=== PATIENT | female | born 1965 | race Caucasian/White ===

== ENCOUNTER 2017-03-25 20:30 | Inpatient (IN) | payer MEDICARE ==
[~2017-03-25] VITALS: Ht 162.6 cm; Wt 101.6 kg
[~2017-03-25 20:30] MED LIST: AMOXICILLI200 MG/5 M PO; ATARAX25 MG ORAL; ATIVAN1 MG ORAL; ATIVAN2 MG/ML IM; ATORVASTATIN CA10 MG ORAL; ATROVENT HFA12.9 GM IH; BENADRYL A12.5 MG/5 ORAL; BENADRYL50 MG ORAL; CEPHALEXIN500 MG ORAL; COGENTIN1 MG ORAL; COLACE100 MG ORAL; CYCLOBENZAPRINE10 MG ORAL; DEPAKOTE250 MG PO; DEPAKOTE500 MG PO; DOCUSATE SODIU100 MG ORAL; DULCOLAX10 MG RC; DUONEB 0.5-3(2.53 ML HHN; FLEET ENEMA133 ML RECTAL; HALOPERIDOL0.5 MG; HALOPERIDOL1 MG ORAL; HEPARIN SO5000 UNIT2 SUBQ; IBUPROFEN600 MG ORAL; IPRATROPIUM BROM5 GM MC; KEPPRA500 MG ORAL; KLONOPIN1 MG ORAL; LACTULOSE20 GM/301 ORAL; LEVAQUIN500 MG ORAL; LEVETIRACE100 MG/1 M PO; LEXAPRO10 MG ORAL; LORAZEPAM2 MG/1 M1 IV; MAALOX MAXIMUM355 M1 PO; MAXITROL EYE DRO5 ML OP; MILK OF MA400 MG/51 ORAL; MIRALAX17 G2 ORAL; MORPHINE 11 MG/1 M3 IV; MORPHINE S10 MG/0.5 PO; MYLANTA30 M1 ORAL; NOVOLOG100 UNIT/3 SUBQ; QUETIAPINE FUMA50 MG ORAL; RANITIDINE HCL150 M1 ORAL; RESTORIL15 MG ORAL; SEROQUEL200 MG ORAL; SOLUMEDROL IV; TOPIRAMATE100 MG ORAL; TOPIRAMATE25 MG ORAL; TRAMADOL HCL50 MG ORAL; TRAZODONE HCL150 MG ORAL; TYLENOL650 MG/20. ORAL; VENTOLIN HFA18 GM INH; ZOFRAN4 M1 ORAL
[2017-03-25 20:40] VITALS: BP 111/68
[2017-03-25] MEDS ORDERED: LORazepam Inj 2mg/ml 1ml IV ONE (21:00)
[2017-03-25 21:59] LABS: BASOPHILS % (AUTO) 1.3 % (0.0-2.0); LYMPHOCYTES % (AUTO) 36.8 % (20.0-45.0); MEAN CORPUSCULAR HEMOGLOBIN 29.3 PG (27.0-31.0); MEAN CORPUSCULAR HGB CONC 33.9 G/DL (32.0-36.0); MEAN CORPUSCULAR VOLUME 86 FL (80-99); MEAN PLATELET VOLUME 5.7 FL (6.5-10.1); MONOCYTES % (AUTO) 9.3 % (1.0-10.0); NEUTROPHILS % (AUTO) 52.6 % (45.0-75.0); PLATELET COUNT 299 K/UL (150-450); RED BLOOD COUNT 3.58 M/UL (4.20-5.40); RED CELL DISTRIBUTION WIDTH 13.9 % (11.6-14.8)
[2017-03-25 22:11] LABS: ALANINE AMINOTRANSFERASE 24 U/L (3-33); ALBUMIN/GLOBULIN RATIO 1.2 (1.0-2.7); ANION GAP 11 (5-15); ASPARTATE AMINO TRANSFERASE 23 U/L (5-40); CARBON DIOXIDE 27 mEQ/L (20-30); CHLORIDE 100 mEQ/L (98-107); CREATININE 1.2 mg/dL (0.5-0.9); GLOMERULAR FILTRATION RATE 47.2 mL/min (>60); HEMOLYSIS 22; POTASSIUM 3.8 mEQ/L (3.4-4.9); SODIUM 138 mEQ/L (135-145); TOTAL PROTEIN 7.2 g/dL (6.6-8.7)
[2017-03-25] MEDS ORDERED: CRANBERRY405 M1 PO (22:45)
[2017-03-25] MEDS ORDERED: VITAMIN D31000 UNI3 PO (22:45)
[2017-03-25] MEDS ORDERED: BENZTROPINE ME0.5 MG PO (22:45)
[2017-03-25] MEDS ORDERED: CALCIUM CARBON500 M1 PO (22:45)
[2017-03-25] MEDS ORDERED: NEURONTIN400 MG ORAL (22:45)
[2017-03-25] MEDS ORDERED: PHENOBARBITAL30 MG ORAL (22:49)
[2017-03-25] MEDS ORDERED: LACTULOSE20 GM/301 ORAL (22:49)
[2017-03-25] MEDS ORDERED: MULTIVITAMINS1 EAC2 ORAL (22:49)
[2017-03-25] MEDS ORDERED: PROTONIX40 MG ORAL (22:49)
[2017-03-25] MEDS ORDERED: KEPPRA1000 MG ORAL (22:49)
[2017-03-25] MEDS ORDERED: AFRIN NASAL SPR30 ML NASAL (22:49)
[2017-03-25] MEDS ORDERED: TOPIRAMATE100 MG ORAL (22:49)
[2017-03-25] MEDS ORDERED: METFORMIN HCL500 M1 ORAL (22:49)
[2017-03-25 22:51] VITALS: BP 107/59
[2017-03-25] MEDS ORDERED: ZOFRAN4 M1 ORAL (22:59)
[2017-03-25] MEDS ORDERED: DUONEB 0.5-3(2.53 ML HHN (22:59)
[2017-03-25] MEDS ORDERED: GUAIFENESI100 MG/5 M ORAL (22:59)
[2017-03-25] MEDS ORDERED: LYRICA75 M1 ORAL (22:59)
[2017-03-25] MEDS ORDERED: Zolpidem 5mg tab ORAL PRN (23:00)
[2017-03-25] MEDS ORDERED: LORazepam Inj 2mg/ml 1ml IV PRN (23:00)
[2017-03-25] MEDS ORDERED: Mylanta II UD 30ml ORAL PRN (23:00)
[2017-03-25] MEDS ORDERED: Miralax 17gm pkt ORAL PRN (23:00)
[2017-03-26] VITALS (7 sets, daily range): BP systolic 104–132; BP diastolic 62–77
--- NOTE | 2017-03-26 | Emergency Room Report ---
History of Present Illness General Chief Complaint: Seizure Source: Patient, EMS Present Illness HPI Patient is a 52-year-old female who presented after increased seizure activity. Patient was noted to have a prior history of seizure disorder. Patient was noted to be on him multiple medications for seizures which included phenobarbital. The patient was reportedly compliant with her medications. Patient stays at [facility]. She denied any fever. She reported having bilateral lower extremity pain which he described as crampy in nature. She stated this had been present for several months. Allergies: Coded Allergies: ACETAMINOPHEN (Verified Allergy, Unknown, 07/22/14) ASPIRIN (Verified Allergy, Unknown, ITCHING, 07/22/14) AZITHROMYCIN (Verified Allergy, Unknown, 07/22/14) COPIED FROM UNCODED CODEINE (Verified Allergy, Unknown, 07/22/14) ERYTHROMYCIN BASE (Verified Allergy, Unknown, 07/22/14) FISH CONTAINING PRODUCTS (Verified Allergy, Unknown, 07/22/14) HYDROCODONE (Verified Allergy, Unknown, 07/22/14) IODINE (Verified Allergy, Unknown, 07/22/14) MIDAZOLAM (Verified Allergy, Unknown, 07/22/14) MILK (Verified Allergy, Unknown, 07/22/14) PROPOXYPHENE (Verified Allergy, Unknown, 07/22/14) COPIED FROM UNCODED SULFA (SULFONAMIDE ANTIBIOTICS) (Verified Allergy, Unknown, 07/22/14) COPIED FROM UNCODED SULFACETAMIDE (Unverified Allergy, Unknown, 03/25/17) SUMATRIPTAN (Verified Allergy, Unknown, 07/22/14) TETRACYCLINE (Verified Allergy, Unknown, RASH, 07/22/14) TETRACYCLINES (Verified Allergy, Unknown, 07/22/14) COPIED FROM UNCODED TOMATO (Verified Allergy, Unknown, 07/22/14) according to pt "I will !".... Patient History Past Medical History: see triage record Now: No Reviewed Nursing Documentation: PMH: Agreed, PSxH: Agreed Nursing Documentation-PMH Hx Hypertension: Yes - Hyperlipidemia Hx Asthma: Yes Hx COPD: Yes Hx Diabetes: Yes - Type 2 Hx Cancer: No Hx Gastrointestinal Problems: Yes - gastroparesis, GERD History Of Psychiatric Problem: Yes - Schizophrenia, Depression, anxiety Hx Neurological Problems: Yes - Generalized weakness, neualgia, neuritis Hx Cerebrovascular Accident: No Hx Transient Ischemic Attacks: No Hx Dementia: No Hx Alzheimer's Disease: No Hx Parkinson's Disease: No Hx Meningitis: No Hx Encephalitis: No Hx Seizures: Yes - Epilepsy Hx Epilepsy: No Hx Multiple Sclerosis: No Hx Cerebral Palsy: No Hx Amyotrophic Lat Sclerosis: No Hx Guillian-Stoneham Syndrome: No Hx Paralysis: No Hx Peripheral Neuropathy: No Hx Spinal Cord Injury: No Hx Head Trauma: No Hx Traumatic Brain Injury: No Hx Memory Loss: Yes Hx Concentration Difficulty: No Hx Speech Problem: No Hx Tremors: No Hx Vertigo: No Hx Dizziness: No Hx Syncope: No Hx Headaches: No Hx Aphasia: No Hx Dysphasia: No Hx Numbness: No Hx Weakness: Yes Hx Fatigue: No Hx Neurologic Surgery: No Hx Brain Shunt: No Review of Systems All Other Systems: negative except mentioned in HPI Physical Exam Vital Signs Date Time Temp Pulse Resp B/P (MAP) Pulse Ox O2 Delivery O2 Flow Rate FiO2 03/25/17 20:22 98.4 81 14 115/80 95 Sp02 EP Interpretation: reviewed, normal General Appearance: normal inspection, well appearing, no apparent distress, alert, GCS 15 Head: atraumatic ENT: normal ENT inspection, hearing grossly normal, normal voice Neck: normal inspection, full range of motion, supple, no bony tend Respiratory: normal inspection, lungs clear, normal breath sounds, no respiratory distress, no retraction, no wheezing Cardiovascular #1: regular rate, rhythm, no edema Gastrointestinal: normal inspection, normal bowel sounds, non tender, soft, no guarding, no hernia Genitourinary: no CVA tenderness Musculoskeletal: decreased range of motion Neurologic: normal inspection, alert, responsive, speech normal, motor weakness - bilateral lower extremities Psychiatric: normal inspection, judgement/insight normal, mood/affect normal Skin: normal inspection, normal color, no rash Medical Decision Making Diagnostic Impression: Primary Impression: Seizure Additional Impressions: Chronic pain Seizure secondary to subtherapeutic anticonvulsant medication Patient presented for seizure. Differential diagnosis included medication noncompliance, cysticercosis, electrolyte abnormality, mass lesion, or cranial hemorrhage.Because of complexity of patient's case laboratory testing and imaging studies were ordered. Laboratory studies were notable for a slightly low phenobarbital level the patient given IV Ativan. Patient was subsequently noted to have some episode which appear to be somewhat like a seizure. This was not witnessed by me. The patient was given IV phenobarbital for subtherapeutic levelDr. Chuck Escamilla was contacted for inpatient management EKG Diagnostic Results Rate: normal Rhythm: NSR ST Segments: no acute changes Rhythm Strip Diag. Results EP Interpretation: yes Rhythm: NSR, no PVC's, no ectopy Last Vital Signs Date Time Temp Pulse Resp B/P (MAP) Pulse Ox O2 Delivery O2 Flow Rate FiO2 03/25/17 22:51 98.4 86 16 107/59 98 Status: unchanged Disposition: ADMITTED INPATIENT Condition: Serious Referrals: CHUCK ESCAMILLA (PCP) Hernandez Fleming Mar 26, 2017 00:00
[2017-03-26 00:41] LABS: APPEARANCE,URINE CLEAR; KETONES,URINE NEGATIVE (NEGATIVE); NITRITE,URINE NEGATIVE (NEGATIVE); PH,URINE 8 (4.5-8.0); PROTEIN,URINE NEGATIVE (NEGATIVE); UROBILINOGEN,URINE NORMAL MG/DL (0.0-1.0)
[2017-03-26 00:44] LABS: LEUKOCYTE ESTERASE ,URINE NEGATIVE (NEGATIVE)
[2017-03-26] MEDS: NovoLOG Insulin Flexpen SUBQ SCH ×4 (05:40→20:24)
[2017-03-26] MEDS: Lactulose 20gm/30ml UDC ORAL SCH (08:21)
[2017-03-26] MEDS: Lyrica 75mg cap ORAL SCH ×2 (08:23→17:28)
[2017-03-26] MEDS: Depakote 500mg tab ORAL SCH ×2 (08:23→20:22)
[2017-03-26] MEDS: Heparin 5000 units/ml inj SUBQ SCH ×2 (08:24→20:23)
[2017-03-26] MEDS: Cyclobenzaprine 10mg Tab ORAL SCH (08:24)
[2017-03-26] MEDS ORDERED: PHENobarbital 32.4mg tab ORAL SCH (09:00)
[2017-03-26 09:25] LABS: BASOPHILS % (AUTO) 0.9 % (0.0-2.0); EOSINOPHILS % (AUTO) 0.1 % (0.0-3.0); LYMPHOCYTES % (AUTO) 24.4 % (20.0-45.0); MEAN CORPUSCULAR HGB CONC 31.2 G/DL (32.0-36.0); MEAN CORPUSCULAR VOLUME 86 FL (80-99); MEAN PLATELET VOLUME 5.8 FL (6.5-10.1); MONOCYTES % (AUTO) 7.9 % (1.0-10.0); NEUTROPHILS % (AUTO) 66.7 % (45.0-75.0); PLATELET COUNT 362 K/UL (150-450); RED CELL DISTRIBUTION WIDTH 13.7 % (11.6-14.8); WHITE BLOOD COUNT 7.1 K/UL (4.8-10.8)
[2017-03-26] MEDS: PHENobarbital 32.4mg tab ORAL SCH ×2 (09:36→20:21)
[2017-03-26 09:48] LABS: ALANINE AMINOTRANSFERASE 22 U/L (3-33); ANION GAP 14 (5-15); ASPARTATE AMINO TRANSFERASE 20 U/L (5-40); CALCIUM 9.3 mg/dL (8.6-10.2); CARBON DIOXIDE 24 mEQ/L (20-30); CHLORIDE 104 mEQ/L (98-107); CREATININE 0.9 mg/dL (0.5-0.9); GLOMERULAR FILTRATION RATE > 60 mL/min (>60); HEMOLYSIS 0; POTASSIUM 3.9 mEQ/L (3.4-4.9); SODIUM 142 mEQ/L (135-145); TOTAL PROTEIN 7.9 g/dL (6.6-8.7)
--- NOTE | 2017-03-26 11:12 | Consultation ---
Consult Note Consult Note NEUROLOGY CONSULTATION: Full note dictated #[id number] 52 y/o, RH, CF with PH of MMP including seizures - which she says are grand mal and pseudoseizures. Has seizures every 2 weeks or so. ON EXAM: Problems with orientation, memory, VSF, HCF Globally absent reflexes. Unable to walk as she is scared. IMPRESSION: Breakthrough seizures in patient on poly pharmacy. REC: 1. Increase Keppra to 1.5 G q 12 hours. 2. Check Depakote level and adjust dose to aim for level of 70-90. 3. EEG Gino Davis M.D., M.S.P.H. GINO DAVIS Mar 26, 2017 11:12
--- NOTE | 2017-03-26 13:41 | Cardiology Report ---
APPROVED REPORT EKG Measurement Heart [id number] Normal sinus rhythm Low voltage QRS Cannot rule out Anterior infarct, age undetermined Abnormal ECG
--- NOTE | 2017-03-26 15:25 | Consultation ---
History of Present Illness General Date patient seen: Mar 26, 2017 Chief Complaint: Seizure Reason for Consultation: inpatient management Present Illness HPI 52-year-old female with pmhx of seizures, jail resident, fibromyalgia, Asthma presented to ER with CC of increased seizure activity. Patient was noted to have a prior history of seizure disorder. Patient was noted to be on him multiple medications for seizures which included phenobarbital. She denied any fever. She reported having bilateral lower extremity pain which he described as crampy in nature. She stated this had been present for several months. She is admitted for treatment of her uncontrolled seizures. Allergies: Coded Allergies: ACETAMINOPHEN (Verified Allergy, Unknown, 07/22/14) ASPIRIN (Verified Allergy, Unknown, ITCHING, 07/22/14) AZITHROMYCIN (Verified Allergy, Unknown, 07/22/14) COPIED FROM UNCODED CODEINE (Verified Allergy, Unknown, 07/22/14) ERYTHROMYCIN BASE (Verified Allergy, Unknown, 07/22/14) FISH CONTAINING PRODUCTS (Verified Allergy, Unknown, 07/22/14) HYDROCODONE (Verified Allergy, Unknown, 07/22/14) IODINE (Verified Allergy, Unknown, 07/22/14) MIDAZOLAM (Verified Allergy, Unknown, 07/22/14) MILK (Verified Allergy, Unknown, 07/22/14) PROPOXYPHENE (Verified Allergy, Unknown, 07/22/14) COPIED FROM UNCODED SULFA (SULFONAMIDE ANTIBIOTICS) (Verified Allergy, Unknown, 07/22/14) COPIED FROM UNCODED SULFACETAMIDE (Unverified Allergy, Unknown, 03/25/17) SUMATRIPTAN (Verified Allergy, Unknown, 07/22/14) TETRACYCLINE (Verified Allergy, Unknown, RASH, 07/22/14) TETRACYCLINES (Verified Allergy, Unknown, 07/22/14) COPIED FROM UNCODED TOMATO (Verified Allergy, Unknown, 07/22/14) according to pt "I will !".... Medication History Scheduled Benztropine Mesylate* (Cogentin*), 1 MG PO BID, (Reported) Calcium Carbonate (Calcium Carbonate), 500 MG PO DAILY, (Reported) Cholecalciferol (Vitamin D3) (Vitamin D3), 1,000 UNIT PO BID, (Reported) Clonazepam* (Klonopin*), 1 MG ORAL TWICE A DAY, (Reported) Cranberry Extract (Cranberry), 405 MG PO BID, (Reported) Cyclobenzaprine Hcl* (Flexeril*), 10 MG ORAL DAILY, (Reported) Diphenhydramine HCl (Diphenhydramine HCl), 50 MG ORAL TID, (Reported) Divalproex Sodium (Depakote), 1,000 MG PO Q12HR, (Reported) Escitalopram Oxalate* (Lexapro*), 10 MG ORAL DAILY, (Reported) Gabapentin* (Neurontin*), 300 MG ORAL THREE TIMES A DAY, (Reported) Haloperidol* (Haldol*), 10 MG ORAL TID, (Reported) Ipratropium/Albuterol Sulfate (DuoNeb 0.5-3(2.5)mg/3ml), 3 ML HHN Q6HR, ( Reported) Lactulose (Lactulose*), 30 ML ORAL DAILY, (Reported) Levetiracetam (Keppra), 1,500 MG ORAL EVERY 12 HOURS, (Reported) Levetiracetam (Keppra), 1,250 MG ORAL Q12HR, (Reported) Levofloxacin* (Levaquin*), 500 MG ORAL DAILY, (Reported) Metformin Hcl* (Metformin Hcl*), 500 MG ORAL TWICE A DAY, (Reported) Multivitamins* (Multivitamins*), 1 TAB ORAL DAILY, (Reported) Damion/Polymyx B Sulf/Dexameth (Maxitrol Eye Drops), 5 ML OP Q4HR Oxymetazoline HCl (Afrin), 2 SPRAY NASAL TWICE A DAY, (Reported) Pantoprazole* (Protonix*), 40 MG ORAL DAILY, (Reported) Phenobarbital* (Phenobarbital*), 30 MG ORAL Q12HR, (Reported) Pregabalin* (Lyrica*), 75 MG ORAL BID, (Reported) Quetiapine Fumarate* (Seroquel*), 300 MG ORAL QHS, (Reported) Topiramate* (Topamax*), 100 MG ORAL Q12HR, (Reported) Topiramate* (Topamax*), 150 MG ORAL DAILY, (Reported) Trazodone* (Trazodone*), 100 MG ORAL BEDTIME, (Reported) Scheduled PRN Guaifenesin* (Guaifenesin), 10 ML ORAL Q4H PRN for For Cough, (Reported) Hydroxyzine HCl (Hydroxyzine HCl), 25 MG ORAL Q8HR PRN for Itching, (Reported) Lorazepam (Lorazepam), 2 MG IM Q4H PRN for Agitation, (Reported) Magnesium Hydroxide* (Milk Of Magnesia*), 30 ML ORAL DAILY PRN for Constipation, (Reported) Ondansetron (Zofran), 4 MG ORAL Q6H PRN for Nausea & Vomiting, (Reported) Ondansetron (Zofran), 4 MG ORAL Q4HR PRN for Nausea & Vomiting, (Reported) Polyethylene Glycol 3350* (Miralax*), 17 GM ORAL QHS PRN for CONSTIPATION, ( Reported) Tramadol Hcl* (Ultram*), 50 MG ORAL Q8HR PRN for Moderate Pain (Pain Scale 4-6), (Reported) Miscellaneous Medications Insulin Aspart* (Novolog*), 0 SUBQ, (Reported) Patient History Healthcare decision maker Resuscitation status Full Code Advanced Directive on File No Past Medical/Surgical History Past Medical/Surgical History: (1) Seizure (2) Fibromyalgia (3) History of ESBL E. 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, no motor/sensory deficits Lymphatic: anterior cervical Last 24 Hour Vital Signs Date Time Temp Pulse Resp B/P (MAP) Pulse Ox O2 Delivery O2 Flow Rate FiO2 03/26/17 11:52 97.9 84 19 127/70 95 Room Air 03/26/17 10:35 97.3 03/26/17 09:22 97.3 03/26/17 09:22 97.3 03/26/17 08:26 97.3 84 20 129/73 95 Room Air 03/26/17 00:42 97.9 86 20 109/66 95 Room Air 03/26/17 00:15 98.5 89 16 104/62 98 Room Air 03/26/17 00:15 98.5 89 16 104/62 98 Room Air 03/25/17 22:51 98.4 86 16 107/59 98 03/25/17 20:40 81 14 Room Air 03/25/17 20:40 98.4 81 14 111/68 95 Room Air 03/25/17 20:22 98.4 81 14 115/80 95 Intake and Output 03/26/17 03/27/17 19:00 07:00 # Bowel Movements 2 Laboratory Tests Test 03/25/17 21:50 03/26/17 00:05 03/26/17 08:50 White Blood Count 8.0 K/UL (4.8-10.8) 7.1 K/UL (4.8-10.8) Red Blood Count 3.58 M/UL (4.20-5.40) L 4.40 M/UL (4.20-5.40) Hemoglobin 10.5 G/DL (12.0-16.0) L 11.9 G/DL (12.0-16.0) L Hematocrit 30.9 % (37.0-47.0) L 38.0 % (37.0-47.0) Mean Corpuscular Volume 86 FL (80-99) 86 FL (80-99) Mean Corpuscular Hemoglobin 29.3 PG (27.0-31.0) 27.0 PG (27.0-31.0) Mean Corpuscular Hemoglobin Concent 33.9 G/DL (32.0-36.0) 31.2 G/DL (32.0-36.0) L Red Cell Distribution Width 13.9 % (11.6-14.8) 13.7 % (11.6-14.8) Platelet Count 299 K/UL (150-450) 362 K/UL (150-450) Mean Platelet Volume 5.7 FL (6.5-10.1) L 5.8 FL (6.5-10.1) L Neutrophils (%) (Auto) 52.6 % (45.0-75.0) 66.7 % (45.0-75.0) Lymphocytes (%) (Auto) 36.8 % (20.0-45.0) 24.4 % (20.0-45.0) Monocytes (%) (Auto) 9.3 % (1.0-10.0) 7.9 % (1.0-10.0) Eosinophils (%) (Auto) 0.0 % (0.0-3.0) 0.1 % (0.0-3.0) Basophils (%) (Auto) 1.3 % (0.0-2.0) 0.9 % (0.0-2.0) Sodium Level 138 mEQ/L (135-145) 142 mEQ/L (135-145) Potassium Level 3.8 mEQ/L (3.4-4.9) 3.9 mEQ/L (3.4-4.9) Chloride Level 100 mEQ/L (98-107) 104 mEQ/L (98-107) Carbon Dioxide Level 27 mEQ/L (20-30) 24 mEQ/L (20-30) Anion Gap 11 (5-15) 14 (5-15) Blood Urea Nitrogen 26 mg/dL (7-23) H 25 mg/dL (7-23) H Creatinine 1.2 mg/dL (0.5-0.9) H 0.9 mg/dL (0.5-0.9) Estimat Glomerular Filtration Rate 47.2 mL/min (>60) > 60 mL/min (>60) Glucose Level 188 mg/dL (74-106) H 210 mg/dL (74-106) H Calcium Level 9.0 mg/dL (8.6-10.2) 9.3 mg/dL (8.6-10.2) Total Bilirubin < 0.2 mg/dL (0.0-1.2) < 0.2 mg/dL (0.0-1.2) Aspartate Amino Transf (AST/SGOT) 23 U/L (5-40) 20 U/L (5-40) Alanine Aminotransferase (ALT/SGPT) 24 U/L (3-33) 22 U/L (3-33) Alkaline Phosphatase 140 U/L (35-104) H 148 U/L (35-104) H Total Protein 7.2 g/dL (6.6-8.7) 7.9 g/dL (6.6-8.7) Albumin 4.0 g/dL (3.5-5.2) 4.1 g/dL (3.5-5.2) Globulin 3.2 g/dL 3.8 g/dL Albumin/Globulin Ratio 1.2 (1.0-2.7) 1.0 (1.0-2.7) Phenobarbital Level 9.1 ug/mL (20.0-40.0) L Urine Color Yellow Urine Appearance Clear Urine pH 8 (4.5-8.0) Urine Specific [place] 1.010 (1.005-1.035) Urine Protein Negative (NEGATIVE) Urine Glucose (UA) Negative (NEGATIVE) Urine Ketones Negative (NEGATIVE) Urine Occult Blood Negative (NEGATIVE) Urine Nitrite Negative (NEGATIVE) Urine Bilirubin Negative (NEGATIVE) Urine Urobilinogen Normal MG/DL (0.0-1.0) Urine Leukocyte Esterase Negative (NEGATIVE) Height (Feet): 5 Height (Inches): 4.00 Weight (Pounds): 224 Medications Current Medications Medications (Trade) Dose Ordered Sig/Robb Route PRN Reason Start Time Stop Time Status Last Admin Dose Admin Acetaminophen (Tylenol) 650 mg Q4H PRN ORAL fever 03/25/17 23:00 04/24/17 22:59 03/26/17 09:36 Al Hydroxide/Mg Hydroxide (Mylanta II) 30 ml Q6H PRN ORAL dyspepsia 03/25/17 23:00 04/24/17 22:59 Cyclobenzaprine HCl (Flexeril) 10 mg DAILY ORAL 03/26/17 09:00 04/25/17 08:59 03/26/17 08:24 Dextrose (Dextrose 50%) STAT PRN IV Hypoglycemia 03/25/17 23:00 04/24/17 22:59 Divalproex Sodium (Depakote) 1,000 mg Q12HR ORAL 03/26/17 09:00 04/25/17 08:59 03/26/17 08:23 Escitalopram Oxalate (Lexapro) 10 mg DAILY ORAL 03/26/17 09:00 04/25/17 08:59 03/26/17 08:22 Gabapentin (Neurontin) 300 mg THREE TIMES A DAY ORAL 03/26/17 09:00 04/25/17 08:59 03/26/17 12:52 Haloperidol (Haldol) 10 mg TID ORAL 03/26/17 09:00 04/25/17 08:59 03/26/17 12:52 Heparin Sodium (Porcine) (Heparin 5000 units/ml) 5,000 units EVERY 12 HOURS SUBQ 03/26/17 09:00 04/25/17 08:59 Insulin Aspart (NovoLOG) BEFORE MEALS AND HS SUBQ 03/26/17 06:30 04/25/17 06:29 03/26/17 05:40 Lactulose (Cephulac) 20 gm DAILY ORAL 03/26/17 09:00 04/25/17 08:59 03/26/17 08:21 Levetiracetam (Keppra) 1,500 mg Q12HR ORAL 03/26/17 21:00 04/25/17 20:59 Lorazepam (Ativan 2mg/ml 1ml) 2 mg Q1H PRN IV seizures 03/25/17 23:00 04/01/17 22:59 Ondansetron HCl (Zofran) 4 mg Q6H PRN IVP Nausea & Vomiting 03/25/17 23:00 04/24/17 22:59 Pantoprazole (Protonix) 40 mg DAILY ORAL 03/26/17 09:00 04/25/17 08:59 03/26/17 08:24 Phenobarbital (PHENobarbital) 32.4 mg Q12HR ORAL 03/26/17 09:00 04/25/17 08:59 03/26/17 09:36 Polyethylene Glycol (Miralax) 17 gm HSPRN PRN ORAL Constipation 03/25/17 23:00 04/24/17 22:59 Pregabalin (Lyrica) 75 mg BID ORAL 03/26/17 09:00 04/25/17 08:59 03/26/17 08:23 Quetiapine Fumarate (SEROquel) 300 mg QHS ORAL 03/26/17 21:00 04/25/17 20:59 Trazodone HCl (Desyrel) 100 mg BEDTIME ORAL 03/26/17 21:00 04/25/17 20:59 Zolpidem Tartrate (Ambien) 5 mg HSPRN PRN ORAL Insomnia 03/25/17 23:00 04/24/17 22:59 03/26/17 02:26 Assessment/Plan Problem List: (1) Seizure ICD Codes: R56.9 - Unspecified convulsions SNOMED: 22797670 (2) Fibromyalgia ICD Codes: M79.7 - Fibromyalgia SNOMED: 403193065 (3) Dermatitis ICD Codes: L30.9 - Dermatitis SNOMED: 324524006 (4) Chronic pain ICD Codes: G89.29 - Other chronic pain SNOMED: 67431992 (5) History of asthma ICD Codes: Z87.09 - Personal history of other diseases of the respiratory system SNOMED: 018420309 Assessment/Plan seizure precautions neuro evaluation pt/ot continue seizure meds respiratory treatment dvt prophylaxis. ZITA MANDEL Mar 26, 2017 15:25
[2017-03-26] MEDS ORDERED: TraZODone 100mg tab ORAL SCH (21:00)
[2017-03-27] VITALS: BP 118/75
[2017-03-27] MEDS: LORazepam 1mg tab ORAL PRN ×2 (00:35→14:23)
[2017-03-27 04:00] VITALS: BP 112/66
--- NOTE | 2017-03-27 05:01 | Consultation ---
DATE OF CONSULTATION: 03/26/2017 NEUROLOGY CONSULTATION CONSULTING PHYSICIAN: Scooter Davis M.D. REQUESTING PHYSICIAN: Scott Samson D.O. HISTORY: Ms. 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 She says that when she has a seizure, she shakes all over. At times, she is unconscious when she has these events and at other times, she is conscious. She has been on multiple different drugs for her seizures and continues to be on numerous drugs, but continues to have the seizures every two weeks or so. She apparently had seizures yesterday and as a result of that, was brought into the [facility] emergency room and has been admitted since then. She denies any weakness on one side or the other, numbness on one side or the other, problems with speech, problems with language, problems with vision, or any other neurological symptoms. PAST MEDICAL HISTORY: Significant for high blood pressure, diabetes mellitus, dyslipidemia, chronic obstructive pulmonary disease, schizoaffective disorder, and poorly defined seizure disorder. FAMILY HISTORY: The patient says that she was adopted and does not know if there is any family history of any illnesses. PERSONAL HISTORY: Home: She lives in a skilled nursing. 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 Habits: She denies the use of alcohol, tobacco, or illicit drugs. PRESENT MEDICATIONS: Seroquel, Desyrel, Flexeril, Depakote 1 g q.12 hours, Lexapro, Neurontin 300 mg three times a day, Haldol, lactulose, Keppra 1250 mg twice a day, pantoprazole, Lyrica 75 mg twice a day, phenobarbital 30 mg twice a day, Mylanta, Ambien, Ativan p.r.n., Zofran p.r.n., MiraLAX p.r.n., and Tylenol p.r.n. PHYSICAL EXAMINATION: GENERAL: She is a well-developed, well-nourished, obese lady, lying in bed, in no acute distress. VITAL SIGNS: Pulse 84 per minute, blood pressure 129/73 mmHg, respirations 20 per minute, and temperature 97.3 degrees Fahrenheit. HEAD: Normocephalic and atraumatic. EENT: Examination benign. NECK: No neck rigidity was observed. NEUROLOGIC EXAMINATION: MENTAL STATUS EXAMINATION: She was awake and alert. She was oriented to [facility], [facility], and March 2017. She did not know the exact date. She was able to recall 3/3 words immediately, but could only remember 2/3 words in 1 minute and 3 minutes even on the second trial. She was able to remember presidents, Trump and Obama, but could not remember presidents prior to that. Her mathematical skills were impaired. Her visuospatial function was also impaired. SPEECH: She had a mild dysarthria, but it should be noted that most of her teeth were missing. LANGUAGE: She had an anomia for low-frequency words. CRANIAL NERVE EXAMINATION: II: The visual maxwell were intact to confrontation testing frequent. III, IV & : The external ocular movements were full and the pupils 3 mm in diameter, equal, round, regular, and reactive to light. V: She had normal facial sensations and the temporales, masseters, and pterygoids functioned normally. VII: She had normal facial expressions and no facial asymmetry. VIII: She was able to hear well bilaterally and had no nystagmus. IX: The palate moved symmetrically on phonation. X: She had no hoarseness of voice. XI: The sternocleidomastoids and trapezii functioned normally. XII: The tongue was in the midline without any fasciculations or atrophy. MOTOR SYSTEM: The tone was normal in all four extremities. Examination of muscle mass revealed no focal wasting. Examination of power was exceedingly difficult to perform because of varying degrees of cooperation. She, however, moved all four extremities relatively well with relatively good strength. SENSORY EXAMINATION: She had intact sensations to pinprick, light touch, and graphesthesia. COORDINATION: She performed well on [id number] and [id number] testing. REFLEXES: 0 at the biceps, triceps, brachioradialis, knees, and ankles. The plantar responses were flexor bilaterally. STANCE & GAIT: Could not be tested because she felt very scared to stand up and walk. DIAGNOSTIC IMPRESSION: 1. Ms. Kristin Almonte is a 52-year-old, right-handed, lady, with a past history of multiple medical problems including a seizure disorder, which she says consists of grand mal seizures and pseudoseizures. She has seizures every two weeks or so and presented to the emergency room with an exacerbation of seizures. 2. On neurological examination, at this time, she does have problems with orientation, recent and remote memory, visuospatial function, and higher cognitive function. She also has globally absent deep tendon reflexes and is scared to stand and walk. 3. Her latest laboratory data revealed that she does have mild anemia with a hemoglobin of 11.9, blood glucose is elevated to 210, BUN is elevated to 25, her alkaline phosphatase is elevated to 148, her phenobarbital level is 9.1, however it should be noted that she is taking small doses of phenobarbital, and her urinalysis is benign for an acute infectious process. 4. The patient's history and neurological examination are most compatible with breakthrough seizures in a patient, who is on polypharmacy for her seizure control. RECOMMENDATIONS: 1. Agree with management thus far. 2. Her dose of Keppra will be increased to 1.5 g q.12 hours. 3. Her Depakote level will be checked and depending on what the Depakote level is, the dose may have to be adjusted. We should aim for a level of between 70 and 90 mcg/mL. 4. An EEG will be ordered to evaluate the patient for ongoing ictal or interictal phenomena. 5. The patient should be mobilized rapidly with the help of physical and occupational therapy. Thank you for entrusting me with the care of Ms. Almonte. I shall follow her with you. Scooter Davis M.D., M.S.P.H. DR: ELIANA JOB#: [id number]
[2017-03-27 06:02] LABS: BASOPHILS % (AUTO) 1.2 % (0.0-2.0); EOSINOPHILS % (AUTO) 0.1 % (0.0-3.0); LYMPHOCYTES % (AUTO) 36.3 % (20.0-45.0); MEAN CORPUSCULAR HEMOGLOBIN 27.6 PG (27.0-31.0); MEAN CORPUSCULAR VOLUME 86 FL (80-99); MEAN PLATELET VOLUME 5.8 FL (6.5-10.1); MONOCYTES % (AUTO) 10.6 % (1.0-10.0); NEUTROPHILS % (AUTO) 51.8 % (45.0-75.0); PLATELET COUNT 338 K/UL (150-450); RED BLOOD COUNT 4.11 M/UL (4.20-5.40); RED CELL DISTRIBUTION WIDTH 13.9 % (11.6-14.8); WHITE BLOOD COUNT 6.2 K/UL (4.8-10.8)
[2017-03-27] MEDS: NovoLOG Insulin Flexpen SUBQ SCH ×3 (06:08→17:09)
[2017-03-27 06:42] LABS: ANION GAP 12 (5-15); CARBON DIOXIDE 26 mEQ/L (20-30); CHLORIDE 102 mEQ/L (98-107); CREATININE 0.9 mg/dL (0.5-0.9); GLOMERULAR FILTRATION RATE > 60 mL/min (>60); HEMOLYSIS 7; POTASSIUM 4.4 mEQ/L (3.4-4.9); SODIUM 140 mEQ/L (135-145)
[2017-03-27 08:16] VITALS: BP 116/76
--- NOTE | 2017-03-27 08:46 | Pulmonology Progress Note ---
Assessment/Plan Assessment/Plan ASSESSMENT breakthrough seizure episode seizure disorder anemia DM COPD chronic liver disease schizophrenia polypharmacy ( multiple anticonvulsant medications) noncompliance PLAN OF CARE [facility] floor neuro follows dose of Keppra increased Depakote level-therapeutic EEG done, awaiting for results seizure precautions continue Depakote, Pheno, Keppra, Ativan prn PT/OT O2 HHN prn no evidence of COPD exacerbation HH stable, at baseline, monitor LFT stable BS management with SS of insulin, stable DVT, GI prophylaxis dc plan as per PMD when cleared by neuro case discussed and evaluated by supervising physician Subjective Allergies: Coded Allergies: ACETAMINOPHEN (Verified Allergy, Unknown, 07/22/14) ASPIRIN (Verified Allergy, Unknown, ITCHING, 07/22/14) AZITHROMYCIN (Verified Allergy, Unknown, 07/22/14) COPIED FROM UNCODED CODEINE (Verified Allergy, Unknown, 07/22/14) ERYTHROMYCIN BASE (Verified Allergy, Unknown, 07/22/14) FISH CONTAINING PRODUCTS (Verified Allergy, Unknown, 07/22/14) HYDROCODONE (Verified Allergy, Unknown, 07/22/14) IODINE (Verified Allergy, Unknown, 07/22/14) MIDAZOLAM (Verified Allergy, Unknown, 07/22/14) MILK (Verified Allergy, Unknown, 07/22/14) PROPOXYPHENE (Verified Allergy, Unknown, 07/22/14) COPIED FROM UNCODED SULFA (SULFONAMIDE ANTIBIOTICS) (Verified Allergy, Unknown, 07/22/14) COPIED FROM UNCODED SULFACETAMIDE (Unverified Allergy, Unknown, 03/25/17) SUMATRIPTAN (Verified Allergy, Unknown, 07/22/14) TETRACYCLINE (Verified Allergy, Unknown, RASH, 07/22/14) TETRACYCLINES (Verified Allergy, Unknown, 07/22/14) COPIED FROM UNCODED TOMATO (Verified Allergy, Unknown, 07/22/14) according to pt "I will !".... Subjective no further seizure activity denies chest pain, SOB, dizziness ambulates to the bathroom EEG completed last night Objective Last 24 Hour Vital Signs Date Time Temp Pulse Resp B/P (MAP) Pulse Ox O2 Delivery O2 Flow Rate FiO2 03/27/17 08:16 98.0 87 20 116/76 95 Room Air 03/27/17 04:00 97.2 72 18 112/66 94 Room Air 03/27/17 01:34 97.7 03/27/17 00:00 97.7 75 18 118/75 96 Room Air 03/26/17 20:00 98.2 78 18 123/77 96 Room Air 03/26/17 19:47 97.8 03/26/17 18:27 97.8 03/26/17 15:33 97.8 87 20 132/70 97 Room Air 03/26/17 11:52 97.9 84 19 127/70 95 Room Air 03/26/17 09:22 97.3 General Appearance: no acute distress HEENT: normocephalic, atraumatic, anicteric, mucous membranes moist Respiratory/Chest: lungs clear, no respiratory distress, no accessory muscle use Cardiovascular: normal peripheral pulses, normal rate, no JVD Abdomen: normal bowel sounds, soft, non tender - obese Neurologic/Psychiatric: no motor/sensory deficits, alert, responsive Musculoskeletal: normal muscle bulk Laboratory Tests 03/26/17 08:50: White Blood Count 7.1, Red Blood Count 4.40, Hemoglobin 11.9L, Hematocrit 38.0, Mean Corpuscular Volume 86, Mean Corpuscular Hemoglobin 27.0, Mean Corpuscular Hemoglobin Concent 31.2L, Red Cell Distribution Width 13.7, Platelet Count 362, Mean Platelet Volume 5.8L, Neutrophils (%) (Auto) 66.7, Lymphocytes (%) (Auto) 24.4, Monocytes (%) (Auto) 7.9, Eosinophils (%) (Auto) 0.1, Basophils (%) (Auto ) 0.9, Sodium Level 142, Potassium Level 3.9, Chloride Level 104, Carbon Dioxide Level 24, Anion Gap 14, Blood Urea Nitrogen 25H, Creatinine 0.9, Estimat Glomerular Filtration Rate > 60, Glucose Level 210H, Calcium Level 9.3, Total Bilirubin < 0.2, Aspartate Amino Transf (AST/SGOT) 20, Alanine Aminotransferase (ALT/SGPT) 22, Alkaline Phosphatase 148H, Total Protein 7.9, Albumin 4.1, Globulin 3.8, Albumin/Globulin Ratio 1.0 03/27/17 05:20: White Blood Count 6.2, Red Blood Count 4.11L, Hemoglobin 11.4L, Hematocrit 35.5L , Mean Corpuscular Volume 86, Mean Corpuscular Hemoglobin 27.6, Mean Corpuscular Hemoglobin Concent 32.0, Red Cell Distribution Width 13.9, Platelet Count 338, Mean Platelet Volume 5.8L, Neutrophils (%) (Auto) 51.8, Lymphocytes ( %) (Auto) 36.3, Monocytes (%) (Auto) 10.6H, Eosinophils (%) (Auto) 0.1, Basophils (%) (Auto) 1.2, Sodium Level 140, Potassium Level 4.4, Chloride Level 102, Carbon Dioxide Level 26, Anion Gap 12, Blood Urea Nitrogen 24H, Creatinine 0.9, Estimat Glomerular Filtration Rate > 60, Glucose Level 134H, Calcium Level 9.0, Valproic Acid (Depakene) Level 63 Current Medications Medications (Trade) Dose Ordered Sig/Robb Route PRN Reason Start Time Stop Time Status Last Admin Dose Admin Acetaminophen (Tylenol) 650 mg Q4H PRN ORAL fever 03/25/17 23:00 04/24/17 22:59 03/26/17 18:48 Al Hydroxide/Mg Hydroxide (Mylanta II) 30 ml Q6H PRN ORAL dyspepsia 03/25/17 23:00 04/24/17 22:59 Cyclobenzaprine HCl (Flexeril) 10 mg DAILY ORAL 03/26/17 09:00 04/25/17 08:59 03/26/17 08:24 Dextrose (Dextrose 50%) STAT PRN IV Hypoglycemia 03/25/17 23:00 04/24/17 22:59 Divalproex Sodium (Depakote) 1,000 mg Q12HR ORAL 03/26/17 09:00 04/25/17 08:59 03/26/17 20:22 Escitalopram Oxalate (Lexapro) 10 mg DAILY ORAL 03/26/17 09:00 04/25/17 08:59 03/26/17 08:22 Gabapentin (Neurontin) 300 mg THREE TIMES A DAY ORAL 03/26/17 09:00 04/25/17 08:59 03/26/17 16:58 Haloperidol (Haldol) 10 mg TID ORAL 03/26/17 09:00 04/25/17 08:59 03/26/17 16:58 Heparin Sodium (Porcine) (Heparin 5000 units/ml) 5,000 units EVERY 12 HOURS SUBQ 03/26/17 09:00 04/25/17 08:59 03/26/17 20:23 Ibuprofen (Motrin) 600 mg Q6H PRN ORAL For Pain 03/26/17 16:00 04/25/17 15:59 03/27/17 00:35 Insulin Aspart (NovoLOG) BEFORE MEALS AND HS SUBQ 03/26/17 06:30 04/25/17 06:29 03/27/17 06:08 Lactulose (Cephulac) 20 gm DAILY ORAL 03/26/17 09:00 04/25/17 08:59 03/26/17 08:21 Levetiracetam (Keppra) 1,500 mg Q12HR ORAL 03/26/17 21:00 04/25/17 20:59 03/26/17 20:21 Lorazepam (Ativan 2mg/ml 1ml) 2 mg Q1H PRN IV seizures 03/25/17 23:00 04/01/17 22:59 Lorazepam (Ativan) 1 mg Q6H PRN ORAL For Anxiety 03/26/17 21:30 04/02/17 21:29 03/27/17 00:35 Ondansetron HCl (Zofran) 4 mg Q6H PRN IVP Nausea & Vomiting 03/25/17 23:00 04/24/17 22:59 Pantoprazole (Protonix) 40 mg DAILY ORAL 03/26/17 09:00 04/25/17 08:59 03/26/17 08:24 Phenobarbital (PHENobarbital) 32.4 mg Q12HR ORAL 03/26/17 09:00 04/25/17 08:59 03/26/17 20:21 Polyethylene Glycol (Miralax) 17 gm HSPRN PRN ORAL Constipation 03/25/17 23:00 04/24/17 22:59 Pregabalin (Lyrica) 75 mg BID ORAL 03/26/17 09:00 04/25/17 08:59 03/26/17 17:28 Quetiapine Fumarate (SEROquel) 300 mg QHS ORAL 03/26/17 21:00 04/25/17 20:59 03/26/17 20:21 Trazodone HCl (Desyrel) 100 mg BEDTIME ORAL 03/26/17 21:00 04/25/17 20:59 03/26/17 20:22 Zolpidem Tartrate (Ambien) 5 mg HSPRN PRN ORAL Insomnia 03/25/17 23:00 04/24/17 22:59 03/26/17 02:26 Bear ([facility])Alana NP Mar 27, 2017 08:46
[2017-03-27] MEDS: Heparin 5000 units/ml inj SUBQ SCH (09:00)
[2017-03-27] MEDS: Depakote 500mg tab ORAL SCH (09:02)
[2017-03-27] MEDS: Lactulose 20gm/30ml UDC ORAL SCH (09:02)
[2017-03-27] MEDS: PHENobarbital 32.4mg tab ORAL SCH (09:03)
[2017-03-27] MEDS: Cyclobenzaprine 10mg Tab ORAL SCH (09:04)
[2017-03-27] MEDS: Lyrica 75mg cap ORAL SCH ×2 (09:04→17:08)
--- NOTE | 2017-03-27 09:27 | General Progress Note ---
Assessment/Plan Assessment/Plan (1) Lumbar radiculopathy (2) Lumbar spondylosis (3) Lumbar degenerative disc disease Pt will be continued on Motrin 800mg Q8H as needed D/w and he concurred. Thank you for the courtesy of this consultation Subjective Date patient seen: Mar 27, 2017 Time patient seen: 08:30 - am Allergies: Coded Allergies: ACETAMINOPHEN (Verified Allergy, Unknown, 07/22/14) ASPIRIN (Verified Allergy, Unknown, ITCHING, 07/22/14) AZITHROMYCIN (Verified Allergy, Unknown, 07/22/14) COPIED FROM UNCODED CODEINE (Verified Allergy, Unknown, 07/22/14) ERYTHROMYCIN BASE (Verified Allergy, Unknown, 07/22/14) FISH CONTAINING PRODUCTS (Verified Allergy, Unknown, 07/22/14) HYDROCODONE (Verified Allergy, Unknown, 07/22/14) IODINE (Verified Allergy, Unknown, 07/22/14) MIDAZOLAM (Verified Allergy, Unknown, 07/22/14) MILK (Verified Allergy, Unknown, 07/22/14) PROPOXYPHENE (Verified Allergy, Unknown, 07/22/14) COPIED FROM UNCODED SULFA (SULFONAMIDE ANTIBIOTICS) (Verified Allergy, Unknown, 07/22/14) COPIED FROM UNCODED SULFACETAMIDE (Unverified Allergy, Unknown, 03/25/17) SUMATRIPTAN (Verified Allergy, Unknown, 07/22/14) TETRACYCLINE (Verified Allergy, Unknown, RASH, 07/22/14) TETRACYCLINES (Verified Allergy, Unknown, 07/22/14) COPIED FROM UNCODED TOMATO (Verified Allergy, Unknown, 07/22/14) according to pt "I will !".... Subjective Constitutional: Denies: no symptoms, chills, diaphoresis, fever, malaise, weakness, other HEENT: Denies: no symptoms, eye pain, blurred vision, tearing, double vision, ear pain, ear discharge, nose pain, nose congestion, throat pain, throat swelling, mouth pain, mouth swelling, other Cardiovascular: Denies: no symptoms, chest pain, edema, irregular heart rate, lightheadedness, palpitations, syncope, other Respiratory: Denies: no symptoms, cough, orthopnea, shortness of breath, SOB with excertion, SOB at rest, sputum, stridor, wheezing, other Gastrointestinal/Abdominal: Reports: Abdmoinal pain, nausea, vomiting Genitourinary: Denies: burning, discharge, frequency, flank pain, urgency Neurologic/Psychiatric: Reports: depressed, weakness Endocrine: Denies: no symptoms, excessive sweating, flushing, intolerance to cold, intolerance to heat, increased hunger, increased thirst, increased urine, unexplained weight gain, unexplained weight loss, other Hematologic/Lymphatic: Denies: no symptoms, anemia, easy bleeding, easy bruising, other Subjective Pt is a known patient from prior admissions and now as been admitted due to seizure activities. She was started on Motrin 800mg Q8H PRN. Objective Last 24 Hour Vital Signs Date Time Temp Pulse Resp B/P (MAP) Pulse Ox O2 Delivery O2 Flow Rate FiO2 03/27/17 08:16 98.0 87 20 116/76 95 Room Air 03/27/17 04:00 97.2 72 18 112/66 94 Room Air 03/27/17 01:34 97.7 03/27/17 00:00 97.7 75 18 118/75 96 Room Air 03/26/17 20:00 98.2 78 18 123/77 96 Room Air 03/26/17 19:47 97.8 03/26/17 18:27 97.8 03/26/17 15:33 97.8 87 20 132/70 97 Room Air 03/26/17 11:52 97.9 84 19 127/70 95 Room Air Laboratory Tests 03/27/17 05:20: White Blood Count 6.2, Red Blood Count 4.11L, Hemoglobin 11.4L, Hematocrit 35.5L , Mean Corpuscular Volume 86, Mean Corpuscular Hemoglobin 27.6, Mean Corpuscular Hemoglobin Concent 32.0, Red Cell Distribution Width 13.9, Platelet Count 338, Mean Platelet Volume 5.8L, Neutrophils (%) (Auto) 51.8, Lymphocytes ( %) (Auto) 36.3, Monocytes (%) (Auto) 10.6H, Eosinophils (%) (Auto) 0.1, Basophils (%) (Auto) 1.2, Sodium Level 140, Potassium Level 4.4, Chloride Level 102, Carbon Dioxide Level 26, Anion Gap 12, Blood Urea Nitrogen 24H, Creatinine 0.9, Estimat Glomerular Filtration Rate > 60, Glucose Level 134H, Calcium Level 9.0, Valproic Acid (Depakene) Level 63 Height (Feet): 5 Height (Inches): 4.00 Weight (Pounds): 224 ROOSEVELT SAWYER Mar 27, 2017 09:27
[2017-03-27] MEDS ORDERED: LORazepam 1mg tab ORAL PRN (10:30)
[2017-03-27 12:11] VITALS: BP 115/75
--- NOTE | 2017-03-27 14:44 | General Progress Note ---
Assessment/Plan Problem List: (1) Diabetes ICD Codes: E11.9 - Type 2 diabetes mellitus without complications SNOMED: 72706965 (2) HTN (hypertension) ICD Codes: I10 - Essential (primary) hypertension SNOMED: 37843447 (3) Seizure disorder ICD Codes: G40.909 - Seizure disorder SNOMED: 638036252 (4) Psychiatric disorder ICD Codes: F99 - Mental disorder SNOMED: 56876601 (5) Altered level of consciousness ICD Codes: R40.4 - Transient alteration of awareness SNOMED: 2375367 (6) Chronic pain ICD Codes: G89.29 - Other chronic pain SNOMED: 43618008 Status: stable, progressing, tolerating diet Assessment/Plan bp bs seizure control dc if clear by neuro Subjective Constitutional: Reports: weakness Allergies: Coded Allergies: ACETAMINOPHEN (Verified Allergy, Unknown, 07/22/14) ASPIRIN (Verified Allergy, Unknown, ITCHING, 07/22/14) AZITHROMYCIN (Verified Allergy, Unknown, 07/22/14) COPIED FROM UNCODED CODEINE (Verified Allergy, Unknown, 07/22/14) ERYTHROMYCIN BASE (Verified Allergy, Unknown, 07/22/14) FISH CONTAINING PRODUCTS (Verified Allergy, Unknown, 07/22/14) HYDROCODONE (Verified Allergy, Unknown, 07/22/14) IODINE (Verified Allergy, Unknown, 07/22/14) MIDAZOLAM (Verified Allergy, Unknown, 07/22/14) MILK (Verified Allergy, Unknown, 07/22/14) PROPOXYPHENE (Verified Allergy, Unknown, 07/22/14) COPIED FROM UNCODED SULFA (SULFONAMIDE ANTIBIOTICS) (Verified Allergy, Unknown, 07/22/14) COPIED FROM UNCODED SULFACETAMIDE (Unverified Allergy, Unknown, 03/25/17) SUMATRIPTAN (Verified Allergy, Unknown, 07/22/14) TETRACYCLINE (Verified Allergy, Unknown, RASH, 07/22/14) TETRACYCLINES (Verified Allergy, Unknown, 07/22/14) COPIED FROM UNCODED TOMATO (Verified Allergy, Unknown, 07/22/14) according to pt "I will !".... All Systems: reviewed and negative except above Subjective no seizure this am Objective Last 24 Hour Vital Signs Date Time Temp Pulse Resp B/P (MAP) Pulse Ox O2 Delivery O2 Flow Rate FiO2 03/27/17 12:11 98.4 85 20 115/75 95 Room Air 03/27/17 10:06 98.0 03/27/17 10:03 98.0 03/27/17 10:03 98.0 03/27/17 08:16 98.0 87 20 116/76 95 Room Air 03/27/17 04:00 97.2 72 18 112/66 94 Room Air 03/27/17 00:00 97.7 75 18 118/75 96 Room Air 03/26/17 20:00 98.2 78 18 123/77 96 Room Air 03/26/17 19:47 97.8 03/26/17 15:33 97.8 87 20 132/70 97 Room Air Intake and Output 03/27/17 03/28/17 19:00 07:00 Intake Total 480 ml Balance 480 ml Intake Oral 480 ml Laboratory Tests 03/27/17 05:20: White Blood Count 6.2, Red Blood Count 4.11L, Hemoglobin 11.4L, Hematocrit 35.5L , Mean Corpuscular Volume 86, Mean Corpuscular Hemoglobin 27.6, Mean Corpuscular Hemoglobin Concent 32.0, Red Cell Distribution Width 13.9, Platelet Count 338, Mean Platelet Volume 5.8L, Neutrophils (%) (Auto) 51.8, Lymphocytes ( %) (Auto) 36.3, Monocytes (%) (Auto) 10.6H, Eosinophils (%) (Auto) 0.1, Basophils (%) (Auto) 1.2, Sodium Level 140, Potassium Level 4.4, Chloride Level 102, Carbon Dioxide Level 26, Anion Gap 12, Blood Urea Nitrogen 24H, Creatinine 0.9, Estimat Glomerular Filtration Rate > 60, Glucose Level 134H, Calcium Level 9.0, Valproic Acid (Depakene) Level 63 Height (Feet): 5 Height (Inches): 4.00 Weight (Pounds): 224 General Appearance: alert EENT: normal ENT inspection Neck: normal alignment Cardiovascular: normal peripheral pulses, normal rate, regular rhythm Respiratory/Chest: chest wall non-tender, lungs clear, normal breath sounds Abdomen: normal bowel sounds, non tender, soft Extremities: normal inspection Edema: no edema noted Arm (L), no edema noted Arm (R), no edema noted Leg (L), no edema noted Leg (R), no edema noted Pedal (L), no edema noted Pedal (R), no edema noted Generalized Neurologic: responsive, motor weakness Skin: normal pigmentation, warm/dry CHUCK ESCAMILLA Mar 27, 2017 14:44
--- NOTE | 2017-03-27 15:36 | Neurology Progress Note ---
Interim History Interim History Interim History Ms. Almonte feels much better today. The mind is clear. She feels stronger. She has been walking around with no problems. She has been seizure-free. She denies any new neurologic problems. Review of Systems Neuro Review of Systems Benign. Objective Physical Exam Last Vital Signs Date Time Temp Pulse Resp B/P (MAP) Pulse Ox O2 Delivery O2 Flow Rate FiO2 03/27/17 12:11 98.4 85 20 115/75 95 Room Air Laboratory Tests Test 03/27/17 05:20 White Blood Count 6.2 K/UL (4.8-10.8) Red Blood Count 4.11 M/UL (4.20-5.40) L Hemoglobin 11.4 G/DL (12.0-16.0) L Hematocrit 35.5 % (37.0-47.0) L Mean Corpuscular Volume 86 FL (80-99) Mean Corpuscular Hemoglobin 27.6 PG (27.0-31.0) Mean Corpuscular Hemoglobin Concent 32.0 G/DL (32.0-36.0) Red Cell Distribution Width 13.9 % (11.6-14.8) Platelet Count 338 K/UL (150-450) Mean Platelet Volume 5.8 FL (6.5-10.1) L Neutrophils (%) (Auto) 51.8 % (45.0-75.0) Lymphocytes (%) (Auto) 36.3 % (20.0-45.0) Monocytes (%) (Auto) 10.6 % (1.0-10.0) H Eosinophils (%) (Auto) 0.1 % (0.0-3.0) Basophils (%) (Auto) 1.2 % (0.0-2.0) Sodium Level 140 mEQ/L (135-145) Potassium Level 4.4 mEQ/L (3.4-4.9) Chloride Level 102 mEQ/L (98-107) Carbon Dioxide Level 26 mEQ/L (20-30) Anion Gap 12 (5-15) Blood Urea Nitrogen 24 mg/dL (7-23) H Creatinine 0.9 mg/dL (0.5-0.9) Estimat Glomerular Filtration Rate > 60 mL/min (>60) Glucose Level 134 mg/dL (74-106) H Calcium Level 9.0 mg/dL (8.6-10.2) Valproic Acid (Depakene) Level 63 ug/mL (50-100) Neurologic Exam Objective PHYSICAL EXAMINATION: GENERAL: She is a well-developed, well-nourished, obese lady, lying in bed, in no acute distress. HEAD: Normocephalic and atraumatic. EENT: Examination benign. NECK: No neck rigidity was observed. NEUROLOGIC EXAMINATION: MENTAL STATUS EXAMINATION: She was awake and alert. She was oriented to [facility], [facility], and March 2017. She did not know the exact date. She was able to recall 3/3 words immediately, but could only remember 2/3 words in 1 minute and 3 minutes even on the second trial. She was able to remember presidents, Trump and Obama, but could not remember presidents prior to that. Her mathematical skills were impaired. Her visuospatial function was also impaired. SPEECH: She had a mild dysarthria, but it should be noted that most of her teeth were missing. LANGUAGE: She had an anomia for low-frequency words. CRANIAL NERVE EXAMINATION: II: The visual maxwell were intact to confrontation testing frequent. III, IV & : The external ocular movements were full and the pupils 3 mm in diameter, equal, round, regular, and reactive to light. V: She had normal facial sensations and the temporales, masseters, and pterygoids functioned normally. VII: She had normal facial expressions and no facial asymmetry. VIII: She was able to hear well bilaterally and had no nystagmus. IX: The palate moved symmetrically on phonation. X: She had no hoarseness of voice. XI: The sternocleidomastoids and trapezii functioned normally. XII: The tongue was in the midline without any fasciculations or atrophy. MOTOR SYSTEM: The tone was normal in all four extremities. Examination of muscle mass revealed no focal wasting. Examination of power revealed G 5/5 power. SENSORY EXAMINATION: She had intact sensations to pinprick, light touch, and graphesthesia. COORDINATION: She performed well on [id number] and [id number] testing. REFLEXES: 0 at the biceps, triceps, brachioradialis, knees, and ankles. The plantar responses were flexor bilaterally. STANCE: She stood up independently. GAIT: She walked well independently. Impression/Recommendations Diagnostic Impression 1. Ms. Kristin Almonte is a 52-year-old, right-handed, lady, with a past history of multiple medical problems including a seizure disorder, which she says consists of grand mal seizures and pseudoseizures. She has seizures every two weeks or so and presented to the emergency room with an exacerbation of seizures. 2. She feels well today and has been seizure free. 3. On neurological examination, at this time, she does have problems with orientation, recent and remote memory, visuospatial function, and higher cognitive function. She also has globally absent deep tendon reflexes. Her stance and gait are steady. 4. Her laboratory data on my initial evaluation revealed that she had mild anemia with a hemoglobin of 11.9, the blood glucose was elevated to 210, the BUN was elevated to 25, her alkaline phosphatase was elevated to 148, her phenobarbital level was 9.1, however it should be noted that she is taking small doses of phenobarbital, and her urinalysis was benign for an acute infectious process. 5. The patient's history and neurological examination are most compatible with breakthrough seizures in a patient, who is on polypharmacy for her seizure control. Recommendations 1. Continue present management. 2. Continue Keppra 1.5 G q.12 hours. 3. Continue Depakote in present dose. 4. Can be sent home. 5. Follow up with her personal Neurologist in near future. Scooter Davis M.D., M.S.P.H. SCOOTER DAVIS Mar 27, 2017 15:36
[2017-03-27 15:57] VITALS: BP 109/55
[2017-03-27] MEDS ORDERED: TYLENOL650 MG/20. ORAL (16:01)
[2017-03-27] MEDS ORDERED: MYLANTA30 M1 PO (16:02)
[2017-03-27] MEDS ORDERED: CYCLOBENZAPRINE10 MG ORAL (16:02)
[2017-03-27] MEDS ORDERED: HALOPERIDOL0.5 MG ORAL (16:03)
[2017-03-27] MEDS ORDERED: DEPAKOTE ER500 MG ORAL (16:03)
[2017-03-27] MEDS ORDERED: NEURONTIN100 MG ORAL (16:03)
[2017-03-27] MEDS ORDERED: IBUPROFEN600 MG ORAL ×2 (16:03→16:04)
[2017-03-27] MEDS ORDERED: LEXAPRO10 MG ORAL (16:03)
[2017-03-27] MEDS ORDERED: LORAZEPAM4 MG/1 M1 IV (16:04)
[2017-03-27] MEDS ORDERED: ATIVAN1 MG ORAL (16:06)
[2017-03-27] MEDS ORDERED: LACTULOSE20 GM/301 ORAL (16:07)
[2017-03-27] MEDS ORDERED: ZOFRAN 4 MG4 MG/2 ML IV (16:07)
[2017-03-27] MEDS ORDERED: MIRALAX17 G2 ORAL (16:08)
[2017-03-27] MEDS ORDERED: PROTONIX40 MG ORAL (16:08)
[2017-03-27] MEDS ORDERED: PHENOBARBITAL30 MG ORAL (16:08)
[2017-03-27] MEDS ORDERED: SEROQUEL200 MG ORAL (16:09)
[2017-03-27] MEDS ORDERED: TRAZODONE HCL150 MG ORAL (16:09)
[2017-03-27] MEDS ORDERED: LYRICA75 M1 ORAL (16:09)
[2017-03-27] MEDS ORDERED: AMBIEN5 MG ORAL (16:10)
[2017-03-27] MEDS ORDERED: KEPPRA1000 MG ORAL (16:10)
--- NOTE | 2017-03-27 16:15 | History and Physical Report ---
DATE OF ADMISSION: 03/26/2017 TIME SEEN: 2 p.m. CONSULTANTS: 1. Liset Hawkins M.D. 2. Scooter Davis M.D. 3. Shakila Au M.D. 4. Alpa Petit M.D. CHIEF COMPLAINT: Multiple seizures, chronic pain, and weakness. BRIEF HISTORY: This is a 52-year-old female from [facility], presented with increased recurrent seizure, diagnosed with the above, and admitted to [facility] floor for further treatment. Currently, calm in bed. No complaints. No chest pain. Slightly short of breath. No nausea, vomiting, or diarrhea. PAST MEDICAL HISTORY: Includes seizures, encephalopathy, obesity, diabetes, and hypertension. PAST SURGICAL HISTORY: Gallbladder, hysterectomy, and carpal tunnel. MEDICATIONS: Seroquel, Desyrel, Keppra, Flexeril, Depakote, Neurontin, Lexapro, Haldol, , Protonix, and Lyrica. ALLERGIES: Tylenol, aspirin, azithromycin, codeine, erythromycin, hydrocodone, iodine, and midazolam. PHYSICAL EXAMINATION: GENERAL: Calm in bed, oriented x2, and in no acute distress. VITAL SIGNS: Show temperature is 97 degrees, pulse 84, respirations 19, and blood pressure 123/70. CARDIOVASCULAR: No murmurs. LUNGS: Distant and clear. ABDOMEN: Positive bowel sounds. Nontender and nondistended. EXTREMITIES: No cyanosis, clubbing, or edema. NEUROLOGIC: The patient moves all extremities, slightly weak. LABORATORY DATA: Lab exam show hemoglobin 11.9, otherwise CBC is normal. BMP show BUN 29 and glucose 210, otherwise BMP is normal. Urinalysis is negative. Urine phenobarb is 9.1. ASSESSMENT: 1. Multiple seizures. 2. Encephalopathy. 3. Anemia. 4. Obesity. 5. Diabetes. 6. Hypertension. PLAN: 1. Blood pressure and blood sugar control. 2. Pain control. 3. Seizure control. 4. Dietary followup. 5. Resume home medications. 6. OT, PT, and dietary evaluation. 7. CBC and BMP in the morning. 8. Dr. Hawkins, Dr. Davis, Dr. Au, and Dr. Petit to consult. Scott Samson D.O. DR: ASA JOB#: [id number] CC:
[2017-03-27] MEDS ORDERED: TraZODone 100mg tab ORAL SCH (21:00)
--- NOTE | 2017-03-28 05:00 | Consultation ---
DATE OF CONSULTATION: 03/26/2017 NOTE: POOR AUDIO HISTORY OF PRESENT ILLNESS: The patient is a 52-year-old female patient. She was admitted to [facility] from [facility]. The reason why she came in the patient had a seizure at the [facility] and she was admitted bipolar [address] Scott Samson. This patient continues to have some mood disorder, agitation, irritability, help control . No logical plan for self-care. [facility]. She is financially supported by [employer] and Medicare. . PAST MEDICAL HISTORY: Seizure disorder, , agitation, and lower extremity weakness. PSYCHIATRIC HISTORY: Diagnosed with bipolar 2 multiple psychiatric hospitalizations. . ALLERGIES: She has . SUBSTANCE ABUSE HISTORY: Denies drug or alcohol use . MENTAL STATUS EXAMINATION: The patient is an 52-year-old female with psychomotor agitation . Affect guarded and restricted. Thought process disorganized and illogical. Denies any suicidal or homicidal thoughts. Insight and judgment is poor. . DIAGNOSIS: Bipolar 2. PLAN: My plan for this patient is I am going to titrate up her trazodone Haldol 10 mg three times a day 1 mg q.6 h. as needed. . Chart reviewed and discussed with staff. The patient is seen and assessed in her room . Shakila Au M.D. DR: MEJIA JOB#: [id number] CC:
--- NOTE | 2017-03-30 04:15 | Consultation ---
DATE OF CONSULTATION: 03/27/2017 NOTE: "POOR AUDIO QUALITY" PSYCHOTHERAPY CONSULTATION PROGRESS NOTE CONSULTING PHYSICIAN: Belkis Nicholas M.D. TREATING ATTENDING PHYSICIAN: Scott Samson D.O. HISTORY OF PRESENT ILLNESS: The patient is a 52-year-old female patient. The patient has a history of paranoid schizophrenia. The patient was admitted to the hospital for multiple seizures, chronic pain, and weakness. The patient has been treated with psychotropic medications. She denies suicidal or homicidal thoughts of ideation. She denies auditory or visual hallucinations at this time. The patient has had some anxiety and depression. For these reasons, she is referred for psychotherapeutic services. . PAST MEDICAL HISTORY: The patient's past medical history includes history of obesity, encephalopathy, seizures, diabetes, and hypertension. ALLERGIES: The patient is allergic to codeine, erythromycin, hydrocodone, iodine, Tylenol, aspirin, and midazolam. SUBSTANCE ABUSE HISTORY: The patient denies any history of alcohol use, illicit substance use, or smoking cigarettes. PSYCHIATRIC HISTORY: The patient has a history of paranoid schizophrenia. The patient has had multiple inpatient psychiatric hospitalizations in the past and has started psychotropic medications. SOCIAL HISTORY: The patient is a 52-year-old female patient, from [facility]. Financially sustained through Medicare and [employer]. MENTAL STATUS EXAMINATION: The patient is alert and oriented x2, person and place. Mood is depressed and anxious. Affect is congruent. ASSESSMENT AND PLAN: This clinician assessed this patient. Provided the patient with reality orientation, supportive psychotherapy, and coping skills. . Denies suicidal or homicidal thoughts of ideation. This clinician has reviewed the patient's chart and discussed the treatment with nursing staff. Belkis Nicholas PsyD. : Lety JOB#: [id number] CC:
--- NOTE | 2017-03-30 08:41 | Discharge Summary ---
Discharge Summary Hospital Course Date of Admission Mar 25, 2017 at 22:07 Date of Discharge Mar 27, 2017 at 18:00 Admitting Diagnosis seizure HPI Kristin Almonte is a 52 year old female who was admitted on Mar 25, 2017 at 22: 07 for Seizure Hospital Course dc summary #[id number] Discharge Medications Continued Medications: Acetaminophen (Acetaminophen) 650 Mg/20.3 Ml Solution 650 MG ORAL Q4HR PRN for Prn Headache/Temp > 101, ML 0 Refills Al Hydroxide/mg Hydroxide (Mag-Al Liquid) 30 Ml Oral.susp 30 ML PO Q6HR PRN for heartburn, ML Cyclobenzaprine Hcl* (Flexeril*) 10 Mg Tablet 10 MG ORAL DAILY, TAB Divalproex Sodium* (Depakote Er*) 500 Mg Tab.er.24h 1000 MG ORAL EVERY 12 HOURS, TAB Escitalopram Oxalate* (Lexapro*) 10 Mg Tablet 10 MG ORAL DAILY, TAB Gabapentin* (Neurontin*) 100 Mg Capsule 300 MG ORAL THREE TIMES A DAY, #15 CAP 0 Refills Haloperidol* (Haldol*) 0.5 Mg Tablet 10 MG ORAL DAILY, #20 TAB 0 Refills Ibuprofen* (Motrin*) 600 Mg Tablet 600 MG ORAL Q6H PRN for For Pain, #30 TAB Insulin Aspart* (Novolog*) 100 Unit/1 Ml Insuln.pen 0 SUBQ, EA 0 Refills Lactulose (Lactulose*) 20 Gm/30 Ml Solution 30 ML ORAL, ML 0 Refills Levetiracetam (Keppra) 1,000 Mg Tablet 1500 MG ORAL Q12HR, #30 TAB 0 Refills Lorazepam* (Ativan*) 1 Mg Tablet 1 MG ORAL Q6HR PRN for For Anxiety, TAB Lorazepam (Lorazepam) 4 Mg/1 Ml Vial 2 MG IV Q1HR PRN for seizures, VIAL Ondansetron* (Zofran*) 4 Mg/2 Ml Vial 4 MG IV Q6H PRN for Nausea & Vomiting, VIAL Pantoprazole* (Protonix*) 40 Mg Tablet.dr 40 MG ORAL DAILY, TAB Phenobarbital* (Phenobarbital*) 30 Mg Tablet 32.4 MG ORAL Q12HR, #30 TAB 0 Refills Polyethylene Glycol 3350* (Miralax*) 17 Gm Powd.pack 17 GM ORAL HS PRN for Constipation, PACKET Pregabalin* (Lyrica*) 75 Mg Capsule 75 MG ORAL BID, CAP Quetiapine Fumarate* (Seroquel*) 200 Mg Tablet 300 MG ORAL QHS, TAB Trazodone* (Trazodone*) 150 Mg Tablet 300 MG ORAL BEDTIME, TAB Zolpidem Tartrate* (Ambien*) 5 Mg Tablet 5 MG ORAL BEDTIME PRN for Insomnia, TAB Discontinued Medications: Benztropine Mesylate* (Cogentin*) 0.5 Mg Tablet 1 MG PO BID, TAB Calcium Carbonate (Calcium Carbonate) 500 Mg Tablet 500 MG PO DAILY, TAB Cholecalciferol (Vitamin D3) (Vitamin D3) 1,000 Unit Tab.chew 1000 UNIT PO BID, TAB Clonazepam* (Klonopin*) 1 Mg Tablet 1 MG ORAL TWICE A DAY, TAB 0 Refills Cranberry Extract (Cranberry) 405 Mg Capsule 405 MG PO BID, CAP Cyclobenzaprine Hcl* (Flexeril*) 10 Mg Tablet 10 MG ORAL DAILY, TAB Diphenhydramine HCl (Diphenhydramine HCl) 50 Mg Cap 50 MG ORAL TID for SCHEDULE, CAP Divalproex Sodium (Depakote) 500 Mg Tabec 1000 MG PO Q12HR, TAB Escitalopram Oxalate* (Lexapro*) 10 Mg Tablet 10 MG ORAL DAILY, TAB Gabapentin* (Neurontin*) 400 Mg Capsule 300 MG ORAL THREE TIMES A DAY, #15 CAP 0 Refills Guaifenesin* (Guaifenesin) 100 Mg/5 Ml Liquid 10 ML ORAL Q4H PRN for For Cough MDD 200mg/10ml, #120 ML 0 Refills Haloperidol* (Haldol*) 1 Mg Tablet 10 MG ORAL TID, TAB 0 Refills Hydroxyzine HCl (Hydroxyzine HCl) 25 Mg Tab 25 MG ORAL Q8HR PRN for Itching, TAB Ibuprofen* (Motrin*) 600 Mg Tablet 600 MG ORAL THREE TIMES A DAY, #30 TAB 0 Refills Ipratropium/Albuterol Sulfate (DuoNeb 0.5-3(2.5)mg/3ml) 3 Ml Ampul.neb 3 ML HHN Q6HR for Shortness of Breath, EA Lactulose (Lactulose*) 20 Gm/30 Ml Solution 30 ML ORAL DAILY, ML 0 Refills Levetiracetam (Keppra) 500 Mg Tab 1500 MG ORAL EVERY 12 HOURS, TAB 0 Refills Levetiracetam (Keppra) 1,000 Mg Tablet 1250 MG ORAL Q12HR, #30 TAB 0 Refills Levofloxacin* (Levaquin*) 500 Mg Tablet 500 MG ORAL DAILY for 3 Days, TAB Lorazepam (Lorazepam) 2 Mg/Ml Inj 2 MG IM Q4H PRN for Agitation Magnesium Hydroxide* (Milk Of Magnesia*) 400 Mg/5 Ml Oral.susp 30 ML ORAL DAILY PRN for Constipation, ML Metformin Hcl* (Metformin Hcl*) 500 Mg Tablet 500 MG ORAL TWICE A DAY, TAB Multivitamins* (Multivitamins*) 1 Each Tablet 1 TAB ORAL DAILY, TAB 0 Refills Damion/Polymyx B Sulf/Dexameth (Maxitrol Eye Drops) 5 Ml Drops.susp 5 ML OP Q4HR, #10 ML Ondansetron (Zofran) 4 Mg Tab 4 MG ORAL Q6H PRN for Nausea & Vomiting, TAB Ondansetron (Zofran) 4 Mg Tablet 4 MG ORAL Q4HR PRN for Nausea & Vomiting, TAB Oxymetazoline HCl (Afrin) 15 Ml [place] 2 SPRAY NASAL TWICE A DAY, SPRAY Pantoprazole* (Protonix*) 40 Mg Tablet.dr 40 MG ORAL DAILY, TAB Phenobarbital* (Phenobarbital*) 30 Mg Tablet 30 MG ORAL Q12HR, #30 TAB 0 Refills Polyethylene Glycol 3350* (Miralax*) 17 Gm Powd.pack 17 GM ORAL QHS PRN for CONSTIPATION, PACKET Pregabalin* (Lyrica*) 75 Mg Capsule 75 MG ORAL BID, CAP Quetiapine Fumarate* (Seroquel*) 200 Mg Tablet 300 MG ORAL QHS, TAB Topiramate* (Topamax*) 100 Mg Tablet 100 MG ORAL Q12HR, TAB 0 Refills Topiramate* (Topamax*) 100 Mg Tablet 150 MG ORAL DAILY, #60 TAB 0 Refills Tramadol Hcl* (Ultram*) 50 Mg Tablet 50 MG ORAL Q8HR PRN for Moderate Pain (Pain Scale 4-6), TAB 0 Refills Trazodone* (Trazodone*) 150 Mg Tablet 100 MG ORAL BEDTIME, TAB Discharge Condition Upon Discharge: stable Discharge Disposition Patient was discharged to SNF/Subacute Facility(03) Discharge Diagnoses: Bear (Vanchtein),Alana HULL Mar 30, 2017 08:41
--- NOTE | 2017-03-31 00:30 | Electroencephalogram ---
DATE OF PROCEDURE: 03/26/2017 REQUESTING PHYSICIAN: Scott Samson D.O. HISTORY: The patient is a 52-year-old lady with history of multiple medical problems including an unknown type of seizure disorder. The purpose of this EEG was to evaluate the patient for ongoing ictal or interictal phenomena. TECHNICAL NOTE: This EEG was performed on [employer] with electrodes placed on the scalp according to the International 10-20 system. [id number] and [id number] montages were used. The EEG was technically satisfactory and was performed predominantly while the patient was either drowsy or asleep with a brief period of wakefulness. OBSERVATION: In the best-awake state, the background activity consisted of 8.5 to 9 Hertz posteriorly predominant alpha activity. Drowsiness was characterized by dissolution of the alpha rhythm and the appearance of slower frequencies in the 5 to 6 Hertz theta range. Stage 2 sleep was characterized by further slowing of the background in the delta and theta range, the presence of vertex waves, and 14 Hertz sleep spindles. No focal abnormalities or epileptiform discharges were seen. IMPRESSION: Normal awake, drowsy, and stage 2 sleep EEG. COMMENT: Normal EEG does not rule out seizure disorder. Scooter Davis M.D. DR: Tash JOB#: [id number] CC:
--- NOTE | 2017-03-31 06:45 | Discharge Summary 2 SIG ---
DATE OF ADMISSION: 03/25/2017 DATE OF DISCHARGE: 03/27/2017 REASON FOR ADMISSION: 52-year-old female with a history of seizure disorder, diabetes, hyperlipidemia, schizophrenia, was sent from the [facility] for evaluation for increased seizure activity. The patient was on polypharmacy for seizure management. Vital signs were stable. Pulse oximetry was stable. Phenobarbital level -9.1. Laboratory work revealed stable electrolytes, glucose- 188, no leukocytosis. Anemia with hemoglobin- 10.5, hematocrit -30.9. The patient complained of pain in bilateral lower extremities; pain chronic. The patient was admitted for further management. ADMITTING DIAGNOSES: 1. Seizure breakthrough episode. 2. Chronic pain. 3. Anemia. 4. Diabetes. 5. Obesity. 6. Psychiatric disorder. HOSPITAL COURSE: The patient was admitted. Neurology consult was requested. Depakote level was therapeutic as checked by neurologist. Psychiatric medication regimen optimized. Keppra was increased to 1.5 g q.12 h. According to neurologist, the patient's history and neurological examination were most compatible with breakthrough seizure in a patient, who was on polypharmacy for seizure control. He cleared the patient for discharge. Blood sugar was managed with sliding scale of insulin. Hemoglobin and hematocrit remained on the baseline. Prior to discharge, hemoglobin -11.4, hematocrit- 35.5. Blood sugar was managed with sliding scale of insulin and was stable. Pulse oximetry was stable on room air. Pulmonary toilet provided as needed. Respiratory status was stable. No evidence of COPD exacerbation. Pain specialist seen and evaluated the patient. The patient with lumbar radiculopathy, degenerative disk disease, and lumbar spondylosis. The patient was started on nonsteroid anti-inflammatory drug, i.e., Motrin on as-needed basis. Follow up as outpatient with primary medical doctor and pain specialist. Psychiatrist seen and evaluated the patient. Patient was diagnosed with bipolar disorder type 2. Psychiatrist optimized psychiatric medication regimen. All consultants cleared the patient for discharge. The patient was stable for transfer back to [facility]. DISCHARGE DIAGNOSES: 1. Seizure breakthrough episode. 2. Seizure disorder. 3. Chronic pain. 4. Lumbar radiculopathy. 5. Lumbar spondylosis. 6. Lumbar degenerative disk disease. 7. Anemia. 8. Obesity. 9. Diabetes mellitus. 10. Chronic obstructive pulmonary disease. 11. Bipolar disorder type 2. DISCHARGE MEDICATIONS: See medication reconciliation list. DISCHARGE INSTRUCTIONS: The patient was discharged to [facility]. FOLLOWUP: Follow up with medical doctor at the facility. Scott Samson D.O. I have been assigned to dictate discharge summary on this account and I was not involved in the patient's management. Alana ShenNuvance Healthsarahi N.PDarnell DR: CATALINA JOB#: [id number] CC: LUIGI
== END 2017-03-27 18:00 | DRG 101 ==
LOC: EDBD 20:30 → EMR 22:04 → 4E 22:07 → EDBEDREQ 22:41
DX: G40.909 Epilepsy, unspecified, not intractable, without status epilepticus (principal); Z68.41 Body mass index [BMI] 40.0-44.9, adult; I10 Essential (primary) hypertension; D64.9 Anemia, unspecified; E11.9 Type 2 diabetes mellitus without complications; F31.81 Bipolar II disorder; F20.0 Paranoid schizophrenia; G89.29 Other chronic pain; M79.7 Fibromyalgia; E66.9 Obesity, unspecified; Z88.6 Allergy status to analgesic agent; Z88.1 Allergy status to other antibiotic agents; Z88.8 Allergy status to other drugs, medicaments and biological substances; L30.9 Dermatitis, unspecified; J44.9 Chronic obstructive pulmonary disease, unspecified; Z91.19 Patient's noncompliance with other medical treatment and regimen; M51.16 Intervertebral disc disorders with radiculopathy, lumbar region; M47.896 Other spondylosis, lumbar region; F41.8 Other specified anxiety disorders; R41.82 Altered mental status, unspecified
CPT/HCPCS: 36415; 80048; 80053; 80164; 80184; 80299; 81003; 82962; 85025; 87081; 93005; 95819; 97803; 99285; J1815

== ENCOUNTER 2017-04-06 11:16 | Inpatient (IN) | payer MEDICARE ==
[~2017-04-06] VITALS: Ht 162.6 cm; Wt 72.6 kg
[~2017-04-06 11:16] MED LIST changes: +AFRIN NASAL SPR30 ML NASAL; +AMBIEN5 MG ORAL; +BENZTROPINE ME0.5 MG PO; +CALCIUM CARBON500 M1 PO; +CRANBERRY405 M1 PO; +DEPAKOTE ER500 MG ORAL; +GUAIFENESI100 MG/5 M ORAL; +HALOPERIDOL0.5 MG ORAL; +KEPPRA1000 MG ORAL; +LORAZEPAM4 MG/1 M1 IV; +LYRICA75 M1 ORAL; +METFORMIN HCL500 M1 ORAL; +MULTIVITAMINS1 EAC2 ORAL; +MYLANTA30 M1 PO; +NEURONTIN100 MG ORAL; +NEURONTIN400 MG ORAL; +PHENOBARBITAL30 MG ORAL; +PROTONIX40 MG ORAL; +VITAMIN D31000 UNI3 PO; +ZOFRAN 4 MG4 MG/2 ML IV
[2017-04-06 12:00] VITALS: BP 126/69
[2017-04-06 12:47] LABS: BASOPHILS % (AUTO) 0.9 % (0.0-2.0); LYMPHOCYTES % (AUTO) 24.9 % (20.0-45.0); MEAN CORPUSCULAR HEMOGLOBIN 26.7 PG (27.0-31.0); MEAN CORPUSCULAR HGB CONC 31.3 G/DL (32.0-36.0); MEAN CORPUSCULAR VOLUME 85 FL (80-99); MEAN PLATELET VOLUME 6.3 FL (6.5-10.1); MONOCYTES % (AUTO) 7.8 % (1.0-10.0); NEUTROPHILS % (AUTO) 66.4 % (45.0-75.0); PLATELET COUNT 316 K/UL (150-450); RED BLOOD COUNT 4.85 M/UL (4.20-5.40); RED CELL DISTRIBUTION WIDTH 13.9 % (11.6-14.8); WHITE BLOOD COUNT 8.2 K/UL (4.8-10.8)
[2017-04-06 12:58] LABS: ALBUMIN/GLOBULIN RATIO 1.2 (1.0-2.7); APPEARANCE,URINE CLEAR; CALCIUM 9.3 mg/dL (8.6-10.2); GLOMERULAR FILTRATION RATE 58.2 mL/min (>60); KETONES,URINE 3+ (NEGATIVE); LEUKOCYTE ESTERASE ,URINE 1+ (NEGATIVE); NITRITE,URINE NEGATIVE (NEGATIVE); PH,URINE 5 (4.5-8.0); POTASSIUM 3.6 mEQ/L (3.4-4.9); PROTEIN,URINE 2+ (NEGATIVE); TOTAL PROTEIN 8.3 g/dL (6.6-8.7); TROPONIN I < 0.30 ng/mL (<=0.30); UROBILINOGEN,URINE 1 MG/DL (0.0-1.0)
[2017-04-06 13:08] LABS: CKMB 2.9 ng/mL (< 3.8)
[2017-04-06 13:11] LABS: BACTERIA,URINE FEW /HPF; MUCUS,URINE FEW /LPF (NONE/OCC); RBC,URINE 0-2 /HPF (0 - 2); SQUAMOUS EPITHELIAL CELL,UR FEW /LPF (NONE/OCC)
--- NOTE | 2017-04-06 13:15 | Emergency Room Report ---
History of Present Illness General Chief Complaint: Generalized Weakness Source: Medical Record Present Illness HPI [id number] Sent from [facility] for "weakness" and to "rule out encepalopathy" by PMD Patient not interested in providing additional HPI Medical problems are extensive, listed in [facility] paperwork Otherwise denies chest pain, SOB, abd pain, urinary complaints, fever/chills Allergies: Coded Allergies: ACETAMINOPHEN (Verified Allergy, Unknown, 07/22/14) APPLE (Verified Allergy, Unknown, 04/06/17) ASPIRIN (Verified Allergy, Unknown, ITCHING, 07/22/14) AZITHROMYCIN (Verified Allergy, Unknown, 07/22/14) COPIED FROM UNCODED BANANA (Verified Allergy, Unknown, 04/06/17) CODEINE (Verified Allergy, Unknown, 07/22/14) ERYTHROMYCIN BASE (Verified Allergy, Unknown, 07/22/14) FISH CONTAINING PRODUCTS (Verified Allergy, Unknown, 07/22/14) HYDROCODONE (Verified Allergy, Unknown, 07/22/14) IODINE (Verified Allergy, Unknown, 07/22/14) MIDAZOLAM (Verified Allergy, Unknown, 07/22/14) MILK (Verified Allergy, Unknown, 07/22/14) PROPOXYPHENE (Verified Allergy, Unknown, 07/22/14) COPIED FROM UNCODED SULFA (SULFONAMIDE ANTIBIOTICS) (Verified Allergy, Unknown, 07/22/14) COPIED FROM UNCODED SULFACETAMIDE (Unverified Allergy, Unknown, 03/25/17) SUMATRIPTAN (Verified Allergy, Unknown, 07/22/14) TETRACYCLINE (Verified Allergy, Unknown, RASH, 07/22/14) TETRACYCLINES (Verified Allergy, Unknown, 07/22/14) COPIED FROM UNCODED TOMATO (Verified Allergy, Unknown, 07/22/14) according to pt "I will !".... Patient History Past Medical History: see triage record, old chart reviewed Past Surgical History: none Pertinent Family History: none Social History: Denies: smoking, alcohol use, drug use Now: No Immunizations: UTD Reviewed Nursing Documentation: PMH: Agreed, PSxH: Agreed Nursing Documentation-PMH Past Medical History: No History, Except For Hx Hypertension: Yes - Hyperlipidemia Hx Asthma: Yes Hx COPD: Yes Hx Diabetes: Yes - Type 2 Hx Cancer: No Hx Gastrointestinal Problems: Yes - gastroparesis, GERD Hx Neurological Problems: Yes - Generalized weakness, neualgia, neuritis Hx Cerebrovascular Accident: No Hx Transient Ischemic Attacks: No Hx Dementia: No Hx Alzheimer's Disease: No Hx Parkinson's Disease: No Hx Meningitis: No Hx Encephalitis: No Hx Seizures: Yes - Epilepsy Hx Epilepsy: No Hx Multiple Sclerosis: No Hx Cerebral Palsy: No Hx Amyotrophic Lat Sclerosis: No Hx Guillian-[place] Syndrome: No Hx Paralysis: No Hx Peripheral Neuropathy: No Hx Spinal Cord Injury: No Hx Head Trauma: No Hx Traumatic Brain Injury: No Hx Memory Loss: Yes Hx Concentration Difficulty: No Hx Speech Problem: No Hx Tremors: No Hx Vertigo: No Hx Dizziness: No Hx Syncope: No Hx Headaches: No Hx Aphasia: No Hx Dysphasia: No Hx Numbness: No Hx Weakness: Yes Hx Fatigue: No Hx Neurologic Surgery: No Hx Brain Shunt: No Review of Systems All Other Systems: negative except mentioned in HPI Physical Exam Vital Signs Date Time Temp Pulse Resp B/P (MAP) Pulse Ox O2 Delivery O2 Flow Rate FiO2 04/06/17 11:18 99.0 94 16 130/93 92 Room Air Sp02 EP Interpretation: reviewed, normal General Appearance: normal inspection, well appearing, no apparent distress, alert, GCS 15, non-toxic Head: normocephalic, atraumatic Eyes: bilateral eye PERRL, bilateral eye EOMI ENT: normal ENT inspection, hearing grossly normal, normal voice Neck: normal inspection, full range of motion, supple, no bony tend Respiratory: normal inspection, lungs clear, normal breath sounds, no respiratory distress, no retraction, no wheezing Cardiovascular #1: regular rate, rhythm, no edema Gastrointestinal: normal inspection, normal bowel sounds, non tender, soft, no guarding, no hernia Genitourinary: no CVA tenderness Musculoskeletal: normal inspection, back normal, normal range of motion, Jose' s Sign negative Neurologic: normal inspection, alert, responsive, scrap yard worker III-XII nml as tested, motor strength/tone normal, speech normal Psychiatric: normal inspection, judgement/insight normal, mood/affect normal Skin: normal inspection, normal color, no rash Lymphatic: normal inspection Medical Decision Making Diagnostic Impression: Primary Impression: Episode of generalized weakness Additional Impressions: CECILY (acute kidney injury) Rhabdomyolysis Qualified Codes: M62.82 - Rhabdomyolysis ER Course Labs significant only for mild rhabdo, CECILY Was hydrated in ED CT head negative No leuks. H&H stable. No other significant metabolic abnormalities to explain AMS UA/CXR negative for infection Endorsed for med/surg admission to Dr Escamilla at 149pm EKG Diagnostic Results Rate: normal Rhythm: NSR ST Segments: no acute changes ASA given to the pt in ED: No Rhythm Strip Diag. Results EP Interpretation: yes Rate: 90 Rhythm: NSR, no PVC's, no ectopy Chest X-Ray Diagnostic Results Chest X-Ray Diagnostic Results : Chest X-Ray Ordered: Yes # of Views/Limited/Complete: 1 View Indication: Other - AMS EP Interpretation: Yes Interpretation: no consolidation, no effusion, no pneumothorax, no acute cardiopulmonary disease Impression: No acute disease Interpreting ER Provider: Dr Ezekiel Galaviz MD Last Vital Signs Date Time Temp Pulse Resp B/P (MAP) Pulse Ox O2 Delivery O2 Flow Rate FiO2 04/06/17 12:00 87 20 126/69 94 Room Air 04/06/17 11:18 99.0 Status: improved Disposition: ADMITTED INPATIENT Condition: Serious Referrals: CHUCK ESCAMILLA (PCP) EZEKIEL GALAVIZ M.D. Apr 06, 2017 13:15
[2017-04-06] MEDS ORDERED: HEPARIN SO5000 UNIT2 SUBQ (13:58)
[2017-04-06] MEDS ORDERED: TRAZODONE HCL150 MG ORAL (13:58)
[2017-04-06 14:00] VITALS: BP 123/73
[2017-04-06] MEDS ORDERED: MOM30 ML ORAL (16:23)
[2017-04-06] MEDS ORDERED: FLEET ENEMA133 M1 RC (16:23)
[2017-04-06] MEDS ORDERED: DULCOLAX10 MG RC (16:23)
[2017-04-06] MEDS ORDERED: DOCUSATE SODIU100 M2 ORAL (16:23)
[2017-04-06] MEDS ORDERED: SENNOSIDES-DOC1 EACH ORAL (16:23)
[2017-04-06 17:00] VITALS: BP 131/93
--- NOTE | 2017-04-06 17:11 | Consultation ---
History of Present Illness General Date patient seen: Apr 06, 2017 Time patient seen: 16:30 Chief Complaint: weakness Referring physician: dr Samson Reason for Consultation: inpatient management Present Illness HPI 52 y/old female with PMH of DM, HTN, COPD, GERD, seizure disorder was sent from SNF for evaluation of weakness, r/o encephalopathy patient was not willing to provide any additional info workup in ED revealed stable VS CK-333 O2 sat 92% on RA BUN-38. creat- 1.0 UA no evidence of infection CT head no acute intracranial pathology CXR no acute changes patient was admitted for further management reports poor appetite and generalized weakness, no further info provided Allergies: Coded Allergies: ACETAMINOPHEN (Verified Allergy, Unknown, 07/22/14) APPLE (Verified Allergy, Unknown, 04/06/17) ASPIRIN (Verified Allergy, Unknown, ITCHING, 07/22/14) AZITHROMYCIN (Verified Allergy, Unknown, 07/22/14) COPIED FROM UNCODED BANANA (Verified Allergy, Unknown, 04/06/17) CODEINE (Verified Allergy, Unknown, 07/22/14) ERYTHROMYCIN BASE (Verified Allergy, Unknown, 07/22/14) FISH CONTAINING PRODUCTS (Verified Allergy, Unknown, 07/22/14) HYDROCODONE (Verified Allergy, Unknown, 07/22/14) IODINE (Verified Allergy, Unknown, 07/22/14) MIDAZOLAM (Verified Allergy, Unknown, 07/22/14) MILK (Verified Allergy, Unknown, 07/22/14) PROPOXYPHENE (Verified Allergy, Unknown, 07/22/14) COPIED FROM UNCODED SULFA (SULFONAMIDE ANTIBIOTICS) (Verified Allergy, Unknown, 07/22/14) COPIED FROM UNCODED SULFACETAMIDE (Unverified Allergy, Unknown, 03/25/17) SUMATRIPTAN (Verified Allergy, Unknown, 07/22/14) TETRACYCLINE (Verified Allergy, Unknown, RASH, 07/22/14) TETRACYCLINES (Verified Allergy, Unknown, 07/22/14) COPIED FROM UNCODED TOMATO (Verified Allergy, Unknown, 07/22/14) according to pt "I will !".... Medication History Scheduled Cyclobenzaprine Hcl* (Flexeril*), 10 MG ORAL DAILY, (Reported) Divalproex Sodium* (Depakote Er*), 1,000 MG ORAL EVERY 12 HOURS, (Reported) Docusate Sodium (Docusate Sodium), 100 MG ORAL DAILY, (Reported) Escitalopram Oxalate* (Lexapro*), 10 MG ORAL DAILY, (Reported) Gabapentin* (Neurontin*), 300 MG ORAL THREE TIMES A DAY, (Reported) Haloperidol* (Haldol*), 10 MG ORAL DAILY, (Reported) Heparin Sod (Porcine) (Heparin Sodium*), 5,000 UNITS SUBQ EVERY 12 HOURS, ( Reported) Levetiracetam (Keppra), 1,500 MG ORAL Q12HR, (Reported) Na Phos,M-B/Na Phos,Di-Ba (Fleet Enema), 133 ML RC PRN, (Reported) Pantoprazole* (Protonix*), 40 MG ORAL DAILY, (Reported) Phenobarbital* (Phenobarbital*), 32.4 MG ORAL Q12HR, (Reported) Pregabalin* (Lyrica*), 75 MG ORAL BID, (Reported) Quetiapine Fumarate* (Seroquel*), 300 MG ORAL QHS, (Reported) Sennosides-Docusate Sodium* (Sennosides-Docusate Sodium*), 2 TAB ORAL BEDTIME, ( Reported) Trazodone* (Trazodone*), 300 MG ORAL BEDTIME, (Reported) Trazodone* (Trazodone*), 100 MG ORAL BEDTIME, (Reported) Scheduled PRN Acetaminophen (Acetaminophen), 650 MG ORAL Q4HR PRN for Prn Headache/Temp > 101, (Reported) Al Hydroxide/mg Hydroxide (Mag-Al Liquid), 30 ML PO Q6HR PRN for heartburn, ( Reported) Bisacodyl (Dulcolax), 10 MG RC PRN PRN for Constipation, (Reported) Ibuprofen* (Motrin*), 600 MG ORAL Q6H PRN for For Pain, (Reported) Lorazepam (Lorazepam), 2 MG IV Q1HR PRN for seizures, (Reported) Lorazepam* (Ativan*), 1 MG ORAL Q6HR PRN for For Anxiety, (Reported) Magnesium Hydroxide (Milk of Magnesia), 30 ML ORAL QHS PRN for Constipation, ( Reported) Ondansetron* (Zofran*), 4 MG IV Q6H PRN for Nausea & Vomiting, (Reported) Polyethylene Glycol 3350* (Miralax*), 17 GM ORAL HS PRN for Constipation, ( Reported) Zolpidem Tartrate* (Ambien*), 5 MG ORAL BEDTIME PRN for Insomnia, (Reported) Miscellaneous Medications Insulin Aspart* (Novolog*), 0 SUBQ, (Reported) Lactulose (Lactulose*), 30 ML ORAL, (Reported) Patient History Healthcare decision maker Resuscitation status Advanced Directive on File Yes Past Medical/Surgical History Past Medical/Surgical History: (1) Fibromyalgia (2) Epileptic seizure, generalized (3) Anemia (4) Encephalopathy (5) Sepsis (6) Transaminitis (7) Lumbar degenerative disc disease (8) Diabetes (9) HTN (hypertension) (10) CECILY (acute kidney injury) Physical Exam Last 24 Hour Vital Signs Date Time Temp Pulse Resp B/P (MAP) Pulse Ox O2 Delivery O2 Flow Rate FiO2 04/06/17 15:32 99.0 94 20 123/73 96 Room Air 04/06/17 14:00 94 20 123/73 96 Room Air 04/06/17 12:00 87 20 126/69 94 Room Air 04/06/17 11:18 99.0 94 16 130/93 92 Room Air Intake and Output 04/06/17 04/07/17 19:00 07:00 Intake Total 0 ml Balance 0 ml Intake Oral 0 ml Laboratory Tests Test 04/06/17 11:45 White Blood Count 8.2 K/UL (4.8-10.8) Red Blood Count 4.85 M/UL (4.20-5.40) Hemoglobin 12.9 G/DL (12.0-16.0) Hematocrit 41.3 % (37.0-47.0) Mean Corpuscular Volume 85 FL (80-99) Mean Corpuscular Hemoglobin 26.7 PG (27.0-31.0) L Mean Corpuscular Hemoglobin Concent 31.3 G/DL (32.0-36.0) L Red Cell Distribution Width 13.9 % (11.6-14.8) Platelet Count 316 K/UL (150-450) Mean Platelet Volume 6.3 FL (6.5-10.1) L Neutrophils (%) (Auto) 66.4 % (45.0-75.0) Lymphocytes (%) (Auto) 24.9 % (20.0-45.0) Monocytes (%) (Auto) 7.8 % (1.0-10.0) Eosinophils (%) (Auto) 0.0 % (0.0-3.0) Basophils (%) (Auto) 0.9 % (0.0-2.0) Urine Color Yellow Urine Appearance Clear Urine pH 5 (4.5-8.0) Urine Specific Watson 1.020 (1.005-1.035) Urine Protein 2+ (NEGATIVE) H Urine Glucose (UA) Negative (NEGATIVE) Urine Ketones 3+ (NEGATIVE) H Urine Occult Blood Negative (NEGATIVE) Urine Nitrite Negative (NEGATIVE) Urine Bilirubin Negative (NEGATIVE) Urine Urobilinogen 1 MG/DL (0.0-1.0) H Urine Leukocyte Esterase 1+ (NEGATIVE) H Urine RBC 0-2 /HPF (0 - 2) Urine WBC 2-4 /HPF (0 - 2) Urine Squamous Epithelial Cells Few /LPF (NONE/OCC) Urine Bacteria Few /HPF (NONE) Urine Mucus Few /LPF (NONE/OCC) H Sodium Level 144 mEQ/L (135-145) Potassium Level 3.6 mEQ/L (3.4-4.9) Chloride Level 100 mEQ/L (98-107) Carbon Dioxide Level 31 mEQ/L (20-30) H Anion Gap 13 (5-15) Blood Urea Nitrogen 38 mg/dL (7-23) H Creatinine 1.0 mg/dL (0.5-0.9) H Estimat Glomerular Filtration Rate 58.2 mL/min (>60) Glucose Level 133 mg/dL (74-106) H Calcium Level 9.3 mg/dL (8.6-10.2) Total Bilirubin 0.2 mg/dL (0.0-1.2) Aspartate Amino Transf (AST/SGOT) 26 U/L (5-40) Alanine Aminotransferase (ALT/SGPT) 29 U/L (3-33) Alkaline Phosphatase 136 U/L (35-104) H Total Creatine Kinase 333 U/L (26-140) H Creatine Kinase MB 2.9 ng/mL (< 3.8) Creatine Kinase MB Relative Index 0.8 Troponin I < 0.30 ng/mL (<=0.30) Total Protein 8.3 g/dL (6.6-8.7) Albumin 4.6 g/dL (3.5-5.2) Globulin 3.7 g/dL Albumin/Globulin Ratio 1.2 (1.0-2.7) Height (Feet): 5 Height (Inches): 4.00 Weight (Pounds): 160 Assessment/Plan Assessment/Plan ASSESSMENT rhabdomyolysis acute kidney injury dehydration COPD DM seizure disorder PLAN OF CAER MS floor IVF monitor renal parameters, lytes trend CK O2 HHN prn keep sat above 92% seizure precautions resume anti-epileptic medications DVT GI prophylaxis PT/OT BS management with SS of insulin check HgA1c consider neuro eval-per PMD discretion case discussed and evaluated by supervising physician Alana Sifuentes NP (Vanchtein) Apr 06, 2017 17:11
[2017-04-06] MEDS ORDERED: DuoNeb 0.5-3(2.5)mg/3ml neb HHN PRN (18:00)
[2017-04-06] MEDS ORDERED: Mylanta II UD 30ml ORAL PRN (18:00)
[2017-04-06] MEDS: Lyrica 75mg cap ORAL SCH ×2 (18:00→18:39)
[2017-04-06] MEDS ORDERED: Haloperidol 5mg/ml Inj IM ONE (18:18)
[2017-04-06] MEDS ORDERED: LORazepam Inj 2mg/ml 1ml IM ONE (18:18)
[2017-04-06] MEDS ORDERED: DiphenhydrAMINE 50mg/ml Inj IM ONE (18:19)
--- NOTE | 2017-04-06 18:47 | Consultation ---
History of Present Illness General Chief Complaint: Generalized Weakness Referring physician: dr Samson Reason for Consultation: Acute Kidney Injury Present Illness HPI Ms Almonte is a 52 y/old female with PMHx significant for hyperlipidemia, schizophrenia, DM, HTN, COPD, GERD, seizure disorder was recently discharged from the hospital to the skilled nursing, was sent by PCP for evaluation of weakness, r/o encephalopathy patient is agitated at this time and is unable to provide any useful medical information, workup in ED revealed stable VS CK- 333 BUN-38. creat- 1.0 Allergies: Coded Allergies: ACETAMINOPHEN (Verified Allergy, Unknown, 07/22/14) APPLE (Verified Allergy, Unknown, 04/06/17) ASPIRIN (Verified Allergy, Unknown, ITCHING, 07/22/14) AZITHROMYCIN (Verified Allergy, Unknown, 07/22/14) COPIED FROM UNCODED BANANA (Verified Allergy, Unknown, 04/06/17) CODEINE (Verified Allergy, Unknown, 07/22/14) ERYTHROMYCIN BASE (Verified Allergy, Unknown, 07/22/14) FISH CONTAINING PRODUCTS (Verified Allergy, Unknown, 07/22/14) HYDROCODONE (Verified Allergy, Unknown, 07/22/14) IODINE (Verified Allergy, Unknown, 07/22/14) MIDAZOLAM (Verified Allergy, Unknown, 07/22/14) MILK (Verified Allergy, Unknown, 07/22/14) PROPOXYPHENE (Verified Allergy, Unknown, 07/22/14) COPIED FROM UNCODED SULFA (SULFONAMIDE ANTIBIOTICS) (Verified Allergy, Unknown, 07/22/14) COPIED FROM UNCODED SULFACETAMIDE (Unverified Allergy, Unknown, 03/25/17) SUMATRIPTAN (Verified Allergy, Unknown, 07/22/14) TETRACYCLINE (Verified Allergy, Unknown, RASH, 07/22/14) TETRACYCLINES (Verified Allergy, Unknown, 07/22/14) COPIED FROM UNCODED TOMATO (Verified Allergy, Unknown, 07/22/14) according to pt "I will !".... Medication History Scheduled Cyclobenzaprine Hcl* (Flexeril*), 10 MG ORAL DAILY, (Reported) Divalproex Sodium* (Depakote Er*), 1,000 MG ORAL EVERY 12 HOURS, (Reported) Docusate Sodium (Docusate Sodium), 100 MG ORAL DAILY, (Reported) Escitalopram Oxalate* (Lexapro*), 10 MG ORAL DAILY, (Reported) Gabapentin* (Neurontin*), 300 MG ORAL THREE TIMES A DAY, (Reported) Haloperidol* (Haldol*), 10 MG ORAL DAILY, (Reported) Heparin Sod (Porcine) (Heparin Sodium*), 5,000 UNITS SUBQ EVERY 12 HOURS, ( Reported) Levetiracetam (Keppra), 1,500 MG ORAL Q12HR, (Reported) Na Phos,M-B/Na Phos,Di-Ba (Fleet Enema), 133 ML RC PRN, (Reported) Pantoprazole* (Protonix*), 40 MG ORAL DAILY, (Reported) Phenobarbital* (Phenobarbital*), 32.4 MG ORAL Q12HR, (Reported) Pregabalin* (Lyrica*), 75 MG ORAL BID, (Reported) Quetiapine Fumarate* (Seroquel*), 300 MG ORAL QHS, (Reported) Sennosides-Docusate Sodium* (Sennosides-Docusate Sodium*), 2 TAB ORAL BEDTIME, ( Reported) Trazodone* (Trazodone*), 300 MG ORAL BEDTIME, (Reported) Trazodone* (Trazodone*), 100 MG ORAL BEDTIME, (Reported) Scheduled PRN Acetaminophen (Acetaminophen), 650 MG ORAL Q4HR PRN for Prn Headache/Temp > 101, (Reported) Al Hydroxide/mg Hydroxide (Mag-Al Liquid), 30 ML PO Q6HR PRN for heartburn, ( Reported) Bisacodyl (Dulcolax), 10 MG RC PRN PRN for Constipation, (Reported) Ibuprofen* (Motrin*), 600 MG ORAL Q6H PRN for For Pain, (Reported) Lorazepam (Lorazepam), 2 MG IV Q1HR PRN for seizures, (Reported) Lorazepam* (Ativan*), 1 MG ORAL Q6HR PRN for For Anxiety, (Reported) Magnesium Hydroxide (Milk of Magnesia), 30 ML ORAL QHS PRN for Constipation, ( Reported) Ondansetron* (Zofran*), 4 MG IV Q6H PRN for Nausea & Vomiting, (Reported) Polyethylene Glycol 3350* (Miralax*), 17 GM ORAL HS PRN for Constipation, ( Reported) Zolpidem Tartrate* (Ambien*), 5 MG ORAL BEDTIME PRN for Insomnia, (Reported) Miscellaneous Medications Insulin Aspart* (Novolog*), 0 SUBQ, (Reported) Lactulose (Lactulose*), 30 ML ORAL, (Reported) Patient History Limited by: medical condition, other - mental status - pt is confused History Provided By: Medical Record Healthcare decision maker Resuscitation status Advanced Directive on File Yes Past Medical/Surgical History Past Medical/Surgical History: (1) Seizure disorder (2) History of asthma (3) Diabetes (4) HTN (hypertension) Review of Systems ROS Narrative Unable to obtain info due to pt's agitation Physical Exam General Appearance: confused, agitated Lines, tubes and drains: peripheral HEENT: normocephalic, atraumatic Neck: non-tender, normal alignment Respiratory/Chest: lungs clear, normal breath sounds, no respiratory distress Cardiovascular/Chest: normal rate, regular rhythm, no JVD Abdomen: soft, no organomegaly Extremities: normal inspection, no calf tenderness Skin Exam: warm/dry Neurologic: alert, oriented x 3, responsive Last 24 Hour Vital Signs Date Time Temp Pulse Resp B/P (MAP) Pulse Ox O2 Delivery O2 Flow Rate FiO2 04/06/17 15:32 99.0 94 20 123/73 96 Room Air 04/06/17 14:00 94 20 123/73 96 Room Air 04/06/17 12:00 87 20 126/69 94 Room Air 04/06/17 11:18 99.0 94 16 130/93 92 Room Air Intake and Output 04/06/17 04/07/17 19:00 07:00 Intake Total 0 ml Balance 0 ml Intake Oral 0 ml Laboratory Tests Test 04/06/17 11:45 White Blood Count 8.2 K/UL (4.8-10.8) Red Blood Count 4.85 M/UL (4.20-5.40) Hemoglobin 12.9 G/DL (12.0-16.0) Hematocrit 41.3 % (37.0-47.0) Mean Corpuscular Volume 85 FL (80-99) Mean Corpuscular Hemoglobin 26.7 PG (27.0-31.0) L Mean Corpuscular Hemoglobin Concent 31.3 G/DL (32.0-36.0) L Red Cell Distribution Width 13.9 % (11.6-14.8) Platelet Count 316 K/UL (150-450) Mean Platelet Volume 6.3 FL (6.5-10.1) L Neutrophils (%) (Auto) 66.4 % (45.0-75.0) Lymphocytes (%) (Auto) 24.9 % (20.0-45.0) Monocytes (%) (Auto) 7.8 % (1.0-10.0) Eosinophils (%) (Auto) 0.0 % (0.0-3.0) Basophils (%) (Auto) 0.9 % (0.0-2.0) Urine Color Yellow Urine Appearance Clear Urine pH 5 (4.5-8.0) Urine Specific [place] 1.020 (1.005-1.035) Urine Protein 2+ (NEGATIVE) H Urine Glucose (UA) Negative (NEGATIVE) Urine Ketones 3+ (NEGATIVE) H Urine Occult Blood Negative (NEGATIVE) Urine Nitrite Negative (NEGATIVE) Urine Bilirubin Negative (NEGATIVE) Urine Urobilinogen 1 MG/DL (0.0-1.0) H Urine Leukocyte Esterase 1+ (NEGATIVE) H Urine RBC 0-2 /HPF (0 - 2) Urine WBC 2-4 /HPF (0 - 2) Urine Squamous Epithelial Cells Few /LPF (NONE/OCC) Urine Bacteria Few /HPF (NONE) Urine Mucus Few /LPF (NONE/OCC) H Sodium Level 144 mEQ/L (135-145) Potassium Level 3.6 mEQ/L (3.4-4.9) Chloride Level 100 mEQ/L (98-107) Carbon Dioxide Level 31 mEQ/L (20-30) H Anion Gap 13 (5-15) Blood Urea Nitrogen 38 mg/dL (7-23) H Creatinine 1.0 mg/dL (0.5-0.9) H Estimat Glomerular Filtration Rate 58.2 mL/min (>60) Glucose Level 133 mg/dL (74-106) H Calcium Level 9.3 mg/dL (8.6-10.2) Total Bilirubin 0.2 mg/dL (0.0-1.2) Aspartate Amino Transf (AST/SGOT) 26 U/L (5-40) Alanine Aminotransferase (ALT/SGPT) 29 U/L (3-33) Alkaline Phosphatase 136 U/L (35-104) H Total Creatine Kinase 333 U/L (26-140) H Creatine Kinase MB 2.9 ng/mL (< 3.8) Creatine Kinase MB Relative Index 0.8 Troponin I < 0.30 ng/mL (<=0.30) Total Protein 8.3 g/dL (6.6-8.7) Albumin 4.6 g/dL (3.5-5.2) Globulin 3.7 g/dL Albumin/Globulin Ratio 1.2 (1.0-2.7) Height (Feet): 5 Height (Inches): 4.00 Weight (Pounds): 160 Medications Current Medications Medications (Trade) Dose Ordered Sig/Robb Route PRN Reason Start Time Stop Time Status Last Admin Dose Admin Al Hydroxide/Mg Hydroxide (Mylanta II) 30 ml Q6H PRN ORAL dyspepsia 04/06/17 18:00 05/06/17 17:59 Albuterol/ Ipratropium (DuoNeb 0.5-3(2.5)mg/3ml) 3 ml Q4H PRN HHN Shortness of Breath 04/06/17 18:00 04/11/17 17:59 Dextrose (Dextrose 50%) STAT PRN IV Hypoglycemia 04/06/17 18:00 05/06/17 17:59 Divalproex Sodium (Depakote ER) 1,000 mg EVERY 12 HOURS ORAL 04/06/17 21:00 05/06/17 20:59 Docusate Sodium (Colace) 100 mg DAILY ORAL 04/07/17 09:00 05/07/17 08:59 Escitalopram Oxalate (Lexapro) 10 mg DAILY ORAL 04/07/17 09:00 05/07/17 08:59 Gabapentin (Neurontin) 300 mg THREE TIMES A DAY ORAL 04/06/17 18:00 05/06/17 17:59 04/06/17 18:39 Heparin Sodium (Porcine) (Heparin 5000 units/ml) 5,000 units EVERY 12 HOURS SUBQ 04/06/17 21:00 05/06/17 20:59 Ibuprofen (Motrin) 600 mg Q6H PRN ORAL For Pain 04/06/17 18:00 05/06/17 17:59 Insulin Aspart (NovoLOG) BEFORE MEALS AND HS SUBQ 04/06/17 21:00 05/06/17 20:59 Levetiracetam (Keppra) 1,500 mg Q12HR ORAL 04/06/17 21:00 05/06/17 20:59 Lorazepam (Ativan) 1 mg Q6HR PRN ORAL For Anxiety 04/06/17 18:00 04/13/17 17:59 Magnesium Hydroxide (Mom) 30 ml HSPRN PRN ORAL Constipation 04/06/17 21:00 05/06/17 20:59 Ondansetron HCl (Zofran) 4 mg Q6H PRN IVP Nausea & Vomiting 04/06/17 18:00 05/06/17 17:59 Phenobarbital (PHENobarbital) 32.4 mg Q12HR ORAL 04/06/17 21:00 05/06/17 20:59 Polyethylene Glycol (Miralax) 17 gm HSPRN PRN ORAL Constipation 04/06/17 21:00 05/06/17 20:59 Pregabalin (Lyrica) 75 mg BID ORAL 04/06/17 18:00 05/06/17 17:59 04/06/17 18:39 Ranitidine HCl (Zantac) 150 mg BEDTIME ORAL 04/06/17 21:00 05/06/17 20:59 Sodium Chloride 1,000 ml @ 75 mls/hr [id number] IV 04/06/17 18:00 05/06/17 17:59 Trazodone HCl (Desyrel) 100 mg BEDTIME ORAL 04/06/17 21:00 05/06/17 20:59 Assessment/Plan Problem List: (1) Weakness ICD Codes: R53.1 - Weakness SNOMED: 92390934 (2) CECILY (acute kidney injury) ICD Codes: N17.9 - Acute kidney failure, unspecified SNOMED: 91032003 (3) Diabetes ICD Codes: E11.9 - Type 2 diabetes mellitus without complications SNOMED: 27795780 (4) HTN (hypertension) ICD Codes: I10 - Essential (primary) hypertension SNOMED: 78044785 (5) Schizophrenia ICD Codes: F20.9 - Schizophrenia, unspecified SNOMED: 92725540 Assessment/Plan Monitor renal function Renally dose meds Avoid nephrotoxins Strict glycemic control Seizure precautions Monitor neuro status Monitor intake and output Consider psych consult to stabilize mood AM labs Marilynn Oconnell N.P. Apr 06, 2017 18:47
[2017-04-06 20:00] VITALS: BP 118/83
[2017-04-06] MEDS: Depakote ER 500mg tab ORAL SCH (20:55)
[2017-04-06] MEDS: TraZODone 100mg tab ORAL SCH (20:56)
[2017-04-06] MEDS: PHENobarbital 32.4mg tab ORAL SCH (20:57)
[2017-04-06] MEDS ORDERED: Miralax 17gm pkt ORAL PRN (21:00)
[2017-04-06] MEDS: Heparin 5000 units/ml inj SUBQ SCH (21:00)
[2017-04-06] MEDS ORDERED: Milk of Magnesia 30ml Ud ORAL PRN (21:00)
[2017-04-06] MEDS: NovoLOG Insulin Flexpen SUBQ SCH (21:06)
[2017-04-06] MEDS: LORazepam 1mg tab ORAL PRN (21:53)
[2017-04-07] VITALS: BP 125/87
[2017-04-07] MEDS: LORazepam 1mg tab ORAL PRN ×3 (03:58→23:35)
[2017-04-07 04:00] VITALS: BP 131/83
[2017-04-07] MEDS: NovoLOG Insulin Flexpen SUBQ SCH ×5 (05:58→20:39)
[2017-04-07 08:00] VITALS: BP 118/81
[2017-04-07] MEDS: PHENobarbital 32.4mg tab ORAL SCH ×2 (08:27→20:37)
[2017-04-07] MEDS: Depakote ER 500mg tab ORAL SCH ×2 (08:27→20:37)
[2017-04-07] MEDS: Docusate 100mg cap ORAL SCH (08:27)
[2017-04-07] MEDS: Lyrica 75mg cap ORAL SCH ×2 (08:27→17:40)
[2017-04-07] MEDS: Heparin 5000 units/ml inj SUBQ SCH ×2 (08:31→20:40)
[2017-04-07 09:55] LABS: BASOPHILS % (AUTO) 1.6 % (0.0-2.0); LYMPHOCYTES % (AUTO) 37.3 % (20.0-45.0); MEAN CORPUSCULAR HGB CONC 32.3 G/DL (32.0-36.0); MEAN CORPUSCULAR VOLUME 87 FL (80-99); MEAN PLATELET VOLUME 6.5 FL (6.5-10.1); MONOCYTES % (AUTO) 5.5 % (1.0-10.0); NEUTROPHILS % (AUTO) 55.5 % (45.0-75.0); PLATELET COUNT 243 K/UL (150-450); RED BLOOD COUNT 4.53 M/UL (4.20-5.40); RED CELL DISTRIBUTION WIDTH 14.4 % (11.6-14.8); WHITE BLOOD COUNT 6.2 K/UL (4.8-10.8)
[2017-04-07 10:13] LABS: ANION GAP 15 (5-15); CALCIUM 8.7 mg/dL (8.6-10.2); CARBON DIOXIDE 25 mEQ/L (20-30); CHLORIDE 96 mEQ/L (98-107); CREATININE 0.9 mg/dL (0.5-0.9); GLOMERULAR FILTRATION RATE > 60 mL/min (>60); HEMOLYSIS 79; POTASSIUM 3.9 mEQ/L (3.4-4.9); SODIUM 136 mEQ/L (135-145)
--- NOTE | 2017-04-07 10:55 | Diagnostic Imaging Report ---
Indication: Headache Technique: Contiguous 5 mm thick transaxial imaging of the head obtained in a Siemens Sensation [address] scanner. Soft tissue and bone windows generated. Total Dose length Product (DLP): [address] Dose Index Volume (CTDIvol): 70.38, 0.15 mGy Comparison: 06/20/11 Findings: The size and configuration of the cortical sulci, basal cisterns, and ventricles are within normal limits for age. There is no mass effect, midline shift, or edema identified. There is no evidence of acute hemorrhage or abnormal intra-axial or extra-axial fluid collections. The bones and soft tissues are unremarkable. Impression: No mass effect, edema or acute bleed. [facility] has communicated the preliminary results to the Emergency Department. Their findings are largely concordant with this report. The CT scanner at [facility] is accredited by the [employer] and the scans are performed using dose optimization techniques as appropriate to a performed exam including Automatic Exposure control.
--- NOTE | 2017-04-07 11:52 | Diagnostic Imaging Report ---
Indication: Dyspnea Comparison: 04/12/16 A single view chest radiograph was obtained. Findings: Heart size is prominent. Pulmonary vascularity is appropriate. The diaphragmatic contour is smooth and costophrenic angles are sharp. No pleural effusions are identified. The bones are osteopenic. There is an old left clavicle fracture.. Impression: No acute findings
[2017-04-07 12:00] VITALS: BP 120/78
--- NOTE | 2017-04-07 15:15 | GI Initial Consult Note ---
History of Present Illness General Date patient seen: Apr 07, 2017 Time patient seen: 15:14 Reason for Hospitalization: Generalized Weakness Referring physician: dr Samson Reason for Consultation: FTT Present Illness HPI [id number] Sent from [facility] for "weakness" and to "rule out encepalopathy" by PMD Patient not interested in providing additional HPI Medical problems are extensive, listed in SNF paperwork Otherwise denies chest pain, SOB, abd pain, urinary complaints, fever/chills GI consult. HPI as noted above. GI consulted for FTT. Pt seen on floor, awake A&O NAD with no active s/sx of N/V/D. C/o of abdominal pain and discomfort. She presents today with generalized weakness and history of GERD. The patient states she's had a colonoscopy over 5 years ago and needs another. Home Meds Reported Medications Na Phos,M-B/Na Phos,Di-Ba (Fleet Enema) 133 Ml Enema, 133 ML RC PRN for Constipation, EA 04/06/17 Bisacodyl (DULCOLAX) 10 Mg Supp.rect, 10 MG RC PRN Y for Constipation, SUPP 04/06/17 Docusate Sodium (DOCUSATE SODIUM) 100 Mg Tablet, 100 MG ORAL DAILY, #30 TAB 0 Refills 04/06/17 Sennosides-Docusate Sodium* (SENNOSIDES-DOCUSATE SODIUM*) 1 Each Tablet, 2 TAB ORAL BEDTIME, TAB 04/06/17 Magnesium Hydroxide (Milk of Magnesia) 400 Mg/5 Ml Oral.susp, 30 ML ORAL QHS Y for Constipation, ML 04/06/17 Trazodone* (TRAZODONE*) 150 Mg Tablet, 100 MG ORAL BEDTIME, TAB 04/06/17 Heparin Sod (Porcine) (HEPARIN SODIUM*) 5 000/1 Ml Vial, 5000 UNITS SUBQ EVERY 12 HOURS, VIAL 04/06/17 Levetiracetam (KEPPRA) 1,000 Mg Tablet, 1500 MG ORAL Q12HR, #30 TAB 0 Refills 03/27/17 Zolpidem Tartrate* (AMBIEN*) 5 Mg Tablet, 5 MG ORAL BEDTIME Y for Insomnia, TAB 03/27/17 Trazodone* (TRAZODONE*) 150 Mg Tablet, 300 MG ORAL BEDTIME, TAB 03/27/17 Quetiapine Fumarate* (SEROQUEL*) 200 Mg Tablet, 300 MG ORAL QHS, TAB 03/27/17 Pregabalin* (LYRICA*) 75 Mg Capsule, 75 MG ORAL BID, CAP 03/27/17 Polyethylene Glycol 3350* (MIRALAX*) 17 Gm Powd.pack, 17 GM ORAL HS Y for Constipation, PACKET 03/27/17 Pantoprazole* (PROTONIX*) 40 Mg Tablet.dr, 40 MG ORAL DAILY, TAB 03/27/17 Phenobarbital* (PHENOBARBITAL*) 30 Mg Tablet, 32.4 MG ORAL Q12HR, #30 TAB 0 Refills 03/27/17 Ondansetron* (ZOFRAN*) 4 Mg/2 Ml Vial, 4 MG IV Q6H Y for Nausea & Vomiting, VIAL 03/27/17 Lactulose (LACTULOSE*) 20 Gm/30 Ml Solution, 30 ML ORAL, ML 0 Refills 03/27/17 Lorazepam* (ATIVAN*) 1 Mg Tablet, 1 MG ORAL Q6HR Y for For Anxiety, TAB 03/27/17 Lorazepam (LORAZEPAM) 4 Mg/1 Ml Vial, 2 MG IV Q1HR Y for seizures, VIAL 03/27/17 Ibuprofen* (MOTRIN*) 600 Mg Tablet, 600 MG ORAL Q6H Y for For Pain, #30 TAB 03/27/17 Haloperidol* (HALDOL*) 0.5 Mg Tablet, 10 MG ORAL DAILY, #20 TAB 0 Refills 03/27/17 Gabapentin* (NEURONTIN*) 100 Mg Capsule, 300 MG ORAL THREE TIMES A DAY, #15 CAP 0 Refills 03/27/17 Escitalopram Oxalate* (LEXAPRO*) 10 Mg Tablet, 10 MG ORAL DAILY, TAB 03/27/17 Divalproex Sodium* (DEPAKOTE ER*) 500 Mg Tab.er.24h, 1000 MG ORAL EVERY 12 HOURS , TAB 03/27/17 Cyclobenzaprine Hcl* (FLEXERIL*) 10 Mg Tablet, 10 MG ORAL DAILY, TAB 03/27/17 Al Hydroxide/mg Hydroxide (Mag-Al Liquid) 30 Ml Oral.susp, 30 ML PO Q6HR Y for heartburn, ML 03/27/17 Acetaminophen (Acetaminophen) 650 Mg/20.3 Ml Solution, 650 MG ORAL Q4HR Y for Prn Headache/Temp > 101, ML 0 Refills 03/27/17 Insulin Aspart* (NOVOLOG*) 100 Unit/1 Ml Insuln.pen, 0 SUBQ, EA 0 Refills 06/28/14 Med list reviewed/reconciled: Yes Allergies: Coded Allergies: ACETAMINOPHEN (Verified Allergy, Unknown, 07/22/14) APPLE (Verified Allergy, Unknown, 04/06/17) ASPIRIN (Verified Allergy, Unknown, ITCHING, 07/22/14) AZITHROMYCIN (Verified Allergy, Unknown, 07/22/14) COPIED FROM UNCODED BANANA (Verified Allergy, Unknown, 04/06/17) CODEINE (Verified Allergy, Unknown, 07/22/14) ERYTHROMYCIN BASE (Verified Allergy, Unknown, 07/22/14) FISH CONTAINING PRODUCTS (Verified Allergy, Unknown, 07/22/14) HYDROCODONE (Verified Allergy, Unknown, 07/22/14) IODINE (Verified Allergy, Unknown, 07/22/14) MIDAZOLAM (Verified Allergy, Unknown, 07/22/14) MILK (Verified Allergy, Unknown, 07/22/14) PROPOXYPHENE (Verified Allergy, Unknown, 07/22/14) COPIED FROM UNCODED SULFA (SULFONAMIDE ANTIBIOTICS) (Verified Allergy, Unknown, 07/22/14) COPIED FROM UNCODED SULFACETAMIDE (Unverified Allergy, Unknown, 03/25/17) SUMATRIPTAN (Verified Allergy, Unknown, 07/22/14) TETRACYCLINE (Verified Allergy, Unknown, RASH, 07/22/14) TETRACYCLINES (Verified Allergy, Unknown, 07/22/14) COPIED FROM UNCODED TOMATO (Verified Allergy, Unknown, 07/22/14) according to pt "I will !".... Patient History History Provided By: Medical Record PMH Narrative Past Medical History: see triage record, old chart reviewed Past Surgical History: none Pertinent Family History: none Social History: Denies: smoking, alcohol use, drug use Now: No Immunizations: UTD Reviewed Nursing Documentation: PMH: Agreed, PSxH: Agreed Nursing Documentation-PM Past Medical History: No History, Except For Hx Hypertension: Yes - Hyperlipidemia Hx Asthma: Yes Hx COPD: Yes Hx Diabetes: Yes - Type 2 Hx Cancer: No Hx Gastrointestinal Problems: Yes - gastroparesis, GERD Hx Neurological Problems: Yes - Generalized weakness, neuralgia, neuritis Hx Cerebrovascular Accident: No Hx Transient Ischemic Attacks: No Hx Dementia: No Hx Alzheimer's Disease: No Hx Parkinson's Disease: No Hx Meningitis: No Hx Encephalitis: No Hx Seizures: Yes - Epilepsy Hx Epilepsy: No Hx Multiple Sclerosis: No Hx Cerebral Palsy: No Hx Amyotrophic Lat Sclerosis: No Hx Guillian-[place] Syndrome: No Hx Paralysis: No Hx Peripheral Neuropathy: No Hx Spinal Cord Injury: No Hx Head Trauma: No Hx Traumatic Brain Injury: No Hx Memory Loss: Yes Hx Concentration Difficulty: No Hx Speech Problem: No Hx Tremors: No Hx Vertigo: No Hx Dizziness: No Hx Syncope: No Hx Headaches: No Hx Aphasia: No Hx Dysphasia: No Hx Numbness: No Hx Weakness: Yes Hx Fatigue: No Hx Neurologic Surgery: No Hx Brain Shunt: No Social History: Denies: smoking, alcohol use, drug use, other Review of Systems All Other Systems: negative except mentioned in HPI Physical Exam Vital Signs Date Time Temp Pulse Resp B/P (MAP) Pulse Ox O2 Delivery O2 Flow Rate FiO2 04/06/17 11:18 99.0 94 16 130/93 92 Room Air Sp02 EP Interpretation: reviewed Labs Laboratory Tests Test 04/07/17 09:15 White Blood Count 6.2 K/UL (4.8-10.8) Red Blood Count 4.53 M/UL (4.20-5.40) Hemoglobin 12.7 G/DL (12.0-16.0) Hematocrit 39.3 % (37.0-47.0) Mean Corpuscular Volume 87 FL (80-99) Mean Corpuscular Hemoglobin 28.0 PG (27.0-31.0) Mean Corpuscular Hemoglobin Concent 32.3 G/DL (32.0-36.0) Red Cell Distribution Width 14.4 % (11.6-14.8) Platelet Count 243 K/UL (150-450) Mean Platelet Volume 6.5 FL (6.5-10.1) Neutrophils (%) (Auto) 55.5 % (45.0-75.0) Lymphocytes (%) (Auto) 37.3 % (20.0-45.0) Monocytes (%) (Auto) 5.5 % (1.0-10.0) Eosinophils (%) (Auto) 0.0 % (0.0-3.0) Basophils (%) (Auto) 1.6 % (0.0-2.0) Sodium Level 136 mEQ/L (135-145) Potassium Level 3.9 mEQ/L (3.4-4.9) Chloride Level 96 mEQ/L (98-107) L Carbon Dioxide Level 25 mEQ/L (20-30) Anion Gap 15 (5-15) Blood Urea Nitrogen 31 mg/dL (7-23) H Creatinine 0.9 mg/dL (0.5-0.9) Estimat Glomerular Filtration Rate > 60 mL/min (>60) Glucose Level 262 mg/dL (74-106) #H Hemoglobin A1c 6.8 % (< 6.0) H Calcium Level 8.7 mg/dL (8.6-10.2) Total Creatine Kinase 799 U/L (26-140) H General Appearance: well appearing, no apparent distress, alert, obese Head: normocephalic EENT: PERRL/EOMI, normal ENT inspection Neck: full range of motion, supple Respiratory: normal breath sounds, no respiratory distress Cardiovascular: normal rate Gastrointestinal: normal inspection, non tender, soft Rectal: deferred Genitourinary: no CVA tenderness Musculoskeletal: normal inspection, back normal Neurologic: normal inspection, alert, oriented x3, responsive Psychiatric: normal inspection, judgement/insight normal, memory normal Skin: normal inspection, normal color, no rash, warm/dry, palpation normal Lymphatic: normal inspection, no adenopathy Current Medications Current Medications Medications (Trade) Dose Ordered Sig/Robb Route PRN Reason Start Time Stop Time Status Last Admin Dose Admin Al Hydroxide/Mg Hydroxide (Mylanta II) 30 ml Q6H PRN ORAL dyspepsia 04/06/17 18:00 05/06/17 17:59 Albuterol/ Ipratropium (DuoNeb 0.5-3(2.5)mg/3ml) 3 ml Q4H PRN HHN Shortness of Breath 04/06/17 18:00 04/11/17 17:59 Dextrose (Dextrose 50%) STAT PRN IV Hypoglycemia 04/06/17 18:00 05/06/17 17:59 Divalproex Sodium (Depakote ER) 1,000 mg EVERY 12 HOURS ORAL 04/06/17 21:00 05/06/17 20:59 04/07/17 08:27 Docusate Sodium (Colace) 100 mg DAILY ORAL 04/07/17 09:00 05/07/17 08:59 04/07/17 08:27 Escitalopram Oxalate (Lexapro) 10 mg DAILY ORAL 04/07/17 09:00 05/07/17 08:59 04/07/17 08:28 Gabapentin (Neurontin) 300 mg THREE TIMES A DAY ORAL 04/06/17 18:00 05/06/17 17:59 04/07/17 12:18 Heparin Sodium (Porcine) (Heparin 5000 units/ml) 5,000 units EVERY 12 HOURS SUBQ 04/06/17 21:00 05/06/17 20:59 Ibuprofen (Motrin) 600 mg Q6H PRN ORAL For Pain 04/06/17 18:00 05/06/17 17:59 04/07/17 04:04 Insulin Aspart (NovoLOG) BEFORE MEALS AND HS SUBQ 04/06/17 21:00 05/06/17 20:59 04/07/17 11:53 Levetiracetam (Keppra) 1,500 mg Q12HR ORAL 04/06/17 21:00 05/06/17 20:59 04/07/17 08:28 Lorazepam (Ativan) 1 mg Q6HR PRN ORAL For Anxiety 04/06/17 18:00 04/13/17 17:59 04/07/17 03:58 Magnesium Hydroxide (Mom) 30 ml HSPRN PRN ORAL Constipation 04/06/17 21:00 05/06/17 20:59 Ondansetron HCl (Zofran) 4 mg Q6H PRN IVP Nausea & Vomiting 04/06/17 18:00 05/06/17 17:59 Phenobarbital (PHENobarbital) 32.4 mg Q12HR ORAL 04/06/17 21:00 05/06/17 20:59 04/07/17 08:27 Polyethylene Glycol (Miralax) 17 gm HSPRN PRN ORAL Constipation 04/06/17 21:00 05/06/17 20:59 Pregabalin (Lyrica) 75 mg BID ORAL 04/06/17 18:00 05/06/17 17:59 04/07/17 08:27 Ranitidine HCl (Zantac) 150 mg BEDTIME ORAL 9/4/17 21:00 05/06/17 20:59 04/06/17 20:57 Sodium Chloride 1,000 ml @ 75 mls/hr [id number] IV 04/06/17 18:00 05/06/17 17:59 Trazodone HCl (Desyrel) 100 mg BEDTIME ORAL 04/06/17 21:00 05/06/17 20:59 04/06/17 20:56 GI: Plan Problems: (1) Hx of cholecystectomy (2) Schizophrenia (3) Weakness (4) Diabetes (5) GERD (gastroesophageal reflux disease) Plan symptomatic treatment at this time zofran prn, consider reglan if vomiting persists fu swallow eval pain mgmt ppi PT/OT eval outpatient GI procedures Discussed with Dr. De Souza. Thank you for referring this patient, we will follow. Katlyn Nava N.P. Apr 07, 2017 15:15
[2017-04-07 16:00] VITALS: BP 123/62
--- NOTE | 2017-04-07 16:00 | Pulmonology Progress Note ---
Assessment/Plan Problems: (1) Seizure disorder (2) History of asthma (3) HTN (hypertension) (4) Diabetes (5) Lumbar radiculopathy (6) Schizophrenia Assessment/Plan symptomatic treatment respiratory Rx titrate fio2 psych and neuro evaluation Subjective ROS Limited/Unobtainable: No Constitutional: Reports: no symptoms HEENT: Repors: no symptoms Respiratory: Reports: other Allergies: Coded Allergies: ACETAMINOPHEN (Verified Allergy, Unknown, 07/22/14) APPLE (Verified Allergy, Unknown, 04/06/17) ASPIRIN (Verified Allergy, Unknown, ITCHING, 07/22/14) AZITHROMYCIN (Verified Allergy, Unknown, 07/22/14) COPIED FROM UNCODED BANANA (Verified Allergy, Unknown, 04/06/17) CODEINE (Verified Allergy, Unknown, 07/22/14) ERYTHROMYCIN BASE (Verified Allergy, Unknown, 07/22/14) FISH CONTAINING PRODUCTS (Verified Allergy, Unknown, 07/22/14) HYDROCODONE (Verified Allergy, Unknown, 07/22/14) IODINE (Verified Allergy, Unknown, 07/22/14) MIDAZOLAM (Verified Allergy, Unknown, 07/22/14) MILK (Verified Allergy, Unknown, 07/22/14) PROPOXYPHENE (Verified Allergy, Unknown, 07/22/14) COPIED FROM UNCODED SULFA (SULFONAMIDE ANTIBIOTICS) (Verified Allergy, Unknown, 07/22/14) COPIED FROM UNCODED SULFACETAMIDE (Unverified Allergy, Unknown, 03/25/17) SUMATRIPTAN (Verified Allergy, Unknown, 07/22/14) TETRACYCLINE (Verified Allergy, Unknown, RASH, 07/22/14) TETRACYCLINES (Verified Allergy, Unknown, 07/22/14) COPIED FROM UNCODED TOMATO (Verified Allergy, Unknown, 07/22/14) according to pt "I will !".... Objective Last 24 Hour Vital Signs Date Time Temp Pulse Resp B/P (MAP) Pulse Ox O2 Delivery O2 Flow Rate FiO2 04/07/17 12:00 96.4 81 18 120/78 95 Room Air 04/07/17 09:26 98.2 04/07/17 08:01 76 18 Room Air 04/07/17 08:00 97.7 87 18 118/81 94 Room Air 04/07/17 05:03 98.2 04/07/17 04:00 98.3 90 20 131/83 94 Room Air 04/07/17 00:00 98.2 86 21 125/87 96 Room Air 04/06/17 20:00 97.5 94 22 118/83 95 Room Air 04/06/17 17:00 97.7 92 16 131/93 94 Room Air Intake and Output 04/07/17 04/08/17 19:00 07:00 Intake Total 300 ml Balance 300 ml Intake Oral 300 ml # Voids 1 General Appearance: WD/WN HEENT: normocephalic, atraumatic Respiratory/Chest: lungs clear, normal breath sounds Breasts: no masses Cardiovascular: normal peripheral pulses, normal rate Abdomen: soft, non tender, non distended Extremities: no cyanosis Skin: no rash, no lesions Laboratory Tests 04/07/17 09:15: White Blood Count 6.2, Red Blood Count 4.53, Hemoglobin 12.7, Hematocrit 39.3, Mean Corpuscular Volume 87, Mean Corpuscular Hemoglobin 28.0, Mean Corpuscular Hemoglobin Concent 32.3, Red Cell Distribution Width 14.4, Platelet Count 243, Mean Platelet Volume 6.5, Neutrophils (%) (Auto) 55.5, Lymphocytes (%) (Auto) 37.3, Monocytes (%) (Auto) 5.5, Eosinophils (%) (Auto) 0.0, Basophils (%) (Auto ) 1.6, Sodium Level 136, Potassium Level 3.9, Chloride Level 96L, Carbon Dioxide Level 25, Anion Gap 15, Blood Urea Nitrogen 31H, Creatinine 0.9, Estimat Glomerular Filtration Rate > 60, Glucose Level 262#H, Hemoglobin A1c 6.8H, Calcium Level 8.7, Total Creatine Kinase 799H Current Medications Medications (Trade) Dose Ordered Sig/Robb Route PRN Reason Start Time Stop Time Status Last Admin Dose Admin Al Hydroxide/Mg Hydroxide (Mylanta II) 30 ml Q6H PRN ORAL dyspepsia 04/06/17 18:00 05/06/17 17:59 Albuterol/ Ipratropium (DuoNeb 0.5-3(2.5)mg/3ml) 3 ml Q4H PRN HHN Shortness of Breath 04/06/17 18:00 04/11/17 17:59 Dextrose (Dextrose 50%) STAT PRN IV Hypoglycemia 04/06/17 18:00 05/06/17 17:59 Divalproex Sodium (Depakote ER) 1,000 mg EVERY 12 HOURS ORAL 04/06/17 21:00 05/06/17 20:59 04/07/17 08:27 Docusate Sodium (Colace) 100 mg DAILY ORAL 04/07/17 09:00 05/07/17 08:59 04/07/17 08:27 Escitalopram Oxalate (Lexapro) 10 mg DAILY ORAL 04/07/17 09:00 05/07/17 08:59 04/07/17 08:28 Gabapentin (Neurontin) 300 mg THREE TIMES A DAY ORAL 04/06/17 18:00 05/06/17 17:59 04/07/17 12:18 Heparin Sodium (Porcine) (Heparin 5000 units/ml) 5,000 units EVERY 12 HOURS SUBQ 04/06/17 21:00 05/06/17 20:59 Ibuprofen (Motrin) 600 mg Q6H PRN ORAL For Pain 04/06/17 18:00 05/06/17 17:59 04/07/17 04:04 Insulin Aspart (NovoLOG) BEFORE MEALS AND HS SUBQ 04/06/17 21:00 05/06/17 20:59 04/07/17 11:53 Levetiracetam (Keppra) 1,500 mg Q12HR ORAL 04/06/17 21:00 05/06/17 20:59 04/07/17 08:28 Lorazepam (Ativan) 1 mg Q6HR PRN ORAL For Anxiety 04/06/17 18:00 04/13/17 17:59 04/07/17 15:35 Magnesium Hydroxide (Mom) 30 ml HSPRN PRN ORAL Constipation 04/06/17 21:00 05/06/17 20:59 Ondansetron HCl (Zofran) 4 mg Q6H PRN IVP Nausea & Vomiting 04/06/17 18:00 05/06/17 17:59 Phenobarbital (PHENobarbital) 32.4 mg Q12HR ORAL 04/06/17 21:00 05/06/17 20:59 04/07/17 08:27 Polyethylene Glycol (Miralax) 17 gm HSPRN PRN ORAL Constipation 04/06/17 21:00 05/06/17 20:59 Pregabalin (Lyrica) 75 mg BID ORAL 04/06/17 18:00 05/06/17 17:59 04/07/17 08:27 Ranitidine HCl (Zantac) 150 mg BEDTIME ORAL 04/06/17 21:00 05/06/17 20:59 04/06/17 20:57 Sodium Chloride 1,000 ml @ 75 mls/hr [id number] IV 04/06/17 18:00 05/06/17 17:59 Trazodone HCl (Desyrel) 100 mg BEDTIME ORAL 04/06/17 21:00 05/06/17 20:59 04/06/17 20:56 ZITA MANDEL Apr 07, 2017 16:00
[2017-04-07 20:00] VITALS: BP 129/70
[2017-04-07] MEDS: TraZODone 100mg tab ORAL SCH (20:37)
[2017-04-08 04:00] VITALS: BP 113/62
[2017-04-08] MEDS: NovoLOG Insulin Flexpen SUBQ SCH ×4 (05:49→21:15)
[2017-04-08 07:37] LABS: MEAN CORPUSCULAR HEMOGLOBIN 27.9 PG (27.0-31.0); MEAN CORPUSCULAR HGB CONC 32.1 G/DL (32.0-36.0); MEAN CORPUSCULAR VOLUME 87 FL (80-99); MEAN PLATELET VOLUME 6.3 FL (6.5-10.1); PLATELET COUNT 278 K/UL (150-450); RED BLOOD COUNT 4.35 M/UL (4.20-5.40); RED CELL DISTRIBUTION WIDTH 14.2 % (11.6-14.8); WHITE BLOOD COUNT 5.9 K/UL (4.8-10.8)
[2017-04-08 07:51] LABS: ANION GAP 8 (5-15); CALCIUM 8.8 mg/dL (8.6-10.2); CARBON DIOXIDE 32 mEQ/L (20-30); CHLORIDE 100 mEQ/L (98-107); CREATININE 0.9 mg/dL (0.5-0.9); GLOMERULAR FILTRATION RATE > 60 mL/min (>60); HEMOLYSIS 4; POTASSIUM 3.8 mEQ/L (3.4-4.9); SODIUM 140 mEQ/L (135-145)
[2017-04-08 08:00] VITALS: BP 121/66
--- NOTE | 2017-04-08 08:16 | General Progress Note ---
Assessment/Plan Assessment/Plan (1) Lumbar radiculopathy (2) Lumbar spondylosis (3) Lumbar degenerative disc disease Pt will be started on Motrin 600mg Q6H as needed D/w and he concurred. Thank you for the courtesy of this consultation Subjective Date patient seen: Apr 08, 2017 Time patient seen: 07:30 - am Allergies: Coded Allergies: ACETAMINOPHEN (Verified Allergy, Unknown, 07/22/14) APPLE (Verified Allergy, Unknown, 04/06/17) ASPIRIN (Verified Allergy, Unknown, ITCHING, 07/22/14) AZITHROMYCIN (Verified Allergy, Unknown, 07/22/14) COPIED FROM UNCODED BANANA (Verified Allergy, Unknown, 04/06/17) CODEINE (Verified Allergy, Unknown, 07/22/14) ERYTHROMYCIN BASE (Verified Allergy, Unknown, 07/22/14) FISH CONTAINING PRODUCTS (Verified Allergy, Unknown, 07/22/14) HYDROCODONE (Verified Allergy, Unknown, 07/22/14) IODINE (Verified Allergy, Unknown, 07/22/14) MIDAZOLAM (Verified Allergy, Unknown, 07/22/14) MILK (Verified Allergy, Unknown, 07/22/14) PROPOXYPHENE (Verified Allergy, Unknown, 07/22/14) COPIED FROM UNCODED SULFA (SULFONAMIDE ANTIBIOTICS) (Verified Allergy, Unknown, 07/22/14) COPIED FROM UNCODED SULFACETAMIDE (Unverified Allergy, Unknown, 03/25/17) SUMATRIPTAN (Verified Allergy, Unknown, 07/22/14) TETRACYCLINE (Verified Allergy, Unknown, RASH, 07/22/14) TETRACYCLINES (Verified Allergy, Unknown, 07/22/14) COPIED FROM UNCODED TOMATO (Verified Allergy, Unknown, 07/22/14) according to pt "I will !".... Subjective Constitutional: Denies: no symptoms, chills, diaphoresis, fever, malaise, weakness, other HEENT: Denies: no symptoms, eye pain, blurred vision, tearing, double vision, ear pain, ear discharge, nose pain, nose congestion, throat pain, throat swelling, mouth pain, mouth swelling, other Cardiovascular: Denies: no symptoms, chest pain, edema, irregular heart rate, lightheadedness, palpitations, syncope, other Respiratory: Denies: no symptoms, cough, orthopnea, shortness of breath, SOB with excertion, SOB at rest, sputum, stridor, wheezing, other Gastrointestinal/Abdominal: Reports: Abdmoinal pain, nausea, vomiting Genitourinary: Denies: burning, discharge, frequency, flank pain, urgency Neurologic/Psychiatric: Reports: depressed, weakness Endocrine: Denies: no symptoms, excessive sweating, flushing, intolerance to cold, intolerance to heat, increased hunger, increased thirst, increased urine, unexplained weight gain, unexplained weight loss, other Hematologic/Lymphatic: Denies: no symptoms, anemia, easy bleeding, easy bruising, other Subjective Pt is a known patient from prior admissions and now as been admitted due to weakness. She will be started on Motrin 800mg Q8H PRN. Objective Last 24 Hour Vital Signs Date Time Temp Pulse Resp B/P (MAP) Pulse Ox O2 Delivery O2 Flow Rate FiO2 04/08/17 08:00 97.3 96 20 121/66 95 Room Air 04/08/17 06:56 78 18 Room Air 04/08/17 04:00 97.9 76 18 113/62 100 Room Air 04/08/17 00:35 96.8 04/07/17 20:00 96.8 80 20 129/70 Room Air 04/07/17 19:49 72 18 Room Air 04/07/17 18:39 97.3 04/07/17 16:46 89 16 100 Room Air 04/07/17 16:36 87 16 98 Room Air 21 04/07/17 16:00 97.3 82 20 123/62 92 Room Air 04/07/17 12:00 96.4 81 18 120/78 95 Room Air Intake and Output 04/08/17 04/09/17 19:00 07:00 Intake Total 350 ml Output Total 1 ml Balance 349 ml Intake Oral 350 ml Output Urine Total 1 ml # Voids 1 Laboratory Tests 04/07/17 09:15: White Blood Count 6.2, Red Blood Count 4.53, Hemoglobin 12.7, Hematocrit 39.3, Mean Corpuscular Volume 87, Mean Corpuscular Hemoglobin 28.0, Mean Corpuscular Hemoglobin Concent 32.3, Red Cell Distribution Width 14.4, Platelet Count 243, Mean Platelet Volume 6.5, Neutrophils (%) (Auto) 55.5, Lymphocytes (%) (Auto) 37.3, Monocytes (%) (Auto) 5.5, Eosinophils (%) (Auto) 0.0, Basophils (%) (Auto ) 1.6, Sodium Level 136, Potassium Level 3.9, Chloride Level 96L, Carbon Dioxide Level 25, Anion Gap 15, Blood Urea Nitrogen 31H, Creatinine 0.9, Estimat Glomerular Filtration Rate > 60, Glucose Level 262#H, Hemoglobin A1c 6.8H, Calcium Level 8.7, Total Creatine Kinase 799H 04/08/17 06:00: White Blood Count 5.9, Red Blood Count 4.35, Hemoglobin 12.1, Hematocrit 37.8, Mean Corpuscular Volume 87, Mean Corpuscular Hemoglobin 27.9, Mean Corpuscular Hemoglobin Concent 32.1, Red Cell Distribution Width 14.2, Platelet Count 278, Mean Platelet Volume 6.3L, Neutrophils (%) (Auto) , Lymphocytes (%) (Auto) , Monocytes (%) (Auto) , Eosinophils (%) (Auto) , Basophils (%) (Auto) , Sodium Level 140, Potassium Level 3.8, Chloride Level 100, Carbon Dioxide Level 32H, Anion Gap 8, Blood Urea Nitrogen 33H, Creatinine 0.9, Estimat Glomerular Filtration Rate > 60, Glucose Level 141#H, Calcium Level 8.8, Neutrophils % ( Manual) [Pending], Lymphocytes % (Manual) [Pending], Platelet Estimate [Pending] , Platelet Morphology [Pending], Alpha Fetoprotein [Pending], CA 15-3 Antigen [ Pending], CA 19-9 Antigen 5.56, CA 125 Antigen [Pending] Height (Feet): 5 Height (Inches): 4.00 Weight (Pounds): 160 General Appearance: no apparent distress, alert EENT: PERRL/EOMI, normal ENT inspection Neck: non-tender, normal alignment Cardiovascular: normal rate, regular rhythm Respiratory/Chest: lungs clear, normal breath sounds Abdomen: non tender, soft Extremities: non-tender Edema: trace edema Neurologic: alert, responsive Skin: warm/dry ROOSEVELT SAWYER Apr 08, 2017 08:15
[2017-04-08] MEDS ORDERED: Cyclobenzaprine 10mg Tab ORAL PRN (08:30)
--- NOTE | 2017-04-08 08:31 | Consultation ---
DATE OF CONSULTATION: 04/07/2017 HISTORY OF PRESENT ILLNESS: This is a 52-year-old female patient with generalized weakness who was admitted to [facility] 04/07 to 04/19. She was seen and assessed in came in for altered mental status and she has a diagnosis of bipolar 2 so a consultation was requested. SOCIAL HISTORY: She lives in [facility]. Financially supported by [facility] and Medicare. SUBSTANCE ABUSE HISTORY: Denies drug and alcohol. MEDICAL HISTORY: Please see internal medicine notes. MEDICATIONS: See nurses notes. ALLERGIES: No known drug allergies. PAST PSYCHIATRIC HISTORY: Bipolar 2 with multiple psychiatric admissions. MENTAL STATUS EXAMINATION: INCOMPLETE DICTATION Shakila Au M.D. DR: YOLANDA JOB#: [id number] CC:
--- NOTE | 2017-04-08 08:31 | Consultation ---
DATE OF CONSULTATION: 04/07/2017 HISTORY OF PRESENT ILLNESS: The patient is a 52-year-old female patient with generalized weakness. This patient is a 52-year-old female patient who is confused, disorganized. She came in for altered mental status and generalized weakness consultation requested. However, but she does have altered mental status and confusion. She has got no logical plan for her own self care. She came in because of slurred speech. She was slightly disorganized and that is why I ____ assessed in her room . She is endorsing that she has had insomnia resulting in mood disorder and agitation facility. SOCIAL HISTORY: She is financially supported by [employer] and Medicare. PAST PSYCHIATRIST HISTORY: Multiple psychiatric admissions. ALLERGIES: See allergies list. MEDICAL HISTORY: She has generalized weakness . MENTAL STATUS EXAMINATION: This is a 52-year-old female with psychomotor agitation. Mood is irritable and agitated. Affect x6 weeks . Thought process is slightly disorganized. Thought content, paranoid delusions . Insight and judgment is poor. DIAGNOSIS: Bipolar 2. PLAN: For this patient, I am going to titrate up on this patient medications to stabilize her mood 7 days. The patient continued to be followed by Psychiatry throughout the hospital course. Chart was reviewed and discussed with staff. Seen and assessed in her room. I would like to thank, Dr. Scott Samson, for this interesting consultation. Shakila Au M.D. DR: ATA JOB#: [id number] CC:
[2017-04-08] MEDS: Depakote ER 500mg tab ORAL SCH ×2 (08:50→21:13)
[2017-04-08] MEDS: Docusate 100mg cap ORAL SCH (08:50)
[2017-04-08] MEDS: Lyrica 75mg cap ORAL SCH ×2 (08:51→17:32)
[2017-04-08] MEDS: PHENobarbital 32.4mg tab ORAL SCH ×2 (08:51→21:13)
[2017-04-08] MEDS: Heparin 5000 units/ml inj SUBQ SCH ×2 (08:53→09:00)
--- NOTE | 2017-04-08 09:00 | History and Physical Report ---
TIME SEEN: At 1 p.m. CONSULTANTS: 1. Liset Hawkins M.D. 2. Shakila Au M.D. 3. Dwight Leal M.D. 4. Robb De Souza M.D. 5. Jamie Balderas M.D. 6. Alpa Petit M.D. CHIEF COMPLAINT: Weakness, failure to thrive, and lethargy. BRIEF HISTORY: This is a 52-year-old female from [facility] who presents with above-mentioned diagnosis, admitted to medical floor for further treatment. Currently calm in wheelchair in [place], no complaints. PAST MEDICAL HISTORY: Failure to thrive, COPD, seizures, hypertension, and diabetes. PAST SURGICAL HISTORY: Gallbladder and hysterectomy. MEDICATIONS: Colace, Lexapro, heparin, MOM, MiraLax, Depakote, Keppra, phenobarbital, Desyrel, Zantac, NovoLog, DuoNeb, Zofran, Motrin, Ativan, Neurontin, and Lyrica. ALLERGIES: Tylenol, aspirin, azithromycin, codeine, erythromycin, hydrocodone, iodine, and midazolam. SOCIAL HISTORY: No smoking. No alcohol. No intravenous drug abuse. FAMILY HISTORY: Noncontributory. REVIEW OF SYSTEMS: No chest pain. No shortness of breath. No nausea, vomiting, or diarrhea. PHYSICAL EXAMINATION: GENERAL: Calm, in wheelchair, oriented x2, no distress. VITAL SIGNS: Show temperature is 96 degrees, pulse 81, respirations 18, and blood pressure 120/78. CARDIOVASCULAR: No murmurs. LUNGS: Distant and clear. ABDOMEN: Bowel sounds are positive. Soft, nontender, and nondistended. EXTREMITIES: No cyanosis, clubbing, or edema. NEUROLOGICAL: The patient is slightly weak in wheelchair. Lower extremity weakness noted. LABORATORY AND DIAGNOSTIC DATA: Lab exam shows CBC is normal. BMP shows chloride 96, BUN 31, and glucose 262. CK is 799. Troponin less than 0.3. Urinalysis shows 1+ leukocyte esterase. ASSESSMENT: 1. Weakness. 2. Failure to thrive. 3. Urinary tract infection. 4. Acute kidney injury. 5. Encephalopathy. 6. Chronic obstructive pulmonary disease. 7. Seizures. 8. Hypertension. 9. Diabetes. PLAN: 1. Continue premeds. 2. Blood pressure, blood sugar, and seizure control. 3. Dietary followup. 4. OT, PT, and dietary evaluation. 5. CBC and BMP in the morning. 6. Pain control. 7. Antibiotics per Infectious Disease. 8. Dr. Hawkins, Dr. Au, Dr. Leal, Dr. De Souza, Dr. Balderas, Dr. Petit, and Dr. Granados to consult. 9. We will continue to follow the patient. Scott Samson D.O. DR: Scott JOB#: [id number] CC:
[2017-04-08 10:13] LABS: BAND NEUTROPHILS % (MANUAL) 1 % (0-8); BASOPHILS % (MANUAL) 0 % (0-2); EOSINOPHILS % (MANUAL) 0 % (0-3); LYMPHOCYTES % (MANUAL) 40 % (20-45); NEUTROPHILS % (MANUAL) 51 % (45-75); PLATELET ESTIMATE ADEQUATE; PLATELET MORPHOLOGY NORMAL; TOTAL CELLS COUNTED 100
--- NOTE | 2017-04-08 10:42 | GI Progress Note ---
Assessment/Plan Problems: (1) Weakness ICD Codes: R53.1 - Weakness SNOMED: 63453956 (2) Schizophrenia ICD Codes: F20.9 - Schizophrenia, unspecified SNOMED: 51289802 (3) GERD (gastroesophageal reflux disease) ICD Codes: K21.9 - Gastro-esophageal reflux disease without esophagitis SNOMED: 109334896 (4) Diabetes ICD Codes: E11.9 - Type 2 diabetes mellitus without complications SNOMED: 77932279 Status: stable Status Narrative Discussed with Dr. De Souza. Assessment/Plan supportive care / symptomatic treatment at this time zofran prn, consider reglan if vomiting persists fu swallow eval bowel regime >> miralax + colace ATC pain mgmt ppi PT/OT eval outpatient GI procedures Subjective Gastrointestinal/Abdominal: Reports: no symptoms Objective Last 24 Hour Vital Signs Date Time Temp Pulse Resp B/P (MAP) Pulse Ox O2 Delivery O2 Flow Rate FiO2 04/08/17 08:00 97.3 96 20 121/66 95 Room Air 04/08/17 06:56 78 18 Room Air 04/08/17 04:00 97.9 76 18 113/62 100 Room Air 04/08/17 00:35 96.8 04/07/17 20:00 96.8 80 20 129/70 Room Air 04/07/17 19:49 72 18 Room Air 04/07/17 18:39 97.3 04/07/17 16:46 89 16 100 Room Air 04/07/17 16:36 87 16 98 Room Air 21 04/07/17 16:00 97.3 82 20 123/62 92 Room Air 04/07/17 12:00 96.4 81 18 120/78 95 Room Air Intake and Output 04/08/17 04/09/17 19:00 07:00 Intake Total 350 ml Output Total 1 ml Balance 349 ml Intake Oral 350 ml Output Urine Total 1 ml # Voids 1 Laboratory Tests Test 04/08/17 06:00 White Blood Count 5.9 K/UL (4.8-10.8) Red Blood Count 4.35 M/UL (4.20-5.40) Hemoglobin 12.1 G/DL (12.0-16.0) Hematocrit 37.8 % (37.0-47.0) Mean Corpuscular Volume 87 FL (80-99) Mean Corpuscular Hemoglobin 27.9 PG (27.0-31.0) Mean Corpuscular Hemoglobin Concent 32.1 G/DL (32.0-36.0) Red Cell Distribution Width 14.2 % (11.6-14.8) Platelet Count 278 K/UL (150-450) Mean Platelet Volume 6.3 FL (6.5-10.1) L Neutrophils (%) (Auto) % (45.0-75.0) Lymphocytes (%) (Auto) % (20.0-45.0) Monocytes (%) (Auto) % (1.0-10.0) Eosinophils (%) (Auto) % (0.0-3.0) Basophils (%) (Auto) % (0.0-2.0) Differential Total Cells Counted 100 Neutrophils % (Manual) 51 % (45-75) Lymphocytes % (Manual) 40 % (20-45) Monocytes % (Manual) 8 % (1-10) Eosinophils % (Manual) 0 % (0-3) Basophils % (Manual) 0 % (0-2) Band Neutrophils 1 % (0-8) Platelet Estimate Adequate Platelet Morphology Normal Red Blood Cell Morphology Normal Sodium Level 140 mEQ/L (135-145) Potassium Level 3.8 mEQ/L (3.4-4.9) Chloride Level 100 mEQ/L (98-107) Carbon Dioxide Level 32 mEQ/L (20-30) H Anion Gap 8 (5-15) Blood Urea Nitrogen 33 mg/dL (7-23) H Creatinine 0.9 mg/dL (0.5-0.9) Estimat Glomerular Filtration Rate > 60 mL/min (>60) Glucose Level 141 mg/dL (74-106) #H Calcium Level 8.8 mg/dL (8.6-10.2) Alpha Fetoprotein Pending CA 15-3 Antigen Pending CA 19-9 Antigen 5.56 U/mL (< 37) CA 125 Antigen Pending Height (Feet): 5 Height (Inches): 4.00 Weight (Pounds): 160 General Appearance: no apparent distress, alert, obese Cardiovascular: normal rate Respiratory/Chest: normal breath sounds, no respiratory distress Abdominal Exam: normal bowel sounds, non tender, soft Katlyn Nava N.PDarnell Apr 08, 2017 10:42
--- NOTE | 2017-04-08 11:45 | Consultation ---
DATE OF CONSULTATION: 04/07/2017 HEMATOLOGY/ONCOLOGY CONSULTATION REQUESTING PHYSICIAN: Scott Samson D.O. REASON FOR CONSULTATION: Evaluation of failure to thrive. IDENTIFICATION DATA: Dear Dr. Scott Samson, The patient is a pleasant 52-year-old female with past medical history significant for schizophrenia, hyperlipidemia, hypertension, diabetes mellitus, COPD, GERD, and seizure disorder, recently discharged from the hospital to halfway for evaluation encephalopathy. The patient is agitated. In the ER, noted to have CK of 333 and creatinine of 1. The patient underwent imaging in the past 2015 with MRI of the abdomen showed mild extrahepatic bile ducts, no masses were noted. An ultrasound of the abdomen was repeated as well. The patient has had a recent weight loss history and BSA 1.78 at this time, therefore Hematology service was consulted for evaluation of weight loss. PAST MEDICAL HISTORY: Hyperlipidemia, schizophrenia, hypertension, COPD, and GERD. ALLERGIES: Tylenol, aspirin, azithromycin, iodine, midazolam, norpropoxyphene, sulfa, and tetracycline. MEDICATIONS: Cyclobenzaprine, Colace, citalopram, Haldol, Protonix, . REVIEW OF SYSTEMS: Difficult to obtain, again the patient remained agitated at the moment. PHYSICAL EXAMINATION: GENERAL: The patient is in no acute distress, however, she is confused. VITAL SIGNS: Reviewed. HEENT: Normocephalic and atraumatic. NECK: No JVD. PULMONARY: Decreased breath sounds bilaterally. No crackles noted. CARDIOVASCULAR: Regular rate. ABDOMEN: Soft, nontender, and nondistended. EXTREMITIES: No cyanosis, swelling, or edema . LABORATORY DATA: WBC is 8.2, hemoglobin 12.9, hematocrit 31, and platelet count 316,000. Total bilirubin 0.2, AST 26, and ALT 29. ASSESSMENT AND PLAN: 1. Recent weight loss. Failure to thrive. I reviewed prior imaging with MRI. At the moment, we recommend to obtain tumor markers, which have been ordered including CA 19-9, CEA, and AFP. 2. Seizure disorder history. Neurology evaluation as necessary. 3. Anemia, secondary to chronic disease, very mild at this time. Continue to monitor. 4. 5. Diabetes mellitus . 6. . 7. Schizophrenia. I appreciate the consultation. Geoff Sheree Pickering DR: ASHLEY JOB#: [id number] CC:
[2017-04-08 12:00] VITALS: BP 124/67
[2017-04-08] MEDS: LORazepam 1mg tab ORAL PRN ×3 (12:08→22:36)
--- NOTE | 2017-04-08 13:41 | General Progress Note ---
Assessment/Plan Problem List: (1) UTI (urinary tract infection) ICD Codes: N39.0 - Urinary tract infection, site not specified SNOMED: 06679937 (2) Asthma exacerbation ICD Codes: J45.901 - Unspecified asthma with (acute) exacerbation SNOMED: 988172722 (3) Altered mental status ICD Codes: R41.82 - Altered mental status, unspecified SNOMED: 101669865 (4) Chronic pain ICD Codes: G89.29 - Other chronic pain SNOMED: 82850399 (5) Psychiatric disorder ICD Codes: F99 - Mental disorder SNOMED: 74093092 (6) Altered level of consciousness ICD Codes: R40.4 - Transient alteration of awareness SNOMED: 4010168 (7) Diabetes ICD Codes: E11.9 - Type 2 diabetes mellitus without complications SNOMED: 75374582 (8) Seizure disorder ICD Codes: G40.909 - Seizure disorder SNOMED: 265330394 (9) Encephalopathy ICD Codes: G93.40 - Encephalopathy, unspecified SNOMED: 68024492, 738515716 (10) Weakness ICD Codes: R53.1 - Weakness SNOMED: 32036849 (11) HTN (hypertension) ICD Codes: I10 - Essential (primary) hypertension SNOMED: 07781224 Status: stable, progressing, tolerating diet Assessment/Plan ot pt diet abx seizure control cbc bmp am Subjective Constitutional: Reports: weakness Allergies: Coded Allergies: ACETAMINOPHEN (Verified Allergy, Unknown, 07/22/14) APPLE (Verified Allergy, Unknown, 04/06/17) ASPIRIN (Verified Allergy, Unknown, ITCHING, 07/22/14) AZITHROMYCIN (Verified Allergy, Unknown, 07/22/14) COPIED FROM UNCODED BANANA (Verified Allergy, Unknown, 04/06/17) CODEINE (Verified Allergy, Unknown, 07/22/14) ERYTHROMYCIN BASE (Verified Allergy, Unknown, 07/22/14) FISH CONTAINING PRODUCTS (Verified Allergy, Unknown, 07/22/14) HYDROCODONE (Verified Allergy, Unknown, 07/22/14) IODINE (Verified Allergy, Unknown, 07/22/14) MIDAZOLAM (Verified Allergy, Unknown, 07/22/14) MILK (Verified Allergy, Unknown, 07/22/14) PROPOXYPHENE (Verified Allergy, Unknown, 07/22/14) COPIED FROM UNCODED SULFA (SULFONAMIDE ANTIBIOTICS) (Verified Allergy, Unknown, 07/22/14) COPIED FROM UNCODED SULFACETAMIDE (Unverified Allergy, Unknown, 03/25/17) SUMATRIPTAN (Verified Allergy, Unknown, 07/22/14) TETRACYCLINE (Verified Allergy, Unknown, RASH, 07/22/14) TETRACYCLINES (Verified Allergy, Unknown, 07/22/14) COPIED FROM UNCODED TOMATO (Verified Allergy, Unknown, 07/22/14) according to pt "I will !".... All Systems: reviewed and negative except above Subjective weak sl confused possible seizure Objective Last 24 Hour Vital Signs Date Time Temp Pulse Resp B/P (MAP) Pulse Ox O2 Delivery O2 Flow Rate FiO2 04/08/17 12:00 97.9 84 20 124/67 96 Room Air 04/08/17 08:00 97.3 96 20 121/66 95 Room Air 04/08/17 06:56 78 18 Room Air 04/08/17 04:00 97.9 76 18 113/62 100 Room Air 04/08/17 00:35 96.8 04/07/17 20:00 96.8 80 20 129/70 Room Air 04/07/17 19:49 72 18 Room Air 04/07/17 18:39 97.3 04/07/17 16:46 89 16 100 Room Air 04/07/17 16:36 87 16 98 Room Air 21 04/07/17 16:00 97.3 82 20 123/62 92 Room Air Intake and Output 04/08/17 04/09/17 19:00 07:00 Intake Total 590 ml Output Total 1 ml Balance 589 ml Intake Oral 590 ml Output Urine Total 1 ml # Voids 4 Laboratory Tests 04/08/17 06:00: White Blood Count 5.9, Red Blood Count 4.35, Hemoglobin 12.1, Hematocrit 37.8, Mean Corpuscular Volume 87, Mean Corpuscular Hemoglobin 27.9, Mean Corpuscular Hemoglobin Concent 32.1, Red Cell Distribution Width 14.2, Platelet Count 278, Mean Platelet Volume 6.3L, Neutrophils (%) (Auto) , Lymphocytes (%) (Auto) , Monocytes (%) (Auto) , Eosinophils (%) (Auto) , Basophils (%) (Auto) , Differential Total Cells Counted 100, Neutrophils % (Manual) 51, Lymphocytes % ( Manual) 40, Monocytes % (Manual) 8, Eosinophils % (Manual) 0, Basophils % ( Manual) 0, Band Neutrophils 1, Platelet Estimate Adequate, Platelet Morphology Normal, Red Blood Cell Morphology Normal, Sodium Level 140, Potassium Level 3.8 , Chloride Level 100, Carbon Dioxide Level 32H, Anion Gap 8, Blood Urea Nitrogen 33H, Creatinine 0.9, Estimat Glomerular Filtration Rate > 60, Glucose Level 141#H, Calcium Level 8.8, Alpha Fetoprotein [Pending], CA 15-3 Antigen [ Pending], CA 19-9 Antigen 5.56, CA 125 Antigen [Pending] Height (Feet): 5 Height (Inches): 4.00 Weight (Pounds): 160 General Appearance: lethargic, confused EENT: normal ENT inspection Neck: normal alignment Cardiovascular: normal peripheral pulses, normal rate, regular rhythm Respiratory/Chest: chest wall non-tender, lungs clear, normal breath sounds Abdomen: normal bowel sounds, non tender, soft Extremities: normal inspection Edema: no edema noted Arm (L), no edema noted Arm (R), no edema noted Leg (L), no edema noted Leg (R), no edema noted Pedal (L), no edema noted Pedal (R), no edema noted Generalized Neurologic: responsive, motor weakness Skin: normal pigmentation, warm/dry CHUCK ESCAMILLA Apr 08, 2017 13:41
[2017-04-08 16:00] VITALS: BP 132/71
--- NOTE | 2017-04-08 16:26 | Nephrology Progress Note ---
Assessment/Plan Problem List: (1) Weakness (2) CECILY (acute kidney injury) (3) Diabetes (4) HTN (hypertension) (5) Schizophrenia Plan Monitor renal function Renally dose meds Avoid nephrotoxins Continue IVF Strict glycemic control Seizure precautions Monitor neuro status Monitor intake and output Psyche following AM labs Subjective Constitutional: Denies: no symptoms, chills, diaphoresis, fever, malaise, weakness, other HEENT: Denies: no symptoms, eye pain, blurred vision, tearing, double vision, ear pain, ear discharge, nose pain, nose congestion, throat pain, throat swelling, mouth pain, mouth swelling, other Genitourinary: Denies: no symptoms, burning, discharge, frequency, flank pain, hematuria, incontinence, pain, urgency, other Neurologic/Psychiatric: Denies: no symptoms, anxiety, depressed, emotional problems, headache, numbness, paresthesia, pre-existing deficit, seizure, tingling, tremors, weakness, other Subjective In bed, confused, mildly agitated. Objective Objective Last 24 Hour Vital Signs Date Time Temp Pulse Resp B/P (MAP) Pulse Ox O2 Delivery O2 Flow Rate FiO2 04/08/17 16:00 98.2 96 20 132/71 95 Room Air 04/08/17 12:00 97.9 84 20 124/67 96 Room Air 04/08/17 08:00 97.3 96 20 121/66 95 Room Air 04/08/17 06:56 78 18 Room Air 04/08/17 04:00 97.9 76 18 113/62 100 Room Air 04/08/17 00:35 96.8 04/07/17 20:00 96.8 80 20 129/70 Room Air 04/07/17 19:49 72 18 Room Air 04/07/17 18:39 97.3 04/07/17 16:46 89 16 100 Room Air 04/07/17 16:36 87 16 98 Room Air 21 Intake and Output 04/08/17 04/09/17 19:00 07:00 Intake Total 815 ml Output Total 1 ml Balance 814 ml Intake Oral 590 ml IV Total 225 ml Output Urine Total 1 ml # Voids 5 Laboratory Tests 04/08/17 06:00: White Blood Count 5.9, Red Blood Count 4.35, Hemoglobin 12.1, Hematocrit 37.8, Mean Corpuscular Volume 87, Mean Corpuscular Hemoglobin 27.9, Mean Corpuscular Hemoglobin Concent 32.1, Red Cell Distribution Width 14.2, Platelet Count 278, Mean Platelet Volume 6.3L, Neutrophils (%) (Auto) , Lymphocytes (%) (Auto) , Monocytes (%) (Auto) , Eosinophils (%) (Auto) , Basophils (%) (Auto) , Differential Total Cells Counted 100, Neutrophils % (Manual) 51, Lymphocytes % ( Manual) 40, Monocytes % (Manual) 8, Eosinophils % (Manual) 0, Basophils % ( Manual) 0, Band Neutrophils 1, Platelet Estimate Adequate, Platelet Morphology Normal, Red Blood Cell Morphology Normal, Sodium Level 140, Potassium Level 3.8 , Chloride Level 100, Carbon Dioxide Level 32H, Anion Gap 8, Blood Urea Nitrogen 33H, Creatinine 0.9, Estimat Glomerular Filtration Rate > 60, Glucose Level 141#H, Calcium Level 8.8, Alpha Fetoprotein [Pending], CA 15-3 Antigen [ Pending], CA 19-9 Antigen 5.56, CA 125 Antigen [Pending] Height (Feet): 5 Height (Inches): 4.00 Weight (Pounds): 160 General Appearance: alert, agitated EENT: normal ENT inspection Neck: non-tender, normal alignment, supple Cardiovascular: normal rate, regular rhythm, no JVD Respiratory/Chest: normal breath sounds, no respiratory distress Abdomen: soft, no organomegaly, no mass Extremities: non-tender Neurologic: alert, responsive, disoriented Marilynn Oconnell N.P. Apr 08, 2017 16:26
--- NOTE | 2017-04-08 16:30 | Pulmonology Progress Note ---
Assessment/Plan Problems: (1) Seizure disorder (2) History of asthma (3) HTN (hypertension) (4) Diabetes (5) Lumbar radiculopathy (6) Schizophrenia Assessment/Plan symptomatic treatment respiratory Rx increase to Q 4 hours titrate fio2 psych and neuro evaluation Subjective ROS Limited/Unobtainable: No Constitutional: Reports: no symptoms HEENT: Repors: no symptoms Respiratory: Reports: no symptoms Allergies: Coded Allergies: ACETAMINOPHEN (Verified Allergy, Unknown, 07/22/14) APPLE (Verified Allergy, Unknown, 04/06/17) ASPIRIN (Verified Allergy, Unknown, ITCHING, 07/22/14) AZITHROMYCIN (Verified Allergy, Unknown, 07/22/14) COPIED FROM UNCODED BANANA (Verified Allergy, Unknown, 04/06/17) CODEINE (Verified Allergy, Unknown, 07/22/14) ERYTHROMYCIN BASE (Verified Allergy, Unknown, 07/22/14) FISH CONTAINING PRODUCTS (Verified Allergy, Unknown, 07/22/14) HYDROCODONE (Verified Allergy, Unknown, 07/22/14) IODINE (Verified Allergy, Unknown, 07/22/14) MIDAZOLAM (Verified Allergy, Unknown, 07/22/14) MILK (Verified Allergy, Unknown, 07/22/14) PROPOXYPHENE (Verified Allergy, Unknown, 07/22/14) COPIED FROM UNCODED SULFA (SULFONAMIDE ANTIBIOTICS) (Verified Allergy, Unknown, 07/22/14) COPIED FROM UNCODED SULFACETAMIDE (Unverified Allergy, Unknown, 03/25/17) SUMATRIPTAN (Verified Allergy, Unknown, 07/22/14) TETRACYCLINE (Verified Allergy, Unknown, RASH, 07/22/14) TETRACYCLINES (Verified Allergy, Unknown, 07/22/14) COPIED FROM UNCODED TOMATO (Verified Allergy, Unknown, 07/22/14) according to pt "I will !".... Objective Last 24 Hour Vital Signs Date Time Temp Pulse Resp B/P (MAP) Pulse Ox O2 Delivery O2 Flow Rate FiO2 04/08/17 16:00 98.2 96 20 132/71 95 Room Air 04/08/17 12:00 97.9 84 20 124/67 96 Room Air 04/08/17 08:00 97.3 96 20 121/66 95 Room Air 04/08/17 06:56 78 18 Room Air 04/08/17 04:00 97.9 76 18 113/62 100 Room Air 04/08/17 00:35 96.8 04/07/17 20:00 96.8 80 20 129/70 Room Air 04/07/17 19:49 72 18 Room Air 04/07/17 18:39 97.3 04/07/17 16:46 89 16 100 Room Air 04/07/17 16:36 87 16 98 Room Air 21 Intake and Output 04/08/17 04/09/17 19:00 07:00 Intake Total 815 ml Output Total 1 ml Balance 814 ml Intake Oral 590 ml IV Total 225 ml Output Urine Total 1 ml # Voids 5 General Appearance: WD/WN HEENT: normocephalic, atraumatic, anicteric Respiratory/Chest: chest wall non-tender, lungs clear Breasts: no masses Cardiovascular: normal peripheral pulses Abdomen: normal bowel sounds, soft, non tender Genitourinary: normal external genitalia Extremities: no cyanosis Skin: no rash Microbiology Date/Time Source Procedure Growth Status 04/06/17 11:30 Rectum VRE Culture - Final NO VANCOMYCIN RESISTANT ENTEROCOCCUS ... Complete Laboratory Tests 04/08/17 06:00: White Blood Count 5.9, Red Blood Count 4.35, Hemoglobin 12.1, Hematocrit 37.8, Mean Corpuscular Volume 87, Mean Corpuscular Hemoglobin 27.9, Mean Corpuscular Hemoglobin Concent 32.1, Red Cell Distribution Width 14.2, Platelet Count 278, Mean Platelet Volume 6.3L, Neutrophils (%) (Auto) , Lymphocytes (%) (Auto) , Monocytes (%) (Auto) , Eosinophils (%) (Auto) , Basophils (%) (Auto) , Differential Total Cells Counted 100, Neutrophils % (Manual) 51, Lymphocytes % ( Manual) 40, Monocytes % (Manual) 8, Eosinophils % (Manual) 0, Basophils % ( Manual) 0, Band Neutrophils 1, Platelet Estimate Adequate, Platelet Morphology Normal, Red Blood Cell Morphology Normal, Sodium Level 140, Potassium Level 3.8 , Chloride Level 100, Carbon Dioxide Level 32H, Anion Gap 8, Blood Urea Nitrogen 33H, Creatinine 0.9, Estimat Glomerular Filtration Rate > 60, Glucose Level 141#H, Calcium Level 8.8, Alpha Fetoprotein [Pending], CA 15-3 Antigen [ Pending], CA 19-9 Antigen 5.56, CA 125 Antigen [Pending] Current Medications Medications (Trade) Dose Ordered Sig/Robb Route PRN Reason Start Time Stop Time Status Last Admin Dose Admin Al Hydroxide/Mg Hydroxide (Mylanta II) 30 ml Q6H PRN ORAL dyspepsia 04/06/17 18:00 05/06/17 17:59 Albuterol/ Ipratropium (DuoNeb 0.5-3(2.5)mg/3ml) 3 ml Q4H PRN HHN Shortness of Breath 04/06/17 18:00 04/11/17 17:59 04/07/17 16:43 Cyclobenzaprine HCl (Flexeril) 10 mg TIDPRN PRN ORAL Muscle Spasm 04/08/17 08:30 05/08/17 08:29 Dextrose (Dextrose 50%) STAT PRN IV Hypoglycemia 04/06/17 18:00 05/06/17 17:59 Divalproex Sodium (Depakote ER) 1,000 mg EVERY 12 HOURS ORAL 04/06/17 21:00 05/06/17 20:59 04/08/17 08:50 Docusate Sodium (Colace) 100 mg DAILY ORAL 04/07/17 09:00 05/07/17 08:59 04/08/17 08:50 Escitalopram Oxalate (Lexapro) 10 mg DAILY ORAL 04/07/17 09:00 05/07/17 08:59 04/08/17 09:18 Gabapentin (Neurontin) 300 mg THREE TIMES A DAY ORAL 04/06/17 18:00 05/06/17 17:59 04/08/17 12:08 Ibuprofen (Motrin) 600 mg Q6H PRN ORAL For Pain 04/06/17 18:00 05/06/17 17:59 04/07/17 23:36 Ibuprofen (Motrin) 800 mg THREE TIMES A DAY PRN ORAL severe pain 04/08/17 08:30 05/08/17 08:29 Insulin Aspart (NovoLOG) BEFORE MEALS AND HS SUBQ 04/06/17 21:00 05/06/17 20:59 04/08/17 12:42 Levetiracetam (Keppra) 1,500 mg Q12HR ORAL 04/06/17 21:00 05/06/17 20:59 04/08/17 08:49 Lorazepam (Ativan) 1 mg Q6HR PRN ORAL For Anxiety 04/06/17 18:00 04/13/17 17:59 04/08/17 12:08 Magnesium Hydroxide (Mom) 30 ml HSPRN PRN ORAL Constipation 04/06/17 21:00 05/06/17 20:59 Ondansetron HCl (Zofran) 4 mg Q6H PRN IVP Nausea & Vomiting 04/06/17 18:00 05/06/17 17:59 Phenobarbital (PHENobarbital) 32.4 mg Q12HR ORAL 04/06/17 21:00 05/06/17 20:59 04/08/17 08:51 Polyethylene Glycol (Miralax) 17 gm HSPRN PRN ORAL Constipation 04/06/17 21:00 05/06/17 20:59 Pregabalin (Lyrica) 75 mg BID ORAL 04/06/17 18:00 05/06/17 17:59 04/08/17 08:51 Ranitidine HCl (Zantac) 150 mg BEDTIME ORAL 04/06/17 21:00 05/06/17 20:59 04/07/17 20:39 Sodium Chloride 1,000 ml @ 75 mls/hr [id number] IV 04/06/17 18:00 05/06/17 17:59 04/08/17 10:21 Trazodone HCl (Desyrel) 100 mg BEDTIME ORAL 04/06/17 21:00 05/06/17 20:59 04/07/17 20:37 ZITA MANDEL Apr 08, 2017 16:30
--- NOTE | 2017-04-08 17:57 | General Progress Note ---
Assessment/Plan Assessment/Plan ASSESSMENT AND PLAN: 1. Recent weight loss. Failure to thrive. ---> CA 19-9 wnl, other tumor markers pending 2. Seizure disorder history. Neurology evaluation as necessary. 3. Anemia, secondary to chronic disease, very mild at this time. Continue to monitor. --> anemia workup if levels drop 4. Diabetes mellitus 5. Schizophrenia. Subjective Constitutional: Reports: no symptoms HEENT: Reports: no symptoms Cardiovascular: Reports: no symptoms Respiratory: Reports: no symptoms Gastrointestinal/Abdominal: Reports: no symptoms Genitourinary: Reports: no symptoms Neurologic/Psychiatric: Reports: no symptoms Endocrine: Reports: no symptoms Hematologic/Lymphatic: Reports: no symptoms Allergies: Coded Allergies: ACETAMINOPHEN (Verified Allergy, Unknown, 07/22/14) APPLE (Verified Allergy, Unknown, 04/06/17) ASPIRIN (Verified Allergy, Unknown, ITCHING, 07/22/14) AZITHROMYCIN (Verified Allergy, Unknown, 07/22/14) COPIED FROM UNCODED BANANA (Verified Allergy, Unknown, 04/06/17) CODEINE (Verified Allergy, Unknown, 07/22/14) ERYTHROMYCIN BASE (Verified Allergy, Unknown, 07/22/14) FISH CONTAINING PRODUCTS (Verified Allergy, Unknown, 07/22/14) HYDROCODONE (Verified Allergy, Unknown, 07/22/14) IODINE (Verified Allergy, Unknown, 07/22/14) MIDAZOLAM (Verified Allergy, Unknown, 07/22/14) MILK (Verified Allergy, Unknown, 07/22/14) PROPOXYPHENE (Verified Allergy, Unknown, 07/22/14) COPIED FROM UNCODED SULFA (SULFONAMIDE ANTIBIOTICS) (Verified Allergy, Unknown, 07/22/14) COPIED FROM UNCODED SULFACETAMIDE (Unverified Allergy, Unknown, 03/25/17) SUMATRIPTAN (Verified Allergy, Unknown, 07/22/14) TETRACYCLINE (Verified Allergy, Unknown, RASH, 07/22/14) TETRACYCLINES (Verified Allergy, Unknown, 07/22/14) COPIED FROM UNCODED TOMATO (Verified Allergy, Unknown, 07/22/14) according to pt "I will !".... Subjective nad Objective Last 24 Hour Vital Signs Date Time Temp Pulse Resp B/P (MAP) Pulse Ox O2 Delivery O2 Flow Rate FiO2 04/08/17 16:00 98.2 96 20 132/71 95 Room Air 04/08/17 12:00 97.9 84 20 124/67 96 Room Air 04/08/17 08:00 97.3 96 20 121/66 95 Room Air 04/08/17 06:56 78 18 Room Air 04/08/17 04:00 97.9 76 18 113/62 100 Room Air 04/08/17 00:35 96.8 04/07/17 20:00 96.8 80 20 129/70 Room Air 04/07/17 19:49 72 18 Room Air 04/07/17 18:39 97.3 Intake and Output 04/08/17 04/09/17 18:59 06:59 Intake Total 815 ml Output Total 1 ml Balance 814 ml Intake Oral 590 ml IV Total 225 ml Output Urine Total 1 ml # Voids 6 Laboratory Tests 04/08/17 06:00: White Blood Count 5.9, Red Blood Count 4.35, Hemoglobin 12.1, Hematocrit 37.8, Mean Corpuscular Volume 87, Mean Corpuscular Hemoglobin 27.9, Mean Corpuscular Hemoglobin Concent 32.1, Red Cell Distribution Width 14.2, Platelet Count 278, Mean Platelet Volume 6.3L, Neutrophils (%) (Auto) , Lymphocytes (%) (Auto) , Monocytes (%) (Auto) , Eosinophils (%) (Auto) , Basophils (%) (Auto) , Differential Total Cells Counted 100, Neutrophils % (Manual) 51, Lymphocytes % ( Manual) 40, Monocytes % (Manual) 8, Eosinophils % (Manual) 0, Basophils % ( Manual) 0, Band Neutrophils 1, Platelet Estimate Adequate, Platelet Morphology Normal, Red Blood Cell Morphology Normal, Sodium Level 140, Potassium Level 3.8 , Chloride Level 100, Carbon Dioxide Level 32H, Anion Gap 8, Blood Urea Nitrogen 33H, Creatinine 0.9, Estimat Glomerular Filtration Rate > 60, Glucose Level 141#H, Calcium Level 8.8, Alpha Fetoprotein [Pending], CA 15-3 Antigen [ Pending], CA 19-9 Antigen 5.56, CA 125 Antigen [Pending] Height (Feet): 5 Height (Inches): 4.00 Weight (Pounds): 160 General Appearance: no apparent distress EENT: normal ENT inspection Neck: normal alignment Cardiovascular: normal peripheral pulses Abdomen: no organomegaly Edema: no edema noted Pedal (L), no edema noted Pedal (R) Neurologic: paralegals II-XII grossly normal Skin: normal pigmentation, warm/dry Geoff Pickering Apr 08, 2017 17:57
[2017-04-08 20:00] VITALS: BP 98/56
[2017-04-08] MEDS: TraZODone 100mg tab ORAL SCH (21:13)
[2017-04-09] VITALS: BP 134/81
[2017-04-09] MEDS: LORazepam 1mg tab ORAL PRN ×4 (03:36→17:52)
[2017-04-09 04:00] VITALS: BP 163/76
[2017-04-09] MEDS: NovoLOG Insulin Flexpen SUBQ SCH ×4 (06:01→20:58)
[2017-04-09 07:05] LABS: BASOPHILS % (AUTO) 0.7 % (0.0-2.0); LYMPHOCYTES % (AUTO) 33.9 % (20.0-45.0); MEAN CORPUSCULAR HEMOGLOBIN 28.5 PG (27.0-31.0); MEAN CORPUSCULAR HGB CONC 32.5 G/DL (32.0-36.0); MEAN CORPUSCULAR VOLUME 88 FL (80-99); MONOCYTES % (AUTO) 13.5 % (1.0-10.0); NEUTROPHILS % (AUTO) 51.9 % (45.0-75.0); PLATELET COUNT 258 K/UL (150-450); RED BLOOD COUNT 4.13 M/UL (4.20-5.40); RED CELL DISTRIBUTION WIDTH 14.6 % (11.6-14.8); WHITE BLOOD COUNT 7.2 K/UL (4.8-10.8)
[2017-04-09 07:28] LABS: ANION GAP 10 (5-15); CALCIUM 9.1 mg/dL (8.6-10.2); CARBON DIOXIDE 28 mEQ/L (20-30); CHLORIDE 100 mEQ/L (98-107); CREATININE 0.7 mg/dL (0.5-0.9); GLOMERULAR FILTRATION RATE > 60 mL/min (>60); HEMOLYSIS 1; POTASSIUM 3.7 mEQ/L (3.4-4.9); SODIUM 138 mEQ/L (135-145)
[2017-04-09 08:00] VITALS: BP 148/81
--- NOTE | 2017-04-09 08:25 | General Progress Note ---
Assessment/Plan Assessment/Plan (1) Lumbar radiculopathy (2) Lumbar spondylosis (3) Lumbar degenerative disc disease Pt will be continued on Motrin. D/w and he concurred. Subjective Date patient seen: Apr 09, 2017 Time patient seen: 07:15 - am Allergies: Coded Allergies: ACETAMINOPHEN (Verified Allergy, Unknown, 07/22/14) APPLE (Verified Allergy, Unknown, 04/06/17) ASPIRIN (Verified Allergy, Unknown, ITCHING, 07/22/14) AZITHROMYCIN (Verified Allergy, Unknown, 07/22/14) COPIED FROM UNCODED BANANA (Verified Allergy, Unknown, 04/06/17) CODEINE (Verified Allergy, Unknown, 07/22/14) ERYTHROMYCIN BASE (Verified Allergy, Unknown, 07/22/14) FISH CONTAINING PRODUCTS (Verified Allergy, Unknown, 07/22/14) HYDROCODONE (Verified Allergy, Unknown, 07/22/14) IODINE (Verified Allergy, Unknown, 07/22/14) MIDAZOLAM (Verified Allergy, Unknown, 07/22/14) MILK (Verified Allergy, Unknown, 07/22/14) PROPOXYPHENE (Verified Allergy, Unknown, 07/22/14) COPIED FROM UNCODED SULFA (SULFONAMIDE ANTIBIOTICS) (Verified Allergy, Unknown, 07/22/14) COPIED FROM UNCODED SULFACETAMIDE (Unverified Allergy, Unknown, 03/25/17) SUMATRIPTAN (Verified Allergy, Unknown, 07/22/14) TETRACYCLINE (Verified Allergy, Unknown, RASH, 07/22/14) TETRACYCLINES (Verified Allergy, Unknown, 07/22/14) COPIED FROM UNCODED TOMATO (Verified Allergy, Unknown, 07/22/14) according to pt "I will !".... Subjective Constitutional: Denies: no symptoms, chills, diaphoresis, fever, malaise, weakness, other HEENT: Denies: no symptoms, eye pain, blurred vision, tearing, double vision, ear pain, ear discharge, nose pain, nose congestion, throat pain, throat swelling, mouth pain, mouth swelling, other Cardiovascular: Denies: no symptoms, chest pain, edema, irregular heart rate, lightheadedness, palpitations, syncope, other Respiratory: Denies: no symptoms, cough, orthopnea, shortness of breath, SOB with excertion, SOB at rest, sputum, stridor, wheezing, other Gastrointestinal/Abdominal: Reports: Abdmoinal pain, nausea, vomiting Genitourinary: Denies: burning, discharge, frequency, flank pain, urgency Neurologic/Psychiatric: Reports: depressed, weakness Endocrine: Denies: no symptoms, excessive sweating, flushing, intolerance to cold, intolerance to heat, increased hunger, increased thirst, increased urine, unexplained weight gain, unexplained weight loss, other Hematologic/Lymphatic: Denies: no symptoms, anemia, easy bleeding, easy bruising, other Subjective Pain has been unchanged and is tolerating it on the medication. Objective Last 24 Hour Vital Signs Date Time Temp Pulse Resp B/P (MAP) Pulse Ox O2 Delivery O2 Flow Rate FiO2 04/09/17 08:00 97.0 88 20 148/81 97 Room Air 04/09/17 04:00 97.2 67 20 163/76 100 Room Air 04/09/17 00:00 97.7 87 19 134/81 97 Room Air 04/08/17 20:14 100 16 Room Air 04/08/17 20:00 96.8 97 20 98/56 92 Room Air 04/08/17 16:00 98.2 96 20 132/71 95 Room Air 04/08/17 12:00 97.9 84 20 124/67 96 Room Air Laboratory Tests 04/09/17 05:00: White Blood Count 7.2, Red Blood Count 4.13L, Hemoglobin 11.8L, Hematocrit 36.2L , Mean Corpuscular Volume 88, Mean Corpuscular Hemoglobin 28.5, Mean Corpuscular Hemoglobin Concent 32.5, Red Cell Distribution Width 14.6, Platelet Count 258, Mean Platelet Volume 7.0, Neutrophils (%) (Auto) 51.9, Lymphocytes (% ) (Auto) 33.9, Monocytes (%) (Auto) 13.5H, Eosinophils (%) (Auto) 0.0, Basophils (%) (Auto) 0.7, Sodium Level 138, Potassium Level 3.7, Chloride Level 100, Carbon Dioxide Level 28, Anion Gap 10, Blood Urea Nitrogen 37H, Creatinine 0.7, Estimat Glomerular Filtration Rate > 60, Glucose Level 141H, Calcium Level 9.1 Height (Feet): 5 Height (Inches): 4.00 Weight (Pounds): 160 Objective General Appearance: no apparent distress, alert EENT: PERRL/EOMI, normal ENT inspection Neck: non-tender, normal alignment Cardiovascular: normal rate, regular rhythm Respiratory/Chest: lungs clear, normal breath sounds Abdomen: non tender, soft Extremities: non-tender Edema: trace edema Neurologic: alert, responsive Skin: warm/dry ROOSEVELT SAWYER Apr 09, 2017 08:25
[2017-04-09] MEDS: Depakote ER 500mg tab ORAL SCH ×2 (09:02→20:54)
[2017-04-09] MEDS: PHENobarbital 32.4mg tab ORAL SCH ×2 (09:03→20:54)
[2017-04-09] MEDS: Docusate 100mg cap ORAL SCH (09:03)
[2017-04-09] MEDS: Lyrica 75mg cap ORAL SCH ×2 (09:03→17:52)
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
--- NOTE | 2017-04-09 11:46 | GI Progress Note ---
Assessment/Plan Problems: (1) Weakness ICD Codes: R53.1 - Weakness SNOMED: 58905412 (2) Schizophrenia ICD Codes: F20.9 - Schizophrenia, unspecified SNOMED: 66592825 (3) GERD (gastroesophageal reflux disease) ICD Codes: K21.9 - Gastro-esophageal reflux disease without esophagitis SNOMED: 164240575 (4) Diabetes ICD Codes: E11.9 - Type 2 diabetes mellitus without complications SNOMED: 35101897 Status: stable Status Narrative Discussed with Dr. De Souza. Assessment/Plan supportive care / symptomatic treatment at this time zofran prn, consider reglan if vomiting persists fu swallow eval bowel regime >> miralax + colace ATC pain mgmt ppi PT/OT eval outpatient GI procedures Subjective Subjective generalized weakness Objective Last 24 Hour Vital Signs Date Time Temp Pulse Resp B/P (MAP) Pulse Ox O2 Delivery O2 Flow Rate FiO2 04/09/17 08:15 88 22 Room Air 04/09/17 08:00 97.0 88 20 148/81 97 Room Air 04/09/17 04:00 97.2 67 20 163/76 100 Room Air 04/09/17 00:00 97.7 87 19 134/81 97 Room Air 04/08/17 20:14 100 16 Room Air 04/08/17 20:00 96.8 97 20 98/56 92 Room Air 04/08/17 16:00 98.2 96 20 132/71 95 Room Air 04/08/17 12:00 97.9 84 20 124/67 96 Room Air Laboratory Tests Test 04/09/17 05:00 White Blood Count 7.2 K/UL (4.8-10.8) Red Blood Count 4.13 M/UL (4.20-5.40) L Hemoglobin 11.8 G/DL (12.0-16.0) L Hematocrit 36.2 % (37.0-47.0) L Mean Corpuscular Volume 88 FL (80-99) Mean Corpuscular Hemoglobin 28.5 PG (27.0-31.0) Mean Corpuscular Hemoglobin Concent 32.5 G/DL (32.0-36.0) Red Cell Distribution Width 14.6 % (11.6-14.8) Platelet Count 258 K/UL (150-450) Mean Platelet Volume 7.0 FL (6.5-10.1) Neutrophils (%) (Auto) 51.9 % (45.0-75.0) Lymphocytes (%) (Auto) 33.9 % (20.0-45.0) Monocytes (%) (Auto) 13.5 % (1.0-10.0) H Eosinophils (%) (Auto) 0.0 % (0.0-3.0) Basophils (%) (Auto) 0.7 % (0.0-2.0) Sodium Level 138 mEQ/L (135-145) Potassium Level 3.7 mEQ/L (3.4-4.9) Chloride Level 100 mEQ/L (98-107) Carbon Dioxide Level 28 mEQ/L (20-30) Anion Gap 10 (5-15) Blood Urea Nitrogen 37 mg/dL (7-23) H Creatinine 0.7 mg/dL (0.5-0.9) Estimat Glomerular Filtration Rate > 60 mL/min (>60) Glucose Level 141 mg/dL (74-106) H Calcium Level 9.1 mg/dL (8.6-10.2) Height (Feet): 5 Height (Inches): 4.00 Weight (Pounds): 160 General Appearance: no apparent distress, alert, confused Cardiovascular: normal rate Respiratory/Chest: normal breath sounds, no respiratory distress Abdominal Exam: normal bowel sounds, non tender, soft Katlyn Nava N.P. Apr 09, 2017 11:46
[2017-04-09 11:51] VITALS: BP 144/96
[2017-04-09 12:24] LABS: CA15-3 27.5 U/mL (0.0-25.0)
--- NOTE | 2017-04-09 13:57 | General Progress Note ---
Assessment/Plan Problem List: (1) UTI (urinary tract infection) ICD Codes: N39.0 - Urinary tract infection, site not specified SNOMED: 22161289 (2) Asthma exacerbation ICD Codes: J45.901 - Unspecified asthma with (acute) exacerbation SNOMED: 553018408 (3) Altered mental status ICD Codes: R41.82 - Altered mental status, unspecified SNOMED: 458944137 (4) Chronic pain ICD Codes: G89.29 - Other chronic pain SNOMED: 34189271 (5) Psychiatric disorder ICD Codes: F99 - Mental disorder SNOMED: 44483999 (6) Altered level of consciousness ICD Codes: R40.4 - Transient alteration of awareness SNOMED: 7415048 (7) Diabetes ICD Codes: E11.9 - Type 2 diabetes mellitus without complications SNOMED: 15046458 (8) Seizure disorder ICD Codes: G40.909 - Seizure disorder SNOMED: 210729716 (9) Encephalopathy ICD Codes: G93.40 - Encephalopathy, unspecified SNOMED: 03448442, 602444922 (10) Weakness ICD Codes: R53.1 - Weakness SNOMED: 86802872 (11) HTN (hypertension) ICD Codes: I10 - Essential (primary) hypertension SNOMED: 12049949 Status: stable, progressing, tolerating diet Assessment/Plan ot pt diet abx seizure control cbc bmp am dc plan Subjective Constitutional: Reports: weakness Allergies: Coded Allergies: ACETAMINOPHEN (Verified Allergy, Unknown, 07/22/14) APPLE (Verified Allergy, Unknown, 04/06/17) ASPIRIN (Verified Allergy, Unknown, ITCHING, 07/22/14) AZITHROMYCIN (Verified Allergy, Unknown, 07/22/14) COPIED FROM UNCODED BANANA (Verified Allergy, Unknown, 04/06/17) CODEINE (Verified Allergy, Unknown, 07/22/14) ERYTHROMYCIN BASE (Verified Allergy, Unknown, 07/22/14) FISH CONTAINING PRODUCTS (Verified Allergy, Unknown, 07/22/14) HYDROCODONE (Verified Allergy, Unknown, 07/22/14) IODINE (Verified Allergy, Unknown, 07/22/14) MIDAZOLAM (Verified Allergy, Unknown, 07/22/14) MILK (Verified Allergy, Unknown, 07/22/14) PROPOXYPHENE (Verified Allergy, Unknown, 07/22/14) COPIED FROM UNCODED SULFA (SULFONAMIDE ANTIBIOTICS) (Verified Allergy, Unknown, 07/22/14) COPIED FROM UNCODED SULFACETAMIDE (Unverified Allergy, Unknown, 03/25/17) SUMATRIPTAN (Verified Allergy, Unknown, 07/22/14) TETRACYCLINE (Verified Allergy, Unknown, RASH, 07/22/14) TETRACYCLINES (Verified Allergy, Unknown, 07/22/14) COPIED FROM UNCODED TOMATO (Verified Allergy, Unknown, 07/22/14) according to pt "I will !".... All Systems: reviewed and negative except above Subjective weak sl confused possible seizure Objective Last 24 Hour Vital Signs Date Time Temp Pulse Resp B/P (MAP) Pulse Ox O2 Delivery O2 Flow Rate FiO2 04/09/17 11:51 97.1 95 20 144/96 94 Room Air 04/09/17 08:15 88 22 Room Air 04/09/17 08:00 97.0 88 20 148/81 97 Room Air 04/09/17 04:00 97.2 67 20 163/76 100 Room Air 04/09/17 00:00 97.7 87 19 134/81 97 Room Air 04/08/17 20:14 100 16 Room Air 04/08/17 20:00 96.8 97 20 98/56 92 Room Air 04/08/17 16:00 98.2 96 20 132/71 95 Room Air Intake and Output 04/09/17 04/10/17 19:00 07:00 # Voids 1 Laboratory Tests 04/09/17 05:00: White Blood Count 7.2, Red Blood Count 4.13L, Hemoglobin 11.8L, Hematocrit 36.2L , Mean Corpuscular Volume 88, Mean Corpuscular Hemoglobin 28.5, Mean Corpuscular Hemoglobin Concent 32.5, Red Cell Distribution Width 14.6, Platelet Count 258, Mean Platelet Volume 7.0, Neutrophils (%) (Auto) 51.9, Lymphocytes (% ) (Auto) 33.9, Monocytes (%) (Auto) 13.5H, Eosinophils (%) (Auto) 0.0, Basophils (%) (Auto) 0.7, Sodium Level 138, Potassium Level 3.7, Chloride Level 100, Carbon Dioxide Level 28, Anion Gap 10, Blood Urea Nitrogen 37H, Creatinine 0.7, Estimat Glomerular Filtration Rate > 60, Glucose Level 141H, Calcium Level 9.1 Height (Feet): 5 Height (Inches): 4.00 Weight (Pounds): 160 General Appearance: lethargic EENT: normal ENT inspection Neck: normal alignment Cardiovascular: normal peripheral pulses, normal rate, regular rhythm Respiratory/Chest: chest wall non-tender, lungs clear, normal breath sounds Abdomen: normal bowel sounds, non tender, soft Extremities: normal inspection Edema: no edema noted Arm (L), no edema noted Arm (R), no edema noted Leg (L), no edema noted Leg (R), no edema noted Pedal (L), no edema noted Pedal (R), no edema noted Generalized Neurologic: responsive, motor weakness Skin: normal pigmentation, warm/dry CHUCK ESCAMILLA Apr 09, 2017 13:57
[2017-04-09 15:59] VITALS: BP 139/94
--- NOTE | 2017-04-09 18:24 | Infectious Diseases Prog Note ---
Assessment/Plan Problems: (1) History of ESBL E. coli infection Assessment & Plan: will send urine for culture, keep in contact isolation (2) Asthma exacerbation Assessment & Plan: continue inhalers, and oxygen (3) Altered level of consciousness Assessment & Plan: unclear etiology, neurology and psych are following (4) Psychiatric disorder Assessment & Plan: on psych meds (5) Seizure disorder Assessment & Plan: controlled on seizure meds , neurology is following Subjective Allergies: Coded Allergies: ACETAMINOPHEN (Verified Allergy, Unknown, 07/22/14) APPLE (Verified Allergy, Unknown, 04/06/17) ASPIRIN (Verified Allergy, Unknown, ITCHING, 07/22/14) AZITHROMYCIN (Verified Allergy, Unknown, 07/22/14) COPIED FROM UNCODED BANANA (Verified Allergy, Unknown, 04/06/17) CODEINE (Verified Allergy, Unknown, 07/22/14) ERYTHROMYCIN BASE (Verified Allergy, Unknown, 07/22/14) FISH CONTAINING PRODUCTS (Verified Allergy, Unknown, 07/22/14) HYDROCODONE (Verified Allergy, Unknown, 07/22/14) IODINE (Verified Allergy, Unknown, 07/22/14) MIDAZOLAM (Verified Allergy, Unknown, 07/22/14) MILK (Verified Allergy, Unknown, 07/22/14) PROPOXYPHENE (Verified Allergy, Unknown, 07/22/14) COPIED FROM UNCODED SULFA (SULFONAMIDE ANTIBIOTICS) (Verified Allergy, Unknown, 07/22/14) COPIED FROM UNCODED SULFACETAMIDE (Unverified Allergy, Unknown, 03/25/17) SUMATRIPTAN (Verified Allergy, Unknown, 07/22/14) TETRACYCLINE (Verified Allergy, Unknown, RASH, 07/22/14) TETRACYCLINES (Verified Allergy, Unknown, 07/22/14) COPIED FROM UNCODED TOMATO (Verified Allergy, Unknown, 07/22/14) according to pt "I will !".... Objective Vital Signs Last 24 Hour Vital Signs Date Time Temp Pulse Resp B/P (MAP) Pulse Ox O2 Delivery O2 Flow Rate FiO2 04/09/17 15:59 97.2 82 21 139/94 95 Room Air 04/09/17 11:51 97.1 95 20 144/96 94 Room Air 04/09/17 08:15 88 22 Room Air 04/09/17 08:00 97.0 88 20 148/81 97 Room Air 04/09/17 04:00 97.2 67 20 163/76 100 Room Air 04/09/17 00:00 97.7 87 19 134/81 97 Room Air 04/08/17 20:14 100 16 Room Air 04/08/17 20:00 96.8 97 20 98/56 92 Room Air Height (Feet): 5 Height (Inches): 4.00 Weight (Pounds): 160 Laboratory Tests Test 04/09/17 05:00 White Blood Count 7.2 K/UL (4.8-10.8) Red Blood Count 4.13 M/UL (4.20-5.40) L Hemoglobin 11.8 G/DL (12.0-16.0) L Hematocrit 36.2 % (37.0-47.0) L Mean Corpuscular Volume 88 FL (80-99) Mean Corpuscular Hemoglobin 28.5 PG (27.0-31.0) Mean Corpuscular Hemoglobin Concent 32.5 G/DL (32.0-36.0) Red Cell Distribution Width 14.6 % (11.6-14.8) Platelet Count 258 K/UL (150-450) Mean Platelet Volume 7.0 FL (6.5-10.1) Neutrophils (%) (Auto) 51.9 % (45.0-75.0) Lymphocytes (%) (Auto) 33.9 % (20.0-45.0) Monocytes (%) (Auto) 13.5 % (1.0-10.0) H Eosinophils (%) (Auto) 0.0 % (0.0-3.0) Basophils (%) (Auto) 0.7 % (0.0-2.0) Sodium Level 138 mEQ/L (135-145) Potassium Level 3.7 mEQ/L (3.4-4.9) Chloride Level 100 mEQ/L (98-107) Carbon Dioxide Level 28 mEQ/L (20-30) Anion Gap 10 (5-15) Blood Urea Nitrogen 37 mg/dL (7-23) H Creatinine 0.7 mg/dL (0.5-0.9) Estimat Glomerular Filtration Rate > 60 mL/min (>60) Glucose Level 141 mg/dL (74-106) H Calcium Level 9.1 mg/dL (8.6-10.2) Current Medications Medications (Trade) Dose Ordered Sig/Robb Route PRN Reason Start Time Stop Time Status Last Admin Dose Admin Al Hydroxide/Mg Hydroxide (Mylanta II) 30 ml Q6H PRN ORAL dyspepsia 04/06/17 18:00 05/06/17 17:59 Albuterol/ Ipratropium (DuoNeb 0.5-3(2.5)mg/3ml) 3 ml Q4H PRN HHN Shortness of Breath 04/06/17 18:00 04/11/17 17:59 04/07/17 16:43 Cyclobenzaprine HCl (Flexeril) 10 mg TIDPRN PRN ORAL Muscle Spasm 04/08/17 08:30 05/08/17 08:29 Dextrose (Dextrose 50%) STAT PRN IV Hypoglycemia 04/06/17 18:00 05/06/17 17:59 Divalproex Sodium (Depakote ER) 1,000 mg EVERY 12 HOURS ORAL 04/06/17 21:00 05/06/17 20:59 04/09/17 09:02 Docusate Sodium (Colace) 100 mg DAILY ORAL 04/07/17 09:00 05/07/17 08:59 04/09/17 09:03 Escitalopram Oxalate (Lexapro) 10 mg DAILY ORAL 04/07/17 09:00 05/07/17 08:59 04/09/17 14:00 Gabapentin (Neurontin) 300 mg THREE TIMES A DAY ORAL 04/06/17 18:00 05/06/17 17:59 04/09/17 17:52 Ibuprofen (Motrin) 600 mg Q6H PRN ORAL For Pain 04/06/17 18:00 05/06/17 17:59 04/09/17 13:54 Ibuprofen (Motrin) 800 mg THREE TIMES A DAY PRN ORAL severe pain 04/08/17 08:30 05/08/17 08:29 Insulin Aspart (NovoLOG) BEFORE MEALS AND HS SUBQ 04/06/17 21:00 05/06/17 20:59 04/09/17 06:01 Levetiracetam (Keppra) 1,500 mg Q12HR ORAL 04/06/17 21:00 05/06/17 20:59 04/09/17 09:24 Lorazepam (Ativan) 1 mg Q4H PRN ORAL For Anxiety 04/08/17 16:45 04/15/17 16:44 04/09/17 17:52 Magnesium Hydroxide (Mom) 30 ml HSPRN PRN ORAL Constipation 04/06/17 21:00 05/06/17 20:59 Ondansetron HCl (Zofran) 4 mg Q6H PRN IVP Nausea & Vomiting 04/06/17 18:00 05/06/17 17:59 Phenobarbital (PHENobarbital) 32.4 mg Q12HR ORAL 04/06/17 21:00 05/06/17 20:59 04/09/17 09:03 Polyethylene Glycol (Miralax) 17 gm HSPRN PRN ORAL Constipation 04/06/17 21:00 05/06/17 20:59 Pregabalin (Lyrica) 75 mg BID ORAL 04/06/17 18:00 05/06/17 17:59 04/09/17 17:52 Ranitidine HCl (Zantac) 150 mg BEDTIME ORAL 04/06/17 21:00 05/06/17 20:59 04/08/17 21:13 Sodium Chloride 1,000 ml @ 75 mls/hr [id number] IV 04/06/17 18:00 05/06/17 17:59 04/08/17 22:37 Trazodone HCl (Desyrel) 300 mg BEDTIME ORAL 04/09/17 21:00 05/09/17 20:59 Woo Garcia M.D. Apr 09, 2017 18:24
[2017-04-09 20:00] VITALS: BP 133/91
[2017-04-09] MEDS: TraZODone 100mg tab ORAL SCH (20:54)
--- NOTE | 2017-04-09 22:08 | Pulmonology Progress Note ---
Assessment/Plan Problems: (1) Seizure disorder (2) History of asthma (3) HTN (hypertension) (4) Diabetes (5) Lumbar radiculopathy (6) Schizophrenia Assessment/Plan all noted symptomatic treatment respiratory Rx increase to Q 4 hours titrate fio2 psych and neuro evaluation Subjective ROS Limited/Unobtainable: No Constitutional: Reports: no symptoms HEENT: Repors: no symptoms Allergies: Coded Allergies: ACETAMINOPHEN (Verified Allergy, Unknown, 07/22/14) APPLE (Verified Allergy, Unknown, 04/06/17) ASPIRIN (Verified Allergy, Unknown, ITCHING, 07/22/14) AZITHROMYCIN (Verified Allergy, Unknown, 07/22/14) COPIED FROM UNCODED BANANA (Verified Allergy, Unknown, 04/06/17) CODEINE (Verified Allergy, Unknown, 07/22/14) ERYTHROMYCIN BASE (Verified Allergy, Unknown, 07/22/14) FISH CONTAINING PRODUCTS (Verified Allergy, Unknown, 07/22/14) HYDROCODONE (Verified Allergy, Unknown, 07/22/14) IODINE (Verified Allergy, Unknown, 07/22/14) MIDAZOLAM (Verified Allergy, Unknown, 07/22/14) MILK (Verified Allergy, Unknown, 07/22/14) PROPOXYPHENE (Verified Allergy, Unknown, 07/22/14) COPIED FROM UNCODED SULFA (SULFONAMIDE ANTIBIOTICS) (Verified Allergy, Unknown, 07/22/14) COPIED FROM UNCODED SULFACETAMIDE (Unverified Allergy, Unknown, 03/25/17) SUMATRIPTAN (Verified Allergy, Unknown, 07/22/14) TETRACYCLINE (Verified Allergy, Unknown, RASH, 07/22/14) TETRACYCLINES (Verified Allergy, Unknown, 07/22/14) COPIED FROM UNCODED TOMATO (Verified Allergy, Unknown, 07/22/14) according to pt "I will !".... Objective Last 24 Hour Vital Signs Date Time Temp Pulse Resp B/P (MAP) Pulse Ox O2 Delivery O2 Flow Rate FiO2 04/09/17 20:07 84 18 Room Air 04/09/17 20:00 98.0 84 20 133/91 97 Room Air 04/09/17 15:59 97.2 82 21 139/94 95 Room Air 04/09/17 11:51 97.1 95 20 144/96 94 Room Air 04/09/17 08:15 88 22 Room Air 04/09/17 08:00 97.0 88 20 148/81 97 Room Air 04/09/17 04:00 97.2 67 20 163/76 100 Room Air 04/09/17 00:00 97.7 87 19 134/81 97 Room Air Intake and Output 04/09/17 04/10/17 19:00 07:00 # Voids 1 General Appearance: WD/WN HEENT: normocephalic, atraumatic Respiratory/Chest: chest wall non-tender, lungs clear Cardiovascular: normal peripheral pulses, normal rate Abdomen: normal bowel sounds, soft, non tender Extremities: no clubbing 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 Laboratory Tests 04/09/17 05:00: White Blood Count 7.2, Red Blood Count 4.13L, Hemoglobin 11.8L, Hematocrit 36.2L , Mean Corpuscular Volume 88, Mean Corpuscular Hemoglobin 28.5, Mean Corpuscular Hemoglobin Concent 32.5, Red Cell Distribution Width 14.6, Platelet Count 258, Mean Platelet Volume 7.0, Neutrophils (%) (Auto) 51.9, Lymphocytes (% ) (Auto) 33.9, Monocytes (%) (Auto) 13.5H, Eosinophils (%) (Auto) 0.0, Basophils (%) (Auto) 0.7, Sodium Level 138, Potassium Level 3.7, Chloride Level 100, Carbon Dioxide Level 28, Anion Gap 10, Blood Urea Nitrogen 37H, Creatinine 0.7, Estimat Glomerular Filtration Rate > 60, Glucose Level 141H, Calcium Level 9.1 Current Medications Medications (Trade) Dose Ordered Sig/Robb Route PRN Reason Start Time Stop Time Status Last Admin Dose Admin Al Hydroxide/Mg Hydroxide (Mylanta II) 30 ml Q6H PRN ORAL dyspepsia 04/06/17 18:00 05/06/17 17:59 Albuterol/ Ipratropium (DuoNeb 0.5-3(2.5)mg/3ml) 3 ml Q4H PRN HHN Shortness of Breath 04/06/17 18:00 04/11/17 17:59 04/07/17 16:43 Cyclobenzaprine HCl (Flexeril) 10 mg TIDPRN PRN ORAL Muscle Spasm 04/08/17 08:30 05/08/17 08:29 Dextrose (Dextrose 50%) STAT PRN IV Hypoglycemia 04/06/17 18:00 05/06/17 17:59 Divalproex Sodium (Depakote ER) 1,000 mg EVERY 12 HOURS ORAL 04/06/17 21:00 05/06/17 20:59 04/09/17 20:54 Docusate Sodium (Colace) 100 mg DAILY ORAL 04/07/17 09:00 05/07/17 08:59 04/09/17 09:03 Escitalopram Oxalate (Lexapro) 10 mg DAILY ORAL 04/07/17 09:00 05/07/17 08:59 04/09/17 14:00 Gabapentin (Neurontin) 300 mg THREE TIMES A DAY ORAL 04/06/17 18:00 05/06/17 17:59 04/09/17 17:52 Ibuprofen (Motrin) 600 mg Q6H PRN ORAL For Pain 04/06/17 18:00 05/06/17 17:59 04/09/17 13:54 Ibuprofen (Motrin) 800 mg THREE TIMES A DAY PRN ORAL severe pain 04/08/17 08:30 05/08/17 08:29 Insulin Aspart (NovoLOG) BEFORE MEALS AND HS SUBQ 04/06/17 21:00 05/06/17 20:59 04/09/17 20:58 Levetiracetam (Keppra) 1,500 mg Q12HR ORAL 04/06/17 21:00 05/06/17 20:59 04/09/17 20:54 Lorazepam (Ativan) 1 mg Q4H PRN ORAL For Anxiety 04/08/17 16:45 04/15/17 16:44 04/09/17 17:52 Magnesium Hydroxide (Mom) 30 ml HSPRN PRN ORAL Constipation 04/06/17 21:00 05/06/17 20:59 Ondansetron HCl (Zofran) 4 mg Q6H PRN IVP Nausea & Vomiting 04/06/17 18:00 05/06/17 17:59 Phenobarbital (PHENobarbital) 32.4 mg Q12HR ORAL 04/06/17 21:00 05/06/17 20:59 04/09/17 20:54 Polyethylene Glycol (Miralax) 17 gm HSPRN PRN ORAL Constipation 04/06/17 21:00 05/06/17 20:59 Pregabalin (Lyrica) 75 mg BID ORAL 04/06/17 18:00 05/06/17 17:59 04/09/17 17:52 Ranitidine HCl (Zantac) 150 mg BEDTIME ORAL 04/06/17 21:00 05/06/17 20:59 04/09/17 20:54 Sodium Chloride 1,000 ml @ 75 mls/hr [id number] IV 04/06/17 18:00 05/06/17 17:59 04/08/17 22:37 Trazodone HCl (Desyrel) 300 mg BEDTIME ORAL 04/09/17 21:00 05/09/17 20:59 04/09/17 20:54 ZITA MANDEL Apr 09, 2017 22:08
--- NOTE | 2017-04-09 22:30 | Consultation ---
DATE OF CONSULTATION: 04/09/2017 INFECTIOUS DISEASE CONSULTATION CONSULTING PHYSICIAN: Woo Garcia M.D. REQUESTING PHYSICIAN: Scott Samson D.O. REASON FOR CONSULTATION: Generalized weakness and history of ESBL-producing bacteria urinary tract infection. Recommendation for antibiotics therapy. HISTORY OF PRESENT ILLNESS: The patient is a 52-year-old female from [facility], was sent to [facility] Emergency Room for weakness and encephalopathy. The patient had extensive medical history. Due to psychiatric disorder and seizure, unclear whether she was taking her medication or not. The patient had no chest pain, shortness of breath, abdominal pain, or urinary complaints. No fever or chills. Urinalysis in the emergency room showed +1 leukocyte esterase. Since she had a history of ESBL-producing bacteria, I was consulted by the primary provider for possible antibiotic treatment. PAST MEDICAL HISTORY: Extensive include hyperlipidemia, asthma, COPD, diabetes, GERD, neuritis, and seizure disorder. PAST SURGICAL HISTORY: Negative. MEDICATIONS: She is on psych and seizure medicines. ALLERGIES: She has extensive list of antibiotics-related allergy including azithromycin, erythromycin, sulfa, and tetracycline. FAMILY HISTORY: Unable to obtain. SOCIAL HISTORY: Unable to obtain at this point, the patient is lethargic. REVIEW OF SYSTEMS: Unable to obtain. PHYSICAL EXAMINATION: VITAL SIGNS: Temperature 97.2 degrees, pulse 82, respirations 21, and blood pressure 139/94. Saturation 95% on room air. GENERAL: Middle-aged female lying in bed, lethargic and unresponsive to verbal commands, not in acute distress. HEENT: Normocephalic and atraumatic. Pupils are reactive equally. Dry oral mucosa. NECK: Supple. No lymphadenopathy. CARDIOVASCULAR: Regular rate and rhythm. No murmur. LUNGS: Clear bilaterally. Diminished breathing sounds at the bases. ABDOMEN: Soft, nontender, and nondistended. Positive bowel sounds. No hepatosplenomegaly. EXTREMITIES: No edema or cyanosis. LABORATORY DATA: Labs showed white count 7.2, hemoglobin 11.8, and platelet count 258,000. BUN 37 and creatinine 0.7. Urinalysis showed +3 ketones, +2 protein, +1 leukocyte esterase, and few mucus and few bacteria. MICROBIOLOGY: VRE screening was negative. IMAGIN. Head CT scan showed no mass effect, edema, or acute bleeding. 2. Chest x-ray showed no acute findings. ASSESSMENT AND RECOMMENDATION: 1. History of extended-spectrum beta-lactamase Escherichia coli infection. We will send urine for culture. Keep the patient in contact isolation. No antibiotics needed at this point pending culture results. 2. Asthma exacerbation. Continue inhaler and oxygen. 3. Altered level of consciousness, unclear etiology. Neurology and Psychiatry are following. 4. Psychiatric disorder. Continue psych medicine. 5. Seizure disorder, controlled on seizure medications. Neurology is following. Woo Garcia M.D. DR: TOM JOB#: [id number] CC:
[2017-04-10] VITALS (7 sets, daily range): BP systolic 105–146; BP diastolic 57–84
[2017-04-10] MEDS: LORazepam 1mg tab ORAL PRN (00:59)
[2017-04-10] MEDS: NovoLOG Insulin Flexpen SUBQ SCH ×4 (05:43→20:21)
[2017-04-10] MEDS: Depakote ER 500mg tab ORAL SCH (08:21)
[2017-04-10] MEDS: Docusate 100mg cap ORAL SCH (08:21)
[2017-04-10] MEDS: PHENobarbital 32.4mg tab ORAL SCH ×2 (08:22→20:36)
[2017-04-10] MEDS: Lyrica 75mg cap ORAL SCH ×2 (08:22→17:15)
--- NOTE | 2017-04-10 08:26 | General Progress Note ---
Assessment/Plan Assessment/Plan (1) Lumbar radiculopathy (2) Lumbar spondylosis (3) Lumbar degenerative disc disease Pt will be started on Suzette D/w and he concurred. Subjective Date patient seen: Apr 10, 2017 Time patient seen: 07:15 - am Allergies: Coded Allergies: ACETAMINOPHEN (Verified Allergy, Unknown, 07/22/14) APPLE (Verified Allergy, Unknown, 04/06/17) ASPIRIN (Verified Allergy, Unknown, ITCHING, 07/22/14) AZITHROMYCIN (Verified Allergy, Unknown, 07/22/14) COPIED FROM UNCODED BANANA (Verified Allergy, Unknown, 04/06/17) CODEINE (Verified Allergy, Unknown, 07/22/14) ERYTHROMYCIN BASE (Verified Allergy, Unknown, 07/22/14) FISH CONTAINING PRODUCTS (Verified Allergy, Unknown, 07/22/14) HYDROCODONE (Verified Allergy, Unknown, 07/22/14) IODINE (Verified Allergy, Unknown, 07/22/14) MIDAZOLAM (Verified Allergy, Unknown, 07/22/14) MILK (Verified Allergy, Unknown, 07/22/14) PROPOXYPHENE (Verified Allergy, Unknown, 07/22/14) COPIED FROM UNCODED SULFA (SULFONAMIDE ANTIBIOTICS) (Verified Allergy, Unknown, 07/22/14) COPIED FROM UNCODED SULFACETAMIDE (Unverified Allergy, Unknown, 03/25/17) SUMATRIPTAN (Verified Allergy, Unknown, 07/22/14) TETRACYCLINE (Verified Allergy, Unknown, RASH, 07/22/14) TETRACYCLINES (Verified Allergy, Unknown, 07/22/14) COPIED FROM UNCODED TOMATO (Verified Allergy, Unknown, 07/22/14) according to pt "I will !".... Subjective Constitutional: Denies: no symptoms, chills, diaphoresis, fever, malaise, weakness, other HEENT: Denies: no symptoms, eye pain, blurred vision, tearing, double vision, ear pain, ear discharge, nose pain, nose congestion, throat pain, throat swelling, mouth pain, mouth swelling, other Cardiovascular: Denies: no symptoms, chest pain, edema, irregular heart rate, lightheadedness, palpitations, syncope, other Respiratory: Denies: no symptoms, cough, orthopnea, shortness of breath, SOB with excertion, SOB at rest, sputum, stridor, wheezing, other Gastrointestinal/Abdominal: Reports: Abdmoinal pain, nausea, vomiting Genitourinary: Denies: burning, discharge, frequency, flank pain, urgency Neurologic/Psychiatric: Reports: depressed, weakness Endocrine: Denies: no symptoms, excessive sweating, flushing, intolerance to cold, intolerance to heat, increased hunger, increased thirst, increased urine, unexplained weight gain, unexplained weight loss, other Hematologic/Lymphatic: Denies: no symptoms, anemia, easy bleeding, easy bruising, other Subjective Pt is in bed no signs of pain or distress at this time. She has no new complaints. Objective Last 24 Hour Vital Signs Date Time Temp Pulse Resp B/P (MAP) Pulse Ox O2 Delivery O2 Flow Rate FiO2 04/10/17 04:00 98.7 72 20 105/57 95 Room Air 04/10/17 00:00 97.9 87 20 142/72 97 Room Air 04/09/17 20:07 84 18 Room Air 04/09/17 20:00 98.0 84 20 133/91 97 Room Air 04/09/17 15:59 97.2 82 21 139/94 95 Room Air 04/09/17 11:51 97.1 95 20 144/96 94 Room Air Height (Feet): 5 Height (Inches): 4.00 Weight (Pounds): 160 Objective General Appearance: no apparent distress, alert EENT: PERRL/EOMI, normal ENT inspection Neck: non-tender, normal alignment Cardiovascular: normal rate, regular rhythm Respiratory/Chest: lungs clear, normal breath sounds Abdomen: non tender, soft Extremities: non-tender Edema: trace edema Neurologic: alert, responsive Skin: warm/dry ROOSEVELT SAWYER Apr 10, 2017 08:26
--- NOTE | 2017-04-10 08:36 | General Progress Note ---
Assessment/Plan Assessment/Plan ASSESSMENT AND PLAN: 1. Recent weight loss. Failure to thrive. ---> CA 15-3 is elevated 2. Seizure disorder history. Neurology evaluation as necessary. 3. Anemia, secondary to chronic disease, very mild at this time. Continue to monitor. --> anemia workup if levels drop 4. Diabetes mellitus 5. Schizophrenia. Subjective Constitutional: Reports: no symptoms HEENT: Reports: no symptoms Cardiovascular: Reports: no symptoms Respiratory: Reports: no symptoms Gastrointestinal/Abdominal: Reports: no symptoms Genitourinary: Reports: no symptoms Neurologic/Psychiatric: Reports: no symptoms Endocrine: Reports: no symptoms Hematologic/Lymphatic: Reports: anemia Allergies: Coded Allergies: ACETAMINOPHEN (Verified Allergy, Unknown, 07/22/14) APPLE (Verified Allergy, Unknown, 04/06/17) ASPIRIN (Verified Allergy, Unknown, ITCHING, 07/22/14) AZITHROMYCIN (Verified Allergy, Unknown, 07/22/14) COPIED FROM UNCODED BANANA (Verified Allergy, Unknown, 04/06/17) CODEINE (Verified Allergy, Unknown, 07/22/14) ERYTHROMYCIN BASE (Verified Allergy, Unknown, 07/22/14) FISH CONTAINING PRODUCTS (Verified Allergy, Unknown, 07/22/14) HYDROCODONE (Verified Allergy, Unknown, 07/22/14) IODINE (Verified Allergy, Unknown, 07/22/14) MIDAZOLAM (Verified Allergy, Unknown, 07/22/14) MILK (Verified Allergy, Unknown, 07/22/14) PROPOXYPHENE (Verified Allergy, Unknown, 07/22/14) COPIED FROM UNCODED SULFA (SULFONAMIDE ANTIBIOTICS) (Verified Allergy, Unknown, 07/22/14) COPIED FROM UNCODED SULFACETAMIDE (Unverified Allergy, Unknown, 03/25/17) SUMATRIPTAN (Verified Allergy, Unknown, 07/22/14) TETRACYCLINE (Verified Allergy, Unknown, RASH, 07/22/14) TETRACYCLINES (Verified Allergy, Unknown, 07/22/14) COPIED FROM UNCODED TOMATO (Verified Allergy, Unknown, 07/22/14) according to pt "I will !".... Subjective lethargic Objective Last 24 Hour Vital Signs Date Time Temp Pulse Resp B/P (MAP) Pulse Ox O2 Delivery O2 Flow Rate FiO2 04/10/17 04:00 98.7 72 20 105/57 95 Room Air 04/10/17 00:00 97.9 87 20 142/72 97 Room Air 04/09/17 20:07 84 18 Room Air 04/09/17 20:00 98.0 84 20 133/91 97 Room Air 04/09/17 15:59 97.2 82 21 139/94 95 Room Air 04/09/17 11:51 97.1 95 20 144/96 94 Room Air Height (Feet): 5 Height (Inches): 4.00 Weight (Pounds): 160 General Appearance: no apparent distress EENT: normal ENT inspection Neck: normal alignment Extremities: normal range of motion Edema: 1+ Pedal (L), 1+ Pedal (R) 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
--- NOTE | 2017-04-10 11:23 | Neurology Progress Note ---
Interim History Interim History ROS Limited/Unobtainable: No Objective Physical Exam Last Vital Signs Date Time Temp Pulse Resp B/P (MAP) Pulse Ox O2 Delivery O2 Flow Rate FiO2 04/10/17 09:59 97.7 04/10/17 08:24 90 18 146/84 95 Room Air 04/07/17 16:36 21 Impression/Recommendations Problems: (1) lethargy (2) h/o seizure and pseudoseizure disorder Status: stable, progressing, tolerating diet Recommendations # [id number] WENDY ROBERTS Apr 10, 2017 11:23
--- NOTE | 2017-04-10 11:28 | GI Progress Note ---
Assessment/Plan Problems: (1) Weakness ICD Codes: R53.1 - Weakness SNOMED: 81571798 (2) Schizophrenia ICD Codes: F20.9 - Schizophrenia, unspecified SNOMED: 33443538 (3) GERD (gastroesophageal reflux disease) ICD Codes: K21.9 - Gastro-esophageal reflux disease without esophagitis SNOMED: 628128174 (4) Diabetes ICD Codes: E11.9 - Type 2 diabetes mellitus without complications SNOMED: 21182449 Status: stable Status Narrative Discussed with Dr. De Souza. Assessment/Plan Valproate-related hyperammonemic encephalopathy >> will dc Depakote, add lactulose + Xifaxan and repeat ammonia and valproic acid levels for tomorrow. zofran prn, consider reglan if vomiting persists fu swallow eval bowel regime >> miralax + colace ATC pain mgmt ppi PT/OT eval outpatient GI procedures Subjective Subjective generalized weakness Objective Last 24 Hour Vital Signs Date Time Temp Pulse Resp B/P (MAP) Pulse Ox O2 Delivery O2 Flow Rate FiO2 04/10/17 09:59 97.7 04/10/17 09:21 97.7 04/10/17 08:24 97.7 90 18 146/84 95 Room Air 04/10/17 08:20 93 20 Room Air 04/10/17 04:00 98.7 72 20 105/57 95 Room Air 04/10/17 00:00 97.9 87 20 142/72 97 Room Air 04/09/17 20:07 84 18 Room Air 04/09/17 20:00 98.0 84 20 133/91 97 Room Air 04/09/17 15:59 97.2 82 21 139/94 95 Room Air 04/09/17 11:51 97.1 95 20 144/96 94 Room Air Laboratory Tests Test 04/10/17 11:05 White Blood Count Pending Red Blood Count Pending Hemoglobin Pending Hematocrit Pending Mean Corpuscular Volume Pending Mean Corpuscular Hemoglobin Pending Mean Corpuscular Hemoglobin Concent Pending Red Cell Distribution Width Pending Platelet Count Pending Mean Platelet Volume Pending Neutrophils (%) (Auto) Pending Lymphocytes (%) (Auto) Pending Monocytes (%) (Auto) Pending Eosinophils (%) (Auto) Pending Basophils (%) (Auto) Pending Sodium Level Pending Potassium Level Pending Chloride Level Pending Carbon Dioxide Level Pending Blood Urea Nitrogen Pending Creatinine Pending Estimat Glomerular Filtration Rate Pending Glucose Level Pending Calcium Level Pending Height (Feet): 5 Height (Inches): 4.00 Weight (Pounds): 160 General Appearance: no apparent distress, alert, lethargic, overweight Cardiovascular: normal rate Respiratory/Chest: normal breath sounds, no respiratory distress Abdominal Exam: normal bowel sounds, non tender, soft Katlyn Nava N.P. Apr 10, 2017 11:28
[2017-04-10 11:29] LABS: BASOPHILS % (AUTO) 0.9 % (0.0-2.0); EOSINOPHILS % (AUTO) 0.1 % (0.0-3.0); LYMPHOCYTES % (AUTO) 33.8 % (20.0-45.0); MEAN CORPUSCULAR HEMOGLOBIN 26.4 PG (27.0-31.0); MEAN CORPUSCULAR HGB CONC 30.6 G/DL (32.0-36.0); MEAN CORPUSCULAR VOLUME 86 FL (80-99); MEAN PLATELET VOLUME 6.1 FL (6.5-10.1); MONOCYTES % (AUTO) 11.1 % (1.0-10.0); NEUTROPHILS % (AUTO) 54.1 % (45.0-75.0); PLATELET COUNT 270 K/UL (150-450); RED BLOOD COUNT 4.99 M/UL (4.20-5.40); RED CELL DISTRIBUTION WIDTH 14.3 % (11.6-14.8); WHITE BLOOD COUNT 5.4 K/UL (4.8-10.8)
[2017-04-10 11:46] LABS: ANION GAP 11 (5-15); CALCIUM 9.6 mg/dL (8.6-10.2); CARBON DIOXIDE 28 mEQ/L (20-30); CHLORIDE 100 mEQ/L (98-107); CREATININE 0.8 mg/dL (0.5-0.9); GLOMERULAR FILTRATION RATE > 60 mL/min (>60); HEMOLYSIS 0; SODIUM 139 mEQ/L (135-145)
--- NOTE | 2017-04-10 11:57 | Pulmonology Progress Note ---
Assessment/Plan Assessment/Plan ASSESSMENT rhabdomyolysis acute kidney injury dehydration hepatic encephalopathy COPD DM seizure disorder schizophrenia elevated CA 15-3 PLAN OF CARE [facility] floor ammonia today 406 started on lactulose and Rifaximin per GI GI follows, trend ammonia PPI elevated CA15-3 -27.5 with normal aFP, CA 19-9 and CA 125 per GI outpatient GI procedures gentle IVF monitor renal parameters, lytes trend CK O2 HHN prn keep sat above 92% seizure precautions anti-epileptic medications neuro follows elevated Depakote level- per neuro management DVT GI prophylaxis a/emetic prn PT/OT BS management with SS of insulin HgA1c -6.8 at goal case discussed and evaluated by supervising physician Subjective Allergies: Coded Allergies: ACETAMINOPHEN (Verified Allergy, Unknown, 07/22/14) APPLE (Verified Allergy, Unknown, 04/06/17) ASPIRIN (Verified Allergy, Unknown, ITCHING, 07/22/14) AZITHROMYCIN (Verified Allergy, Unknown, 07/22/14) COPIED FROM UNCODED BANANA (Verified Allergy, Unknown, 04/06/17) CODEINE (Verified Allergy, Unknown, 07/22/14) ERYTHROMYCIN BASE (Verified Allergy, Unknown, 07/22/14) FISH CONTAINING PRODUCTS (Verified Allergy, Unknown, 07/22/14) HYDROCODONE (Verified Allergy, Unknown, 07/22/14) IODINE (Verified Allergy, Unknown, 07/22/14) MIDAZOLAM (Verified Allergy, Unknown, 07/22/14) MILK (Verified Allergy, Unknown, 07/22/14) PROPOXYPHENE (Verified Allergy, Unknown, 07/22/14) COPIED FROM UNCODED SULFA (SULFONAMIDE ANTIBIOTICS) (Verified Allergy, Unknown, 07/22/14) COPIED FROM UNCODED SULFACETAMIDE (Unverified Allergy, Unknown, 03/25/17) SUMATRIPTAN (Verified Allergy, Unknown, 07/22/14) TETRACYCLINE (Verified Allergy, Unknown, RASH, 07/22/14) TETRACYCLINES (Verified Allergy, Unknown, 07/22/14) COPIED FROM UNCODED TOMATO (Verified Allergy, Unknown, 07/22/14) according to pt "I will !".... Subjective lethargic ammonia level 406 Depakote level toxic-110 Objective Last 24 Hour Vital Signs Date Time Temp Pulse Resp B/P (MAP) Pulse Ox O2 Delivery O2 Flow Rate FiO2 04/10/17 09:59 97.7 04/10/17 09:21 97.7 04/10/17 08:24 97.7 90 18 146/84 95 Room Air 04/10/17 08:20 93 20 Room Air 04/10/17 04:00 98.7 72 20 105/57 95 Room Air 04/10/17 00:00 97.9 87 20 142/72 97 Room Air 04/09/17 20:07 84 18 Room Air 04/09/17 20:00 98.0 84 20 133/91 97 Room Air 04/09/17 15:59 97.2 82 21 139/94 95 Room Air General Appearance: other - letahrgic HEENT: normocephalic, atraumatic Respiratory/Chest: lungs clear Cardiovascular: normal peripheral pulses, normal rate, regular rhythm, no JVD Abdomen: normal bowel sounds, soft, non tender Extremities: other - +1 edema BLE Neurologic/Psychiatric: abnormal gait, other - lethargic Laboratory Tests 04/10/17 11:05: White Blood Count 5.4, Red Blood Count 4.99, Hemoglobin 13.2, Hematocrit 43.1, Mean Corpuscular Volume 86, Mean Corpuscular Hemoglobin 26.4L, Mean Corpuscular Hemoglobin Concent 30.6L, Red Cell Distribution Width 14.3, Platelet Count 270, Mean Platelet Volume 6.1L, Neutrophils (%) (Auto) 54.1, Lymphocytes (%) (Auto) 33.8, Monocytes (%) (Auto) 11.1H, Eosinophils (%) (Auto) 0.1, Basophils (%) ( Auto) 0.9, Sodium Level 139, Potassium Level 5.0H, Chloride Level 100, Carbon Dioxide Level 28, Anion Gap 11, Blood Urea Nitrogen 26H, Creatinine 0.8, Estimat Glomerular Filtration Rate > 60, Glucose Level 164H, Calcium Level 9.6, Total Bilirubin [Pending], Direct Bilirubin [Pending], Aspartate Amino Transf ( AST/SGOT) [Pending], Alanine Aminotransferase (ALT/SGPT) [Pending], Alkaline Phosphatase [Pending], Total Protein [Pending], Albumin [Pending], Vitamin B12 Level [Pending], Thyroid Stimulating Hormone (TSH) [Pending], Valproic Acid ( Depakene) Level [Pending], Anti-Nuclear Antibody Screen [Pending] Current Medications Medications (Trade) Dose Ordered Sig/Robb Route PRN Reason Start Time Stop Time Status Last Admin Dose Admin Al Hydroxide/Mg Hydroxide (Mylanta II) 30 ml Q6H PRN ORAL dyspepsia 04/06/17 18:00 05/06/17 17:59 Albuterol/ Ipratropium (DuoNeb 0.5-3(2.5)mg/3ml) 3 ml Q4H PRN HHN Shortness of Breath 04/06/17 18:00 04/11/17 17:59 04/07/17 16:43 Dextrose (Dextrose 50%) STAT PRN IV Hypoglycemia 04/06/17 18:00 05/06/17 17:59 Divalproex Sodium (Depakote ER) 1,000 mg EVERY 12 HOURS ORAL 04/06/17 21:00 05/06/17 20:59 04/10/17 08:21 Docusate Sodium (Colace) 100 mg DAILY ORAL 04/07/17 09:00 05/07/17 08:59 04/10/17 08:21 Escitalopram Oxalate (Lexapro) 10 mg DAILY ORAL 04/07/17 09:00 05/07/17 08:59 04/09/17 14:00 Gabapentin (Neurontin) 300 mg THREE TIMES A DAY ORAL 04/06/17 18:00 05/06/17 17:59 04/10/17 08:21 Ibuprofen (Motrin) 600 mg Q6H PRN ORAL For Pain 04/06/17 18:00 05/06/17 17:59 04/10/17 09:00 Ibuprofen (Motrin) 800 mg THREE TIMES A DAY PRN ORAL severe pain 04/08/17 08:30 05/08/17 08:29 Insulin Aspart (NovoLOG) BEFORE MEALS AND HS SUBQ 04/06/17 21:00 05/06/17 20:59 04/10/17 11:42 Levetiracetam (Keppra) 1,500 mg Q12HR ORAL 04/06/17 21:00 05/06/17 20:59 04/10/17 08:21 Lorazepam (Ativan) 1 mg Q4H PRN ORAL For Anxiety 04/08/17 16:45 04/15/17 16:44 04/10/17 00:59 Magnesium Hydroxide (Mom) 30 ml HSPRN PRN ORAL Constipation 04/06/17 21:00 05/06/17 20:59 Ondansetron HCl (Zofran) 4 mg Q6H PRN IVP Nausea & Vomiting 04/06/17 18:00 05/06/17 17:59 Phenobarbital (PHENobarbital) 32.4 mg Q12HR ORAL 04/06/17 21:00 05/06/17 20:59 04/10/17 08:22 Polyethylene Glycol (Miralax) 17 gm HSPRN PRN ORAL Constipation 04/06/17 21:00 05/06/17 20:59 Pregabalin (Lyrica) 75 mg BID ORAL 04/06/17 18:00 05/06/17 17:59 04/10/17 08:22 Ranitidine HCl (Zantac) 150 mg BEDTIME ORAL 04/06/17 21:00 05/06/17 20:59 04/09/17 20:54 Sodium Chloride 1,000 ml @ 75 mls/hr [id number] IV 04/06/17 18:00 05/06/17 17:59 04/08/17 22:37 Trazodone HCl (Desyrel) 300 mg BEDTIME ORAL 04/09/17 21:00 05/09/17 20:59 04/09/17 20:54 Alana Sifuentes NP ([facility]anchte[facility]) Apr 10, 2017 11:57
[2017-04-10 12:34] LABS: ALANINE AMINOTRANSFERASE 22 U/L (3-33); ASPARTATE AMINO TRANSFERASE 16 U/L (5-40); BILIRUBIN,DIRECT 0.1 mg/dL (0.1-0.3); HEMOLYSIS 10
[2017-04-10] MEDS ORDERED: Lactulose 20gm/30ml UDC ORAL SCH (13:00)
[2017-04-10] MEDS ORDERED: Sodium Polystyrene Sulfonate 15gm Powder ORAL ONE ×2 (13:15→14:00)
--- NOTE | 2017-04-10 14:07 | General Progress Note ---
Assessment/Plan Problem List: (1) UTI (urinary tract infection) ICD Codes: N39.0 - Urinary tract infection, site not specified SNOMED: 03910705 (2) Asthma exacerbation ICD Codes: J45.901 - Unspecified asthma with (acute) exacerbation SNOMED: 052677481 (3) Altered mental status ICD Codes: R41.82 - Altered mental status, unspecified SNOMED: 767785790 (4) Chronic pain ICD Codes: G89.29 - Other chronic pain SNOMED: 26764119 (5) Psychiatric disorder ICD Codes: F99 - Mental disorder SNOMED: 80112015 (6) Altered level of consciousness ICD Codes: R40.4 - Transient alteration of awareness SNOMED: 6195554 (7) Diabetes ICD Codes: E11.9 - Type 2 diabetes mellitus without complications SNOMED: 29027343 (8) Seizure disorder ICD Codes: G40.909 - Seizure disorder SNOMED: 839397566 (9) Encephalopathy ICD Codes: G93.40 - Encephalopathy, unspecified SNOMED: 09801137, 765067632 (10) Weakness ICD Codes: R53.1 - Weakness SNOMED: 73185044 (11) HTN (hypertension) ICD Codes: I10 - Essential (primary) hypertension SNOMED: 18531073 Status: unchanged Assessment/Plan ot pt diet abx seizure control cbc bmp am ltach eval Subjective Constitutional: Reports: weakness Allergies: Coded Allergies: ACETAMINOPHEN (Verified Allergy, Unknown, 07/22/14) APPLE (Verified Allergy, Unknown, 04/06/17) ASPIRIN (Verified Allergy, Unknown, ITCHING, 07/22/14) AZITHROMYCIN (Verified Allergy, Unknown, 07/22/14) COPIED FROM UNCODED BANANA (Verified Allergy, Unknown, 04/06/17) CODEINE (Verified Allergy, Unknown, 07/22/14) ERYTHROMYCIN BASE (Verified Allergy, Unknown, 07/22/14) FISH CONTAINING PRODUCTS (Verified Allergy, Unknown, 07/22/14) HYDROCODONE (Verified Allergy, Unknown, 07/22/14) IODINE (Verified Allergy, Unknown, 07/22/14) MIDAZOLAM (Verified Allergy, Unknown, 07/22/14) MILK (Verified Allergy, Unknown, 07/22/14) PROPOXYPHENE (Verified Allergy, Unknown, 07/22/14) COPIED FROM UNCODED SULFA (SULFONAMIDE ANTIBIOTICS) (Verified Allergy, Unknown, 07/22/14) COPIED FROM UNCODED SULFACETAMIDE (Unverified Allergy, Unknown, 03/25/17) SUMATRIPTAN (Verified Allergy, Unknown, 07/22/14) TETRACYCLINE (Verified Allergy, Unknown, RASH, 07/22/14) TETRACYCLINES (Verified Allergy, Unknown, 07/22/14) COPIED FROM UNCODED TOMATO (Verified Allergy, Unknown, 07/22/14) according to pt "I will !".... All Systems: reviewed and negative except above Subjective weak sl confused possible seizure Objective Last 24 Hour Vital Signs Date Time Temp Pulse Resp B/P (MAP) Pulse Ox O2 Delivery O2 Flow Rate FiO2 04/10/17 09:59 97.7 04/10/17 09:21 97.7 04/10/17 08:24 97.7 90 18 146/84 95 Room Air 04/10/17 08:20 93 20 Room Air 04/10/17 04:00 98.7 72 20 105/57 95 Room Air 04/10/17 00:00 97.9 87 20 142/72 97 Room Air 04/09/17 20:07 84 18 Room Air 04/09/17 20:00 98.0 84 20 133/91 97 Room Air 04/09/17 15:59 97.2 82 21 139/94 95 Room Air Laboratory Tests 04/10/17 11:05: White Blood Count 5.4, Red Blood Count 4.99, Hemoglobin 13.2, Hematocrit 43.1, Mean Corpuscular Volume 86, Mean Corpuscular Hemoglobin 26.4L, Mean Corpuscular Hemoglobin Concent 30.6L, Red Cell Distribution Width 14.3, Platelet Count 270, Mean Platelet Volume 6.1L, Neutrophils (%) (Auto) 54.1, Lymphocytes (%) (Auto) 33.8, Monocytes (%) (Auto) 11.1H, Eosinophils (%) (Auto) 0.1, Basophils (%) ( Auto) 0.9, Sodium Level 139, Potassium Level 5.0H, Chloride Level 100, Carbon Dioxide Level 28, Anion Gap 11, Blood Urea Nitrogen 26H, Creatinine 0.8, Estimat Glomerular Filtration Rate > 60, Glucose Level 164H, Calcium Level 9.6, Total Bilirubin < 0.2, Direct Bilirubin 0.1, Aspartate Amino Transf (AST/SGOT) 16, Alanine Aminotransferase (ALT/SGPT) 22, Alkaline Phosphatase 98, Total Protein 7.0, Albumin 3.9, Vitamin B12 Level 532, Thyroid Stimulating Hormone ( TSH) 0.780, Valproic Acid (Depakene) Level 110H, Anti-Nuclear Antibody Screen [ Pending] 04/10/17 11:50: Ammonia 406H Height (Feet): 5 Height (Inches): 4.00 Weight (Pounds): 160 General Appearance: lethargic EENT: normal ENT inspection Neck: normal alignment Cardiovascular: normal peripheral pulses, normal rate, regular rhythm Respiratory/Chest: chest wall non-tender, lungs clear, normal breath sounds Abdomen: normal bowel sounds, non tender, soft Extremities: normal inspection Edema: no edema noted Arm (L), no edema noted Arm (R), no edema noted Leg (L), no edema noted Leg (R), no edema noted Pedal (L), no edema noted Pedal (R), no edema noted Generalized Neurologic: motor weakness Skin: normal pigmentation, warm/dry CHUCK ESCAMILLA Apr 10, 2017 14:07
[2017-04-10] MEDS: Lactulose 20gm/30ml UDC ORAL SCH ×2 (14:13→17:15)
[2017-04-10] MEDS ORDERED: Tubing IV Secondary IV ONE (17:40)
[2017-04-10] MEDS ORDERED: 1/2 NS 1000ml IV ONE (17:40)
--- NOTE | 2017-04-10 19:14 | Infectious Diseases Prog Note ---
Assessment/Plan Problems: (1) History of ESBL E. coli infection Assessment & Plan: await urine for culture, keep in contact isolation (2) Asthma exacerbation Assessment & Plan: continue inhalers, and oxygen (3) Altered level of consciousness Assessment & Plan: unclear etiology, neurology and psych are following (4) Psychiatric disorder Assessment & Plan: on psych meds (5) Seizure disorder Assessment & Plan: controlled on seizure meds , neurology is following Subjective ROS Limited/Unobtainable: Yes Allergies: Coded Allergies: ACETAMINOPHEN (Verified Allergy, Unknown, 07/22/14) APPLE (Verified Allergy, Unknown, 04/06/17) ASPIRIN (Verified Allergy, Unknown, ITCHING, 07/22/14) AZITHROMYCIN (Verified Allergy, Unknown, 07/22/14) COPIED FROM UNCODED BANANA (Verified Allergy, Unknown, 04/06/17) CODEINE (Verified Allergy, Unknown, 07/22/14) ERYTHROMYCIN BASE (Verified Allergy, Unknown, 07/22/14) FISH CONTAINING PRODUCTS (Verified Allergy, Unknown, 07/22/14) HYDROCODONE (Verified Allergy, Unknown, 07/22/14) IODINE (Verified Allergy, Unknown, 07/22/14) MIDAZOLAM (Verified Allergy, Unknown, 07/22/14) MILK (Verified Allergy, Unknown, 07/22/14) PROPOXYPHENE (Verified Allergy, Unknown, 07/22/14) COPIED FROM UNCODED SULFA (SULFONAMIDE ANTIBIOTICS) (Verified Allergy, Unknown, 07/22/14) COPIED FROM UNCODED SULFACETAMIDE (Unverified Allergy, Unknown, 03/25/17) SUMATRIPTAN (Verified Allergy, Unknown, 07/22/14) TETRACYCLINE (Verified Allergy, Unknown, RASH, 07/22/14) TETRACYCLINES (Verified Allergy, Unknown, 07/22/14) COPIED FROM UNCODED TOMATO (Verified Allergy, Unknown, 07/22/14) according to pt "I will !".... Subjective she is lethargic, lying in bed, not in distress, with slow response to verbal commands Objective Vital Signs Last 24 Hour Vital Signs Date Time Temp Pulse Resp B/P (MAP) Pulse Ox O2 Delivery O2 Flow Rate FiO2 04/10/17 18:14 97.0 04/10/17 16:00 97.0 80 18 125/84 96 Room Air 04/10/17 12:00 97.3 71 18 105/62 95 Room Air 04/10/17 09:59 97.7 04/10/17 08:24 97.7 90 18 146/84 95 Room Air 04/10/17 08:20 93 20 Room Air 04/10/17 04:00 98.7 72 20 105/57 95 Room Air 04/10/17 00:00 97.9 87 20 142/72 97 Room Air 04/09/17 20:07 84 18 Room Air 04/09/17 20:00 98.0 84 20 133/91 97 Room Air Height (Feet): 5 Height (Inches): 4.00 Weight (Pounds): 160 General Appearance: WD/WN, no acute distress HEENT: normocephalic, atraumatic, anicteric Respiratory/Chest: chest wall non-tender, lungs clear, normal breath sounds, no respiratory distress Cardiovascular: normal peripheral pulses, normal rate, regular rhythm Abdomen: normal bowel sounds, soft, non tender, no organomegaly, non distended , no mass Extremities: no cyanosis, no clubbing Skin: no rash, no lesions Laboratory Tests Test 04/10/17 11:05 04/10/17 11:50 04/10/17 16:40 White Blood Count 5.4 K/UL (4.8-10.8) Red Blood Count 4.99 M/UL (4.20-5.40) Hemoglobin 13.2 G/DL (12.0-16.0) Hematocrit 43.1 % (37.0-47.0) Mean Corpuscular Volume 86 FL (80-99) Mean Corpuscular Hemoglobin 26.4 PG (27.0-31.0) L Mean Corpuscular Hemoglobin Concent 30.6 G/DL (32.0-36.0) L Red Cell Distribution Width 14.3 % (11.6-14.8) Platelet Count 270 K/UL (150-450) Mean Platelet Volume 6.1 FL (6.5-10.1) L Neutrophils (%) (Auto) 54.1 % (45.0-75.0) Lymphocytes (%) (Auto) 33.8 % (20.0-45.0) Monocytes (%) (Auto) 11.1 % (1.0-10.0) H Eosinophils (%) (Auto) 0.1 % (0.0-3.0) Basophils (%) (Auto) 0.9 % (0.0-2.0) Sodium Level 139 mEQ/L (135-145) Potassium Level 5.0 mEQ/L (3.4-4.9) H Chloride Level 100 mEQ/L (98-107) Carbon Dioxide Level 28 mEQ/L (20-30) Anion Gap 11 (5-15) Blood Urea Nitrogen 26 mg/dL (7-23) H Creatinine 0.8 mg/dL (0.5-0.9) Estimat Glomerular Filtration Rate > 60 mL/min (>60) Glucose Level 164 mg/dL (74-106) H Calcium Level 9.6 mg/dL (8.6-10.2) Total Bilirubin < 0.2 mg/dL (0.0-1.2) Direct Bilirubin 0.1 mg/dL (0.1-0.3) Aspartate Amino Transf (AST/SGOT) 16 U/L (5-40) Alanine Aminotransferase (ALT/SGPT) 22 U/L (3-33) Alkaline Phosphatase 98 U/L (35-104) Total Protein 7.0 g/dL (6.6-8.7) Albumin 3.9 g/dL (3.5-5.2) Vitamin B12 Level 532 pg/mL (211-946) Thyroid Stimulating Hormone (TSH) 0.780 uIU/mL (0.300-4.500) Valproic Acid (Depakene) Level 110 ug/mL (50-100) H Ammonia 406 umol/L (11-51) H Anti-Nuclear Antibody Screen Pending Current Medications Medications (Trade) Dose Ordered Sig/Robb Route PRN Reason Start Time Stop Time Status Last Admin Dose Admin Al Hydroxide/Mg Hydroxide (Mylanta II) 30 ml Q6H PRN ORAL dyspepsia 04/06/17 18:00 05/06/17 17:59 Albuterol/ Ipratropium (DuoNeb 0.5-3(2.5)mg/3ml) 3 ml Q4H PRN HHN Shortness of Breath 04/06/17 18:00 04/11/17 17:59 04/07/17 16:43 Dextrose (Dextrose 50%) STAT PRN IV Hypoglycemia 04/06/17 18:00 05/06/17 17:59 Docusate Sodium (Colace) 100 mg DAILY ORAL 04/07/17 09:00 05/07/17 08:59 04/10/17 08:21 Escitalopram Oxalate (Lexapro) 10 mg DAILY ORAL 04/07/17 09:00 05/07/17 08:59 04/09/17 14:00 Gabapentin (Neurontin) 300 mg THREE TIMES A DAY ORAL 04/06/17 18:00 05/06/17 17:59 04/10/17 17:15 Ibuprofen (Motrin) 600 mg Q6H PRN ORAL For Pain 04/06/17 18:00 05/06/17 17:59 04/10/17 09:00 Ibuprofen (Motrin) 800 mg THREE TIMES A DAY PRN ORAL severe pain 04/08/17 08:30 05/08/17 08:29 Insulin Aspart (NovoLOG) BEFORE MEALS AND HS SUBQ 04/06/17 21:00 05/06/17 20:59 04/10/17 16:37 Lactulose (Cephulac) 30 gm THREE TIMES A DAY ORAL 04/10/17 14:00 05/10/17 13:59 04/10/17 17:15 Levetiracetam (Keppra) 1,500 mg Q12HR ORAL 04/06/17 21:00 05/06/17 20:59 04/10/17 08:21 Lorazepam (Ativan) 1 mg Q4H PRN ORAL For Anxiety 04/08/17 16:45 04/15/17 16:44 04/10/17 00:59 Magnesium Hydroxide (Mom) 30 ml HSPRN PRN ORAL Constipation 04/06/17 21:00 05/06/17 20:59 Ondansetron HCl (Zofran) 4 mg Q6H PRN IVP Nausea & Vomiting 04/06/17 18:00 05/06/17 17:59 Phenobarbital (PHENobarbital) 32.4 mg Q12HR ORAL 04/06/17 21:00 05/06/17 20:59 04/10/17 08:22 Polyethylene Glycol (Miralax) 17 gm HSPRN PRN ORAL Constipation 04/06/17 21:00 05/06/17 20:59 Pregabalin (Lyrica) 75 mg BID ORAL 04/06/17 18:00 05/06/17 17:59 04/10/17 17:15 Ranitidine HCl (Zantac) 150 mg BEDTIME ORAL 04/06/17 21:00 05/06/17 20:59 04/09/17 20:54 Rifaximin (Xifaxan) 550 mg EVERY 12 HOURS ORAL 04/10/17 21:00 04/17/17 20:59 Sodium Chloride 1,000 ml @ 50 mls/hr Q20H IV 04/10/17 14:00 05/10/17 13:59 04/10/17 14:04 Trazodone HCl (Desyrel) 300 mg BEDTIME ORAL 04/09/17 21:00 05/09/17 20:59 04/09/17 20:54 Woo Garcia M.D. Apr 10, 2017 19:14
--- NOTE | 2017-04-10 19:24 | Nephrology Progress Note ---
Assessment/Plan Problem List: (1) Weakness (2) CECILY (acute kidney injury) (3) Diabetes (4) HTN (hypertension) (5) Schizophrenia Plan Monitor renal function Renally dose meds Avoid nephrotoxins Continue IVF Strict glycemic control Seizure precautions Monitor neuro status Monitor intake and output Psyche following AM labs Subjective Constitutional: Denies: no symptoms, chills, diaphoresis, fever, malaise, weakness, other HEENT: Denies: no symptoms, eye pain, blurred vision, tearing, double vision, ear pain, ear discharge, nose pain, nose congestion, throat pain, throat swelling, mouth pain, mouth swelling, other Genitourinary: Denies: no symptoms, burning, discharge, frequency, flank pain, hematuria, incontinence, pain, urgency, other Neurologic/Psychiatric: Denies: no symptoms, anxiety, depressed, emotional problems, headache, numbness, paresthesia, pre-existing deficit, seizure, tingling, tremors, weakness, other Subjective In bed, mildly agitated, answers questions. Objective Objective Last 24 Hour Vital Signs Date Time Temp Pulse Resp B/P (MAP) Pulse Ox O2 Delivery O2 Flow Rate FiO2 04/10/17 18:14 97.0 04/10/17 16:00 97.0 80 18 125/84 96 Room Air 04/10/17 12:00 97.3 71 18 105/62 95 Room Air 04/10/17 09:59 97.7 04/10/17 08:24 97.7 90 18 146/84 95 Room Air 04/10/17 08:20 93 20 Room Air 04/10/17 04:00 98.7 72 20 105/57 95 Room Air 04/10/17 00:00 97.9 87 20 142/72 97 Room Air 04/09/17 20:07 84 18 Room Air 04/09/17 20:00 98.0 84 20 133/91 97 Room Air Intake and Output 04/10/17 04/11/17 18:59 06:59 Intake Total 50 ml Balance 50 ml IV Total 50 ml # Voids 3 Laboratory Tests 04/10/17 11:05: White Blood Count 5.4, Red Blood Count 4.99, Hemoglobin 13.2, Hematocrit 43.1, Mean Corpuscular Volume 86, Mean Corpuscular Hemoglobin 26.4L, Mean Corpuscular Hemoglobin Concent 30.6L, Red Cell Distribution Width 14.3, Platelet Count 270, Mean Platelet Volume 6.1L, Neutrophils (%) (Auto) 54.1, Lymphocytes (%) (Auto) 33.8, Monocytes (%) (Auto) 11.1H, Eosinophils (%) (Auto) 0.1, Basophils (%) ( Auto) 0.9, Sodium Level 139, Potassium Level 5.0H, Chloride Level 100, Carbon Dioxide Level 28, Anion Gap 11, Blood Urea Nitrogen 26H, Creatinine 0.8, Estimat Glomerular Filtration Rate > 60, Glucose Level 164H, Calcium Level 9.6, Total Bilirubin < 0.2, Direct Bilirubin 0.1, Aspartate Amino Transf (AST/SGOT) 16, Alanine Aminotransferase (ALT/SGPT) 22, Alkaline Phosphatase 98, Total Protein 7.0, Albumin 3.9, Vitamin B12 Level 532, Thyroid Stimulating Hormone ( TSH) 0.780, Valproic Acid (Depakene) Level 110H 04/10/17 11:50: Ammonia 406H 04/10/17 16:40: Anti-Nuclear Antibody Screen [Pending] Height (Feet): 5 Height (Inches): 4.00 Weight (Pounds): 160 General Appearance: no apparent distress, alert EENT: normal ENT inspection Neck: normal alignment Cardiovascular: normal rate, regular rhythm Respiratory/Chest: normal breath sounds, no respiratory distress Abdomen: non tender, soft, no organomegaly Extremities: non-tender, normal inspection, no calf tenderness Neurologic: alert, responsive Marilynn Oconnell N.P. Apr 10, 2017 19:24
[2017-04-10] MEDS: TraZODone 100mg tab ORAL SCH (20:37)
--- NOTE | 2017-04-10 23:30 | Consultation ---
DATE OF CONSULTATION: 04/10/2017 NEUROLOGICAL CONSULTATION CONSULTING PHYSICIAN: Jamie Balderas M.D. REQUESTING PHYSICIAN: Scott Samson D.O. HISTORY OF PRESENT ILLNESS: This 52-year-old female is seen in neurological consultation to evaluate new changes in mental status. According to most recent assessment, the patient was fully awake, coherent, but emotionally inappropriate presenting with psychotic features. She was admitted at this time with generalized weakness and possible encephalopathy. The patient was brought to emergency room, not being able to provide any additional history. Her initial diagnostic studies included CAT scan of the brain revealing no abnormalities. No midline shift. Her chest x-ray with no acute findings. Lab work included normal CBC study, chemistry panel with elevated CK 333, following day 799; blood sugar 133; BUN of 38; and carbon dioxide of 31. Tumor markers, elevation of CA 15-3 antigen, elevated hemoglobin A1c of 6.8. Her urinalysis, 1+ leukocyte esterase. Psychiatry assessment was obtained. The patient was diagnosed with bipolar disorder. She was reported to have a recent weight loss with failure to thrive. Pain management evaluation indicated presence of lumbar radiculopathy, spondylosis with lumbar degenerative disk disease. The patient known to have history of seizure disorder classified as generalized seizure with pseudoseizures. During current admission, there were no paroxysmal events noted. Most recent EEG was negative for seizure activities. PAST MEDICAL HISTORY: Includes diabetes type 2, hyperlipidemia, gastroparesis, hypertension, history of fibromyalgia, history of chronic anemia, and obesity. MEDICATIONS: The patient's treatment prior to admission included Dulcolax, Flexeril, Depakote 1000 mg b.i.d., Lexapro 10 mg daily, Neurontin 300 mg t.i.d., Haldol 10 mg daily, ibuprofen, p.r.n. insulin, lactulose, Keppra 1500 mg b.i.d., lorazepam, magnesium hydroxide, Zofran p.r.n., Protonix, phenobarbital 30 mg b.i.d., Lyrica 75 mg b.i.d., Seroquel 300 mg at bedtime, trazodone 300 mg at bedtime, and zolpidem. ALLERGIES: Multiple including acetaminophen, aspirin, azithromycin, apples, banana, codeine, erythromycin base, fish, hydrocodone, iodine, midazolam, milk, propoxyphene, sulfa drugs, sulfacetamide, sumatriptan, tetracycline, and tomatoes. SOCIAL HISTORY: Resident of [facility]. FAMILY HISTORY: Unavailable. REVIEW OF SYMPTOMS: Unable to obtain due to the patient's status. The patient now with a sitter, who reported that she was awake in the morning until 10 a.m., being able to ambulate, trying to get out of the bed, asked coherently questions looking for nurse, looking for water. In last couple of hours, she got asleep, but was not arousable to voice, stat Neurology consult was requested. PHYSICAL EXAMINATION: GENERAL: A well-developed, moderately obese lady, somewhat disheveled, lying in bed, appears to be very asleep. VITAL SIGNS: Include blood pressure 148/84, temperature 97.7 degrees, heart rate of 90, and pulse oximetry 95%. HEENT: Normocephalic. No evidence of trauma. Eyes, ears, nose, and throat are clear. She is edentulous. NECK: Supple. No meningeal signs. MUSCULOSKELETAL: No deformities noted. Multiple bruises of different ages on both lower extremities. PERIPHERAL PULSES: 1+ symmetric. NEUROLOGIC: Mental Status: The patient was not responding to voice command, but on a vigorous sternal rub, started to wake up with brief eye contact. She had angry appearance and was fighting, hitting with her both arms, not following any commands, and remaining nonverbal. Cranial Nerves CRANIAL NERVES II: Pupils both responding to light and accommodation. Extraocular movements full range. Fundi poorly visualized. CRANIAL NERVES V: Normal corneal responses. CRANIAL NERVES VII: No facial asymmetry. CRANIAL NERVE VIII: Grossly normal hearing. CRANIAL NERVES IX TO XII: Tongue is in midline. Unable to test gag response, but reportedly was able to eat in the morning without difficulties. MOTOR EXAMINATION: Normal muscle tone and strength when resisting examination. No involuntary movement. No muscle wasting noted. Deep tendon reflexes depressed - biceps, triceps, brachioradialis, knee, and ankle jerks. Plantar response is mute. No pathological responses. SENSORY EXAMINATION: Withdrawing to pin stimulation on both upper and lower extremities. When asked to sit or stand up, she was not following command. IMPRESSION: 1. This is a 52-year-old female with multiple medical issues and chronic seizure causing pseudoseizure disorder, now presenting with excessive somnolence and lethargy without observed motor paroxysmal activities. Rule out nonconvulsive seizure activities. Rule out toxic metabolic encephalopathy/polypharmacy. 2. Hypertension. 3. Diabetes type 2. 4. Bipolar disorder. DISCUSSION: The patient has no focal lateralizing neurological deficit on current examination except persistent lethargy and verbal unresponsiveness. Current changes in mental status could be explained on the basis of polypharmacy, but cannot rule out ongoing seizure activities. We will obtain electroencephalogram, review medications to hold sedatives. We will observe for any paroxysmal events. Blood work to include ammonia level, B12, TSH, ELENA, and sedimentation rate. I discussed the patient's status with medical staff. Thank you for allowing me to see this interesting patient in neurological consultation. Jamie Balderas M.D. DR: Charlie JOB#: [id number] CC:
[2017-04-11] VITALS (7 sets, daily range): BP systolic 88–143; BP diastolic 49–84
--- NOTE | 2017-04-11 05:15 | Consultation ---
DATE OF CONSULTATION: 04/08/2017 PSYCHOTHERAPY CONSULTATION PROGRESS NOTE CONSULTING PHYSICIAN: Belkis Nicholas M.D. TREATING ATTENDING PHYSICIAN: Scott Samson D.O. HISTORY OF PRESENT ILLNESS: This patient has a history of paranoid schizophrenia. The patient was brought to the hospital for weakness. altered mental status. She has been very confused and for these reasons, she was referred for psychotherapeutic services. The patient has lots of anxiety and depression with problem with speech, however, was able to communicate with the clinician. The patient denies suicidal or homicidal thoughts of ideation. Denies auditory or visual hallucinations at this time. This clinician assessed this patient. The patient is , tired, fatigued, however, is able to communicate. She has a history of lots of depression, , anxiety. PAST MEDICAL HISTORY: Includes a history of , hypertension, and diabetes. ALLERGIES: The patient has allergies to Tylenol, aspirin, codeine, erythromycin, hydrocodone, iodine, and midazolam. SUBSTANCE ABUSE HISTORY: The patient has a history of smoking cigarettes. The patient denies history of alcohol use or illicit substance use. PSYCHIATRIC HISTORY: The patient has a history of paranoid schizophrenia. The patient has had multiple inpatient psychiatric hospitalizations and has been treated with psychotropic medications in the past. SOCIAL HISTORY: The patient is a 52-year-old female patient . Financially sustained through Medicare and [employer]. MENTAL STATUS EXAMINATION: The patient is alert and oriented x2. Mood is depressed. Affect is blunted. Thought process is disorganized. The patient has poor attention and concentration. Poor insight, judgment, and impulse control. DIAGNOSES: AXIS I Paranoid schizophrenia. AXIS II Deferred. AXIS III Per History and Physical. PLAN: This clinician assessed this patient. Provided the patient with reality orientation and supportive psychotherapy. Encouraging the patient to participate in treatment milieu. Continue with medication management and behavioral management. This clinician has reviewed the patient's chart and discussed the treatment with nursing staff. Belkis Nicholas PsyD. DR: LOUISA JOB#: [id number] CC:
--- NOTE | 2017-04-11 05:30 | Progress Note ---
DATE: 04/10/2017 SUBJECTIVE: The patient is a 52-year-old female patient with generalized weakness. She continues to have some mood liability, agitation, high levels of anxiety and impulsivity. PLAN: Continue treatment with a combination of Haldol and trazodone to stabilize her mood. She was seen and assessed at bedside. Chart reviewed and discussed with staff. Shakila Au M.D. DR: Nely JOB#: [id number] CC:
[2017-04-11] MEDS: NovoLOG Insulin Flexpen SUBQ SCH ×4 (05:50→20:58)
[2017-04-11] MEDS: LORazepam 1mg tab ORAL PRN (06:59)
--- NOTE | 2017-04-11 07:32 | Pulmonology Progress Note ---
Assessment/Plan Assessment/Plan ASSESSMENT rhabdomyolysis -resolved acute kidney injury dehydration acute hepatic encephalopathy -resolving COPD DM seizure disorder schizophrenia elevated CA 15-3 PLAN OF CARE MS floor ammonia down to 63 from 406 mental status back to baseline continue lactulose and Rifaximin per GI GI follows, trend ammonia PPI elevated CA15-3 -27.5 with normal aFP, CA 19-9 and CA 125 per GI outpatient GI procedures gentle IVF monitor renal parameters, lytes trend CK- down to 99 O2 HHN prn keep sat above 92% seizure precautions anti-epileptic medications neuro follows elevated Depakote level- off Depakote DVT GI prophylaxis a/emetic prn PT/OT BS management with SS of insulin HgA1c -6.8 at goal case discussed and evaluated by supervising physician Subjective Allergies: Coded Allergies: ACETAMINOPHEN (Verified Allergy, Unknown, 07/22/14) APPLE (Verified Allergy, Unknown, 04/06/17) ASPIRIN (Verified Allergy, Unknown, ITCHING, 07/22/14) AZITHROMYCIN (Verified Allergy, Unknown, 07/22/14) COPIED FROM UNCODED BANANA (Verified Allergy, Unknown, 04/06/17) CODEINE (Verified Allergy, Unknown, 07/22/14) ERYTHROMYCIN BASE (Verified Allergy, Unknown, 07/22/14) FISH CONTAINING PRODUCTS (Verified Allergy, Unknown, 07/22/14) HYDROCODONE (Verified Allergy, Unknown, 07/22/14) IODINE (Verified Allergy, Unknown, 07/22/14) MIDAZOLAM (Verified Allergy, Unknown, 07/22/14) MILK (Verified Allergy, Unknown, 07/22/14) PROPOXYPHENE (Verified Allergy, Unknown, 07/22/14) COPIED FROM UNCODED SULFA (SULFONAMIDE ANTIBIOTICS) (Verified Allergy, Unknown, 07/22/14) COPIED FROM UNCODED SULFACETAMIDE (Unverified Allergy, Unknown, 03/25/17) SUMATRIPTAN (Verified Allergy, Unknown, 07/22/14) TETRACYCLINE (Verified Allergy, Unknown, RASH, 07/22/14) TETRACYCLINES (Verified Allergy, Unknown, 07/22/14) COPIED FROM UNCODED TOMATO (Verified Allergy, Unknown, 07/22/14) according to pt "I will !".... Subjective awake ammonia level down to 63 Objective Last 24 Hour Vital Signs Date Time Temp Pulse Resp B/P (MAP) Pulse Ox O2 Delivery O2 Flow Rate FiO2 9/9/17 07:27 97.5 88 20 143/84 99 Room Air 04/11/17 04:09 97.9 87 20 135/82 95 Room Air 04/11/17 00:10 97.7 80 20 130/74 98 Room Air 04/10/17 21:13 97.7 85 20 127/72 98 Room Air 04/10/17 20:00 97.7 85 20 127/72 98 Room Air 04/10/17 19:14 92 20 Room Air 04/10/17 18:14 97.0 04/10/17 16:00 97.0 80 18 125/84 96 Room Air 04/10/17 12:00 97.3 71 18 105/62 95 Room Air 04/10/17 09:59 97.7 04/10/17 08:24 97.7 90 18 146/84 95 Room Air 04/10/17 08:20 93 20 Room Air Objective General Appearance: awake, conversing HEENT: normocephalic, atraumatic Respiratory/Chest: lungs clear Cardiovascular: normal peripheral pulses, normal rate, regular rhythm, no JVD Abdomen: normal bowel sounds, soft, non tender Extremities: +1 edema BLE Neurologic/Psychiatric: abnormal gait, awake, alert, responsive Microbiology Date/Time Source Procedure Growth Status 04/09/17 22:00 Straight Cath Urine Culture - Preliminary Gram Negative Vargas Resulted Laboratory Tests 04/10/17 11:05: White Blood Count 5.4, Red Blood Count 4.99, Hemoglobin 13.2, Hematocrit 43.1, Mean Corpuscular Volume 86, Mean Corpuscular Hemoglobin 26.4L, Mean Corpuscular Hemoglobin Concent 30.6L, Red Cell Distribution Width 14.3, Platelet Count 270, Mean Platelet Volume 6.1L, Neutrophils (%) (Auto) 54.1, Lymphocytes (%) (Auto) 33.8, Monocytes (%) (Auto) 11.1H, Eosinophils (%) (Auto) 0.1, Basophils (%) ( Auto) 0.9, Sodium Level 139, Potassium Level 5.0H, Chloride Level 100, Carbon Dioxide Level 28, Anion Gap 11, Blood Urea Nitrogen 26H, Creatinine 0.8, Estimat Glomerular Filtration Rate > 60, Glucose Level 164H, Calcium Level 9.6, Total Bilirubin < 0.2, Direct Bilirubin 0.1, Aspartate Amino Transf (AST/SGOT) 16, Alanine Aminotransferase (ALT/SGPT) 22, Alkaline Phosphatase 98, Total Protein 7.0, Albumin 3.9, Vitamin B12 Level 532, Thyroid Stimulating Hormone ( TSH) 0.780, Valproic Acid (Depakene) Level 110H 04/10/17 11:50: Ammonia 406H 04/10/17 16:40: Anti-Nuclear Antibody Screen [Pending] 04/11/17 07:05: White Blood Count [Pending], Red Blood Count [Pending], Hemoglobin [Pending], Hematocrit [Pending], Mean Corpuscular Volume [Pending], Mean Corpuscular Hemoglobin [Pending], Mean Corpuscular Hemoglobin Concent [Pending], Red Cell Distribution Width [Pending], Platelet Count [Pending], Mean Platelet Volume [ Pending], Neutrophils (%) (Auto) [Pending], Lymphocytes (%) (Auto) [Pending], Monocytes (%) (Auto) [Pending], Eosinophils (%) (Auto) [Pending], Basophils (%) (Auto) [Pending], Sodium Level [Pending], Potassium Level [Pending], Chloride Level [Pending], Carbon Dioxide Level [Pending], Blood Urea Nitrogen [Pending], Creatinine [Pending], Estimat Glomerular Filtration Rate [Pending], Glucose Level [Pending], Calcium Level [Pending], Total Bilirubin [Pending], Aspartate Amino Transf (AST/SGOT) [Pending], Alanine Aminotransferase (ALT/SGPT) [Pending] , Alkaline Phosphatase [Pending], Total Protein [Pending], Albumin [Pending], Ammonia [Pending], Total Creatine Kinase [Pending], Globulin [Pending] Current Medications Medications (Trade) Dose Ordered Sig/Robb Route PRN Reason Start Time Stop Time Status Last Admin Dose Admin Al Hydroxide/Mg Hydroxide (Mylanta II) 30 ml Q6H PRN ORAL dyspepsia 04/06/17 18:00 05/06/17 17:59 Albuterol/ Ipratropium (DuoNeb 0.5-3(2.5)mg/3ml) 3 ml Q4H PRN HHN Shortness of Breath 04/06/17 18:00 04/11/17 17:59 04/07/17 16:43 Dextrose (Dextrose 50%) STAT PRN IV Hypoglycemia 04/06/17 18:00 05/06/17 17:59 Docusate Sodium (Colace) 100 mg DAILY ORAL 04/07/17 09:00 05/07/17 08:59 04/10/17 08:21 Escitalopram Oxalate (Lexapro) 10 mg DAILY ORAL 04/07/17 09:00 05/07/17 08:59 04/09/17 14:00 Gabapentin (Neurontin) 300 mg THREE TIMES A DAY ORAL 04/06/17 18:00 05/06/17 17:59 04/10/17 17:15 Ibuprofen (Motrin) 600 mg Q6H PRN ORAL For Pain 04/06/17 18:00 05/06/17 17:59 04/10/17 09:00 Ibuprofen (Motrin) 800 mg THREE TIMES A DAY PRN ORAL severe pain 04/08/17 08:30 05/08/17 08:29 04/11/17 06:59 Insulin Aspart (NovoLOG) BEFORE MEALS AND HS SUBQ 04/06/17 21:00 05/06/17 20:59 04/10/17 16:37 Lactulose (Cephulac) 30 gm THREE TIMES A DAY ORAL 04/10/17 14:00 05/10/17 13:59 04/10/17 17:15 Levetiracetam (Keppra) 1,500 mg Q12HR ORAL 04/06/17 21:00 05/06/17 20:59 04/10/17 20:36 Lorazepam (Ativan) 1 mg Q4H PRN ORAL For Anxiety 04/08/17 16:45 04/15/17 16:44 04/11/17 06:59 Magnesium Hydroxide (Mom) 30 ml HSPRN PRN ORAL Constipation 04/06/17 21:00 05/06/17 20:59 Ondansetron HCl (Zofran) 4 mg Q6H PRN IVP Nausea & Vomiting 04/06/17 18:00 05/06/17 17:59 Phenobarbital (PHENobarbital) 32.4 mg Q12HR ORAL 04/06/17 21:00 05/06/17 20:59 04/10/17 20:36 Polyethylene Glycol (Miralax) 17 gm HSPRN PRN ORAL Constipation 04/06/17 21:00 05/06/17 20:59 Pregabalin (Lyrica) 75 mg BID ORAL 04/06/17 18:00 05/06/17 17:59 04/10/17 17:15 Ranitidine HCl (Zantac) 150 mg BEDTIME ORAL 04/06/17 21:00 05/06/17 20:59 04/10/17 20:36 Rifaximin (Xifaxan) 550 mg EVERY 12 HOURS ORAL 04/10/17 21:00 04/17/17 20:59 04/10/17 23:08 Sodium Chloride 1,000 ml @ 50 mls/hr Q20H IV 04/10/17 14:00 05/10/17 13:59 04/10/17 14:04 Trazodone HCl (Desyrel) 300 mg BEDTIME ORAL 04/09/17 21:00 05/09/17 20:59 04/10/17 20:37 [facility] centerAl[facility] Jones NP Apr 11, 2017 07:32
[2017-04-11 07:48] LABS: AMMONIA 63 umol/L (11-51)
[2017-04-11 07:50] LABS: BASOPHILS % (AUTO) 0.8 % (0.0-2.0); LYMPHOCYTES % (AUTO) 31.3 % (20.0-45.0); MEAN CORPUSCULAR HGB CONC 33.8 G/DL (32.0-36.0); MEAN CORPUSCULAR VOLUME 86 FL (80-99); MEAN PLATELET VOLUME 6.1 FL (6.5-10.1); MONOCYTES % (AUTO) 11.3 % (1.0-10.0); NEUTROPHILS % (AUTO) 56.7 % (45.0-75.0); PLATELET COUNT 292 K/UL (150-450); RED BLOOD COUNT 4.41 M/UL (4.20-5.40); RED CELL DISTRIBUTION WIDTH 14.2 % (11.6-14.8); WHITE BLOOD COUNT 7.5 K/UL (4.8-10.8)
[2017-04-11 07:58] LABS: ALANINE AMINOTRANSFERASE 21 U/L (3-33); ANION GAP 11 (5-15); ASPARTATE AMINO TRANSFERASE 14 U/L (5-40); CARBON DIOXIDE 27 mEQ/L (20-30); CHLORIDE 100 mEQ/L (98-107); CREATININE 0.8 mg/dL (0.5-0.9); GLOMERULAR FILTRATION RATE > 60 mL/min (>60); HEMOLYSIS 1; POTASSIUM 3.9 mEQ/L (3.4-4.9); SODIUM 138 mEQ/L (135-145); TOTAL PROTEIN 7.3 g/dL (6.6-8.7)
[2017-04-11] MEDS ORDERED: LORazepam Inj 2mg/ml 1ml IV ONE (08:30)
[2017-04-11] MEDS: PHENobarbital 32.4mg tab ORAL SCH ×2 (09:10→20:57)
[2017-04-11] MEDS: Lactulose 20gm/30ml UDC ORAL SCH ×3 (09:10→17:58)
--- NOTE | 2017-04-11 09:10 | General Progress Note ---
Assessment/Plan Problem List: (1) UTI (urinary tract infection) ICD Codes: N39.0 - Urinary tract infection, site not specified SNOMED: 02715915 (2) Asthma exacerbation ICD Codes: J45.901 - Unspecified asthma with (acute) exacerbation SNOMED: 380468365 (3) Altered mental status ICD Codes: R41.82 - Altered mental status, unspecified SNOMED: 654369358 (4) Chronic pain ICD Codes: G89.29 - Other chronic pain SNOMED: 73989931 (5) Psychiatric disorder ICD Codes: F99 - Mental disorder SNOMED: 62503113 (6) Altered level of consciousness ICD Codes: R40.4 - Transient alteration of awareness SNOMED: 6937619 (7) Diabetes ICD Codes: E11.9 - Type 2 diabetes mellitus without complications SNOMED: 79928842 (8) Seizure disorder ICD Codes: G40.909 - Seizure disorder SNOMED: 322002383 (9) Encephalopathy ICD Codes: G93.40 - Encephalopathy, unspecified SNOMED: 00908395, 917683006 (10) Weakness ICD Codes: R53.1 - Weakness SNOMED: 30946096 (11) HTN (hypertension) ICD Codes: I10 - Essential (primary) hypertension SNOMED: 49032763 Status: stable, progressing, tolerating diet Assessment/Plan ot pt diet abx seizure control cbc bmp am ltach eval vs psyc Subjective Constitutional: Reports: weakness Allergies: Coded Allergies: ACETAMINOPHEN (Verified Allergy, Unknown, 07/22/14) APPLE (Verified Allergy, Unknown, 04/06/17) ASPIRIN (Verified Allergy, Unknown, ITCHING, 07/22/14) AZITHROMYCIN (Verified Allergy, Unknown, 07/22/14) COPIED FROM UNCODED BANANA (Verified Allergy, Unknown, 04/06/17) CODEINE (Verified Allergy, Unknown, 07/22/14) ERYTHROMYCIN BASE (Verified Allergy, Unknown, 07/22/14) FISH CONTAINING PRODUCTS (Verified Allergy, Unknown, 07/22/14) HYDROCODONE (Verified Allergy, Unknown, 07/22/14) IODINE (Verified Allergy, Unknown, 07/22/14) MIDAZOLAM (Verified Allergy, Unknown, 07/22/14) MILK (Verified Allergy, Unknown, 07/22/14) PROPOXYPHENE (Verified Allergy, Unknown, 07/22/14) COPIED FROM UNCODED SULFA (SULFONAMIDE ANTIBIOTICS) (Verified Allergy, Unknown, 07/22/14) COPIED FROM UNCODED SULFACETAMIDE (Unverified Allergy, Unknown, 03/25/17) SUMATRIPTAN (Verified Allergy, Unknown, 07/22/14) TETRACYCLINE (Verified Allergy, Unknown, RASH, 07/22/14) TETRACYCLINES (Verified Allergy, Unknown, 07/22/14) COPIED FROM UNCODED TOMATO (Verified Allergy, Unknown, 07/22/14) according to pt "I will !".... All Systems: reviewed and negative except above Subjective weak sl confused possible seizure Objective Last 24 Hour Vital Signs Date Time Temp Pulse Resp B/P (MAP) Pulse Ox O2 Delivery O2 Flow Rate FiO2 04/11/17 07:27 97.5 88 20 143/84 99 Room Air 04/11/17 04:09 97.9 87 20 135/82 95 Room Air 04/11/17 00:10 97.7 80 20 130/74 98 Room Air 04/10/17 21:13 97.7 85 20 127/72 98 Room Air 04/10/17 20:00 97.7 85 20 127/72 98 Room Air 04/10/17 19:14 92 20 Room Air 04/10/17 18:14 97.0 04/10/17 16:00 97.0 80 18 125/84 96 Room Air 04/10/17 12:00 97.3 71 18 105/62 95 Room Air 04/10/17 09:59 97.7 Laboratory Tests 04/10/17 11:05: White Blood Count 5.4, Red Blood Count 4.99, Hemoglobin 13.2, Hematocrit 43.1, Mean Corpuscular Volume 86, Mean Corpuscular Hemoglobin 26.4L, Mean Corpuscular Hemoglobin Concent 30.6L, Red Cell Distribution Width 14.3, Platelet Count 270, Mean Platelet Volume 6.1L, Neutrophils (%) (Auto) 54.1, Lymphocytes (%) (Auto) 33.8, Monocytes (%) (Auto) 11.1H, Eosinophils (%) (Auto) 0.1, Basophils (%) ( Auto) 0.9, Sodium Level 139, Potassium Level 5.0H, Chloride Level 100, Carbon Dioxide Level 28, Anion Gap 11, Blood Urea Nitrogen 26H, Creatinine 0.8, Estimat Glomerular Filtration Rate > 60, Glucose Level 164H, Calcium Level 9.6, Total Bilirubin < 0.2, Direct Bilirubin 0.1, Aspartate Amino Transf (AST/SGOT) 16, Alanine Aminotransferase (ALT/SGPT) 22, Alkaline Phosphatase 98, Total Protein 7.0, Albumin 3.9, Vitamin B12 Level 532, Thyroid Stimulating Hormone ( TSH) 0.780, Valproic Acid (Depakene) Level 110H 04/10/17 11:50: Ammonia 406H 04/10/17 16:40: Anti-Nuclear Antibody Screen [Pending] 04/11/17 07:05: White Blood Count 7.5, Red Blood Count 4.41, Hemoglobin 12.8, Hematocrit 37.8, Mean Corpuscular Volume 86, Mean Corpuscular Hemoglobin 29.0, Mean Corpuscular Hemoglobin Concent 33.8, Red Cell Distribution Width 14.2, Platelet Count 292, Mean Platelet Volume 6.1L, Neutrophils (%) (Auto) 56.7, Lymphocytes (%) (Auto) 31.3, Monocytes (%) (Auto) 11.3H, Eosinophils (%) (Auto) 0.0, Basophils (%) ( Auto) 0.8, Sodium Level 138, Potassium Level 3.9, Chloride Level 100, Carbon Dioxide Level 27, Anion Gap 11, Blood Urea Nitrogen 18, Creatinine 0.8, Estimat Glomerular Filtration Rate > 60, Glucose Level 134H, Calcium Level 9.0, Total Bilirubin 0.2, Aspartate Amino Transf (AST/SGOT) 14, Alanine Aminotransferase ( ALT/SGPT) 21, Alkaline Phosphatase 94, Total Protein 7.3, Albumin 3.8, Ammonia 63H, Total Creatine Kinase 99, Globulin 3.5, Albumin/Globulin Ratio 1.0 Height (Feet): 5 Height (Inches): 4.00 Weight (Pounds): 160 General Appearance: lethargic, confused EENT: normal ENT inspection Neck: normal alignment Cardiovascular: normal peripheral pulses, normal rate, regular rhythm Respiratory/Chest: chest wall non-tender, lungs clear, normal breath sounds Abdomen: normal bowel sounds, non tender, soft Extremities: normal inspection Edema: no edema noted Arm (L), no edema noted Arm (R), no edema noted Leg (L), no edema noted Leg (R), no edema noted Pedal (L), no edema noted Pedal (R), no edema noted Generalized Neurologic: responsive, motor weakness Skin: normal pigmentation, warm/dry CHUCK ESCAMILLA Apr 11, 2017 09:10
[2017-04-11] MEDS: Lyrica 75mg cap ORAL SCH ×2 (09:11→17:59)
[2017-04-11] MEDS: Docusate 100mg cap ORAL SCH (09:13)
[2017-04-11] MEDS ORDERED: DiphenhydrAMINE 50mg/ml Inj IM ONE (10:00)
[2017-04-11] MEDS ORDERED: Haloperidol 5mg/ml Inj IM ONE (10:00)
[2017-04-11] MEDS ORDERED: LORazepam Inj 2mg/ml 1ml IM ONE (10:00)
--- NOTE | 2017-04-11 16:45 | Infectious Diseases Prog Note ---
Assessment/Plan Problems: (1) UTI (urinary tract infection) Assessment & Plan: will start keflex, pending culture result (2) History of ESBL E. coli infection Assessment & Plan: await urine for culture, keep in contact isolation (3) Asthma exacerbation Assessment & Plan: continue inhalers, and oxygen (4) Altered level of consciousness Assessment & Plan: unclear etiology, neurology and psych are following (5) Psychiatric disorder Assessment & Plan: on psych meds (6) Seizure disorder Assessment & Plan: controlled on seizure meds , neurology is following Subjective ROS Limited/Unobtainable: Yes Allergies: Coded Allergies: ACETAMINOPHEN (Verified Allergy, Unknown, 07/22/14) APPLE (Verified Allergy, Unknown, 04/06/17) ASPIRIN (Verified Allergy, Unknown, ITCHING, 07/22/14) AZITHROMYCIN (Verified Allergy, Unknown, 07/22/14) COPIED FROM UNCODED BANANA (Verified Allergy, Unknown, 04/06/17) CODEINE (Verified Allergy, Unknown, 07/22/14) ERYTHROMYCIN BASE (Verified Allergy, Unknown, 07/22/14) FISH CONTAINING PRODUCTS (Verified Allergy, Unknown, 07/22/14) HYDROCODONE (Verified Allergy, Unknown, 07/22/14) IODINE (Verified Allergy, Unknown, 07/22/14) MIDAZOLAM (Verified Allergy, Unknown, 07/22/14) MILK (Verified Allergy, Unknown, 07/22/14) PROPOXYPHENE (Verified Allergy, Unknown, 07/22/14) COPIED FROM UNCODED SULFA (SULFONAMIDE ANTIBIOTICS) (Verified Allergy, Unknown, 07/22/14) COPIED FROM UNCODED SULFACETAMIDE (Unverified Allergy, Unknown, 03/25/17) SUMATRIPTAN (Verified Allergy, Unknown, 07/22/14) TETRACYCLINE (Verified Allergy, Unknown, RASH, 07/22/14) TETRACYCLINES (Verified Allergy, Unknown, 07/22/14) COPIED FROM UNCODED TOMATO (Verified Allergy, Unknown, 07/22/14) according to pt "I will !".... Subjective she is lethargic, lying in bed, not in distress, with slow response to verbal commands Objective Vital Signs Last 24 Hour Vital Signs Date Time Temp Pulse Resp B/P (MAP) Pulse Ox O2 Delivery O2 Flow Rate FiO2 04/11/17 16:00 98.4 94 20 132/72 96 Room Air 04/11/17 11:10 98.2 85 18 138/77 98 Room Air 04/11/17 07:27 97.5 88 20 143/84 99 Room Air 04/11/17 04:09 97.9 87 20 135/82 95 Room Air 04/11/17 00:10 97.7 80 20 130/74 98 Room Air 04/10/17 21:13 97.7 85 20 127/72 98 Room Air 04/10/17 20:00 97.7 85 20 127/72 98 Room Air 04/10/17 19:14 92 20 Room Air 04/10/17 18:14 97.0 Height (Feet): 5 Height (Inches): 4.00 Weight (Pounds): 160 General Appearance: WD/WN, no acute distress HEENT: normocephalic, atraumatic, anicteric, mucous membranes moist Respiratory/Chest: chest wall non-tender, lungs clear, normal breath sounds Cardiovascular: normal peripheral pulses, normal rate, regular rhythm, no gallop/murmur Abdomen: normal bowel sounds, soft, non tender, no organomegaly, non distended Extremities: no cyanosis, no clubbing Skin: no rash, no lesions Microbiology Date/Time Source Procedure Growth Status 04/09/17 22:00 Straight Cath Urine Culture - Preliminary Gram Negative Vargas Resulted Laboratory Tests Test 04/11/17 07:05 White Blood Count 7.5 K/UL (4.8-10.8) Red Blood Count 4.41 M/UL (4.20-5.40) Hemoglobin 12.8 G/DL (12.0-16.0) Hematocrit 37.8 % (37.0-47.0) Mean Corpuscular Volume 86 FL (80-99) Mean Corpuscular Hemoglobin 29.0 PG (27.0-31.0) Mean Corpuscular Hemoglobin Concent 33.8 G/DL (32.0-36.0) Red Cell Distribution Width 14.2 % (11.6-14.8) Platelet Count 292 K/UL (150-450) Mean Platelet Volume 6.1 FL (6.5-10.1) L Neutrophils (%) (Auto) 56.7 % (45.0-75.0) Lymphocytes (%) (Auto) 31.3 % (20.0-45.0) Monocytes (%) (Auto) 11.3 % (1.0-10.0) H Eosinophils (%) (Auto) 0.0 % (0.0-3.0) Basophils (%) (Auto) 0.8 % (0.0-2.0) Sodium Level 138 mEQ/L (135-145) Potassium Level 3.9 mEQ/L (3.4-4.9) Chloride Level 100 mEQ/L (98-107) Carbon Dioxide Level 27 mEQ/L (20-30) Anion Gap 11 (5-15) Blood Urea Nitrogen 18 mg/dL (7-23) Creatinine 0.8 mg/dL (0.5-0.9) Estimat Glomerular Filtration Rate > 60 mL/min (>60) Glucose Level 134 mg/dL (74-106) H Calcium Level 9.0 mg/dL (8.6-10.2) Total Bilirubin 0.2 mg/dL (0.0-1.2) Aspartate Amino Transf (AST/SGOT) 14 U/L (5-40) Alanine Aminotransferase (ALT/SGPT) 21 U/L (3-33) Alkaline Phosphatase 94 U/L (35-104) Ammonia 63 umol/L (11-51) H Total Creatine Kinase 99 U/L (26-140) Total Protein 7.3 g/dL (6.6-8.7) Albumin 3.8 g/dL (3.5-5.2) Globulin 3.5 g/dL Albumin/Globulin Ratio 1.0 (1.0-2.7) Current Medications Medications (Trade) Dose Ordered Sig/Robb Route PRN Reason Start Time Stop Time Status Last Admin Dose Admin Al Hydroxide/Mg Hydroxide (Mylanta II) 30 ml Q6H PRN ORAL dyspepsia 04/06/17 18:00 05/06/17 17:59 Albuterol/ Ipratropium (DuoNeb 0.5-3(2.5)mg/3ml) 3 ml Q4H PRN HHN Shortness of Breath 04/06/17 18:00 04/11/17 17:59 04/07/17 16:43 Dextrose (Dextrose 50%) STAT PRN IV Hypoglycemia 04/06/17 18:00 05/06/17 17:59 Docusate Sodium (Colace) 100 mg DAILY ORAL 04/07/17 09:00 05/07/17 08:59 04/11/17 09:13 Escitalopram Oxalate (Lexapro) 10 mg DAILY ORAL 04/07/17 09:00 05/07/17 08:59 04/11/17 09:10 Gabapentin (Neurontin) 300 mg THREE TIMES A DAY ORAL 04/06/17 18:00 05/06/17 17:59 04/11/17 13:17 Ibuprofen (Motrin) 600 mg Q6H PRN ORAL For Pain 04/06/17 18:00 05/06/17 17:59 04/10/17 09:00 Ibuprofen (Motrin) 800 mg THREE TIMES A DAY PRN ORAL severe pain 04/08/17 08:30 05/08/17 08:29 04/11/17 06:59 Insulin Aspart (NovoLOG) BEFORE MEALS AND HS SUBQ 04/06/17 21:00 05/06/17 20:59 04/11/17 11:30 Lactulose (Cephulac) 30 gm THREE TIMES A DAY ORAL 04/10/17 14:00 05/10/17 13:59 04/11/17 13:17 Levetiracetam (Keppra) 1,500 mg Q12HR ORAL 04/06/17 21:00 05/06/17 20:59 04/11/17 09:10 Lorazepam (Ativan) 1 mg Q4H PRN ORAL For Anxiety 04/08/17 16:45 04/15/17 16:44 04/11/17 06:59 Magnesium Hydroxide (Mom) 30 ml HSPRN PRN ORAL Constipation 04/06/17 21:00 05/06/17 20:59 Ondansetron HCl (Zofran) 4 mg Q6H PRN IVP Nausea & Vomiting 04/06/17 18:00 05/06/17 17:59 Phenobarbital (PHENobarbital) 32.4 mg Q12HR ORAL 04/06/17 21:00 05/06/17 20:59 04/11/17 09:10 Polyethylene Glycol (Miralax) 17 gm HSPRN PRN ORAL Constipation 04/06/17 21:00 05/06/17 20:59 Pregabalin (Lyrica) 75 mg BID ORAL 04/06/17 18:00 05/06/17 17:59 04/11/17 09:11 Ranitidine HCl (Zantac) 150 mg BEDTIME ORAL 04/06/17 21:00 05/06/17 20:59 04/10/17 20:36 Rifaximin (Xifaxan) 550 mg EVERY 12 HOURS ORAL 04/10/17 21:00 04/17/17 20:59 04/11/17 09:13 Sodium Chloride 1,000 ml @ 50 mls/hr Q20H IV 04/10/17 14:00 05/10/17 13:59 04/10/17 14:04 Trazodone HCl (Desyrel) 300 mg BEDTIME ORAL 04/09/17 21:00 05/09/17 20:59 04/10/17 20:37 Woo Garcia M.D. Apr 11, 2017 16:45
[2017-04-11] MEDS: Cephalexin 500mg cap ORAL SCH ×2 (17:58→20:57)
--- NOTE | 2017-04-11 18:02 | Nephrology Progress Note ---
Assessment/Plan Problem List: (1) Weakness (2) CECILY (acute kidney injury) (3) Diabetes (4) HTN (hypertension) (5) Schizophrenia Plan Monitor renal function Renally dose meds Avoid nephrotoxins Continue IVF Strict glycemic control Seizure precautions Monitor neuro status Monitor intake and output Psych following Continue sitter at bedside AM labs Subjective Constitutional: Denies: no symptoms, chills, diaphoresis, fever, malaise, weakness, other HEENT: Denies: no symptoms, eye pain, blurred vision, tearing, double vision, ear pain, ear discharge, nose pain, nose congestion, throat pain, throat swelling, mouth pain, mouth swelling, other Genitourinary: Denies: no symptoms, burning, discharge, frequency, flank pain, hematuria, incontinence, pain, urgency, other Neurologic/Psychiatric: Denies: no symptoms, anxiety, depressed, emotional problems, headache, numbness, paresthesia, pre-existing deficit, seizure, tingling, tremors, weakness, other Subjective In bed, answers questions, not agitated. Objective Objective Last 24 Hour Vital Signs Date Time Temp Pulse Resp B/P (MAP) Pulse Ox O2 Delivery O2 Flow Rate FiO2 04/11/17 16:00 98.4 94 20 132/72 96 Room Air 04/11/17 11:10 98.2 85 18 138/77 98 Room Air 04/11/17 07:27 97.5 88 20 143/84 99 Room Air 04/11/17 04:09 97.9 87 20 135/82 95 Room Air 04/11/17 00:10 97.7 80 20 130/74 98 Room Air 04/10/17 21:13 97.7 85 20 127/72 98 Room Air 04/10/17 20:00 97.7 85 20 127/72 98 Room Air 04/10/17 19:14 92 20 Room Air 04/10/17 18:14 97.0 Laboratory Tests 04/11/17 07:05: White Blood Count 7.5, Red Blood Count 4.41, Hemoglobin 12.8, Hematocrit 37.8, Mean Corpuscular Volume 86, Mean Corpuscular Hemoglobin 29.0, Mean Corpuscular Hemoglobin Concent 33.8, Red Cell Distribution Width 14.2, Platelet Count 292, Mean Platelet Volume 6.1L, Neutrophils (%) (Auto) 56.7, Lymphocytes (%) (Auto) 31.3, Monocytes (%) (Auto) 11.3H, Eosinophils (%) (Auto) 0.0, Basophils (%) ( Auto) 0.8, Sodium Level 138, Potassium Level 3.9, Chloride Level 100, Carbon Dioxide Level 27, Anion Gap 11, Blood Urea Nitrogen 18, Creatinine 0.8, Estimat Glomerular Filtration Rate > 60, Glucose Level 134H, Calcium Level 9.0, Total Bilirubin 0.2, Aspartate Amino Transf (AST/SGOT) 14, Alanine Aminotransferase ( ALT/SGPT) 21, Alkaline Phosphatase 94, Ammonia 63H, Total Creatine Kinase 99, Total Protein 7.3, Albumin 3.8, Globulin 3.5, Albumin/Globulin Ratio 1.0 Height (Feet): 5 Height (Inches): 4.00 Weight (Pounds): 160 General Appearance: no apparent distress EENT: PERRL/EOMI, normal ENT inspection, pharynx normal Neck: non-tender, normal alignment, supple Cardiovascular: normal rate, regular rhythm, no JVD Respiratory/Chest: normal breath sounds, no respiratory distress Abdomen: non tender, soft, no organomegaly Extremities: non-tender, normal inspection Neurologic: alert, oriented x 3 Marilynn Oconnell N.P. Apr 11, 2017 18:02
[2017-04-11] MEDS: TraZODone 100mg tab ORAL SCH (20:57)
[2017-04-12] MEDS: LORazepam 1mg tab ORAL PRN ×3 (01:16→20:16)
--- NOTE | 2017-04-12 05:30 | Progress Note ---
DATE: 04/11/2017 SUBJECTIVE: This is a 52-year-old female patient with generalized weakness. She also has a lot of agitation and impulse control problems. She is very agitated with the staff, tries to . DIAGNOSIS: Bipolar 2. PLAN: Keep her on Haldol 9 a.m., however, it is noted that she does not respond to verbal redirection . Also, we are planning to transfer to the psychiatric unit once she is medically cleared, transfer [facility] . Order was given to the nursing staff. Chart was reviewed and discussed with staff. Seen and assessed at the bedside. Shakila Au M.D. DR: Manny JOB#: [id number] CC:
[2017-04-12] MEDS: NovoLOG Insulin Flexpen SUBQ SCH ×4 (06:09→20:18)
[2017-04-12 08:00] VITALS: BP 120/64
--- NOTE | 2017-04-12 08:06 | General Progress Note ---
Assessment/Plan Problem List: (1) UTI (urinary tract infection) ICD Codes: N39.0 - Urinary tract infection, site not specified SNOMED: 86859455 (2) Asthma exacerbation ICD Codes: J45.901 - Unspecified asthma with (acute) exacerbation SNOMED: 030191374 (3) Altered mental status ICD Codes: R41.82 - Altered mental status, unspecified SNOMED: 358816873 (4) Chronic pain ICD Codes: G89.29 - Other chronic pain SNOMED: 87711691 (5) Psychiatric disorder ICD Codes: F99 - Mental disorder SNOMED: 28571160 (6) Altered level of consciousness ICD Codes: R40.4 - Transient alteration of awareness SNOMED: 7288134 (7) Diabetes ICD Codes: E11.9 - Type 2 diabetes mellitus without complications SNOMED: 62822041 (8) Seizure disorder ICD Codes: G40.909 - Seizure disorder SNOMED: 879210046 (9) Encephalopathy ICD Codes: G93.40 - Encephalopathy, unspecified SNOMED: 03875623, 279991817 (10) Weakness ICD Codes: R53.1 - Weakness SNOMED: 83384228 (11) HTN (hypertension) ICD Codes: I10 - Essential (primary) hypertension SNOMED: 37618355 Status: unchanged Assessment/Plan ot pt diet abx seizure control cbc bmp am ltach eval vs psyc Subjective Constitutional: Reports: weakness Allergies: Coded Allergies: ACETAMINOPHEN (Verified Allergy, Unknown, 07/22/14) APPLE (Verified Allergy, Unknown, 04/06/17) ASPIRIN (Verified Allergy, Unknown, ITCHING, 07/22/14) AZITHROMYCIN (Verified Allergy, Unknown, 07/22/14) COPIED FROM UNCODED BANANA (Verified Allergy, Unknown, 04/06/17) CODEINE (Verified Allergy, Unknown, 07/22/14) ERYTHROMYCIN BASE (Verified Allergy, Unknown, 07/22/14) FISH CONTAINING PRODUCTS (Verified Allergy, Unknown, 07/22/14) HYDROCODONE (Verified Allergy, Unknown, 07/22/14) IODINE (Verified Allergy, Unknown, 07/22/14) MIDAZOLAM (Verified Allergy, Unknown, 07/22/14) MILK (Verified Allergy, Unknown, 07/22/14) PROPOXYPHENE (Verified Allergy, Unknown, 07/22/14) COPIED FROM UNCODED SULFA (SULFONAMIDE ANTIBIOTICS) (Verified Allergy, Unknown, 07/22/14) COPIED FROM UNCODED SULFACETAMIDE (Unverified Allergy, Unknown, 03/25/17) SUMATRIPTAN (Verified Allergy, Unknown, 07/22/14) TETRACYCLINE (Verified Allergy, Unknown, RASH, 07/22/14) TETRACYCLINES (Verified Allergy, Unknown, 07/22/14) COPIED FROM UNCODED TOMATO (Verified Allergy, Unknown, 07/22/14) according to pt "I will !".... All Systems: reviewed and negative except above Subjective weak sl confused possible seizure Objective Last 24 Hour Vital Signs Date Time Temp Pulse Resp B/P (MAP) Pulse Ox O2 Delivery O2 Flow Rate FiO2 04/11/17 23:33 96.8 72 19 88/49 95 Room Air 04/11/17 20:29 96.3 76 20 127/81 95 Room Air 04/11/17 20:11 85 20 Room Air 04/11/17 16:00 98.4 94 20 132/72 96 Room Air 04/11/17 11:10 98.2 85 18 138/77 98 Room Air Height (Feet): 5 Height (Inches): 4.00 Weight (Pounds): 160 General Appearance: lethargic, confused EENT: normal ENT inspection Neck: normal alignment Cardiovascular: normal peripheral pulses, normal rate, regular rhythm Respiratory/Chest: chest wall non-tender, lungs clear, normal breath sounds Abdomen: normal bowel sounds, non tender, soft Extremities: normal inspection Edema: no edema noted Arm (L), no edema noted Arm (R), no edema noted Leg (L), no edema noted Leg (R), no edema noted Pedal (L), no edema noted Pedal (R), no edema noted Generalized Neurologic: motor weakness Skin: normal pigmentation, warm/dry CHUCK ESCAMILLA Apr 12, 2017 08:06
[2017-04-12] MEDS: Cephalexin 500mg cap ORAL SCH ×4 (08:34→20:15)
[2017-04-12] MEDS: Lactulose 20gm/30ml UDC ORAL SCH ×3 (08:34→17:05)
[2017-04-12] MEDS: Docusate 100mg cap ORAL SCH (08:35)
[2017-04-12] MEDS: Lyrica 75mg cap ORAL SCH ×2 (08:35→17:06)
[2017-04-12] MEDS: PHENobarbital 32.4mg tab ORAL SCH ×2 (08:51→20:16)
--- NOTE | 2017-04-12 09:01 | Pulmonology Progress Note ---
Assessment/Plan Assessment/Plan ASSESSMENT rhabdomyolysis -resolved acute kidney injury dehydration acute hepatic encephalopathy -resolving COPD DM seizure disorder schizophrenia elevated CA 15-3 PLAN OF CARE [facility] floor ammonia down to 63 from 406 mental status back to baseline continue lactulose and Rifaximin per GI GI follows, trend ammonia PPI elevated CA15-3 -27.5 with normal aFP, CA 19-9 and CA 125 per GI outpatient GI procedures gentle IVF monitor renal parameters, lytes trend CK- down to 99 O2 HHN prn keep sat above 92% seizure precautions anti-epileptic medications neuro follows elevated Depakote level- off Depakote DVT GI prophylaxis a/emetic prn PT/OT BS management with SS of insulin HgA1c -6.8 at goal medically cleared psych reeval ? transfer to inpatient psych facility case discussed and evaluated by supervising physician Subjective Allergies: Coded Allergies: ACETAMINOPHEN (Verified Allergy, Unknown, 07/22/14) APPLE (Verified Allergy, Unknown, 04/06/17) ASPIRIN (Verified Allergy, Unknown, ITCHING, 07/22/14) AZITHROMYCIN (Verified Allergy, Unknown, 07/22/14) COPIED FROM UNCODED BANANA (Verified Allergy, Unknown, 04/06/17) CODEINE (Verified Allergy, Unknown, 07/22/14) ERYTHROMYCIN BASE (Verified Allergy, Unknown, 07/22/14) FISH CONTAINING PRODUCTS (Verified Allergy, Unknown, 07/22/14) HYDROCODONE (Verified Allergy, Unknown, 07/22/14) IODINE (Verified Allergy, Unknown, 07/22/14) MIDAZOLAM (Verified Allergy, Unknown, 07/22/14) MILK (Verified Allergy, Unknown, 07/22/14) PROPOXYPHENE (Verified Allergy, Unknown, 07/22/14) COPIED FROM UNCODED SULFA (SULFONAMIDE ANTIBIOTICS) (Verified Allergy, Unknown, 07/22/14) COPIED FROM UNCODED SULFACETAMIDE (Unverified Allergy, Unknown, 03/25/17) SUMATRIPTAN (Verified Allergy, Unknown, 07/22/14) TETRACYCLINE (Verified Allergy, Unknown, RASH, 07/22/14) TETRACYCLINES (Verified Allergy, Unknown, 07/22/14) COPIED FROM UNCODED TOMATO (Verified Allergy, Unknown, 07/22/14) according to pt "I will !".... Subjective awake agitated not answering my questions Objective Last 24 Hour Vital Signs Date Time Temp Pulse Resp B/P (MAP) Pulse Ox O2 Delivery O2 Flow Rate FiO2 04/12/17 07:46 95 20 Room Air 04/11/17 23:33 96.8 72 19 88/49 95 Room Air 04/11/17 20:29 96.3 76 20 127/81 95 Room Air 04/11/17 20:11 85 20 Room Air 04/11/17 16:00 98.4 94 20 132/72 96 Room Air 04/11/17 11:10 98.2 85 18 138/77 98 Room Air Objective General Appearance: awake, agitated, HEENT: normocephalic, atraumatic Respiratory/Chest: lungs clear Cardiovascular: normal peripheral pulses, normal rate, regular rhythm, no JVD Abdomen: normal bowel sounds, soft, non tender Extremities: +1 edema BLE Neurologic/Psychiatric: abnormal gait, awake,agitated , tearful, yelling Microbiology Date/Time Source Procedure Growth Status 04/09/17 22:00 Straight Cath Urine Culture - Final Escherichia Coli Complete Current Medications Medications (Trade) Dose Ordered Sig/Robb Route PRN Reason Start Time Stop Time Status Last Admin Dose Admin Al Hydroxide/Mg Hydroxide (Mylanta II) 30 ml Q6H PRN ORAL dyspepsia 04/06/17 18:00 05/06/17 17:59 Cephalexin (Keflex) 500 mg FOUR TIMES A DAY ORAL 04/11/17 18:00 04/18/17 17:59 04/12/17 08:34 Dextrose (Dextrose 50%) STAT PRN IV Hypoglycemia 04/06/17 18:00 05/06/17 17:59 Docusate Sodium (Colace) 100 mg DAILY ORAL 04/07/17 09:00 05/07/17 08:59 04/12/17 08:35 Escitalopram Oxalate (Lexapro) 10 mg DAILY ORAL 04/07/17 09:00 05/07/17 08:59 04/12/17 08:35 Gabapentin (Neurontin) 300 mg THREE TIMES A DAY ORAL 04/06/17 18:00 05/06/17 17:59 04/11/17 13:17 Ibuprofen (Motrin) 600 mg Q6H PRN ORAL For Pain 04/06/17 18:00 05/06/17 17:59 04/12/17 08:51 Ibuprofen (Motrin) 800 mg THREE TIMES A DAY PRN ORAL severe pain 04/08/17 08:30 05/08/17 08:29 04/11/17 06:59 Insulin Aspart (NovoLOG) BEFORE MEALS AND HS SUBQ 04/06/17 21:00 05/06/17 20:59 04/11/17 16:50 Lactulose (Cephulac) 30 gm THREE TIMES A DAY ORAL 04/10/17 14:00 05/10/17 13:59 04/12/17 08:34 Levetiracetam (Keppra) 1,500 mg Q12HR ORAL 04/06/17 21:00 05/06/17 20:59 04/12/17 08:35 Lorazepam (Ativan) 1 mg Q4H PRN ORAL For Anxiety 04/08/17 16:45 04/15/17 16:44 04/12/17 01:16 Magnesium Hydroxide (Mom) 30 ml HSPRN PRN ORAL Constipation 04/06/17 21:00 05/06/17 20:59 Ondansetron HCl (Zofran) 4 mg Q6H PRN IVP Nausea & Vomiting 04/06/17 18:00 05/06/17 17:59 Phenobarbital (PHENobarbital) 32.4 mg Q12HR ORAL 04/06/17 21:00 05/06/17 20:59 04/12/17 08:51 Polyethylene Glycol (Miralax) 17 gm HSPRN PRN ORAL Constipation 04/06/17 21:00 05/06/17 20:59 Pregabalin (Lyrica) 75 mg BID ORAL 04/06/17 18:00 05/06/17 17:59 04/12/17 08:35 Ranitidine HCl (Zantac) 150 mg BEDTIME ORAL 04/06/17 21:00 05/06/17 20:59 04/10/17 20:36 Rifaximin (Xifaxan) 550 mg EVERY 12 HOURS ORAL 04/10/17 21:00 04/17/17 20:59 04/12/17 08:51 Sodium Chloride 1,000 ml @ 50 mls/hr Q20H IV 04/10/17 14:00 05/10/17 13:59 04/10/17 14:04 Trazodone HCl (Desyrel) 300 mg BEDTIME ORAL 04/09/17 21:00 05/09/17 20:59 04/10/17 20:37 [facility] Apr 12, 2017 09:01
[2017-04-12 10:13] LABS: BASOPHILS % (AUTO) 1.4 % (0.0-2.0); EOSINOPHILS % (AUTO) 0.1 % (0.0-3.0); LYMPHOCYTES % (AUTO) 24.2 % (20.0-45.0); MEAN CORPUSCULAR HEMOGLOBIN 26.5 PG (27.0-31.0); MEAN CORPUSCULAR HGB CONC 30.6 G/DL (32.0-36.0); MEAN CORPUSCULAR VOLUME 87 FL (80-99); MEAN PLATELET VOLUME 6.7 FL (6.5-10.1); MONOCYTES % (AUTO) 13.1 % (1.0-10.0); NEUTROPHILS % (AUTO) 61.3 % (45.0-75.0); PLATELET COUNT 306 K/UL (150-450); RED BLOOD COUNT 5.12 M/UL (4.20-5.40); RED CELL DISTRIBUTION WIDTH 14.1 % (11.6-14.8); WHITE BLOOD COUNT 6.5 K/UL (4.8-10.8)
[2017-04-12 10:38] LABS: ANION GAP 16 (5-15); CALCIUM 9.4 mg/dL (8.6-10.2); CARBON DIOXIDE 24 mEQ/L (20-30); CHLORIDE 99 mEQ/L (98-107); CREATININE 0.8 mg/dL (0.5-0.9); GLOMERULAR FILTRATION RATE > 60 mL/min (>60); HEMOLYSIS 9; SODIUM 139 mEQ/L (135-145)
[2017-04-12 12:00] VITALS: BP 136/67
[2017-04-12] MEDS ORDERED: LORazepam Inj 2mg/ml 1ml IM PRN (12:00)
--- NOTE | 2017-04-12 12:17 | General Progress Note ---
Assessment/Plan Assessment/Plan (1) Lumbar radiculopathy (2) Lumbar spondylosis (3) Lumbar degenerative disc disease Pt will be started on Suzette D/w and he concurred. Subjective Date patient seen: Apr 12, 2017 Time patient seen: 11:45 - am Allergies: Coded Allergies: ACETAMINOPHEN (Verified Allergy, Unknown, 07/22/14) APPLE (Verified Allergy, Unknown, 04/06/17) ASPIRIN (Verified Allergy, Unknown, ITCHING, 07/22/14) AZITHROMYCIN (Verified Allergy, Unknown, 07/22/14) COPIED FROM UNCODED BANANA (Verified Allergy, Unknown, 04/06/17) CODEINE (Verified Allergy, Unknown, 07/22/14) ERYTHROMYCIN BASE (Verified Allergy, Unknown, 07/22/14) FISH CONTAINING PRODUCTS (Verified Allergy, Unknown, 07/22/14) HYDROCODONE (Verified Allergy, Unknown, 07/22/14) IODINE (Verified Allergy, Unknown, 07/22/14) MIDAZOLAM (Verified Allergy, Unknown, 07/22/14) MILK (Verified Allergy, Unknown, 07/22/14) PROPOXYPHENE (Verified Allergy, Unknown, 07/22/14) COPIED FROM UNCODED SULFA (SULFONAMIDE ANTIBIOTICS) (Verified Allergy, Unknown, 07/22/14) COPIED FROM UNCODED SULFACETAMIDE (Unverified Allergy, Unknown, 03/25/17) SUMATRIPTAN (Verified Allergy, Unknown, 07/22/14) TETRACYCLINE (Verified Allergy, Unknown, RASH, 07/22/14) TETRACYCLINES (Verified Allergy, Unknown, 07/22/14) COPIED FROM UNCODED TOMATO (Verified Allergy, Unknown, 07/22/14) according to pt "I will !".... Subjective Constitutional: Denies: no symptoms, chills, diaphoresis, fever, malaise, weakness, other HEENT: Denies: no symptoms, eye pain, blurred vision, tearing, double vision, ear pain, ear discharge, nose pain, nose congestion, throat pain, throat swelling, mouth pain, mouth swelling, other Cardiovascular: Denies: no symptoms, chest pain, edema, irregular heart rate, lightheadedness, palpitations, syncope, other Respiratory: Denies: no symptoms, cough, orthopnea, shortness of breath, SOB with excertion, SOB at rest, sputum, stridor, wheezing, other Gastrointestinal/Abdominal: Reports: Abdmoinal pain, nausea, vomiting Genitourinary: Denies: burning, discharge, frequency, flank pain, urgency Neurologic/Psychiatric: Reports: depressed, weakness Endocrine: Denies: no symptoms, excessive sweating, flushing, intolerance to cold, intolerance to heat, increased hunger, increased thirst, increased urine, unexplained weight gain, unexplained weight loss, other Hematologic/Lymphatic: Denies: no symptoms, anemia, easy bleeding, easy bruising, other Subjective Her pain has been stable and tolerated on the Motrin and has no new complaints. Objective Last 24 Hour Vital Signs Date Time Temp Pulse Resp B/P (MAP) Pulse Ox O2 Delivery O2 Flow Rate FiO2 04/12/17 09:50 96.8 04/12/17 09:34 96.8 04/12/17 08:00 98.2 87 18 120/64 99 Room Air 04/12/17 07:46 95 20 Room Air 04/11/17 23:33 96.8 72 19 88/49 95 Room Air 04/11/17 20:29 96.3 76 20 127/81 95 Room Air 04/11/17 20:11 85 20 Room Air 04/11/17 16:00 98.4 94 20 132/72 96 Room Air Laboratory Tests 04/12/17 10:00: White Blood Count 6.5, Red Blood Count 5.12, Hemoglobin 13.6, Hematocrit 44.4, Mean Corpuscular Volume 87, Mean Corpuscular Hemoglobin 26.5L, Mean Corpuscular Hemoglobin Concent 30.6L, Red Cell Distribution Width 14.1, Platelet Count 306, Mean Platelet Volume 6.7, Neutrophils (%) (Auto) 61.3, Lymphocytes (%) (Auto) 24.2, Monocytes (%) (Auto) 13.1H, Eosinophils (%) (Auto) 0.1, Basophils (%) ( Auto) 1.4, Sodium Level 139, Potassium Level 4.0, Chloride Level 99, Carbon Dioxide Level 24, Anion Gap 16H, Blood Urea Nitrogen 23, Creatinine 0.8, Estimat Glomerular Filtration Rate > 60, Glucose Level 302#H, Calcium Level 9.4 Height (Feet): 5 Height (Inches): 4.00 Weight (Pounds): 160 Objective General Appearance: no apparent distress, alert EENT: PERRL/EOMI, normal ENT inspection Neck: non-tender, normal alignment Cardiovascular: normal rate, regular rhythm Respiratory/Chest: lungs clear, normal breath sounds Abdomen: non tender, soft Extremities: non-tender Edema: trace edema Neurologic: alert, responsive Skin: warm/dry ROOSEVELT SAWYER Apr 12, 2017 12:17
[2017-04-12] MEDS ORDERED: DiphenhydrAMINE 50mg/ml Inj IM ONE (13:30)
[2017-04-12] MEDS ORDERED: LORazepam Inj 2mg/ml 1ml IM ONE (13:30)
[2017-04-12] MEDS ORDERED: Haloperidol 5mg/ml Inj IM ONE (13:30)
--- NOTE | 2017-04-12 15:53 | Nephrology Progress Note ---
Assessment/Plan Problem List: (1) Weakness (2) CECILY (acute kidney injury) (3) Diabetes (4) HTN (hypertension) (5) Schizophrenia Plan Monitor renal function Renally dose meds Avoid nephrotoxins Strict glycemic control Seizure precautions Monitor neuro status Monitor intake and output Psych following AM labs Subjective Constitutional: Denies: no symptoms, chills, diaphoresis, fever, malaise, weakness, other HEENT: Denies: no symptoms, eye pain, blurred vision, tearing, double vision, ear pain, ear discharge, nose pain, nose congestion, throat pain, throat swelling, mouth pain, mouth swelling, other Genitourinary: Denies: no symptoms, burning, discharge, frequency, flank pain, hematuria, incontinence, pain, urgency, other Neurologic/Psychiatric: Denies: no symptoms, anxiety, depressed, emotional problems, headache, numbness, paresthesia, pre-existing deficit, seizure, tingling, tremors, weakness, other Subjective In a wheelchair, confused, mildly agitated. Objective Objective Last 24 Hour Vital Signs Date Time Temp Pulse Resp B/P (MAP) Pulse Ox O2 Delivery O2 Flow Rate FiO2 04/12/17 12:00 97.2 120 20 136/67 94 Room Air 04/12/17 09:50 96.8 04/12/17 09:34 96.8 04/12/17 08:00 98.2 87 18 120/64 99 Room Air 04/12/17 07:46 95 20 Room Air 04/11/17 23:33 96.8 72 19 88/49 95 Room Air 04/11/17 20:29 96.3 76 20 127/81 95 Room Air 04/11/17 20:11 85 20 Room Air 04/11/17 16:00 98.4 94 20 132/72 96 Room Air Laboratory Tests 04/12/17 10:00: White Blood Count 6.5, Red Blood Count 5.12, Hemoglobin 13.6, Hematocrit 44.4, Mean Corpuscular Volume 87, Mean Corpuscular Hemoglobin 26.5L, Mean Corpuscular Hemoglobin Concent 30.6L, Red Cell Distribution Width 14.1, Platelet Count 306, Mean Platelet Volume 6.7, Neutrophils (%) (Auto) 61.3, Lymphocytes (%) (Auto) 24.2, Monocytes (%) (Auto) 13.1H, Eosinophils (%) (Auto) 0.1, Basophils (%) ( Auto) 1.4, Sodium Level 139, Potassium Level 4.0, Chloride Level 99, Carbon Dioxide Level 24, Anion Gap 16H, Blood Urea Nitrogen 23, Creatinine 0.8, Estimat Glomerular Filtration Rate > 60, Glucose Level 302#H, Calcium Level 9.4 04/12/17 15:49: Stool Occult Blood [Pending] Height (Feet): 5 Height (Inches): 4.00 Weight (Pounds): 160 General Appearance: no apparent distress, confused, agitated EENT: PERRL/EOMI, normal ENT inspection Neck: normal alignment, supple Cardiovascular: normal rate, regular rhythm Respiratory/Chest: lungs clear, normal breath sounds Abdomen: soft, no organomegaly, no mass Extremities: non-tender, normal inspection Neurologic: alert, disoriented Marilynn Oconnell N.P. Apr 12, 2017 15:53
[2017-04-12 16:00] VITALS: BP 129/76
[2017-04-12 20:00] VITALS: BP 137/87
[2017-04-12] MEDS: TraZODone 100mg tab ORAL SCH (20:15)
[2017-04-13] MEDS: LORazepam 1mg tab ORAL PRN ×4 (01:32→17:01)
[2017-04-13 04:00] VITALS: BP 143/72
[2017-04-13] MEDS: NovoLOG Insulin Flexpen SUBQ SCH ×4 (05:24→20:50)
[2017-04-13 06:21] LABS: BASOPHILS % (AUTO) 1.4 % (0.0-2.0); LYMPHOCYTES % (AUTO) 28.2 % (20.0-45.0); MEAN CORPUSCULAR HEMOGLOBIN 29.2 PG (27.0-31.0); MEAN CORPUSCULAR HGB CONC 33.5 G/DL (32.0-36.0); MEAN CORPUSCULAR VOLUME 87 FL (80-99); MEAN PLATELET VOLUME 6.5 FL (6.5-10.1); MONOCYTES % (AUTO) 9.1 % (1.0-10.0); NEUTROPHILS % (AUTO) 61.3 % (45.0-75.0); PLATELET COUNT 253 K/UL (150-450); RED CELL DISTRIBUTION WIDTH 14.1 % (11.6-14.8); WHITE BLOOD COUNT 7.3 K/UL (4.8-10.8)
[2017-04-13 06:37] LABS: ANION GAP 15 (5-15); CALCIUM 9.1 mg/dL (8.6-10.2); CARBON DIOXIDE 24 mEQ/L (20-30); CHLORIDE 98 mEQ/L (98-107); CREATININE 0.8 mg/dL (0.5-0.9); GLOMERULAR FILTRATION RATE > 60 mL/min (>60); HEMOLYSIS 3; POTASSIUM 4.1 mEQ/L (3.4-4.9); SODIUM 137 mEQ/L (135-145)
--- NOTE | 2017-04-13 08:14 | General Progress Note ---
Assessment/Plan Assessment/Plan (1) Lumbar radiculopathy (2) Lumbar spondylosis (3) Lumbar degenerative disc disease Pt will be started on Suzette D/w and he concurred. Subjective Date patient seen: Apr 13, 2017 Time patient seen: 07:00 - am Allergies: Coded Allergies: ACETAMINOPHEN (Verified Allergy, Unknown, 07/22/14) APPLE (Verified Allergy, Unknown, 04/06/17) ASPIRIN (Verified Allergy, Unknown, ITCHING, 07/22/14) AZITHROMYCIN (Verified Allergy, Unknown, 07/22/14) COPIED FROM UNCODED BANANA (Verified Allergy, Unknown, 04/06/17) CODEINE (Verified Allergy, Unknown, 07/22/14) ERYTHROMYCIN BASE (Verified Allergy, Unknown, 07/22/14) FISH CONTAINING PRODUCTS (Verified Allergy, Unknown, 07/22/14) HYDROCODONE (Verified Allergy, Unknown, 07/22/14) IODINE (Verified Allergy, Unknown, 07/22/14) MIDAZOLAM (Verified Allergy, Unknown, 07/22/14) MILK (Verified Allergy, Unknown, 07/22/14) PROPOXYPHENE (Verified Allergy, Unknown, 07/22/14) COPIED FROM UNCODED SULFA (SULFONAMIDE ANTIBIOTICS) (Verified Allergy, Unknown, 07/22/14) COPIED FROM UNCODED SULFACETAMIDE (Unverified Allergy, Unknown, 03/25/17) SUMATRIPTAN (Verified Allergy, Unknown, 07/22/14) TETRACYCLINE (Verified Allergy, Unknown, RASH, 07/22/14) TETRACYCLINES (Verified Allergy, Unknown, 07/22/14) COPIED FROM UNCODED TOMATO (Verified Allergy, Unknown, 07/22/14) according to pt "I will !".... Subjective Constitutional: Denies: no symptoms, chills, diaphoresis, fever, malaise, weakness, other HEENT: Denies: no symptoms, eye pain, blurred vision, tearing, double vision, ear pain, ear discharge, nose pain, nose congestion, throat pain, throat swelling, mouth pain, mouth swelling, other Cardiovascular: Denies: no symptoms, chest pain, edema, irregular heart rate, lightheadedness, palpitations, syncope, other Respiratory: Denies: no symptoms, cough, orthopnea, shortness of breath, SOB with excertion, SOB at rest, sputum, stridor, wheezing, other Gastrointestinal/Abdominal: Reports: Abdmoinal pain, nausea, vomiting Genitourinary: Denies: burning, discharge, frequency, flank pain, urgency Neurologic/Psychiatric: Reports: depressed, weakness Endocrine: Denies: no symptoms, excessive sweating, flushing, intolerance to cold, intolerance to heat, increased hunger, increased thirst, increased urine, unexplained weight gain, unexplained weight loss, other Hematologic/Lymphatic: Denies: no symptoms, anemia, easy bleeding, easy bruising, other Subjective Pt is comfortable and is in no acute distress or pain. The pain has been stable on the medications. Objective Last 24 Hour Vital Signs Date Time Temp Pulse Resp B/P (MAP) Pulse Ox O2 Delivery O2 Flow Rate FiO2 04/13/17 04:00 97.4 87 20 143/72 94 Room Air 04/13/17 02:31 97.2 04/12/17 20:00 97.2 89 20 137/87 95 Room Air 04/12/17 18:05 97.2 04/12/17 16:00 97.2 90 20 129/76 96 Room Air 04/12/17 12:00 97.2 120 20 136/67 94 Room Air Laboratory Tests 04/12/17 10:00: White Blood Count 6.5, Red Blood Count 5.12, Hemoglobin 13.6, Hematocrit 44.4, Mean Corpuscular Volume 87, Mean Corpuscular Hemoglobin 26.5L, Mean Corpuscular Hemoglobin Concent 30.6L, Red Cell Distribution Width 14.1, Platelet Count 306, Mean Platelet Volume 6.7, Neutrophils (%) (Auto) 61.3, Lymphocytes (%) (Auto) 24.2, Monocytes (%) (Auto) 13.1H, Eosinophils (%) (Auto) 0.1, Basophils (%) ( Auto) 1.4, Sodium Level 139, Potassium Level 4.0, Chloride Level 99, Carbon Dioxide Level 24, Anion Gap 16H, Blood Urea Nitrogen 23, Creatinine 0.8, Estimat Glomerular Filtration Rate > 60, Glucose Level 302#H, Calcium Level 9.4 04/12/17 16:10: Stool Occult Blood [Pending] 04/13/17 05:50: White Blood Count 7.3, Red Blood Count 4.60, Hemoglobin 13.4, Hematocrit 40.0, Mean Corpuscular Volume 87, Mean Corpuscular Hemoglobin 29.2, Mean Corpuscular Hemoglobin Concent 33.5, Red Cell Distribution Width 14.1, Platelet Count 253, Mean Platelet Volume 6.5, Neutrophils (%) (Auto) 61.3, Lymphocytes (%) (Auto) 28.2, Monocytes (%) (Auto) 9.1, Eosinophils (%) (Auto) 0.0, Basophils (%) (Auto ) 1.4, Sodium Level 137, Potassium Level 4.1, Chloride Level 98, Carbon Dioxide Level 24, Anion Gap 15, Blood Urea Nitrogen 24H, Creatinine 0.8, Estimat Glomerular Filtration Rate > 60, Glucose Level 173#H, Calcium Level 9.1 Height (Feet): 5 Height (Inches): 4.00 Weight (Pounds): 160 Objective General Appearance: no apparent distress, alert EENT: PERRL/EOMI, normal ENT inspection Neck: non-tender, normal alignment Cardiovascular: normal rate, regular rhythm Respiratory/Chest: lungs clear, normal breath sounds Abdomen: non tender, soft Extremities: non-tender Edema: trace edema Neurologic: alert, responsive Skin: warm/dry ROOSEVELT SAWYER Apr 13, 2017 08:14
--- NOTE | 2017-04-13 08:15 | Progress Note ---
SUBJECTIVE: This is a 52-year-old female patient who continued to have confusion, disorganized thought process, altered mental status, extremely agitated to the point where strike out at staff. DIAGNOSIS: Bipolar 2. PLAN: The patient is Ativan 2 mg IM Haldol 10 mg three times a day and agitation. for decompensation and . She was seen and assessed at bedside. Chart reviewed and discussed with staff. Shakila Au M.D. DR: SHAHNAZ JOB#: [id number] CC:
[2017-04-13 09:00] VITALS: BP 118/73
[2017-04-13] MEDS: Docusate 100mg cap ORAL SCH (09:12)
[2017-04-13] MEDS: PHENobarbital 32.4mg tab ORAL SCH ×2 (09:12→20:46)
[2017-04-13] MEDS: Lyrica 75mg cap ORAL SCH ×2 (09:13→17:00)
[2017-04-13] MEDS: Cephalexin 500mg cap ORAL SCH ×4 (09:14→20:46)
[2017-04-13] MEDS: Lactulose 20gm/30ml UDC ORAL SCH (09:44)
[2017-04-13] MEDS ORDERED: HALOPERIDOL1 MG ORAL (10:03)
[2017-04-13] MEDS ORDERED: CEPHALEXIN500 M1 ORAL (10:03)
[2017-04-13] MEDS ORDERED: BENADRYL25 MG ORAL (10:04)
[2017-04-13] MEDS ORDERED: ATIVAN1 MG ORAL (10:05)
[2017-04-13] MEDS ORDERED: ATIVAN2 MG/1 ML IM (10:06)
[2017-04-13] MEDS ORDERED: LACTULOSE20 GM/301 ORAL (10:06)
[2017-04-13] MEDS ORDERED: ZANTAC150 MG ORAL (10:08)
[2017-04-13] MEDS ORDERED: XIFAXAN550 MG ORAL (10:08)
[2017-04-13] MEDS ORDERED: ZOFRAN 4 MG4 MG/2 ML IV (10:09)
[2017-04-13] MEDS ORDERED: MILK OF MA2400 MG/10 ORAL (10:09)
--- NOTE | 2017-04-13 11:04 | GI Progress Note ---
Assessment/Plan Problems: (1) Weakness ICD Codes: R53.1 - Weakness SNOMED: 35745637 (2) Schizophrenia ICD Codes: F20.9 - Schizophrenia, unspecified SNOMED: 08593090 (3) GERD (gastroesophageal reflux disease) ICD Codes: K21.9 - Gastro-esophageal reflux disease without esophagitis SNOMED: 795542388 (4) Diabetes ICD Codes: E11.9 - Type 2 diabetes mellitus without complications SNOMED: 02406437 Status: stable Status Narrative Discussed with Dr. De Souza. Assessment/Plan OB stool negative Valproate-related hyperammonemic encephalopathy >> dc Depakote >> ammonia levels normal now, will dc lactulose and Xifaxan zofran prn, consider reglan if vomiting persists fu swallow eval bowel regime >> miralax + colace ATC pain mgmt ppi PT/OT eval outpatient GI procedures Subjective Subjective generalized weakness feels okay Objective Last 24 Hour Vital Signs Date Time Temp Pulse Resp B/P (MAP) Pulse Ox O2 Delivery O2 Flow Rate FiO2 04/13/17 10:12 97.4 04/13/17 09:00 97.5 85 19 118/73 97 Room Air 04/13/17 04:00 97.4 87 20 143/72 94 Room Air 04/13/17 02:31 97.2 04/12/17 20:00 97.2 89 20 137/87 95 Room Air 04/12/17 16:00 97.2 90 20 129/76 96 Room Air 04/12/17 12:00 97.2 120 20 136/67 94 Room Air Laboratory Tests Test 04/12/17 16:10 04/13/17 05:50 Stool Occult Blood Negative (NEGATIVE) White Blood Count 7.3 K/UL (4.8-10.8) Red Blood Count 4.60 M/UL (4.20-5.40) Hemoglobin 13.4 G/DL (12.0-16.0) Hematocrit 40.0 % (37.0-47.0) Mean Corpuscular Volume 87 FL (80-99) Mean Corpuscular Hemoglobin 29.2 PG (27.0-31.0) Mean Corpuscular Hemoglobin Concent 33.5 G/DL (32.0-36.0) Red Cell Distribution Width 14.1 % (11.6-14.8) Platelet Count 253 K/UL (150-450) Mean Platelet Volume 6.5 FL (6.5-10.1) Neutrophils (%) (Auto) 61.3 % (45.0-75.0) Lymphocytes (%) (Auto) 28.2 % (20.0-45.0) Monocytes (%) (Auto) 9.1 % (1.0-10.0) Eosinophils (%) (Auto) 0.0 % (0.0-3.0) Basophils (%) (Auto) 1.4 % (0.0-2.0) Sodium Level 137 mEQ/L (135-145) Potassium Level 4.1 mEQ/L (3.4-4.9) Chloride Level 98 mEQ/L (98-107) Carbon Dioxide Level 24 mEQ/L (20-30) Anion Gap 15 (5-15) Blood Urea Nitrogen 24 mg/dL (7-23) H Creatinine 0.8 mg/dL (0.5-0.9) Estimat Glomerular Filtration Rate > 60 mL/min (>60) Glucose Level 173 mg/dL (74-106) #H Calcium Level 9.1 mg/dL (8.6-10.2) Height (Feet): 5 Height (Inches): 4.00 Weight (Pounds): 160 General Appearance: no apparent distress, alert Cardiovascular: normal rate Respiratory/Chest: normal breath sounds, no respiratory distress Abdominal Exam: normal bowel sounds, non tender, soft Katlyn Nava N.P. Apr 13, 2017 11:04
[2017-04-13 11:57] VITALS: BP 128/66
--- NOTE | 2017-04-13 13:42 | General Progress Note ---
Assessment/Plan Problem List: (1) UTI (urinary tract infection) ICD Codes: N39.0 - Urinary tract infection, site not specified SNOMED: 21429132 (2) Asthma exacerbation ICD Codes: J45.901 - Unspecified asthma with (acute) exacerbation SNOMED: 804773407 (3) Altered mental status ICD Codes: R41.82 - Altered mental status, unspecified SNOMED: 625865942 (4) Chronic pain ICD Codes: G89.29 - Other chronic pain SNOMED: 85620721 (5) Psychiatric disorder ICD Codes: F99 - Mental disorder SNOMED: 42331997 (6) Altered level of consciousness ICD Codes: R40.4 - Transient alteration of awareness SNOMED: 6262673 (7) Diabetes ICD Codes: E11.9 - Type 2 diabetes mellitus without complications SNOMED: 59459589 (8) Seizure disorder ICD Codes: G40.909 - Seizure disorder SNOMED: 340124874 (9) Encephalopathy ICD Codes: G93.40 - Encephalopathy, unspecified SNOMED: 09794556, 624826436 (10) Weakness ICD Codes: R53.1 - Weakness SNOMED: 32832298 (11) HTN (hypertension) ICD Codes: I10 - Essential (primary) hypertension SNOMED: 50083964 Status: stable, progressing, tolerating diet Assessment/Plan ot pt diet abx seizure control dc to snf Subjective Constitutional: Reports: weakness Allergies: Coded Allergies: ACETAMINOPHEN (Verified Allergy, Unknown, 07/22/14) APPLE (Verified Allergy, Unknown, 04/06/17) ASPIRIN (Verified Allergy, Unknown, ITCHING, 07/22/14) AZITHROMYCIN (Verified Allergy, Unknown, 07/22/14) COPIED FROM UNCODED BANANA (Verified Allergy, Unknown, 04/06/17) CODEINE (Verified Allergy, Unknown, 07/22/14) ERYTHROMYCIN BASE (Verified Allergy, Unknown, 07/22/14) FISH CONTAINING PRODUCTS (Verified Allergy, Unknown, 07/22/14) HYDROCODONE (Verified Allergy, Unknown, 07/22/14) IODINE (Verified Allergy, Unknown, 07/22/14) MIDAZOLAM (Verified Allergy, Unknown, 07/22/14) MILK (Verified Allergy, Unknown, 07/22/14) PROPOXYPHENE (Verified Allergy, Unknown, 07/22/14) COPIED FROM UNCODED SULFA (SULFONAMIDE ANTIBIOTICS) (Verified Allergy, Unknown, 07/22/14) COPIED FROM UNCODED SULFACETAMIDE (Unverified Allergy, Unknown, 03/25/17) SUMATRIPTAN (Verified Allergy, Unknown, 07/22/14) TETRACYCLINE (Verified Allergy, Unknown, RASH, 07/22/14) TETRACYCLINES (Verified Allergy, Unknown, 07/22/14) COPIED FROM UNCODED TOMATO (Verified Allergy, Unknown, 07/22/14) according to pt "I will !".... All Systems: reviewed and negative except above Subjective weak sl confused possible seizure Objective Last 24 Hour Vital Signs Date Time Temp Pulse Resp B/P (MAP) Pulse Ox O2 Delivery O2 Flow Rate FiO2 04/13/17 12:51 98.2 04/13/17 11:57 98.2 85 18 128/66 95 Room Air 04/13/17 10:12 97.4 04/13/17 09:00 97.5 85 19 118/73 97 Room Air 04/13/17 04:00 97.4 87 20 143/72 94 Room Air 04/12/17 20:00 97.2 89 20 137/87 95 Room Air 04/12/17 16:00 97.2 90 20 129/76 96 Room Air Laboratory Tests 04/12/17 16:10: Stool Occult Blood Negative 04/13/17 05:50: White Blood Count 7.3, Red Blood Count 4.60, Hemoglobin 13.4, Hematocrit 40.0, Mean Corpuscular Volume 87, Mean Corpuscular Hemoglobin 29.2, Mean Corpuscular Hemoglobin Concent 33.5, Red Cell Distribution Width 14.1, Platelet Count 253, Mean Platelet Volume 6.5, Neutrophils (%) (Auto) 61.3, Lymphocytes (%) (Auto) 28.2, Monocytes (%) (Auto) 9.1, Eosinophils (%) (Auto) 0.0, Basophils (%) (Auto ) 1.4, Sodium Level 137, Potassium Level 4.1, Chloride Level 98, Carbon Dioxide Level 24, Anion Gap 15, Blood Urea Nitrogen 24H, Creatinine 0.8, Estimat Glomerular Filtration Rate > 60, Glucose Level 173#H, Calcium Level 9.1 Height (Feet): 5 Height (Inches): 4.00 Weight (Pounds): 160 General Appearance: lethargic EENT: normal ENT inspection Neck: normal alignment Cardiovascular: normal peripheral pulses, normal rate, regular rhythm Respiratory/Chest: chest wall non-tender, lungs clear, normal breath sounds Abdomen: normal bowel sounds, non tender, soft Extremities: normal inspection Edema: no edema noted Arm (L), no edema noted Arm (R), no edema noted Leg (L), no edema noted Leg (R), no edema noted Pedal (L), no edema noted Pedal (R), no edema noted Generalized Neurologic: responsive, motor weakness Skin: normal pigmentation, warm/dry CHUCK ESCAMILLA Apr 13, 2017 13:41
[2017-04-13 16:00] VITALS: BP 115/64
--- NOTE | 2017-04-13 17:44 | Infectious Diseases Prog Note ---
Assessment/Plan Problems: (1) UTI (urinary tract infection) Assessment & Plan: on keflex for 7 days (2) Asthma exacerbation Assessment & Plan: continue inhalers, and oxygen (3) Altered level of consciousness Assessment & Plan: unclear etiology, neurology and psych are following (4) Psychiatric disorder Assessment & Plan: on psych meds (5) Seizure disorder Assessment & Plan: controlled on seizure meds , neurology is following Subjective ROS Limited/Unobtainable: Yes Allergies: Coded Allergies: ACETAMINOPHEN (Verified Allergy, Unknown, 07/22/14) APPLE (Verified Allergy, Unknown, 04/06/17) ASPIRIN (Verified Allergy, Unknown, ITCHING, 07/22/14) AZITHROMYCIN (Verified Allergy, Unknown, 07/22/14) COPIED FROM UNCODED BANANA (Verified Allergy, Unknown, 04/06/17) CODEINE (Verified Allergy, Unknown, 07/22/14) ERYTHROMYCIN BASE (Verified Allergy, Unknown, 07/22/14) FISH CONTAINING PRODUCTS (Verified Allergy, Unknown, 07/22/14) HYDROCODONE (Verified Allergy, Unknown, 07/22/14) IODINE (Verified Allergy, Unknown, 07/22/14) MIDAZOLAM (Verified Allergy, Unknown, 07/22/14) MILK (Verified Allergy, Unknown, 07/22/14) PROPOXYPHENE (Verified Allergy, Unknown, 07/22/14) COPIED FROM UNCODED SULFA (SULFONAMIDE ANTIBIOTICS) (Verified Allergy, Unknown, 07/22/14) COPIED FROM UNCODED SULFACETAMIDE (Unverified Allergy, Unknown, 03/25/17) SUMATRIPTAN (Verified Allergy, Unknown, 07/22/14) TETRACYCLINE (Verified Allergy, Unknown, RASH, 07/22/14) TETRACYCLINES (Verified Allergy, Unknown, 07/22/14) COPIED FROM UNCODED TOMATO (Verified Allergy, Unknown, 07/22/14) according to pt "I will !".... Subjective she is lethargic, lying in bed, not in distress, with slow response to verbal commands Objective Vital Signs Last 24 Hour Vital Signs Date Time Temp Pulse Resp B/P (MAP) Pulse Ox O2 Delivery O2 Flow Rate FiO2 04/13/17 16:00 98.1 78 18 115/64 98 Room Air 04/13/17 12:51 98.2 04/13/17 11:57 98.2 85 18 128/66 95 Room Air 04/13/17 10:12 97.4 04/13/17 09:00 97.5 85 19 118/73 97 Room Air 04/13/17 04:00 97.4 87 20 143/72 94 Room Air 04/12/17 20:00 97.2 89 20 137/87 95 Room Air Height (Feet): 5 Height (Inches): 4.00 Weight (Pounds): 160 General Appearance: WD/WN, no acute distress HEENT: normocephalic, atraumatic, anicteric Respiratory/Chest: chest wall non-tender, lungs clear, normal breath sounds, no respiratory distress, no accessory muscle use Cardiovascular: regular rhythm Abdomen: normal bowel sounds, soft, non tender, no organomegaly, non distended Skin: no rash, no lesions Laboratory Tests Test 04/13/17 05:50 White Blood Count 7.3 K/UL (4.8-10.8) Red Blood Count 4.60 M/UL (4.20-5.40) Hemoglobin 13.4 G/DL (12.0-16.0) Hematocrit 40.0 % (37.0-47.0) Mean Corpuscular Volume 87 FL (80-99) Mean Corpuscular Hemoglobin 29.2 PG (27.0-31.0) Mean Corpuscular Hemoglobin Concent 33.5 G/DL (32.0-36.0) Red Cell Distribution Width 14.1 % (11.6-14.8) Platelet Count 253 K/UL (150-450) Mean Platelet Volume 6.5 FL (6.5-10.1) Neutrophils (%) (Auto) 61.3 % (45.0-75.0) Lymphocytes (%) (Auto) 28.2 % (20.0-45.0) Monocytes (%) (Auto) 9.1 % (1.0-10.0) Eosinophils (%) (Auto) 0.0 % (0.0-3.0) Basophils (%) (Auto) 1.4 % (0.0-2.0) Sodium Level 137 mEQ/L (135-145) Potassium Level 4.1 mEQ/L (3.4-4.9) Chloride Level 98 mEQ/L (98-107) Carbon Dioxide Level 24 mEQ/L (20-30) Anion Gap 15 (5-15) Blood Urea Nitrogen 24 mg/dL (7-23) H Creatinine 0.8 mg/dL (0.5-0.9) Estimat Glomerular Filtration Rate > 60 mL/min (>60) Glucose Level 173 mg/dL (74-106) #H Calcium Level 9.1 mg/dL (8.6-10.2) Current Medications Medications (Trade) Dose Ordered Sig/Robb Route PRN Reason Start Time Stop Time Status Last Admin Dose Admin Al Hydroxide/Mg Hydroxide (Mylanta II) 30 ml Q6H PRN ORAL dyspepsia 04/06/17 18:00 05/06/17 17:59 Cephalexin (Keflex) 500 mg FOUR TIMES A DAY ORAL 04/11/17 18:00 04/18/17 17:59 04/13/17 17:00 Dextrose (Dextrose 50%) STAT PRN IV Hypoglycemia 04/06/17 18:00 05/06/17 17:59 Diphenhydramine HCl (Benadryl) 50 mg Q8HR ORAL 04/13/17 06:00 05/13/17 05:59 04/13/17 13:32 Docusate Sodium (Colace) 100 mg DAILY ORAL 04/07/17 09:00 05/07/17 08:59 04/13/17 09:12 Escitalopram Oxalate (Lexapro) 10 mg DAILY ORAL 04/07/17 09:00 05/07/17 08:59 04/13/17 09:12 Gabapentin (Neurontin) 300 mg THREE TIMES A DAY ORAL 04/06/17 18:00 05/06/17 17:59 04/13/17 17:00 Haloperidol (Haldol) 10 mg Q8HR ORAL 04/13/17 06:00 05/13/17 05:59 04/13/17 13:32 Ibuprofen (Motrin) 600 mg Q6H PRN ORAL For Pain 04/06/17 18:00 05/06/17 17:59 04/13/17 11:52 Insulin Aspart (NovoLOG) BEFORE MEALS AND HS SUBQ 04/06/17 21:00 05/06/17 20:59 04/13/17 16:37 Levetiracetam (Keppra) 1,500 mg Q12HR ORAL 04/06/17 21:00 05/06/17 20:59 04/13/17 09:12 Lorazepam (Ativan 2mg/ml 1ml) 2 mg EVERY 6 HOURS PRN IM For Anxiety 04/12/17 12:00 04/19/17 11:59 04/13/17 14:21 Lorazepam (Ativan) 1 mg Q4H PRN ORAL For Anxiety 04/08/17 16:45 04/15/17 16:44 04/13/17 17:01 Magnesium Hydroxide (Mom) 30 ml HSPRN PRN ORAL Constipation 04/06/17 21:00 05/06/17 20:59 Ondansetron HCl (Zofran) 4 mg Q6H PRN IVP Nausea & Vomiting 04/06/17 18:00 05/06/17 17:59 Phenobarbital (PHENobarbital) 32.4 mg Q12HR ORAL 04/06/17 21:00 05/06/17 20:59 04/13/17 09:12 Polyethylene Glycol (Miralax) 17 gm HSPRN PRN ORAL Constipation 04/06/17 21:00 05/06/17 20:59 Pregabalin (Lyrica) 75 mg BID ORAL 04/06/17 18:00 05/06/17 17:59 04/13/17 17:00 Ranitidine HCl (Zantac) 150 mg BEDTIME ORAL 04/06/17 21:00 05/06/17 20:59 04/12/17 20:16 Sodium Chloride 1,000 ml @ 50 mls/hr Q20H IV 04/10/17 14:00 05/10/17 13:59 04/10/17 14:04 Trazodone HCl (Desyrel) 300 mg BEDTIME ORAL 04/09/17 21:00 05/09/17 20:59 04/12/17 20:15 Woo Garcia M.D. Apr 13, 2017 17:44
--- NOTE | 2017-04-13 18:06 | Nephrology Progress Note ---
Assessment/Plan Problem List: (1) Weakness (2) CECILY (acute kidney injury) (3) Diabetes (4) HTN (hypertension) (5) Schizophrenia Plan Monitor renal function Renally dose meds Avoid nephrotoxins Continue IVF Strict glycemic control Seizure precautions Monitor neuro status Monitor intake and output Psych following Continue sitter at bedside AM labs Subjective Subjective In the hallway, pleasantly confused, in no apparent distress. Objective Objective Last 24 Hour Vital Signs Date Time Temp Pulse Resp B/P (MAP) Pulse Ox O2 Delivery O2 Flow Rate FiO2 04/13/17 16:00 98.1 78 18 115/64 98 Room Air 04/13/17 12:51 98.2 04/13/17 11:57 98.2 85 18 128/66 95 Room Air 04/13/17 10:12 97.4 04/13/17 09:00 97.5 85 19 118/73 97 Room Air 04/13/17 04:00 97.4 87 20 143/72 94 Room Air 04/12/17 20:00 97.2 89 20 137/87 95 Room Air Laboratory Tests 04/13/17 05:50: White Blood Count 7.3, Red Blood Count 4.60, Hemoglobin 13.4, Hematocrit 40.0, Mean Corpuscular Volume 87, Mean Corpuscular Hemoglobin 29.2, Mean Corpuscular Hemoglobin Concent 33.5, Red Cell Distribution Width 14.1, Platelet Count 253, Mean Platelet Volume 6.5, Neutrophils (%) (Auto) 61.3, Lymphocytes (%) (Auto) 28.2, Monocytes (%) (Auto) 9.1, Eosinophils (%) (Auto) 0.0, Basophils (%) (Auto ) 1.4, Sodium Level 137, Potassium Level 4.1, Chloride Level 98, Carbon Dioxide Level 24, Anion Gap 15, Blood Urea Nitrogen 24H, Creatinine 0.8, Estimat Glomerular Filtration Rate > 60, Glucose Level 173#H, Calcium Level 9.1 Height (Feet): 5 Height (Inches): 4.00 Weight (Pounds): 160 General Appearance: no apparent distress EENT: normal ENT inspection Neck: normal alignment, supple Cardiovascular: normal rate, regular rhythm Respiratory/Chest: normal breath sounds, no respiratory distress Abdomen: soft, no organomegaly Extremities: non-tender, normal inspection Neurologic: responsive, normal mood/affect Egwu,Marilynn N.P. Apr 13, 2017 18:06
--- NOTE | 2017-04-13 18:53 | Cardiology Report ---
APPROVED REPORT EKG Measurement Heart [id number] Normal sinus rhythm Low voltage QRS Nonspecific T wave abnormality Abnormal ECG
[2017-04-13 19:51] VITALS: BP 129/67
[2017-04-13] MEDS: TraZODone 100mg tab ORAL SCH (20:47)
--- NOTE | 2017-04-13 22:41 | Pulmonology Progress Note ---
Assessment/Plan Problems: (1) Seizure disorder (2) History of asthma (3) HTN (hypertension) (4) Diabetes (5) Lumbar radiculopathy (6) Schizophrenia Assessment/Plan all noted symptomatic treatment respiratory Rx increase to Q 4 hours titrate fio2 psych and neuro evaluation Subjective ROS Limited/Unobtainable: No Constitutional: Reports: no symptoms HEENT: Repors: no symptoms Respiratory: Reports: no symptoms Allergies: Coded Allergies: ACETAMINOPHEN (Verified Allergy, Unknown, 07/22/14) APPLE (Verified Allergy, Unknown, 04/06/17) ASPIRIN (Verified Allergy, Unknown, ITCHING, 07/22/14) AZITHROMYCIN (Verified Allergy, Unknown, 07/22/14) COPIED FROM UNCODED BANANA (Verified Allergy, Unknown, 04/06/17) CODEINE (Verified Allergy, Unknown, 07/22/14) ERYTHROMYCIN BASE (Verified Allergy, Unknown, 07/22/14) FISH CONTAINING PRODUCTS (Verified Allergy, Unknown, 07/22/14) HYDROCODONE (Verified Allergy, Unknown, 07/22/14) IODINE (Verified Allergy, Unknown, 07/22/14) MIDAZOLAM (Verified Allergy, Unknown, 07/22/14) MILK (Verified Allergy, Unknown, 07/22/14) PROPOXYPHENE (Verified Allergy, Unknown, 07/22/14) COPIED FROM UNCODED SULFA (SULFONAMIDE ANTIBIOTICS) (Verified Allergy, Unknown, 07/22/14) COPIED FROM UNCODED SULFACETAMIDE (Unverified Allergy, Unknown, 03/25/17) SUMATRIPTAN (Verified Allergy, Unknown, 07/22/14) TETRACYCLINE (Verified Allergy, Unknown, RASH, 07/22/14) TETRACYCLINES (Verified Allergy, Unknown, 07/22/14) COPIED FROM UNCODED TOMATO (Verified Allergy, Unknown, 07/22/14) according to pt "I will !".... Objective Last 24 Hour Vital Signs Date Time Temp Pulse Resp B/P (MAP) Pulse Ox O2 Delivery O2 Flow Rate FiO2 04/13/17 19:51 97.7 83 21 129/67 96 Room Air 04/13/17 17:59 98.1 04/13/17 16:00 98.1 78 18 115/64 98 Room Air 04/13/17 12:51 98.2 04/13/17 11:57 98.2 85 18 128/66 95 Room Air 04/13/17 09:00 97.5 85 19 118/73 97 Room Air 04/13/17 04:00 97.4 87 20 143/72 94 Room Air Intake and Output 04/13/17 04/14/17 19:00 07:00 Intake Total 1100 ml Balance 1100 ml Intake Oral 1100 ml # Voids 5 # Bowel Movements 3 General Appearance: WD/WN HEENT: normocephalic, atraumatic Respiratory/Chest: chest wall non-tender, lungs clear Breasts: no masses Cardiovascular: normal peripheral pulses Genitourinary: normal external genitalia Extremities: no clubbing Skin: no lesions Neurologic/Psychiatric: small offset printer II-XII grossly normal Laboratory Tests 04/13/17 05:50: White Blood Count 7.3, Red Blood Count 4.60, Hemoglobin 13.4, Hematocrit 40.0, Mean Corpuscular Volume 87, Mean Corpuscular Hemoglobin 29.2, Mean Corpuscular Hemoglobin Concent 33.5, Red Cell Distribution Width 14.1, Platelet Count 253, Mean Platelet Volume 6.5, Neutrophils (%) (Auto) 61.3, Lymphocytes (%) (Auto) 28.2, Monocytes (%) (Auto) 9.1, Eosinophils (%) (Auto) 0.0, Basophils (%) (Auto ) 1.4, Sodium Level 137, Potassium Level 4.1, Chloride Level 98, Carbon Dioxide Level 24, Anion Gap 15, Blood Urea Nitrogen 24H, Creatinine 0.8, Estimat Glomerular Filtration Rate > 60, Glucose Level 173#H, Calcium Level 9.1 Current Medications Medications (Trade) Dose Ordered Sig/Robb Route PRN Reason Start Time Stop Time Status Last Admin Dose Admin Al Hydroxide/Mg Hydroxide (Mylanta II) 30 ml Q6H PRN ORAL dyspepsia 04/06/17 18:00 05/06/17 17:59 Cephalexin (Keflex) 500 mg FOUR TIMES A DAY ORAL 04/11/17 18:00 04/18/17 17:59 04/13/17 20:46 Dextrose (Dextrose 50%) STAT PRN IV Hypoglycemia 04/06/17 18:00 05/06/17 17:59 Diphenhydramine HCl (Benadryl) 50 mg Q8HR ORAL 04/13/17 06:00 05/13/17 05:59 04/13/17 13:32 Docusate Sodium (Colace) 100 mg DAILY ORAL 04/07/17 09:00 05/07/17 08:59 04/13/17 09:12 Escitalopram Oxalate (Lexapro) 10 mg DAILY ORAL 04/07/17 09:00 05/07/17 08:59 04/13/17 09:12 Gabapentin (Neurontin) 300 mg THREE TIMES A DAY ORAL 04/06/17 18:00 05/06/17 17:59 04/13/17 17:00 Haloperidol (Haldol) 10 mg Q8HR ORAL 04/13/17 06:00 05/13/17 05:59 04/13/17 13:32 Ibuprofen (Motrin) 600 mg Q6H PRN ORAL For Pain 04/06/17 18:00 05/06/17 17:59 04/13/17 11:52 Insulin Aspart (NovoLOG) BEFORE MEALS AND HS SUBQ 04/06/17 21:00 05/06/17 20:59 04/13/17 20:50 Levetiracetam (Keppra) 1,500 mg Q12HR ORAL 04/06/17 21:00 05/06/17 20:59 04/13/17 20:47 Lorazepam (Ativan 2mg/ml 1ml) 2 mg EVERY 6 HOURS PRN IM For Anxiety 04/12/17 12:00 04/19/17 11:59 04/13/17 14:21 Lorazepam (Ativan) 1 mg Q4H PRN ORAL For Anxiety 04/08/17 16:45 04/15/17 16:44 04/13/17 17:01 Magnesium Hydroxide (Mom) 30 ml HSPRN PRN ORAL Constipation 04/06/17 21:00 05/06/17 20:59 Ondansetron HCl (Zofran) 4 mg Q6H PRN IVP Nausea & Vomiting 04/06/17 18:00 05/06/17 17:59 Phenobarbital (PHENobarbital) 32.4 mg Q12HR ORAL 04/06/17 21:00 05/06/17 20:59 04/13/17 20:46 Polyethylene Glycol (Miralax) 17 gm HSPRN PRN ORAL Constipation 04/06/17 21:00 05/06/17 20:59 Pregabalin (Lyrica) 75 mg BID ORAL 04/06/17 18:00 05/06/17 17:59 04/13/17 17:00 Ranitidine HCl (Zantac) 150 mg BEDTIME ORAL 04/06/17 21:00 05/06/17 20:59 04/13/17 20:50 Sodium Chloride 1,000 ml @ 50 mls/hr Q20H IV 04/10/17 14:00 05/10/17 13:59 04/10/17 14:04 Trazodone HCl (Desyrel) 300 mg BEDTIME ORAL 04/09/17 21:00 05/09/17 20:59 04/13/17 20:47 ZITA MANDEL Apr 13, 2017 22:41
[2017-04-14] VITALS: BP 110/62
[2017-04-14] MEDS: LORazepam 1mg tab ORAL PRN ×3 (03:13→21:10)
[2017-04-14 04:00] VITALS: BP 115/79
[2017-04-14] MEDS: NovoLOG Insulin Flexpen SUBQ SCH ×4 (06:17→21:00)
[2017-04-14 06:28] LABS: EOSINOPHILS % (AUTO) 0.1 % (0.0-3.0); LYMPHOCYTES % (AUTO) 34.7 % (20.0-45.0); MEAN CORPUSCULAR HEMOGLOBIN 28.9 PG (27.0-31.0); MEAN CORPUSCULAR HGB CONC 33.3 G/DL (32.0-36.0); MEAN CORPUSCULAR VOLUME 87 FL (80-99); MEAN PLATELET VOLUME 6.9 FL (6.5-10.1); MONOCYTES % (AUTO) 15.1 % (1.0-10.0); NEUTROPHILS % (AUTO) 49.1 % (45.0-75.0); PLATELET COUNT 214 K/UL (150-450); RED BLOOD COUNT 3.95 M/UL (4.20-5.40); RED CELL DISTRIBUTION WIDTH 14.2 % (11.6-14.8); WHITE BLOOD COUNT 7.1 K/UL (4.8-10.8)
[2017-04-14 06:48] LABS: ANION GAP 10 (5-15); CALCIUM 8.5 mg/dL (8.6-10.2); CARBON DIOXIDE 28 mEQ/L (20-30); CHLORIDE 101 mEQ/L (98-107); CREATININE 0.8 mg/dL (0.5-0.9); GLOMERULAR FILTRATION RATE > 60 mL/min (>60); HEMOLYSIS 8; POTASSIUM 4.2 mEQ/L (3.4-4.9); SODIUM 139 mEQ/L (135-145)
[2017-04-14 08:00] VITALS: BP 117/71
--- NOTE | 2017-04-14 08:15 | Progress Note ---
PSYCHOTHERAPY CONSULTATION PROGRESS NOTE CONSULTING PHYSICIAN: Belkis Nicholas M.D. TREATING ATTENDING PHYSICIAN: Scott Samson D.O. Subjective: The patient is a 52-year-old female patient, who is lethargic, disorganised, altered in mental status, . She has poor insight, poor judgement, and poor impulse control . Mental Status Examination: The patient is alert and oriented x2, person and place. Mood is anxious. Affect is congruent. Thought process is disorganized. She has poor attention and concentration. DIAGNOSIS: The patient has paranoid schizophrenia. Plan: This clinician assessed this patient provided the patient with reality orientation. Continue with medication management and behavioral management. This clinician has reviewed the patient's chart and discussed the treatment with the nursing staff. Belkis Nicholas PsyD. DR: Yudith JOB#: [id number] CC:
[2017-04-14] MEDS: PHENobarbital 32.4mg tab ORAL SCH ×2 (08:19→21:01)
[2017-04-14] MEDS: Cephalexin 500mg cap ORAL SCH ×4 (08:20→21:01)
[2017-04-14] MEDS: Docusate 100mg cap ORAL SCH (08:20)
[2017-04-14] MEDS: Lyrica 75mg cap ORAL SCH ×2 (08:20→17:14)
--- NOTE | 2017-04-14 08:21 | General Progress Note ---
Assessment/Plan Assessment/Plan (1) Lumbar radiculopathy (2) Lumbar spondylosis (3) Lumbar degenerative disc disease Pt will be continued on Suzette D/w and he concurred. Subjective Date patient seen: Apr 14, 2017 Time patient seen: 07:00 - am Allergies: Coded Allergies: MILK (Verified Allergy, Mild, 04/14/17) can have cream cheese APPLE (Verified Allergy, Unknown, 04/06/17) ASPIRIN (Verified Allergy, Unknown, ITCHING, 07/22/14) AZITHROMYCIN (Verified Allergy, Unknown, 07/22/14) COPIED FROM UNCODED BANANA (Verified Allergy, Unknown, 04/06/17) CODEINE (Verified Allergy, Unknown, 07/22/14) ERYTHROMYCIN BASE (Verified Allergy, Unknown, 07/22/14) FISH CONTAINING PRODUCTS (Verified Allergy, Unknown, 07/22/14) HYDROCODONE (Verified Allergy, Unknown, 07/22/14) IODINE (Verified Allergy, Unknown, 07/22/14) MIDAZOLAM (Verified Allergy, Unknown, 07/22/14) PROPOXYPHENE (Verified Allergy, Unknown, 07/22/14) COPIED FROM UNCODED SULFA (SULFONAMIDE ANTIBIOTICS) (Verified Allergy, Unknown, 07/22/14) COPIED FROM UNCODED SULFACETAMIDE (Unverified Allergy, Unknown, 03/25/17) SUMATRIPTAN (Verified Allergy, Unknown, 07/22/14) TETRACYCLINE (Verified Allergy, Unknown, RASH, 07/22/14) TETRACYCLINES (Verified Allergy, Unknown, 07/22/14) COPIED FROM UNCODED TOMATO (Verified Allergy, Unknown, 07/22/14) according to pt "I will !".... Subjective Constitutional: Denies: no symptoms, chills, diaphoresis, fever, malaise, weakness, other HEENT: Denies: no symptoms, eye pain, blurred vision, tearing, double vision, ear pain, ear discharge, nose pain, nose congestion, throat pain, throat swelling, mouth pain, mouth swelling, other Cardiovascular: Denies: no symptoms, chest pain, edema, irregular heart rate, lightheadedness, palpitations, syncope, other Respiratory: Denies: no symptoms, cough, orthopnea, shortness of breath, SOB with excertion, SOB at rest, sputum, stridor, wheezing, other Gastrointestinal/Abdominal: Reports: Abdmoinal pain, nausea, vomiting Genitourinary: Denies: burning, discharge, frequency, flank pain, urgency Neurologic/Psychiatric: Reports: depressed, weakness Endocrine: Denies: no symptoms, excessive sweating, flushing, intolerance to cold, intolerance to heat, increased hunger, increased thirst, increased urine, unexplained weight gain, unexplained weight loss, other Hematologic/Lymphatic: Denies: no symptoms, anemia, easy bleeding, easy bruising, other Subjective Pt is sitting up in bed no signs of pain at this time. She has no new complaints. Objective Last 24 Hour Vital Signs Date Time Temp Pulse Resp B/P (MAP) Pulse Ox O2 Delivery O2 Flow Rate FiO2 04/14/17 04:13 97.3 04/14/17 04:00 97.3 82 20 115/79 98 Nasal Cannula 04/14/17 00:00 97.2 71 20 110/62 Nasal Cannula 04/14/17 00:00 98 Room Air 04/13/17 19:51 97.7 83 21 129/67 96 Room Air 04/13/17 17:59 98.1 04/13/17 16:00 98.1 78 18 115/64 98 Room Air 04/13/17 11:57 98.2 85 18 128/66 95 Room Air 04/13/17 09:00 97.5 85 19 118/73 97 Room Air Laboratory Tests 04/14/17 04:55: White Blood Count 7.1, Red Blood Count 3.95L, Hemoglobin 11.4L, Hematocrit 34.3L , Mean Corpuscular Volume 87, Mean Corpuscular Hemoglobin 28.9, Mean Corpuscular Hemoglobin Concent 33.3, Red Cell Distribution Width 14.2, Platelet Count 214, Mean Platelet Volume 6.9, Neutrophils (%) (Auto) 49.1, Lymphocytes (% ) (Auto) 34.7, Monocytes (%) (Auto) 15.1H, Eosinophils (%) (Auto) 0.1, Basophils (%) (Auto) 1.0, Sodium Level 139, Potassium Level 4.2, Chloride Level 101, Carbon Dioxide Level 28, Anion Gap 10, Blood Urea Nitrogen 27H, Creatinine 0.8, Estimat Glomerular Filtration Rate > 60, Glucose Level 185H, Calcium Level 8.5L Height (Feet): 5 Height (Inches): 4.00 Weight (Pounds): 160 Objective General Appearance: no apparent distress, alert EENT: PERRL/EOMI, normal ENT inspection Neck: non-tender, normal alignment Cardiovascular: normal rate, regular rhythm Respiratory/Chest: lungs clear, normal breath sounds Abdomen: non tender, soft Extremities: non-tender Edema: trace edema Neurologic: alert, responsive Skin: warm/dry ROOSEVELT SAWYER Apr 14, 2017 08:21
[2017-04-14 12:00] VITALS: BP 143/91
--- NOTE | 2017-04-14 14:15 | GI Progress Note ---
Assessment/Plan Problems: (1) Weakness ICD Codes: R53.1 - Weakness SNOMED: 33685937 (2) Schizophrenia ICD Codes: F20.9 - Schizophrenia, unspecified SNOMED: 13102770 (3) GERD (gastroesophageal reflux disease) ICD Codes: K21.9 - Gastro-esophageal reflux disease without esophagitis SNOMED: 959494564 (4) Diabetes ICD Codes: E11.9 - Type 2 diabetes mellitus without complications SNOMED: 56354248 Status: stable Status Narrative Discussed with Dr. De Souza. Assessment/Plan OB stool negative clear for DC per GI standpoint zofran prn, consider reglan if vomiting persists fu swallow eval >> cont with plan of care bowel regime >> miralax + colace ATC pain mgmt ppi PT/OT eval outpatient GI procedures Subjective Subjective generalized weakness no GI symptoms Objective Last 24 Hour Vital Signs Date Time Temp Pulse Resp B/P (MAP) Pulse Ox O2 Delivery O2 Flow Rate FiO2 04/14/17 12:00 97.9 82 18 143/91 97 Room Air 04/14/17 09:19 97.3 04/14/17 08:00 97.9 82 18 117/71 94 Room Air 04/14/17 04:13 97.3 04/14/17 04:00 97.3 82 20 115/79 98 Nasal Cannula 04/14/17 00:00 97.2 71 20 110/62 Nasal Cannula 04/14/17 00:00 98 Room Air 04/13/17 19:51 97.7 83 21 129/67 96 Room Air 04/13/17 16:00 98.1 78 18 115/64 98 Room Air Intake and Output 04/14/17 04/15/17 19:00 07:00 Intake Total 600 ml Balance 600 ml Intake Oral 600 ml # Voids 3 Laboratory Tests Test 04/14/17 04:55 White Blood Count 7.1 K/UL (4.8-10.8) Red Blood Count 3.95 M/UL (4.20-5.40) L Hemoglobin 11.4 G/DL (12.0-16.0) L Hematocrit 34.3 % (37.0-47.0) L Mean Corpuscular Volume 87 FL (80-99) Mean Corpuscular Hemoglobin 28.9 PG (27.0-31.0) Mean Corpuscular Hemoglobin Concent 33.3 G/DL (32.0-36.0) Red Cell Distribution Width 14.2 % (11.6-14.8) Platelet Count 214 K/UL (150-450) Mean Platelet Volume 6.9 FL (6.5-10.1) Neutrophils (%) (Auto) 49.1 % (45.0-75.0) Lymphocytes (%) (Auto) 34.7 % (20.0-45.0) Monocytes (%) (Auto) 15.1 % (1.0-10.0) H Eosinophils (%) (Auto) 0.1 % (0.0-3.0) Basophils (%) (Auto) 1.0 % (0.0-2.0) Sodium Level 139 mEQ/L (135-145) Potassium Level 4.2 mEQ/L (3.4-4.9) Chloride Level 101 mEQ/L (98-107) Carbon Dioxide Level 28 mEQ/L (20-30) Anion Gap 10 (5-15) Blood Urea Nitrogen 27 mg/dL (7-23) H Creatinine 0.8 mg/dL (0.5-0.9) Estimat Glomerular Filtration Rate > 60 mL/min (>60) Glucose Level 185 mg/dL (74-106) H Calcium Level 8.5 mg/dL (8.6-10.2) L Height (Feet): 5 Height (Inches): 4.00 Weight (Pounds): 160 General Appearance: no apparent distress, alert, lethargic Cardiovascular: normal rate Respiratory/Chest: normal breath sounds, no respiratory distress Abdominal Exam: normal bowel sounds, non tender, soft Katlyn Nava N.PDarnell Apr 14, 2017 14:15
--- NOTE | 2017-04-14 14:26 | General Progress Note ---
Assessment/Plan Problem List: (1) UTI (urinary tract infection) ICD Codes: N39.0 - Urinary tract infection, site not specified SNOMED: 98227382 (2) Asthma exacerbation ICD Codes: J45.901 - Unspecified asthma with (acute) exacerbation SNOMED: 237002344 (3) Altered mental status ICD Codes: R41.82 - Altered mental status, unspecified SNOMED: 015876790 (4) Chronic pain ICD Codes: G89.29 - Other chronic pain SNOMED: 82915771 (5) Psychiatric disorder ICD Codes: F99 - Mental disorder SNOMED: 61634220 (6) Altered level of consciousness ICD Codes: R40.4 - Transient alteration of awareness SNOMED: 3583922 (7) Diabetes ICD Codes: E11.9 - Type 2 diabetes mellitus without complications SNOMED: 56196579 (8) Seizure disorder ICD Codes: G40.909 - Seizure disorder SNOMED: 725837228 (9) Encephalopathy ICD Codes: G93.40 - Encephalopathy, unspecified SNOMED: 34298255, 280997447 (10) Weakness ICD Codes: R53.1 - Weakness SNOMED: 02091931 (11) HTN (hypertension) ICD Codes: I10 - Essential (primary) hypertension SNOMED: 64162474 Status: stable, progressing, tolerating diet Assessment/Plan ot pt diet abx seizure control dc to snf if neuro clears Subjective Constitutional: Reports: weakness Allergies: Coded Allergies: MILK (Verified Allergy, Mild, 04/14/17) can have cream cheese ACETAMINOPHEN (Verified Allergy, Unknown, 07/22/14) APPLE (Verified Allergy, Unknown, 04/06/17) ASPIRIN (Verified Allergy, Unknown, ITCHING, 07/22/14) AZITHROMYCIN (Verified Allergy, Unknown, 07/22/14) COPIED FROM UNCODED BANANA (Verified Allergy, Unknown, 04/06/17) CODEINE (Verified Allergy, Unknown, 07/22/14) ERYTHROMYCIN BASE (Verified Allergy, Unknown, 07/22/14) FISH CONTAINING PRODUCTS (Verified Allergy, Unknown, 07/22/14) HYDROCODONE (Verified Allergy, Unknown, 07/22/14) IODINE (Verified Allergy, Unknown, 07/22/14) MIDAZOLAM (Verified Allergy, Unknown, 07/22/14) PROPOXYPHENE (Verified Allergy, Unknown, 07/22/14) COPIED FROM UNCODED SULFA (SULFONAMIDE ANTIBIOTICS) (Verified Allergy, Unknown, 07/22/14) COPIED FROM UNCODED SULFACETAMIDE (Unverified Allergy, Unknown, 03/25/17) SUMATRIPTAN (Verified Allergy, Unknown, 07/22/14) TETRACYCLINE (Verified Allergy, Unknown, RASH, 07/22/14) TETRACYCLINES (Verified Allergy, Unknown, 07/22/14) COPIED FROM UNCODED TOMATO (Verified Allergy, Unknown, 07/22/14) according to pt "I will !".... Subjective weak sl confused, yesterday had seizure x 2 Objective Last 24 Hour Vital Signs Date Time Temp Pulse Resp B/P (MAP) Pulse Ox O2 Delivery O2 Flow Rate FiO2 04/14/17 12:00 97.9 82 18 143/91 97 Room Air 04/14/17 09:19 97.3 04/14/17 08:00 97.9 82 18 117/71 94 Room Air 04/14/17 04:13 97.3 04/14/17 04:00 97.3 82 20 115/79 98 Nasal Cannula 04/14/17 00:00 97.2 71 20 110/62 Nasal Cannula 04/14/17 00:00 98 Room Air 04/13/17 19:51 97.7 83 21 129/67 96 Room Air 04/13/17 16:00 98.1 78 18 115/64 98 Room Air Intake and Output 04/14/17 04/15/17 19:00 07:00 Intake Total 600 ml Balance 600 ml Intake Oral 600 ml # Voids 3 Laboratory Tests 04/14/17 04:55: White Blood Count 7.1, Red Blood Count 3.95L, Hemoglobin 11.4L, Hematocrit 34.3L , Mean Corpuscular Volume 87, Mean Corpuscular Hemoglobin 28.9, Mean Corpuscular Hemoglobin Concent 33.3, Red Cell Distribution Width 14.2, Platelet Count 214, Mean Platelet Volume 6.9, Neutrophils (%) (Auto) 49.1, Lymphocytes (% ) (Auto) 34.7, Monocytes (%) (Auto) 15.1H, Eosinophils (%) (Auto) 0.1, Basophils (%) (Auto) 1.0, Sodium Level 139, Potassium Level 4.2, Chloride Level 101, Carbon Dioxide Level 28, Anion Gap 10, Blood Urea Nitrogen 27H, Creatinine 0.8, Estimat Glomerular Filtration Rate > 60, Glucose Level 185H, Calcium Level 8.5L Height (Feet): 5 Height (Inches): 4.00 Weight (Pounds): 160 General Appearance: lethargic EENT: normal ENT inspection Neck: normal alignment Cardiovascular: normal peripheral pulses, normal rate, regular rhythm Respiratory/Chest: chest wall non-tender, lungs clear, normal breath sounds Abdomen: normal bowel sounds, non tender, soft Extremities: normal inspection Edema: no edema noted Arm (L), no edema noted Arm (R), no edema noted Leg (L), no edema noted Leg (R), no edema noted Pedal (L), no edema noted Pedal (R), no edema noted Generalized Neurologic: responsive, motor weakness Skin: normal pigmentation, warm/dry CHUCK ESCAMILLA Apr 14, 2017 14:26
--- NOTE | 2017-04-14 15:06 | Neurology Progress Note ---
Interim History Interim History Complaints: frequent sz Events: yesterday noted sz episode Objective Physical Exam Last Vital Signs Date Time Temp Pulse Resp B/P (MAP) Pulse Ox O2 Delivery O2 Flow Rate FiO2 04/14/17 14:56 97.9 04/14/17 12:00 82 18 143/91 97 Room Air 04/07/17 16:36 21 Laboratory Tests Test 04/14/17 04:55 White Blood Count 7.1 K/UL (4.8-10.8) Red Blood Count 3.95 M/UL (4.20-5.40) L Hemoglobin 11.4 G/DL (12.0-16.0) L Hematocrit 34.3 % (37.0-47.0) L Mean Corpuscular Volume 87 FL (80-99) Mean Corpuscular Hemoglobin 28.9 PG (27.0-31.0) Mean Corpuscular Hemoglobin Concent 33.3 G/DL (32.0-36.0) Red Cell Distribution Width 14.2 % (11.6-14.8) Platelet Count 214 K/UL (150-450) Mean Platelet Volume 6.9 FL (6.5-10.1) Neutrophils (%) (Auto) 49.1 % (45.0-75.0) Lymphocytes (%) (Auto) 34.7 % (20.0-45.0) Monocytes (%) (Auto) 15.1 % (1.0-10.0) H Eosinophils (%) (Auto) 0.1 % (0.0-3.0) Basophils (%) (Auto) 1.0 % (0.0-2.0) Sodium Level 139 mEQ/L (135-145) Potassium Level 4.2 mEQ/L (3.4-4.9) Chloride Level 101 mEQ/L (98-107) Carbon Dioxide Level 28 mEQ/L (20-30) Anion Gap 10 (5-15) Blood Urea Nitrogen 27 mg/dL (7-23) H Creatinine 0.8 mg/dL (0.5-0.9) Estimat Glomerular Filtration Rate > 60 mL/min (>60) Glucose Level 185 mg/dL (74-106) H Calcium Level 8.5 mg/dL (8.6-10.2) L General: well developed, well nourished, no acute distress Head: normocophalic, atraumatic Neck: no rigidity Neurologic Exam Mental Status: awake, alert, normal cognition Speech: normal speech, no dysarthia Language: normal language, no aphasia Cranial Nerve II: fundus normal, visual maxwell, no papilledema Cranial Nerves III, IV, : PERRLA, EOMI, pupils Cranial Nerve V: normal facial sensations, temporales function normal, masseters function normal, pterygoids function normal Cranial Nerve VII: no facial asymmetry, normal facial expressions Cranial Nerve VIII: no nystagmus Cranial Nerve IX: normal palate elevation, gag response Cranial Nerve XI: SCM symmetric, trapezii function normal Cranial Nerve XII: tongue midline, no tongue atrophy/fasciculations Motor System: no involuntary movement, no muscle wasting Sensory: normal pinprick Deep Tendon Reflexes: 1+ bicep (L), 1+ bicep (R), 1+ tricep (L), 1+ tricep (R) , 1+ brachioradialis (L), 1+ brachioradialis (R), 1+ knee (L), 1+ knee (R), 1+ ankle (L), 1+ ankle (R) Impression/Recommendations Problems: (1) h/o seizure and pseudoseizure disorder Status: stable, progressing, tolerating diet Recommendations # [id number] cont present rx ok d/c WENDY Petty Apr 14, 2017 15:06
[2017-04-14 16:00] VITALS: BP 121/63
--- NOTE | 2017-04-14 16:44 | Pulmonology Progress Note ---
Assessment/Plan Problems: (1) Seizure disorder (2) History of asthma (3) HTN (hypertension) (4) Diabetes (5) Lumbar radiculopathy (6) Schizophrenia Assessment/Plan all noted symptomatic treatment respiratory Rx increase to Q 4 hours titrate fio2 psych and neuro evaluation awaiting discharge Subjective ROS Limited/Unobtainable: No Constitutional: Reports: no symptoms HEENT: Repors: no symptoms Respiratory: Reports: no symptoms Allergies: Coded Allergies: MILK (Verified Allergy, Mild, 04/14/17) can have cream cheese ACETAMINOPHEN (Verified Allergy, Unknown, 07/22/14) APPLE (Verified Allergy, Unknown, 04/06/17) ASPIRIN (Verified Allergy, Unknown, ITCHING, 07/22/14) AZITHROMYCIN (Verified Allergy, Unknown, 07/22/14) COPIED FROM UNCODED BANANA (Verified Allergy, Unknown, 04/06/17) CODEINE (Verified Allergy, Unknown, 07/22/14) ERYTHROMYCIN BASE (Verified Allergy, Unknown, 07/22/14) FISH CONTAINING PRODUCTS (Verified Allergy, Unknown, 07/22/14) HYDROCODONE (Verified Allergy, Unknown, 07/22/14) IODINE (Verified Allergy, Unknown, 07/22/14) MIDAZOLAM (Verified Allergy, Unknown, 07/22/14) PROPOXYPHENE (Verified Allergy, Unknown, 07/22/14) COPIED FROM UNCODED SULFA (SULFONAMIDE ANTIBIOTICS) (Verified Allergy, Unknown, 07/22/14) COPIED FROM UNCODED SULFACETAMIDE (Unverified Allergy, Unknown, 03/25/17) SUMATRIPTAN (Verified Allergy, Unknown, 07/22/14) TETRACYCLINE (Verified Allergy, Unknown, RASH, 07/22/14) TETRACYCLINES (Verified Allergy, Unknown, 07/22/14) COPIED FROM UNCODED TOMATO (Verified Allergy, Unknown, 07/22/14) according to pt "I will !".... Objective Last 24 Hour Vital Signs Date Time Temp Pulse Resp B/P (MAP) Pulse Ox O2 Delivery O2 Flow Rate FiO2 04/14/17 14:56 97.9 04/14/17 12:00 97.9 82 18 143/91 97 Room Air 04/14/17 09:19 97.3 04/14/17 08:00 97.9 82 18 117/71 94 Room Air 04/14/17 04:00 97.3 82 20 115/79 98 Nasal Cannula 04/14/17 00:00 97.2 71 20 110/62 Nasal Cannula 04/14/17 00:00 98 Room Air 04/13/17 19:51 97.7 83 21 129/67 96 Room Air Intake and Output 04/14/17 04/15/17 19:00 07:00 Intake Total 600 ml Balance 600 ml Intake Oral 600 ml # Voids 3 General Appearance: WD/WN HEENT: normocephalic, atraumatic Respiratory/Chest: chest wall non-tender, lungs clear Breasts: no masses Cardiovascular: normal peripheral pulses Abdomen: normal bowel sounds, no organomegaly Genitourinary: normal external genitalia Extremities: no cyanosis 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, no motor/sensory deficits Lymphatic: no neck adenopathy Laboratory Tests 04/14/17 04:55: White Blood Count 7.1, Red Blood Count 3.95L, Hemoglobin 11.4L, Hematocrit 34.3L , Mean Corpuscular Volume 87, Mean Corpuscular Hemoglobin 28.9, Mean Corpuscular Hemoglobin Concent 33.3, Red Cell Distribution Width 14.2, Platelet Count 214, Mean Platelet Volume 6.9, Neutrophils (%) (Auto) 49.1, Lymphocytes (% ) (Auto) 34.7, Monocytes (%) (Auto) 15.1H, Eosinophils (%) (Auto) 0.1, Basophils (%) (Auto) 1.0, Sodium Level 139, Potassium Level 4.2, Chloride Level 101, Carbon Dioxide Level 28, Anion Gap 10, Blood Urea Nitrogen 27H, Creatinine 0.8, Estimat Glomerular Filtration Rate > 60, Glucose Level 185H, Calcium Level 8.5L Current Medications Medications (Trade) Dose Ordered Sig/Robb Route PRN Reason Start Time Stop Time Status Last Admin Dose Admin Al Hydroxide/Mg Hydroxide (Mylanta II) 30 ml Q6H PRN ORAL dyspepsia 04/06/17 18:00 05/06/17 17:59 Cephalexin (Keflex) 500 mg FOUR TIMES A DAY ORAL 04/11/17 18:00 04/18/17 17:59 04/14/17 12:38 Dextrose (Dextrose 50%) STAT PRN IV Hypoglycemia 04/06/17 18:00 05/06/17 17:59 Diphenhydramine HCl (Benadryl) 50 mg Q8HR ORAL 04/13/17 06:00 05/13/17 05:59 04/14/17 13:56 Divalproex Sodium (Depakote ER) 500 mg EVERY 12 HOURS ORAL 04/14/17 21:00 05/14/17 20:59 Docusate Sodium (Colace) 100 mg DAILY ORAL 04/07/17 09:00 05/07/17 08:59 04/14/17 08:20 Escitalopram Oxalate (Lexapro) 10 mg DAILY ORAL 04/07/17 09:00 05/07/17 08:59 04/14/17 08:19 Gabapentin (Neurontin) 300 mg THREE TIMES A DAY ORAL 04/06/17 18:00 05/06/17 17:59 04/14/17 12:38 Haloperidol (Haldol) 10 mg Q8HR ORAL 04/13/17 06:00 05/13/17 05:59 04/14/17 13:56 Ibuprofen (Motrin) 600 mg Q6H PRN ORAL For Pain 04/06/17 18:00 05/06/17 17:59 04/14/17 13:57 Insulin Aspart (NovoLOG) BEFORE MEALS AND HS SUBQ 04/06/17 21:00 05/06/17 20:59 04/14/17 11:46 Levetiracetam (Keppra) 1,500 mg Q12HR ORAL 04/06/17 21:00 05/06/17 20:59 04/14/17 08:20 Lorazepam (Ativan 2mg/ml 1ml) 2 mg EVERY 6 HOURS PRN IM For Anxiety 04/12/17 12:00 04/19/17 11:59 04/13/17 14:21 Lorazepam (Ativan) 1 mg Q4H PRN ORAL For Anxiety 04/08/17 16:45 04/15/17 16:44 04/14/17 12:39 Magnesium Hydroxide (Mom) 30 ml HSPRN PRN ORAL Constipation 04/06/17 21:00 05/06/17 20:59 Ondansetron HCl (Zofran) 4 mg Q6H PRN IVP Nausea & Vomiting 04/06/17 18:00 05/06/17 17:59 Phenobarbital (PHENobarbital) 32.4 mg Q12HR ORAL 04/06/17 21:00 05/06/17 20:59 04/14/17 08:19 Polyethylene Glycol (Miralax) 17 gm HSPRN PRN ORAL Constipation 04/06/17 21:00 05/06/17 20:59 Pregabalin (Lyrica) 75 mg BID ORAL 04/06/17 18:00 05/06/17 17:59 04/14/17 08:20 Ranitidine HCl (Zantac) 150 mg BEDTIME ORAL 04/06/17 21:00 05/06/17 20:59 04/13/17 20:50 Sodium Chloride 1,000 ml @ 50 mls/hr Q20H IV 04/10/17 14:00 05/10/17 13:59 04/10/17 14:04 Trazodone HCl (Desyrel) 300 mg BEDTIME ORAL 04/09/17 21:00 05/09/17 20:59 04/13/17 20:47 ZITA MANDEL Apr 14, 2017 16:44
--- NOTE | 2017-04-14 17:11 | Infectious Diseases Prog Note ---
Assessment/Plan Problems: (1) UTI (urinary tract infection) Assessment & Plan: on keflex for 7 days (2) Asthma exacerbation Assessment & Plan: continue inhalers, and oxygen (3) Altered level of consciousness Assessment & Plan: unclear etiology, neurology and psych are following (4) Psychiatric disorder Assessment & Plan: on psych meds (5) Seizure disorder Assessment & Plan: controlled on seizure meds , neurology is following Subjective ROS Limited/Unobtainable: Yes Allergies: Coded Allergies: MILK (Verified Allergy, Mild, 04/14/17) can have cream cheese ACETAMINOPHEN (Verified Allergy, Unknown, 07/22/14) APPLE (Verified Allergy, Unknown, 04/06/17) ASPIRIN (Verified Allergy, Unknown, ITCHING, 07/22/14) AZITHROMYCIN (Verified Allergy, Unknown, 07/22/14) COPIED FROM UNCODED BANANA (Verified Allergy, Unknown, 04/06/17) CODEINE (Verified Allergy, Unknown, 07/22/14) ERYTHROMYCIN BASE (Verified Allergy, Unknown, 07/22/14) FISH CONTAINING PRODUCTS (Verified Allergy, Unknown, 07/22/14) HYDROCODONE (Verified Allergy, Unknown, 07/22/14) IODINE (Verified Allergy, Unknown, 07/22/14) MIDAZOLAM (Verified Allergy, Unknown, 07/22/14) PROPOXYPHENE (Verified Allergy, Unknown, 07/22/14) COPIED FROM UNCODED SULFA (SULFONAMIDE ANTIBIOTICS) (Verified Allergy, Unknown, 07/22/14) COPIED FROM UNCODED SULFACETAMIDE (Unverified Allergy, Unknown, 03/25/17) SUMATRIPTAN (Verified Allergy, Unknown, 07/22/14) TETRACYCLINE (Verified Allergy, Unknown, RASH, 07/22/14) TETRACYCLINES (Verified Allergy, Unknown, 07/22/14) COPIED FROM UNCODED TOMATO (Verified Allergy, Unknown, 07/22/14) according to pt "I will !".... Subjective she is lethargic, lying in bed, not in distress, with slow response to verbal commands Objective Vital Signs Last 24 Hour Vital Signs Date Time Temp Pulse Resp B/P (MAP) Pulse Ox O2 Delivery O2 Flow Rate FiO2 04/14/17 14:56 97.9 04/14/17 12:00 97.9 82 18 143/91 97 Room Air 04/14/17 09:19 97.3 04/14/17 08:00 97.9 82 18 117/71 94 Room Air 04/14/17 04:00 97.3 82 20 115/79 98 Nasal Cannula 04/14/17 00:00 97.2 71 20 110/62 Nasal Cannula 04/14/17 00:00 98 Room Air 04/13/17 19:51 97.7 83 21 129/67 96 Room Air Height (Feet): 5 Height (Inches): 4.00 Weight (Pounds): 160 General Appearance: WD/WN, no acute distress HEENT: normocephalic, atraumatic, anicteric Respiratory/Chest: chest wall non-tender, lungs clear, normal breath sounds, no respiratory distress Cardiovascular: normal peripheral pulses, normal rate, regular rhythm Abdomen: normal bowel sounds, soft, non tender, no organomegaly, non distended Extremities: no cyanosis, no clubbing Skin: no rash, no lesions Laboratory Tests Test 04/14/17 04:55 White Blood Count 7.1 K/UL (4.8-10.8) Red Blood Count 3.95 M/UL (4.20-5.40) L Hemoglobin 11.4 G/DL (12.0-16.0) L Hematocrit 34.3 % (37.0-47.0) L Mean Corpuscular Volume 87 FL (80-99) Mean Corpuscular Hemoglobin 28.9 PG (27.0-31.0) Mean Corpuscular Hemoglobin Concent 33.3 G/DL (32.0-36.0) Red Cell Distribution Width 14.2 % (11.6-14.8) Platelet Count 214 K/UL (150-450) Mean Platelet Volume 6.9 FL (6.5-10.1) Neutrophils (%) (Auto) 49.1 % (45.0-75.0) Lymphocytes (%) (Auto) 34.7 % (20.0-45.0) Monocytes (%) (Auto) 15.1 % (1.0-10.0) H Eosinophils (%) (Auto) 0.1 % (0.0-3.0) Basophils (%) (Auto) 1.0 % (0.0-2.0) Sodium Level 139 mEQ/L (135-145) Potassium Level 4.2 mEQ/L (3.4-4.9) Chloride Level 101 mEQ/L (98-107) Carbon Dioxide Level 28 mEQ/L (20-30) Anion Gap 10 (5-15) Blood Urea Nitrogen 27 mg/dL (7-23) H Creatinine 0.8 mg/dL (0.5-0.9) Estimat Glomerular Filtration Rate > 60 mL/min (>60) Glucose Level 185 mg/dL (74-106) H Calcium Level 8.5 mg/dL (8.6-10.2) L Current Medications Medications (Trade) Dose Ordered Sig/Robb Route PRN Reason Start Time Stop Time Status Last Admin Dose Admin Al Hydroxide/Mg Hydroxide (Mylanta II) 30 ml Q6H PRN ORAL dyspepsia 04/06/17 18:00 05/06/17 17:59 Cephalexin (Keflex) 500 mg FOUR TIMES A DAY ORAL 04/11/17 18:00 04/18/17 17:59 04/14/17 12:38 Dextrose (Dextrose 50%) STAT PRN IV Hypoglycemia 04/06/17 18:00 05/06/17 17:59 Diphenhydramine HCl (Benadryl) 50 mg Q8HR ORAL 04/13/17 06:00 05/13/17 05:59 04/14/17 13:56 Divalproex Sodium (Depakote ER) 500 mg EVERY 12 HOURS ORAL 04/14/17 21:00 05/14/17 20:59 Docusate Sodium (Colace) 100 mg DAILY ORAL 04/07/17 09:00 05/07/17 08:59 04/14/17 08:20 Escitalopram Oxalate (Lexapro) 10 mg DAILY ORAL 04/07/17 09:00 05/07/17 08:59 04/14/17 08:19 Gabapentin (Neurontin) 300 mg THREE TIMES A DAY ORAL 04/06/17 18:00 05/06/17 17:59 04/14/17 12:38 Haloperidol (Haldol) 10 mg Q8HR ORAL 04/13/17 06:00 05/13/17 05:59 04/14/17 13:56 Ibuprofen (Motrin) 600 mg Q6H PRN ORAL For Pain 04/06/17 18:00 05/06/17 17:59 04/14/17 13:57 Insulin Aspart (NovoLOG) BEFORE MEALS AND HS SUBQ 04/06/17 21:00 05/06/17 20:59 04/14/17 11:46 Levetiracetam (Keppra) 1,500 mg Q12HR ORAL 04/06/17 21:00 05/06/17 20:59 04/14/17 08:20 Lorazepam (Ativan 2mg/ml 1ml) 2 mg EVERY 6 HOURS PRN IM For Anxiety 04/12/17 12:00 04/19/17 11:59 04/13/17 14:21 Lorazepam (Ativan) 1 mg Q4H PRN ORAL For Anxiety 04/08/17 16:45 04/15/17 16:44 04/14/17 12:39 Magnesium Hydroxide (Mom) 30 ml HSPRN PRN ORAL Constipation 04/06/17 21:00 05/06/17 20:59 Ondansetron HCl (Zofran) 4 mg Q6H PRN IVP Nausea & Vomiting 04/06/17 18:00 05/06/17 17:59 Phenobarbital (PHENobarbital) 32.4 mg Q12HR ORAL 04/06/17 21:00 05/06/17 20:59 04/14/17 08:19 Polyethylene Glycol (Miralax) 17 gm HSPRN PRN ORAL Constipation 04/06/17 21:00 05/06/17 20:59 Pregabalin (Lyrica) 75 mg BID ORAL 04/06/17 18:00 05/06/17 17:59 04/14/17 08:20 Ranitidine HCl (Zantac) 150 mg BEDTIME ORAL 04/06/17 21:00 05/06/17 20:59 04/13/17 20:50 Sodium Chloride 1,000 ml @ 50 mls/hr Q20H IV 04/10/17 14:00 05/10/17 13:59 04/10/17 14:04 Trazodone HCl (Desyrel) 300 mg BEDTIME ORAL 04/09/17 21:00 05/09/17 20:59 04/13/17 20:47 Woo Garcia M.D. Apr 14, 2017 17:11
[2017-04-14 20:00] VITALS: BP 131/66
[2017-04-14] MEDS: Depakote ER 500mg tab ORAL SCH (21:01)
[2017-04-14] MEDS: TraZODone 100mg tab ORAL SCH (21:02)
[2017-04-15] VITALS: BP 102/59
[2017-04-15] MEDS: LORazepam 1mg tab ORAL PRN ×3 (02:57→18:18)
[2017-04-15 04:00] VITALS: BP 117/61
[2017-04-15] MEDS: NovoLOG Insulin Flexpen SUBQ SCH ×4 (06:23→20:56)
[2017-04-15 07:06] LABS: ANION GAP 11 (5-15); CALCIUM 8.2 mg/dL (8.6-10.2); CARBON DIOXIDE 26 mEQ/L (20-30); CHLORIDE 101 mEQ/L (98-107); CREATININE 0.8 mg/dL (0.5-0.9); GLOMERULAR FILTRATION RATE > 60 mL/min (>60); HEMOLYSIS 61; POTASSIUM 4.6 mEQ/L (3.4-4.9); SODIUM 138 mEQ/L (135-145)
[2017-04-15 07:59] VITALS: BP 120/65
--- NOTE | 2017-04-15 08:15 | General Progress Note ---
Assessment/Plan Assessment/Plan (1) Lumbar radiculopathy (2) Lumbar spondylosis (3) Lumbar degenerative disc disease Pt will be continued on Suzette D/w and he concurred. Subjective Date patient seen: Apr 15, 2017 Time patient seen: 08:00 - am Allergies: Coded Allergies: MILK (Verified Allergy, Mild, 04/14/17) can have cream cheese APPLE (Verified Allergy, Unknown, 04/06/17) ASPIRIN (Verified Allergy, Unknown, ITCHING, 07/22/14) AZITHROMYCIN (Verified Allergy, Unknown, 07/22/14) COPIED FROM UNCODED BANANA (Verified Allergy, Unknown, 04/06/17) CODEINE (Verified Allergy, Unknown, 07/22/14) ERYTHROMYCIN BASE (Verified Allergy, Unknown, 07/22/14) FISH CONTAINING PRODUCTS (Verified Allergy, Unknown, 07/22/14) HYDROCODONE (Verified Allergy, Unknown, 07/22/14) IODINE (Verified Allergy, Unknown, 07/22/14) MIDAZOLAM (Verified Allergy, Unknown, 07/22/14) PROPOXYPHENE (Verified Allergy, Unknown, 07/22/14) COPIED FROM UNCODED SULFA (SULFONAMIDE ANTIBIOTICS) (Verified Allergy, Unknown, 07/22/14) COPIED FROM UNCODED SULFACETAMIDE (Unverified Allergy, Unknown, 03/25/17) SUMATRIPTAN (Verified Allergy, Unknown, 07/22/14) TETRACYCLINE (Verified Allergy, Unknown, RASH, 07/22/14) TETRACYCLINES (Verified Allergy, Unknown, 07/22/14) COPIED FROM UNCODED TOMATO (Verified Allergy, Unknown, 07/22/14) according to pt "I will !".... Subjective Constitutional: Denies: no symptoms, chills, diaphoresis, fever, malaise, weakness, other HEENT: Denies: no symptoms, eye pain, blurred vision, tearing, double vision, ear pain, ear discharge, nose pain, nose congestion, throat pain, throat swelling, mouth pain, mouth swelling, other Cardiovascular: Denies: no symptoms, chest pain, edema, irregular heart rate, lightheadedness, palpitations, syncope, other Respiratory: Denies: no symptoms, cough, orthopnea, shortness of breath, SOB with excertion, SOB at rest, sputum, stridor, wheezing, other Gastrointestinal/Abdominal: Reports: Abdmoinal pain, nausea, vomiting Genitourinary: Denies: burning, discharge, frequency, flank pain, urgency Neurologic/Psychiatric: Reports: depressed, weakness Endocrine: Denies: no symptoms, excessive sweating, flushing, intolerance to cold, intolerance to heat, increased hunger, increased thirst, increased urine, unexplained weight gain, unexplained weight loss, other Hematologic/Lymphatic: Denies: no symptoms, anemia, easy bleeding, easy bruising, other Subjective She is in bed and has no new complaints. The pain has been tolerated on the medications and has no signs of pain or distress at this time. Objective Last 24 Hour Vital Signs Date Time Temp Pulse Resp B/P (MAP) Pulse Ox O2 Delivery O2 Flow Rate FiO2 04/15/17 07:59 98.4 85 20 120/65 98 Room Air 04/15/17 04:00 98.6 81 20 117/61 98 Nasal Cannula 2.0 04/15/17 00:00 98.0 76 20 102/59 94 Room Air 04/14/17 22:17 98.1 04/14/17 20:00 98.1 84 18 131/66 96 Room Air 04/14/17 18:13 97.9 04/14/17 16:00 97.0 78 18 121/63 96 Room Air 04/14/17 12:00 97.9 82 18 143/91 97 Room Air Intake and Output 04/15/17 04/16/17 19:00 07:00 Intake Total 360 ml Balance 360 ml Intake Oral 360 ml # Voids 1 Laboratory Tests 04/15/17 05:55: Sodium Level 138, Potassium Level 4.6, Chloride Level 101, Carbon Dioxide Level 26, Anion Gap 11, Blood Urea Nitrogen 30H, Creatinine 0.8, Estimat Glomerular Filtration Rate > 60, Glucose Level 151H, Calcium Level 8.2L Height (Feet): 5 Height (Inches): 4.00 Weight (Pounds): 160 Objective General Appearance: no apparent distress, alert EENT: PERRL/EOMI, normal ENT inspection Neck: non-tender, normal alignment Cardiovascular: normal rate, regular rhythm Respiratory/Chest: lungs clear, normal breath sounds Abdomen: non tender, soft Extremities: non-tender Edema: trace edema Neurologic: alert, responsive Skin: warm/dry ZEROOSEVELT MENDES Apr 15, 2017 08:15
[2017-04-15] MEDS: Lyrica 75mg cap ORAL SCH ×2 (10:06→17:25)
[2017-04-15] MEDS: Docusate 100mg cap ORAL SCH (10:06)
[2017-04-15] MEDS: Depakote ER 500mg tab ORAL SCH ×2 (10:06→20:52)
[2017-04-15] MEDS: Cephalexin 500mg cap ORAL SCH ×4 (10:06→20:51)
[2017-04-15] MEDS: PHENobarbital 32.4mg tab ORAL SCH ×2 (10:06→20:51)
--- NOTE | 2017-04-15 10:10 | GI Progress Note ---
Assessment/Plan Problems: (1) Weakness ICD Codes: R53.1 - Weakness SNOMED: 84141020 (2) Schizophrenia ICD Codes: F20.9 - Schizophrenia, unspecified SNOMED: 39074929 (3) GERD (gastroesophageal reflux disease) ICD Codes: K21.9 - Gastro-esophageal reflux disease without esophagitis SNOMED: 004519978 (4) Diabetes ICD Codes: E11.9 - Type 2 diabetes mellitus without complications SNOMED: 24884896 Status: stable Status Narrative Discussed with Dr. De Souza. Assessment/Plan OB stool negative clear for DC per GI standpoint zofran prn, consider reglan if vomiting persists fu swallow eval >> cont with plan of care bowel regime >> miralax + colace ATC pain mgmt ppi PT/OT eval outpatient GI procedures Subjective Subjective generalized weakness no GI symptoms ready to go home Objective Last 24 Hour Vital Signs Date Time Temp Pulse Resp B/P (MAP) Pulse Ox O2 Delivery O2 Flow Rate FiO2 04/15/17 07:59 98.4 85 20 120/65 98 Room Air 04/15/17 04:00 98.6 81 20 117/61 98 Nasal Cannula 2.0 04/15/17 00:00 98.0 76 20 102/59 94 Room Air 04/14/17 22:17 98.1 04/14/17 20:00 98.1 84 18 131/66 96 Room Air 04/14/17 18:13 97.9 04/14/17 16:00 97.0 78 18 121/63 96 Room Air 04/14/17 12:00 97.9 82 18 143/91 97 Room Air Intake and Output 04/15/17 04/16/17 19:00 07:00 Intake Total 360 ml Balance 360 ml Intake Oral 360 ml # Voids 1 Laboratory Tests Test 04/15/17 05:55 Sodium Level 138 mEQ/L (135-145) Potassium Level 4.6 mEQ/L (3.4-4.9) Chloride Level 101 mEQ/L (98-107) Carbon Dioxide Level 26 mEQ/L (20-30) Anion Gap 11 (5-15) Blood Urea Nitrogen 30 mg/dL (7-23) H Creatinine 0.8 mg/dL (0.5-0.9) Estimat Glomerular Filtration Rate > 60 mL/min (>60) Glucose Level 151 mg/dL (74-106) H Calcium Level 8.2 mg/dL (8.6-10.2) L Height (Feet): 5 Height (Inches): 4.00 Weight (Pounds): 160 General Appearance: no apparent distress, alert Cardiovascular: normal rate Respiratory/Chest: normal breath sounds, no respiratory distress Abdominal Exam: normal bowel sounds, non tender, soft Katlyn Nava N.P. Apr 15, 2017 10:10
[2017-04-15 10:32] LABS: BASOPHILS % (AUTO) 1.3 % (0.0-2.0); LYMPHOCYTES % (AUTO) 29.2 % (20.0-45.0); MEAN CORPUSCULAR HEMOGLOBIN 27.7 PG (27.0-31.0); MEAN CORPUSCULAR HGB CONC 32.3 G/DL (32.0-36.0); MEAN CORPUSCULAR VOLUME 86 FL (80-99); MONOCYTES % (AUTO) 10.2 % (1.0-10.0); NEUTROPHILS % (AUTO) 59.4 % (45.0-75.0); PLATELET COUNT 250 K/UL (150-450); RED BLOOD COUNT 4.06 M/UL (4.20-5.40); RED CELL DISTRIBUTION WIDTH 14.1 % (11.6-14.8); WHITE BLOOD COUNT 7.3 K/UL (4.8-10.8)
[2017-04-15] MEDS ORDERED: DEPAKOTE ER500 MG ORAL (10:50)
[2017-04-15 11:51] VITALS: BP 130/72
--- NOTE | 2017-04-15 12:40 | Progress Note ---
DATE: 04/14/2017 NOTE: "VERY POOR AUDIO QUALITY" Subjective: This is a 52-year-old female patient with generalized weakness, still has altered mental status, and confusion. DIAGNOSIS: Bipolar 2 . Plan: Continue treatment with Haldol 10 mg three times a day agitation and mood lability. I will also continue trazodone 300 mg nightly. Seen and assessed at bedside . Chart reviewed. Discussed with staff. encourage her to interact appropriately with staff and other patients. . Shakila Au M.D. DR: Manny JOB#: [id number] CC:
--- NOTE | 2017-04-15 15:19 | General Progress Note ---
Assessment/Plan Problem List: (1) UTI (urinary tract infection) ICD Codes: N39.0 - Urinary tract infection, site not specified SNOMED: 04983970 (2) Asthma exacerbation ICD Codes: J45.901 - Unspecified asthma with (acute) exacerbation SNOMED: 362155590 (3) Altered mental status ICD Codes: R41.82 - Altered mental status, unspecified SNOMED: 995091129 (4) Chronic pain ICD Codes: G89.29 - Other chronic pain SNOMED: 46402789 (5) Psychiatric disorder ICD Codes: F99 - Mental disorder SNOMED: 95425953 (6) Altered level of consciousness ICD Codes: R40.4 - Transient alteration of awareness SNOMED: 4397831 (7) Diabetes ICD Codes: E11.9 - Type 2 diabetes mellitus without complications SNOMED: 43326250 (8) Seizure disorder ICD Codes: G40.909 - Seizure disorder SNOMED: 493423726 (9) Encephalopathy ICD Codes: G93.40 - Encephalopathy, unspecified SNOMED: 48505011, 287357478 (10) Weakness ICD Codes: R53.1 - Weakness SNOMED: 08250889 (11) HTN (hypertension) ICD Codes: I10 - Essential (primary) hypertension SNOMED: 77155638 Status: stable, progressing, tolerating diet Assessment/Plan ot pt diet abx seizure control dc to snf if neuro clears Subjective Constitutional: Reports: weakness Allergies: Coded Allergies: MILK (Verified Allergy, Mild, 04/14/17) can have cream cheese ACETAMINOPHEN (Verified Allergy, Unknown, 07/22/14) APPLE (Verified Allergy, Unknown, 04/06/17) ASPIRIN (Verified Allergy, Unknown, ITCHING, 07/22/14) AZITHROMYCIN (Verified Allergy, Unknown, 07/22/14) COPIED FROM UNCODED BANANA (Verified Allergy, Unknown, 04/06/17) CODEINE (Verified Allergy, Unknown, 07/22/14) ERYTHROMYCIN BASE (Verified Allergy, Unknown, 07/22/14) FISH CONTAINING PRODUCTS (Verified Allergy, Unknown, 07/22/14) HYDROCODONE (Verified Allergy, Unknown, 07/22/14) IODINE (Verified Allergy, Unknown, 07/22/14) MIDAZOLAM (Verified Allergy, Unknown, 07/22/14) PROPOXYPHENE (Verified Allergy, Unknown, 07/22/14) COPIED FROM UNCODED SULFA (SULFONAMIDE ANTIBIOTICS) (Verified Allergy, Unknown, 07/22/14) COPIED FROM UNCODED SULFACETAMIDE (Unverified Allergy, Unknown, 03/25/17) SUMATRIPTAN (Verified Allergy, Unknown, 07/22/14) TETRACYCLINE (Verified Allergy, Unknown, RASH, 07/22/14) TETRACYCLINES (Verified Allergy, Unknown, 07/22/14) COPIED FROM UNCODED TOMATO (Verified Allergy, Unknown, 07/22/14) according to pt "I will !".... All Systems: reviewed and negative except above Subjective weak in wc in [place] Objective Last 24 Hour Vital Signs Date Time Temp Pulse Resp B/P (MAP) Pulse Ox O2 Delivery O2 Flow Rate FiO2 04/15/17 11:51 98.0 73 20 130/72 95 Room Air 04/15/17 07:59 98.4 85 20 120/65 98 Room Air 04/15/17 04:00 98.6 81 20 117/61 98 Nasal Cannula 2.0 04/15/17 00:00 98.0 76 20 102/59 94 Room Air 04/14/17 22:17 98.1 04/14/17 20:00 98.1 84 18 131/66 96 Room Air 04/14/17 18:13 97.9 04/14/17 16:00 97.0 78 18 121/63 96 Room Air Intake and Output 04/15/17 04/16/17 19:00 07:00 Intake Total 720 ml Balance 720 ml Intake Oral 720 ml # Voids 1 Laboratory Tests 04/15/17 05:55: Sodium Level 138, Potassium Level 4.6, Chloride Level 101, Carbon Dioxide Level 26, Anion Gap 11, Blood Urea Nitrogen 30H, Creatinine 0.8, Estimat Glomerular Filtration Rate > 60, Glucose Level 151H, Calcium Level 8.2L 04/15/17 10:30: White Blood Count 7.3, Red Blood Count 4.06L, Hemoglobin 11.3L, Hematocrit 34.9L , Mean Corpuscular Volume 86, Mean Corpuscular Hemoglobin 27.7, Mean Corpuscular Hemoglobin Concent 32.3, Red Cell Distribution Width 14.1, Platelet Count 250, Mean Platelet Volume 7.0, Neutrophils (%) (Auto) 59.4, Lymphocytes (% ) (Auto) 29.2, Monocytes (%) (Auto) 10.2H, Eosinophils (%) (Auto) 0.0, Basophils (%) (Auto) 1.3 Height (Feet): 5 Height (Inches): 4.00 Weight (Pounds): 160 General Appearance: lethargic EENT: normal ENT inspection Neck: normal alignment Cardiovascular: normal peripheral pulses, normal rate, regular rhythm Respiratory/Chest: chest wall non-tender, lungs clear, normal breath sounds Abdomen: normal bowel sounds, non tender, soft Extremities: normal range of motion Edema: no edema noted Arm (L), no edema noted Arm (R), no edema noted Leg (L), no edema noted Leg (R), no edema noted Pedal (L), no edema noted Pedal (R), no edema noted Generalized Neurologic: responsive, motor weakness Skin: normal pigmentation, warm/dry CHUCK ESCAMILLA Apr 15, 2017 15:19
[2017-04-15 16:00] VITALS: BP 144/66
--- NOTE | 2017-04-15 17:22 | Infectious Diseases Prog Note ---
Assessment/Plan Problems: (1) UTI (urinary tract infection) Assessment & Plan: on keflex for 7 days (2) Asthma exacerbation Assessment & Plan: continue inhalers, and oxygen (3) Altered level of consciousness Assessment & Plan: unclear etiology, neurology and psych are following (4) Psychiatric disorder Assessment & Plan: on psych meds (5) Seizure disorder Assessment & Plan: controlled on seizure meds , neurology is following Subjective ROS Limited/Unobtainable: Yes Allergies: Coded Allergies: MILK (Verified Allergy, Mild, 04/14/17) can have cream cheese APPLE (Verified Allergy, Unknown, 04/06/17) ASPIRIN (Verified Allergy, Unknown, ITCHING, 07/22/14) AZITHROMYCIN (Verified Allergy, Unknown, 07/22/14) COPIED FROM UNCODED BANANA (Verified Allergy, Unknown, 04/06/17) CODEINE (Verified Allergy, Unknown, 07/22/14) ERYTHROMYCIN BASE (Verified Allergy, Unknown, 07/22/14) FISH CONTAINING PRODUCTS (Verified Allergy, Unknown, 07/22/14) HYDROCODONE (Verified Allergy, Unknown, 07/22/14) IODINE (Verified Allergy, Unknown, 07/22/14) MIDAZOLAM (Verified Allergy, Unknown, 07/22/14) PROPOXYPHENE (Verified Allergy, Unknown, 07/22/14) COPIED FROM UNCODED SULFA (SULFONAMIDE ANTIBIOTICS) (Verified Allergy, Unknown, 07/22/14) COPIED FROM UNCODED SULFACETAMIDE (Unverified Allergy, Unknown, 03/25/17) SUMATRIPTAN (Verified Allergy, Unknown, 07/22/14) TETRACYCLINE (Verified Allergy, Unknown, RASH, 07/22/14) TETRACYCLINES (Verified Allergy, Unknown, 07/22/14) COPIED FROM UNCODED TOMATO (Verified Allergy, Unknown, 07/22/14) according to pt "I will !".... Subjective she is lethargic, lying in bed, not in distress, with slow response to verbal commands Objective Vital Signs Last 24 Hour Vital Signs Date Time Temp Pulse Resp B/P (MAP) Pulse Ox O2 Delivery O2 Flow Rate FiO2 04/15/17 11:51 98.0 73 20 130/72 95 Room Air 04/15/17 07:59 98.4 85 20 120/65 98 Room Air 04/15/17 04:00 98.6 81 20 117/61 98 Nasal Cannula 2.0 04/15/17 00:00 98.0 76 20 102/59 94 Room Air 04/14/17 22:17 98.1 04/14/17 20:00 98.1 84 18 131/66 96 Room Air 04/14/17 18:13 97.9 Height (Feet): 5 Height (Inches): 4.00 Weight (Pounds): 160 General Appearance: WD/WN, no acute distress HEENT: normocephalic, atraumatic, anicteric, mucous membranes moist Respiratory/Chest: chest wall non-tender, lungs clear, normal breath sounds, no respiratory distress, no accessory muscle use Cardiovascular: normal peripheral pulses, normal rate, regular rhythm, no gallop/murmur, no JVD Abdomen: normal bowel sounds, soft, non tender, no organomegaly, non distended , no mass Extremities: no cyanosis, no clubbing Skin: no rash, no lesions, no ulcers Laboratory Tests Test 04/15/17 05:55 04/15/17 10:30 Sodium Level 138 mEQ/L (135-145) Potassium Level 4.6 mEQ/L (3.4-4.9) Chloride Level 101 mEQ/L (98-107) Carbon Dioxide Level 26 mEQ/L (20-30) Anion Gap 11 (5-15) Blood Urea Nitrogen 30 mg/dL (7-23) H Creatinine 0.8 mg/dL (0.5-0.9) Estimat Glomerular Filtration Rate > 60 mL/min (>60) Glucose Level 151 mg/dL (74-106) H Calcium Level 8.2 mg/dL (8.6-10.2) L White Blood Count 7.3 K/UL (4.8-10.8) Red Blood Count 4.06 M/UL (4.20-5.40) L Hemoglobin 11.3 G/DL (12.0-16.0) L Hematocrit 34.9 % (37.0-47.0) L Mean Corpuscular Volume 86 FL (80-99) Mean Corpuscular Hemoglobin 27.7 PG (27.0-31.0) Mean Corpuscular Hemoglobin Concent 32.3 G/DL (32.0-36.0) Red Cell Distribution Width 14.1 % (11.6-14.8) Platelet Count 250 K/UL (150-450) Mean Platelet Volume 7.0 FL (6.5-10.1) Neutrophils (%) (Auto) 59.4 % (45.0-75.0) Lymphocytes (%) (Auto) 29.2 % (20.0-45.0) Monocytes (%) (Auto) 10.2 % (1.0-10.0) H Eosinophils (%) (Auto) 0.0 % (0.0-3.0) Basophils (%) (Auto) 1.3 % (0.0-2.0) Current Medications Medications (Trade) Dose Ordered Sig/Robb Route PRN Reason Start Time Stop Time Status Last Admin Dose Admin Acetaminophen (Tylenol) 650 mg Q4H PRN ORAL Mild Pain/Temp > 100.5 04/15/17 15:45 05/15/17 15:44 Al Hydroxide/Mg Hydroxide (Mylanta II) 30 ml Q6H PRN ORAL dyspepsia 04/06/17 18:00 05/06/17 17:59 Cephalexin (Keflex) 500 mg FOUR TIMES A DAY ORAL 04/11/17 18:00 04/18/17 17:59 04/15/17 12:56 Dextrose (Dextrose 50%) STAT PRN IV Hypoglycemia 04/06/17 18:00 05/06/17 17:59 Diphenhydramine HCl (Benadryl) 50 mg Q8HR ORAL 04/13/17 06:00 05/13/17 05:59 04/15/17 12:56 Divalproex Sodium (Depakote ER) 500 mg EVERY 12 HOURS ORAL 04/14/17 21:00 05/14/17 20:59 04/15/17 10:06 Docusate Sodium (Colace) 100 mg DAILY ORAL 04/07/17 09:00 05/07/17 08:59 04/15/17 10:06 Escitalopram Oxalate (Lexapro) 10 mg DAILY ORAL 04/07/17 09:00 05/07/17 08:59 04/15/17 10:05 Gabapentin (Neurontin) 300 mg THREE TIMES A DAY ORAL 04/06/17 18:00 05/06/17 17:59 04/15/17 12:56 Haloperidol (Haldol) 10 mg Q8HR ORAL 04/13/17 06:00 05/13/17 05:59 04/15/17 12:56 Ibuprofen (Motrin) 600 mg Q6H PRN ORAL For Pain 04/06/17 18:00 05/06/17 17:59 04/15/17 11:03 Insulin Aspart (NovoLOG) BEFORE MEALS AND HS SUBQ 04/06/17 21:00 05/06/17 20:59 04/15/17 11:49 Levetiracetam (Keppra) 1,500 mg Q12HR ORAL 04/06/17 21:00 05/06/17 20:59 04/15/17 10:05 Lorazepam (Ativan 2mg/ml 1ml) 2 mg EVERY 6 HOURS PRN IM For Anxiety 04/12/17 12:00 04/19/17 11:59 04/13/17 14:21 Magnesium Hydroxide (Mom) 30 ml HSPRN PRN ORAL Constipation 04/06/17 21:00 05/06/17 20:59 Ondansetron HCl (Zofran) 4 mg Q6H PRN IVP Nausea & Vomiting 04/06/17 18:00 05/06/17 17:59 Phenobarbital (PHENobarbital) 32.4 mg Q12HR ORAL 04/06/17 21:00 05/06/17 20:59 04/15/17 10:06 Polyethylene Glycol (Miralax) 17 gm HSPRN PRN ORAL Constipation 04/06/17 21:00 05/06/17 20:59 Pregabalin (Lyrica) 75 mg BID ORAL 04/06/17 18:00 05/06/17 17:59 04/15/17 10:06 Ranitidine HCl (Zantac) 150 mg BEDTIME ORAL 04/06/17 21:00 05/06/17 20:59 04/14/17 21:01 Sodium Chloride 1,000 ml @ 50 mls/hr Q20H IV 04/10/17 14:00 05/10/17 13:59 04/10/17 14:04 Trazodone HCl (Desyrel) 300 mg BEDTIME ORAL 04/09/17 21:00 05/09/17 20:59 04/14/17 21:02 Woo Garcia M.D. Apr 15, 2017 17:22
[2017-04-15] MEDS ORDERED: LORazepam Inj 2mg/ml 1ml IM PRN (18:15)
--- NOTE | 2017-04-15 18:21 | Pulmonology Progress Note ---
Assessment/Plan Problems: (1) Seizure disorder (2) History of asthma (3) HTN (hypertension) (4) Diabetes (5) Lumbar radiculopathy (6) Schizophrenia Assessment/Plan all noted symptomatic treatment respiratory Rx increase to Q 4 hours titrate fio2 psych and neuro evaluation awaiting discharge Subjective ROS Limited/Unobtainable: No Constitutional: Reports: no symptoms HEENT: Repors: no symptoms Respiratory: Reports: no symptoms Allergies: Coded Allergies: MILK (Verified Allergy, Mild, 04/14/17) can have cream cheese APPLE (Verified Allergy, Unknown, 04/06/17) ASPIRIN (Verified Allergy, Unknown, ITCHING, 07/22/14) AZITHROMYCIN (Verified Allergy, Unknown, 07/22/14) COPIED FROM UNCODED BANANA (Verified Allergy, Unknown, 04/06/17) CODEINE (Verified Allergy, Unknown, 07/22/14) ERYTHROMYCIN BASE (Verified Allergy, Unknown, 07/22/14) FISH CONTAINING PRODUCTS (Verified Allergy, Unknown, 07/22/14) HYDROCODONE (Verified Allergy, Unknown, 07/22/14) IODINE (Verified Allergy, Unknown, 07/22/14) MIDAZOLAM (Verified Allergy, Unknown, 07/22/14) PROPOXYPHENE (Verified Allergy, Unknown, 07/22/14) COPIED FROM UNCODED SULFA (SULFONAMIDE ANTIBIOTICS) (Verified Allergy, Unknown, 07/22/14) COPIED FROM UNCODED SULFACETAMIDE (Unverified Allergy, Unknown, 03/25/17) SUMATRIPTAN (Verified Allergy, Unknown, 07/22/14) TETRACYCLINE (Verified Allergy, Unknown, RASH, 07/22/14) TETRACYCLINES (Verified Allergy, Unknown, 07/22/14) COPIED FROM UNCODED TOMATO (Verified Allergy, Unknown, 07/22/14) according to pt "I will !".... Objective Last 24 Hour Vital Signs Date Time Temp Pulse Resp B/P (MAP) Pulse Ox O2 Delivery O2 Flow Rate FiO2 04/15/17 16:00 98.6 82 20 144/66 97 Room Air 04/15/17 11:51 98.0 73 20 130/72 95 Room Air 04/15/17 07:59 98.4 85 20 120/65 98 Room Air 04/15/17 04:00 98.6 81 20 117/61 98 Nasal Cannula 2.0 04/15/17 00:00 98.0 76 20 102/59 94 Room Air 04/14/17 22:17 98.1 04/14/17 20:00 98.1 84 18 131/66 96 Room Air Intake and Output 04/15/17 04/16/17 19:00 07:00 Intake Total 1200 ml Balance 1200 ml Intake Oral 1200 ml # Voids 4 General Appearance: WD/WN HEENT: normocephalic, atraumatic Respiratory/Chest: chest wall non-tender, lungs clear Breasts: no masses Cardiovascular: normal peripheral pulses, normal rate Abdomen: normal bowel sounds, soft, non tender Genitourinary: normal external genitalia Extremities: no cyanosis Skin: no rash, no ulcers Neurologic/Psychiatric: senior buyer II-XII grossly normal, no motor/sensory deficits Laboratory Tests 04/15/17 05:55: Sodium Level 138, Potassium Level 4.6, Chloride Level 101, Carbon Dioxide Level 26, Anion Gap 11, Blood Urea Nitrogen 30H, Creatinine 0.8, Estimat Glomerular Filtration Rate > 60, Glucose Level 151H, Calcium Level 8.2L 04/15/17 10:30: White Blood Count 7.3, Red Blood Count 4.06L, Hemoglobin 11.3L, Hematocrit 34.9L , Mean Corpuscular Volume 86, Mean Corpuscular Hemoglobin 27.7, Mean Corpuscular Hemoglobin Concent 32.3, Red Cell Distribution Width 14.1, Platelet Count 250, Mean Platelet Volume 7.0, Neutrophils (%) (Auto) 59.4, Lymphocytes (% ) (Auto) 29.2, Monocytes (%) (Auto) 10.2H, Eosinophils (%) (Auto) 0.0, Basophils (%) (Auto) 1.3 Current Medications Medications (Trade) Dose Ordered Sig/Robb Route PRN Reason Start Time Stop Time Status Last Admin Dose Admin Acetaminophen (Tylenol) 650 mg Q4H PRN ORAL Mild Pain/Temp > 100.5 04/15/17 15:45 05/15/17 15:44 Al Hydroxide/Mg Hydroxide (Mylanta II) 30 ml Q6H PRN ORAL dyspepsia 04/06/17 18:00 05/06/17 17:59 Cephalexin (Keflex) 500 mg FOUR TIMES A DAY ORAL 04/11/17 18:00 04/18/17 17:59 04/15/17 17:24 Dextrose (Dextrose 50%) STAT PRN IV Hypoglycemia 04/06/17 18:00 05/06/17 17:59 Diphenhydramine HCl (Benadryl) 50 mg Q8HR ORAL 04/13/17 06:00 05/13/17 05:59 04/15/17 12:56 Divalproex Sodium (Depakote ER) 500 mg EVERY 12 HOURS ORAL 04/14/17 21:00 05/14/17 20:59 04/15/17 10:06 Docusate Sodium (Colace) 100 mg DAILY ORAL 04/07/17 09:00 05/07/17 08:59 04/15/17 10:06 Escitalopram Oxalate (Lexapro) 10 mg DAILY ORAL 04/07/17 09:00 05/07/17 08:59 04/15/17 10:05 Gabapentin (Neurontin) 300 mg THREE TIMES A DAY ORAL 04/06/17 18:00 05/06/17 17:59 04/15/17 17:25 Haloperidol (Haldol) 10 mg Q8HR ORAL 04/13/17 06:00 05/13/17 05:59 04/15/17 12:56 Ibuprofen (Motrin) 600 mg Q6H PRN ORAL For Pain 04/06/17 18:00 05/06/17 17:59 04/15/17 11:03 Insulin Aspart (NovoLOG) BEFORE MEALS AND HS SUBQ 04/06/17 21:00 05/06/17 20:59 04/15/17 17:19 Levetiracetam (Keppra) 1,500 mg Q12HR ORAL 04/06/17 21:00 05/06/17 20:59 04/15/17 10:05 Lorazepam (Ativan 2mg/ml 1ml) 2 mg Q6H PRN IM For Seizures 04/15/17 18:15 04/22/17 18:14 Lorazepam (Ativan) 1 mg Q4H PRN ORAL For Anxiety 04/15/17 18:00 04/22/17 17:59 04/15/17 18:18 Magnesium Hydroxide (Mom) 30 ml HSPRN PRN ORAL Constipation 04/06/17 21:00 05/06/17 20:59 Ondansetron HCl (Zofran) 4 mg Q6H PRN IVP Nausea & Vomiting 04/06/17 18:00 05/06/17 17:59 Phenobarbital (PHENobarbital) 32.4 mg Q12HR ORAL 04/06/17 21:00 05/06/17 20:59 04/15/17 10:06 Polyethylene Glycol (Miralax) 17 gm HSPRN PRN ORAL Constipation 04/06/17 21:00 05/06/17 20:59 04/15/17 17:26 Pregabalin (Lyrica) 75 mg BID ORAL 04/06/17 18:00 05/06/17 17:59 04/15/17 17:25 Ranitidine HCl (Zantac) 150 mg BEDTIME ORAL 04/06/17 21:00 05/06/17 20:59 04/14/17 21:01 Sodium Chloride 1,000 ml @ 50 mls/hr Q20H IV 04/10/17 14:00 05/10/17 13:59 04/10/17 14:04 Trazodone HCl (Desyrel) 300 mg BEDTIME ORAL 04/09/17 21:00 05/09/17 20:59 04/14/17 21:02 ZITA MANDEL Apr 15, 2017 18:21
[2017-04-15 20:00] VITALS: BP 148/75
[2017-04-15] MEDS: TraZODone 100mg tab ORAL SCH (20:51)
[2017-04-16] MEDS: NovoLOG Insulin Flexpen SUBQ SCH ×3 (06:13→16:30)
[2017-04-16] MEDS: LORazepam 1mg tab ORAL PRN ×2 (06:14→15:43)
[2017-04-16 08:00] VITALS: BP 113/62
[2017-04-16] MEDS: Cephalexin 500mg cap ORAL SCH ×2 (08:16→14:22)
[2017-04-16] MEDS: PHENobarbital 32.4mg tab ORAL SCH (08:17)
[2017-04-16] MEDS: Depakote ER 500mg tab ORAL SCH (08:17)
[2017-04-16] MEDS: Docusate 100mg cap ORAL SCH (08:17)
[2017-04-16] MEDS: Lyrica 75mg cap ORAL SCH (08:18)
--- NOTE | 2017-04-16 08:56 | General Progress Note ---
Assessment/Plan Assessment/Plan (1) Lumbar radiculopathy (2) Lumbar spondylosis (3) Lumbar degenerative disc disease Pt will be continued on Motrin We will start Lidoderm patch D/w and he concurred. Subjective Date patient seen: Apr 16, 2017 Time patient seen: 08:45 - am Allergies: Coded Allergies: MILK (Verified Allergy, Mild, 04/14/17) can have cream cheese APPLE (Verified Allergy, Unknown, 04/06/17) ASPIRIN (Verified Allergy, Unknown, ITCHING, 07/22/14) AZITHROMYCIN (Verified Allergy, Unknown, 07/22/14) COPIED FROM UNCODED BANANA (Verified Allergy, Unknown, 04/06/17) CODEINE (Verified Allergy, Unknown, 07/22/14) ERYTHROMYCIN BASE (Verified Allergy, Unknown, 07/22/14) FISH CONTAINING PRODUCTS (Verified Allergy, Unknown, 07/22/14) HYDROCODONE (Verified Allergy, Unknown, 07/22/14) IODINE (Verified Allergy, Unknown, 07/22/14) MIDAZOLAM (Verified Allergy, Unknown, 07/22/14) PROPOXYPHENE (Verified Allergy, Unknown, 07/22/14) COPIED FROM UNCODED SULFA (SULFONAMIDE ANTIBIOTICS) (Verified Allergy, Unknown, 07/22/14) COPIED FROM UNCODED SULFACETAMIDE (Unverified Allergy, Unknown, 03/25/17) SUMATRIPTAN (Verified Allergy, Unknown, 07/22/14) TETRACYCLINE (Verified Allergy, Unknown, RASH, 07/22/14) TETRACYCLINES (Verified Allergy, Unknown, 07/22/14) COPIED FROM UNCODED TOMATO (Verified Allergy, Unknown, 07/22/14) according to pt "I will !".... Subjective Constitutional: Denies: no symptoms, chills, diaphoresis, fever, malaise, weakness, other HEENT: Denies: no symptoms, eye pain, blurred vision, tearing, double vision, ear pain, ear discharge, nose pain, nose congestion, throat pain, throat swelling, mouth pain, mouth swelling, other Cardiovascular: Denies: no symptoms, chest pain, edema, irregular heart rate, lightheadedness, palpitations, syncope, other Respiratory: Denies: no symptoms, cough, orthopnea, shortness of breath, SOB with excertion, SOB at rest, sputum, stridor, wheezing, other Gastrointestinal/Abdominal: Reports: Abdmoinal pain, nausea, vomiting Genitourinary: Denies: burning, discharge, frequency, flank pain, urgency Neurologic/Psychiatric: Reports: depressed, weakness Endocrine: Denies: no symptoms, excessive sweating, flushing, intolerance to cold, intolerance to heat, increased hunger, increased thirst, increased urine, unexplained weight gain, unexplained weight loss, other Hematologic/Lymphatic: Denies: no symptoms, anemia, easy bleeding, easy bruising, other Subjective Patient is sitting up. Pain as per pt is tolerated well and she has no new complaints. Objective Last 24 Hour Vital Signs Date Time Temp Pulse Resp B/P (MAP) Pulse Ox O2 Delivery O2 Flow Rate FiO2 04/16/17 08:00 97.0 81 21 113/62 96 Room Air 04/16/17 07:17 98.6 04/15/17 20:00 97.5 90 20 148/75 95 Room Air 04/15/17 16:00 98.6 82 20 144/66 97 Room Air 04/15/17 11:51 98.0 73 20 130/72 95 Room Air Laboratory Tests 04/15/17 10:30: White Blood Count 7.3, Red Blood Count 4.06L, Hemoglobin 11.3L, Hematocrit 34.9L , Mean Corpuscular Volume 86, Mean Corpuscular Hemoglobin 27.7, Mean Corpuscular Hemoglobin Concent 32.3, Red Cell Distribution Width 14.1, Platelet Count 250, Mean Platelet Volume 7.0, Neutrophils (%) (Auto) 59.4, Lymphocytes (% ) (Auto) 29.2, Monocytes (%) (Auto) 10.2H, Eosinophils (%) (Auto) 0.0, Basophils (%) (Auto) 1.3 Height (Feet): 5 Height (Inches): 4.00 Weight (Pounds): 160 Objective General Appearance: no apparent distress, alert EENT: PERRL/EOMI, normal ENT inspection Neck: non-tender, normal alignment Cardiovascular: normal rate, regular rhythm Respiratory/Chest: lungs clear, normal breath sounds Abdomen: non tender, soft Extremities: non-tender Edema: trace edema Neurologic: alert, responsive Skin: warm/dry ROOSEVELT SAWYER PDianne Apr 16, 2017 08:56
--- NOTE | 2017-04-16 10:32 | GI Progress Note ---
Assessment/Plan Problems: (1) Weakness ICD Codes: R53.1 - Weakness SNOMED: 36527570 (2) Schizophrenia ICD Codes: F20.9 - Schizophrenia, unspecified SNOMED: 46353430 (3) GERD (gastroesophageal reflux disease) ICD Codes: K21.9 - Gastro-esophageal reflux disease without esophagitis SNOMED: 668495269 (4) Diabetes ICD Codes: E11.9 - Type 2 diabetes mellitus without complications SNOMED: 80845167 Status: stable Status Narrative Discussed with Dr. De Souza. Assessment/Plan OB stool negative clear for DC per GI standpoint zofran prn, consider reglan if vomiting persists fu swallow eval >> cont with plan of care bowel regime >> miralax + colace ATC pain mgmt ppi PT/OT eval outpatient GI procedures Subjective Subjective generalized weakness no GI symptoms ready to go home Objective Last 24 Hour Vital Signs Date Time Temp Pulse Resp B/P (MAP) Pulse Ox O2 Delivery O2 Flow Rate FiO2 04/16/17 09:17 97.0 04/16/17 08:00 97.0 81 21 113/62 96 Room Air 04/16/17 07:17 98.6 04/15/17 20:00 97.5 90 20 148/75 95 Room Air 04/15/17 16:00 98.6 82 20 144/66 97 Room Air 04/15/17 11:51 98.0 73 20 130/72 95 Room Air Height (Feet): 5 Height (Inches): 4.00 Weight (Pounds): 160 General Appearance: no apparent distress, alert Cardiovascular: normal rate Respiratory/Chest: normal breath sounds, no respiratory distress Abdominal Exam: normal bowel sounds, non tender, soft Extremities: normal range of motion, non-tender Katlyn Nava N.P. Apr 16, 2017 10:32
[2017-04-16 11:53] VITALS: BP 133/73
[2017-04-16 14:12] LABS: BASOPHILS % (AUTO) 1.3 % (0.0-2.0); LYMPHOCYTES % (AUTO) 29.9 % (20.0-45.0); MEAN CORPUSCULAR HEMOGLOBIN 28.9 PG (27.0-31.0); MEAN CORPUSCULAR HGB CONC 33.2 G/DL (32.0-36.0); MEAN CORPUSCULAR VOLUME 87 FL (80-99); MEAN PLATELET VOLUME 6.4 FL (6.5-10.1); NEUTROPHILS % (AUTO) 58.8 % (45.0-75.0); PLATELET COUNT 257 K/UL (150-450); RED BLOOD COUNT 3.79 M/UL (4.20-5.40); RED CELL DISTRIBUTION WIDTH 14.2 % (11.6-14.8); WHITE BLOOD COUNT 7.3 K/UL (4.8-10.8)
--- NOTE | 2017-04-16 14:33 | General Progress Note ---
Assessment/Plan Problem List: (1) UTI (urinary tract infection) ICD Codes: N39.0 - Urinary tract infection, site not specified SNOMED: 38743203 (2) Asthma exacerbation ICD Codes: J45.901 - Unspecified asthma with (acute) exacerbation SNOMED: 855875388 (3) Altered mental status ICD Codes: R41.82 - Altered mental status, unspecified SNOMED: 786821932 (4) Chronic pain ICD Codes: G89.29 - Other chronic pain SNOMED: 75528537 (5) Psychiatric disorder ICD Codes: F99 - Mental disorder SNOMED: 32204199 (6) Altered level of consciousness ICD Codes: R40.4 - Transient alteration of awareness SNOMED: 2930055 (7) Diabetes ICD Codes: E11.9 - Type 2 diabetes mellitus without complications SNOMED: 23274980 (8) Seizure disorder ICD Codes: G40.909 - Seizure disorder SNOMED: 419363356 (9) Encephalopathy ICD Codes: G93.40 - Encephalopathy, unspecified SNOMED: 15007896, 443426693 (10) Weakness ICD Codes: R53.1 - Weakness SNOMED: 25023250 (11) HTN (hypertension) ICD Codes: I10 - Essential (primary) hypertension SNOMED: 24611571 Status: stable, progressing, tolerating diet Assessment/Plan ot pt diet abx seizure control cbc bmp am dc to snf if neuro clears Subjective Constitutional: Reports: weakness Allergies: Coded Allergies: MILK (Verified Allergy, Mild, 04/14/17) can have cream cheese APPLE (Verified Allergy, Unknown, 04/06/17) ASPIRIN (Verified Allergy, Unknown, ITCHING, 07/22/14) AZITHROMYCIN (Verified Allergy, Unknown, 07/22/14) COPIED FROM UNCODED BANANA (Verified Allergy, Unknown, 04/06/17) CODEINE (Verified Allergy, Unknown, 07/22/14) ERYTHROMYCIN BASE (Verified Allergy, Unknown, 07/22/14) FISH CONTAINING PRODUCTS (Verified Allergy, Unknown, 07/22/14) HYDROCODONE (Verified Allergy, Unknown, 07/22/14) IODINE (Verified Allergy, Unknown, 07/22/14) MIDAZOLAM (Verified Allergy, Unknown, 07/22/14) PROPOXYPHENE (Verified Allergy, Unknown, 07/22/14) COPIED FROM UNCODED SULFA (SULFONAMIDE ANTIBIOTICS) (Verified Allergy, Unknown, 07/22/14) COPIED FROM UNCODED SULFACETAMIDE (Unverified Allergy, Unknown, 03/25/17) SUMATRIPTAN (Verified Allergy, Unknown, 07/22/14) TETRACYCLINE (Verified Allergy, Unknown, RASH, 07/22/14) TETRACYCLINES (Verified Allergy, Unknown, 07/22/14) COPIED FROM UNCODED TOMATO (Verified Allergy, Unknown, 07/22/14) according to pt "I will !".... All Systems: reviewed and negative except above Subjective sleepy calm Objective Last 24 Hour Vital Signs Date Time Temp Pulse Resp B/P (MAP) Pulse Ox O2 Delivery O2 Flow Rate FiO2 04/16/17 11:53 97.1 77 20 133/73 99 Room Air 04/16/17 09:17 97.0 04/16/17 08:00 97.0 81 21 113/62 96 Room Air 04/16/17 07:17 98.6 04/15/17 20:00 97.5 90 20 148/75 95 Room Air 04/15/17 16:00 98.6 82 20 144/66 97 Room Air Laboratory Tests 04/16/17 13:35: White Blood Count 7.3, Red Blood Count 3.79L, Hemoglobin 11.0L, Hematocrit 33.0L , Mean Corpuscular Volume 87, Mean Corpuscular Hemoglobin 28.9, Mean Corpuscular Hemoglobin Concent 33.2, Red Cell Distribution Width 14.2, Platelet Count 257, Mean Platelet Volume 6.4L, Neutrophils (%) (Auto) 58.8, Lymphocytes ( %) (Auto) 29.9, Monocytes (%) (Auto) 10.0, Eosinophils (%) (Auto) 0.0, Basophils (%) (Auto) 1.3, Ammonia 55H Height (Feet): 5 Height (Inches): 4.00 Weight (Pounds): 160 General Appearance: lethargic EENT: normal ENT inspection Neck: normal alignment Cardiovascular: normal peripheral pulses, normal rate, regular rhythm Respiratory/Chest: chest wall non-tender, lungs clear, normal breath sounds Abdomen: normal bowel sounds, non tender, soft Extremities: normal inspection Edema: no edema noted Arm (L), no edema noted Arm (R), no edema noted Leg (L), no edema noted Leg (R), no edema noted Pedal (L), no edema noted Pedal (R), no edema noted Generalized Neurologic: motor weakness Skin: normal pigmentation, warm/dry CHUCK ESCAMILLA Apr 16, 2017 14:33
[2017-04-16 16:00] VITALS: BP 131/59
--- NOTE | 2017-04-16 16:25 | Infectious Diseases Prog Note ---
Assessment/Plan Problems: (1) UTI (urinary tract infection) Assessment & Plan: on keflex for 7 days (2) Asthma exacerbation Assessment & Plan: continue inhalers, and oxygen (3) Altered level of consciousness Assessment & Plan: unclear etiology, neurology and psych are following (4) Psychiatric disorder Assessment & Plan: on psych meds (5) Seizure disorder Assessment & Plan: controlled on seizure meds , neurology is following Subjective ROS Limited/Unobtainable: Yes Allergies: Coded Allergies: MILK (Verified Allergy, Mild, 04/14/17) can have cream cheese APPLE (Verified Allergy, Unknown, 04/06/17) ASPIRIN (Verified Allergy, Unknown, ITCHING, 07/22/14) AZITHROMYCIN (Verified Allergy, Unknown, 07/22/14) COPIED FROM UNCODED BANANA (Verified Allergy, Unknown, 04/06/17) CODEINE (Verified Allergy, Unknown, 07/22/14) ERYTHROMYCIN BASE (Verified Allergy, Unknown, 07/22/14) FISH CONTAINING PRODUCTS (Verified Allergy, Unknown, 07/22/14) HYDROCODONE (Verified Allergy, Unknown, 07/22/14) IODINE (Verified Allergy, Unknown, 07/22/14) MIDAZOLAM (Verified Allergy, Unknown, 07/22/14) PROPOXYPHENE (Verified Allergy, Unknown, 07/22/14) COPIED FROM UNCODED SULFA (SULFONAMIDE ANTIBIOTICS) (Verified Allergy, Unknown, 07/22/14) COPIED FROM UNCODED SULFACETAMIDE (Unverified Allergy, Unknown, 03/25/17) SUMATRIPTAN (Verified Allergy, Unknown, 07/22/14) TETRACYCLINE (Verified Allergy, Unknown, RASH, 07/22/14) TETRACYCLINES (Verified Allergy, Unknown, 07/22/14) COPIED FROM UNCODED TOMATO (Verified Allergy, Unknown, 07/22/14) according to pt "I will !".... Subjective she is lethargic, lying in bed, not in distress, with slow response to verbal commands Objective Vital Signs Last 24 Hour Vital Signs Date Time Temp Pulse Resp B/P (MAP) Pulse Ox O2 Delivery O2 Flow Rate FiO2 04/16/17 16:00 98.1 80 20 131/59 96 Room Air 04/16/17 11:53 97.1 77 20 133/73 99 Room Air 04/16/17 09:17 97.0 04/16/17 08:00 97.0 81 21 113/62 96 Room Air 04/16/17 07:17 98.6 04/15/17 20:00 97.5 90 20 148/75 95 Room Air Height (Feet): 5 Height (Inches): 4.00 Weight (Pounds): 160 General Appearance: WD/WN, no acute distress HEENT: normocephalic, atraumatic, anicteric Respiratory/Chest: chest wall non-tender, lungs clear, normal breath sounds, no respiratory distress Cardiovascular: normal peripheral pulses, normal rate, regular rhythm Abdomen: normal bowel sounds, soft, non tender, no organomegaly, non distended Extremities: no cyanosis, no clubbing Skin: no rash, no lesions Laboratory Tests Test 04/16/17 13:35 White Blood Count 7.3 K/UL (4.8-10.8) Red Blood Count 3.79 M/UL (4.20-5.40) L Hemoglobin 11.0 G/DL (12.0-16.0) L Hematocrit 33.0 % (37.0-47.0) L Mean Corpuscular Volume 87 FL (80-99) Mean Corpuscular Hemoglobin 28.9 PG (27.0-31.0) Mean Corpuscular Hemoglobin Concent 33.2 G/DL (32.0-36.0) Red Cell Distribution Width 14.2 % (11.6-14.8) Platelet Count 257 K/UL (150-450) Mean Platelet Volume 6.4 FL (6.5-10.1) L Neutrophils (%) (Auto) 58.8 % (45.0-75.0) Lymphocytes (%) (Auto) 29.9 % (20.0-45.0) Monocytes (%) (Auto) 10.0 % (1.0-10.0) Eosinophils (%) (Auto) 0.0 % (0.0-3.0) Basophils (%) (Auto) 1.3 % (0.0-2.0) Ammonia 55 umol/L (11-51) H Current Medications Medications (Trade) Dose Ordered Sig/Robb Route PRN Reason Start Time Stop Time Status Last Admin Dose Admin Acetaminophen (Tylenol) 650 mg Q4H PRN ORAL Mild Pain/Temp > 100.5 04/15/17 15:45 10/13/17 15:44 Al Hydroxide/Mg Hydroxide (Mylanta II) 30 ml Q6H PRN ORAL dyspepsia 04/06/17 18:00 05/06/17 17:59 Cephalexin (Keflex) 500 mg FOUR TIMES A DAY ORAL 04/11/17 18:00 04/18/17 17:59 04/16/17 14:22 Dextrose (Dextrose 50%) STAT PRN IV Hypoglycemia 04/06/17 18:00 05/06/17 17:59 Diphenhydramine HCl (Benadryl) 50 mg Q8HR ORAL 04/13/17 06:00 05/13/17 05:59 04/16/17 14:43 Divalproex Sodium (Depakote ER) 500 mg EVERY 12 HOURS ORAL 04/14/17 21:00 05/14/17 20:59 04/16/17 08:17 Docusate Sodium (Colace) 100 mg DAILY ORAL 04/07/17 09:00 05/07/17 08:59 04/16/17 08:17 Escitalopram Oxalate (Lexapro) 10 mg DAILY ORAL 04/07/17 09:00 05/07/17 08:59 04/16/17 08:18 Gabapentin (Neurontin) 300 mg THREE TIMES A DAY ORAL 04/06/17 18:00 05/06/17 17:59 04/16/17 14:22 Haloperidol (Haldol) 10 mg Q8HR ORAL 04/13/17 06:00 05/13/17 05:59 04/16/17 14:22 Ibuprofen (Motrin) 600 mg Q6H PRN ORAL For Pain 04/06/17 18:00 05/06/17 17:59 04/16/17 06:14 Insulin Aspart (NovoLOG) BEFORE MEALS AND HS SUBQ 04/06/17 21:00 05/06/17 20:59 04/16/17 11:40 Levetiracetam (Keppra) 1,500 mg Q12HR ORAL 04/06/17 21:00 05/06/17 20:59 04/16/17 08:16 Lidocaine (Lidoderm 5% PATCH) 1 patch DAILY TDERMAL 04/16/17 09:30 05/16/17 09:29 04/16/17 11:13 Lorazepam (Ativan 2mg/ml 1ml) 2 mg Q6H PRN IM For Seizures 04/15/17 18:15 04/22/17 18:14 Lorazepam (Ativan) 1 mg Q4H PRN ORAL For Anxiety 04/15/17 18:00 04/22/17 17:59 04/16/17 15:43 Magnesium Hydroxide (Mom) 30 ml HSPRN PRN ORAL Constipation 04/06/17 21:00 05/06/17 20:59 Ondansetron HCl (Zofran) 4 mg Q6H PRN IVP Nausea & Vomiting 04/06/17 18:00 05/06/17 17:59 Phenobarbital (PHENobarbital) 32.4 mg Q12HR ORAL 04/06/17 21:00 05/06/17 20:59 04/16/17 08:17 Polyethylene Glycol (Miralax) 17 gm HSPRN PRN ORAL Constipation 04/06/17 21:00 05/06/17 20:59 04/15/17 17:26 Pregabalin (Lyrica) 75 mg BID ORAL 04/06/17 18:00 05/06/17 17:59 04/16/17 08:18 Ranitidine HCl (Zantac) 150 mg BEDTIME ORAL 04/06/17 21:00 05/06/17 20:59 04/15/17 20:52 Sodium Chloride 1,000 ml @ 50 mls/hr Q20H IV 04/10/17 14:00 05/10/17 13:59 04/10/17 14:04 Trazodone HCl (Desyrel) 300 mg BEDTIME ORAL 04/09/17 21:00 05/09/17 20:59 04/15/17 20:51 Woo Garcia M.D. Apr 16, 2017 16:25
--- NOTE | 2017-04-16 19:07 | Pulmonology Progress Note ---
Assessment/Plan Problems: (1) Seizure disorder (2) History of asthma (3) HTN (hypertension) (4) Diabetes (5) Lumbar radiculopathy (6) Schizophrenia Assessment/Plan all noted symptomatic treatment respiratory Rx increase to Q 4 hours titrate fio2 psych and neuro evaluation awaiting discharge Subjective ROS Limited/Unobtainable: No Constitutional: Reports: no symptoms Respiratory: Reports: no symptoms Allergies: Coded Allergies: MILK (Verified Allergy, Mild, 04/14/17) can have cream cheese APPLE (Verified Allergy, Unknown, 04/06/17) ASPIRIN (Verified Allergy, Unknown, ITCHING, 07/22/14) AZITHROMYCIN (Verified Allergy, Unknown, 07/22/14) COPIED FROM UNCODED BANANA (Verified Allergy, Unknown, 04/06/17) CODEINE (Verified Allergy, Unknown, 07/22/14) ERYTHROMYCIN BASE (Verified Allergy, Unknown, 07/22/14) FISH CONTAINING PRODUCTS (Verified Allergy, Unknown, 07/22/14) HYDROCODONE (Verified Allergy, Unknown, 07/22/14) IODINE (Verified Allergy, Unknown, 07/22/14) MIDAZOLAM (Verified Allergy, Unknown, 07/22/14) PROPOXYPHENE (Verified Allergy, Unknown, 07/22/14) COPIED FROM UNCODED SULFA (SULFONAMIDE ANTIBIOTICS) (Verified Allergy, Unknown, 07/22/14) COPIED FROM UNCODED SULFACETAMIDE (Unverified Allergy, Unknown, 03/25/17) SUMATRIPTAN (Verified Allergy, Unknown, 07/22/14) TETRACYCLINE (Verified Allergy, Unknown, RASH, 07/22/14) TETRACYCLINES (Verified Allergy, Unknown, 07/22/14) COPIED FROM UNCODED TOMATO (Verified Allergy, Unknown, 07/22/14) according to pt "I will !".... Objective Last 24 Hour Vital Signs Date Time Temp Pulse Resp B/P (MAP) Pulse Ox O2 Delivery O2 Flow Rate FiO2 04/16/17 16:00 98.1 80 20 131/59 96 Room Air 04/16/17 11:53 97.1 77 20 133/73 99 Room Air 04/16/17 09:17 97.0 04/16/17 08:00 97.0 81 21 113/62 96 Room Air 04/16/17 07:17 98.6 04/15/17 20:00 97.5 90 20 148/75 95 Room Air General Appearance: WD/WN HEENT: normocephalic, atraumatic Respiratory/Chest: chest wall non-tender, lungs clear, chest wall tender Cardiovascular: normal peripheral pulses, regularly irregular Abdomen: normal bowel sounds, soft, non tender Genitourinary: normal external genitalia Skin: no lesions Neurologic/Psychiatric: reference assistant II-XII grossly normal Laboratory Tests 04/16/17 13:35: White Blood Count 7.3, Red Blood Count 3.79L, Hemoglobin 11.0L, Hematocrit 33.0L , Mean Corpuscular Volume 87, Mean Corpuscular Hemoglobin 28.9, Mean Corpuscular Hemoglobin Concent 33.2, Red Cell Distribution Width 14.2, Platelet Count 257, Mean Platelet Volume 6.4L, Neutrophils (%) (Auto) 58.8, Lymphocytes ( %) (Auto) 29.9, Monocytes (%) (Auto) 10.0, Eosinophils (%) (Auto) 0.0, Basophils (%) (Auto) 1.3, Ammonia 55H ZITA MANDEL Apr 16, 2017 19:07
--- NOTE | 2017-04-17 08:15 | Progress Note ---
DATE: 04/15/2017 PSYCHOTHERAPY CONSULTATION PROGRESS NOTE CONSULTING PHYSICIAN: Belkis Nicholas M.D. TREATING ATTENDING PHYSICIAN: Scott Samson D.O. Subjective: This patient is a 52-year-old female patient. This patient has . The patient presents very disturbed. She has been feeling unwell. . Mental Status Examination: The patient is alert and oriented x2, person and place. Mood is flat. Affect is congruent. Thought process is very disorganized. The patient has poor attention and concentration. Poor insight, judgment, and impulse control. Denies suicidal or homicidal thoughts of ideation. This clinician assessed this patient DIAGNOSIS: Paranoid schizophrenia. Plan: This clinician assessed this patient. Provided the patient with reality orientation and supportive psychotherapy. Encouraging the patient to participate in treatment milieu. Continue with medication management and behavioral management. This clinician has reviewed the patient's chart and discussed the treatment with nursing staff. Belkis Nicholas PsyD. : YOHANA JOB#: [id number] CC:
--- NOTE | 2017-04-17 08:15 | Progress Note ---
DATE: 04/14/2017 PSYCHOTHERAPY CONSULTATION PROGRESS NOTE TREATING ATTENDING PHYSICIAN: Scott Samson D.O. SUBJECTIVE: The patient . Belkis Nicholas PsyD. DR: LOUISA JOB#: [id number] CC:
--- NOTE | 2017-04-17 14:01 | Discharge Summary ---
Discharge Summary Hospital Course Date of Admission Apr 06, 2017 at 13:25 Date of Discharge Apr 16, 2017 at 17:05 Admitting Diagnosis WEAKNESS HPI Kristin Almonte is a 52 year old female who was admitted on Apr 06, 2017 at 13: 25 for Weakness Hospital Course [id number] Discharge Discharge Disposition Patient was discharged to SNF/Subacute Facility(03) Discharge Diagnoses: Ondina Cheng NP Apr 17, 2017 14:00
--- NOTE | 2017-04-17 14:20 | Diagnostic Imaging Report ---
Indications: DYSPHAGIA Technique: Patient ingested multiple substances under the supervision of speech pathology. Video fluoroscopic recording performed. Total fluoroscopy time 173.6 seconds. Total dose area product [id number] mGycm2 Comparison: none Findings: There is prompt initiation of deglutition with all substances. No evidence of aspiration or penetration. Impression: Negative for evidence of aspiration or penetration. Please refer to speech pathology report for more detailed analysis
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
== END 2017-04-16 17:05 | DRG 689 ==
LOC: EDBD 11:16 → EMR 12:15 → 4E 13:25 → EDBEDREQ 14:19 → 4W 04-09 08:43
DX: N39.0 Urinary tract infection, site not specified (principal); G92 Toxic encephalopathy; N17.9 Acute kidney failure, unspecified; M62.82 Rhabdomyolysis; E72.20 Disorder of urea cycle metabolism, unspecified; J45.901 Unspecified asthma with (acute) exacerbation; F20.0 Paranoid schizophrenia; F31.81 Bipolar II disorder; B96.20 Unspecified Escherichia coli [E. coli] as the cause of diseases classified elsewhere; R62.7 Adult failure to thrive; E11.9 Type 2 diabetes mellitus without complications; G40.909 Epilepsy, unspecified, not intractable, without status epilepticus; I10 Essential (primary) hypertension; T42.6X5A Adverse effect of other antiepileptic and sedative-hypnotic drugs, initial encounter; K21.9 Gastro-esophageal reflux disease without esophagitis; Z79.4 Long term (current) use of insulin; Z88.6 Allergy status to analgesic agent; Z88.1 Allergy status to other antibiotic agents; Z88.8 Allergy status to other drugs, medicaments and biological substances; Z88.2 Allergy status to sulfonamides; M79.7 Fibromyalgia; M51.16 Intervertebral disc disorders with radiculopathy, lumbar region; R53.1 Weakness; F20.9 Schizophrenia, unspecified; E78.5 Hyperlipidemia, unspecified; D63.8 Anemia in other chronic diseases classified elsewhere; G89.29 Other chronic pain
CPT/HCPCS: 36415; 70450; 71010; 74230; 80048; 80053; 80076; 80164; 80299; 81003; 82105; 82140; 82270; 82550; 82553; 82607; 82962; 83036; 84443; 84484; 85007; 85025; 85060; 86039; 86300; 86301; 86304; 87081; 87086; 87181; 93005; 94640; 94664; 95819; 97802; 99285; J1815; J7620